=== PATIENT | female | born 1965 | race Caucasian/White ===

== ENCOUNTER → 2018-02-14 06:52 | Outpatient (CLI) | payer BC, SELFPAY ==
--- NOTE | 2018-02-14 07:02 | CT_ITS ---
HISTORY: Left nasal polyp. No nasal drainage and no previous sinus surgeries. Pt has dental caps in place. No hx cancer, diabetes, HTN. Not TECHNIQUE: Helically acquired images were obtained of the paranasal sinuses. A radiation dose optimization technique was used for this scan. IV Contrast dosage and agent: None. COMPARISON: None FINDINGS: The paranasal sinuses are normally developed. Extensive opacification of the ethmoid air cells bilaterally together with inflammatory occlusion of the ostium mall units bilaterally. Left maxillary sinus multifocal mucosal thickening. The frontal and sphenoid sinuses show no significant disease. The nasal septum shows no significant deformity. Asymmetrical soft tissue within the left nasal cavity compatible with polyposis. The posterior left nasal cavity shows 2 oval shaped polypoid lesions which measure approximately 2.4 cm and 2.5 cm in length, respectively. No associated bony erosion or bone destruction. The nasal septum remains intact. The mastoids and middle ear cavities appear clear. No orbital disease identified. CT/Sinus/Facial Bone IMPRESSION: 1. Benign-appearing polypoid lesions within the left nasal cavity compatible with allergic polyposis. 2. Extensive bilateral ethmoid sinusitis with occlusion of the ostiomeatal units bilaterally. 3. Left maxillary sinusitis. 4. No associated orbital disease identified. Individualized dose optimization techniques were used for this CT. at 0244 Reported and signed by: Naveed Shah MD Electronically Signed: Naveed Shah, at 2:42 EDT Tel , Service support ,
== END ==
PROVIDERS: Family Provider Internal Medicine; PCP Internal Medicine; Referring Provider Otolaryngology; Visit Provider Otolaryngology
DX: J33.9 Nasal polyp, unspecified (principal)
CPT/HCPCS: 70486

== ENCOUNTER → 2018-03-05 10:37 | Outpatient (CLI) | payer BC, SELFPAY ==
[2018-03-05 11:19] LABS: Hematocrit 38.9 % (37-47); Hemoglobin 12.5 g/dl (12.0-15.0); Mean Corp Hgb Conc 32.1 g/gl (32-36); Mean Corpuscular Hgb 28.9 pg (27.0-32.0); Mean Platelet Vol. 11.4 fl (6.2-12.0); Platelet Count 214 K/mm3 (150-450); RBC Distribution Width SD 42.2 fl (35.1-43.9); Red Blood Count 4.32 M/mm3 (4.2-5.4); White Blood Count 5.7 K/mm3 (4.4-11.0)
[2018-03-05 11:30] LABS: Scan Indicated on CBC? Y/N NO
[2018-03-05 11:43] LABS: Anion Gap 7 (5-15); BUN 11 mg/dL (7-18); BUN/Creat Ratio 12.9 RATIO (10-20); Calcium,Total 8.3 mg/dL (8.5-10.1); Chloride 106 mmol/L (98-107); Creatinine, Serum 0.85 mg/dL (0.55-1.02); EST Glomerular Filtration Rate 74 mL/min (>60); Est Glom Filt Rate - Afr Amer 90 mL/min (>60); Glucose 81 mg/dL (74-106); Potassium 4.3 mmol/L (3.5-5.1); Sodium Level 140 mmol/L (136-145)
== END ==
PROVIDERS: Family Provider Internal Medicine; PCP Internal Medicine; Referring Provider Otolaryngology; Visit Provider Otolaryngology
DX: Z01.812 Encounter for preprocedural laboratory examination (principal)
CPT/HCPCS: 36415; 80048; 85027

== ENCOUNTER → 2018-03-10 16:53 | Outpatient (CLI) | payer BC, SELFPAY ==
--- NOTE | 2018-03-10 10:00 | ETH_PTH ---
PATIENT: WHIT PETERSEN LOC: [facility] U#:[id number] AGE/SX: 60/F ROOM: RE03/10/[address]: Dr. Dyllan Petersen MD : 1965 BED: DIS: SPEC #: [id number] RECD: 03/10/18 16:10 STATUS: CHINMAY LUIS ANTONIO #: [id number] JOCE: 03/10/18 10:[address]: Dyllan Petersen DEPT: SURGICAL PATHOLOGY RECD BY: Thom Schwarz ENTERED: 03/11/18 10:07 SP TYPE: ETH TISS OTHR DR: Dr. Bibiana Mulligan DO Tissues: A - Ethmoid sinus, NOS B - Ethmoid sinus, NOS Procedures: Decalcification bone/plaque Surgery Specimen Level III HEADER OPERATION: Bilateral maxillary antrostomy and ethmoidectomy PRE-OP DIAGNOSIS: Polyp nasal cavity/chronic sinusitis TISSUE SUBMITTED: A. Left side sinus contents, B. Right side sinus contents MICROSCOPIC DIAGNOSIS A. Left sinus contents, excision: Consistent with chronic sinusitis. Fragments of bone with no significant pathologic change. B. Right sinus contents, excision: Consistent with chronic sinusitis. Fragments of bone with no significant pathologic change. AM:justyn 03/18/18 MICROSCOPIC DESCRIPTION Slides are reviewed. GROSS DESCRIPTION A - Received in fixative is one container labeled with the patient's name and designated left side sinus contents. The specimen consists of multiple irregular fragments of ferguson soft tissue mixed with fragments of bone that in aggregate measure 3 x 2.5 x 0.2 cm. The entire specimen is submitted in one cassette after decalcification. B - Received in fixative is one container labeled with the patient's name and designated right side sinus contents. The specimen consists of multiple irregular fragments of ferguson soft tissue mixed with fragments of bone that in aggregate measure 2.5 x 1 x 0.2 cm. The entire specimen is submitted in one cassette after decalcification. / SJ:justyn 03/11/18 TC:3 CPT: 69116 x2, 87977 x2
--- OUTSIDE RECORDS SUMMARY | 2018-04-22 16:13 | XMS RPT_ITS | Continuity of Care Document ---
:1965 Author Organization [facility] Address [address] [facility] [address] [place] [address] Phone Care Team Providers Name Role Phone Bibiana Mulligan DO Unavailable Abhilash Donovan Unavailable Eneida Guerrero Unavailable Dano Fonseca Unavailable RUKHSANA Hinton Unavailable Unavailable Thea Brody Unavailable Unavailable Unavailable Unavailable Problems Name Dates Details Allergic rhinitis (J30.9, 477.9) Comments: improving Status: Active Amenorrhea (N91.2, 626.0) Status: Active Anxiety (F41.9, 300.00) Comments: ok to take zanax with anxiety feeling Status: Active Anxiety and depression (F41.9, 300.00) Comments: stablemore anxiety with OCD per psychiatry. Status: Active BMI 39.0-39.9,adult (Z68.39, V85.39) Status: Active Body mass index 40.0-44.9, adult (Z68.41, V85.41) Status: Active Depression, acute (F32.9, 296.20) Status: Active Encounter for gynecological examination with abnormal finding (Z01.411, V72.31) Status: Active Encounter for screening for malignant neoplasm of colon (Renamed from Special screening for malignant neoplasms, colon) (Z12.11, V76.51) Comments: scope march 2015 Status: Active Encounter for screening mammogram for malignant neoplasm of breast (Z12.31, V76.12) Status: Active FAMILY HISTORY OF DIABETES MELLITUS (Z83.3, V18.0) Status: Active Folliculitis (L73.9, 704.8) Status: Active GERD (gastroesophageal reflux disease) (K21.9, 530.81) Status: Active Cinthya's thyroiditis (E06.3, 245.2) Status: Active Hot flashes (R23.2, 782.62) Comments: hormone labs normal Status: Active Influenza vaccination declined (Renamed from Refused influenza vaccine) (Z28.21, V64.06) Status: Active Lymphadenitis (I88.9, 289.3) Status: Active Mitral valve prolapse (I34.1, 424.0) Comments: clinically stable Status: Active Need for prophylactic vaccination and inoculation against influenza (Renamed from Need for immunization against influenza) (Z23, V04.81) Status: Active Nonsmoker (Z78.9, V49.89) Status: Active Nonsmoker (Z78.9, V49.89) Status: Active Other cardiac sounds (R01.2, 785.3) Status: Active Other premature beats (I49.49, 427.69) Status: Active Ptosis, bilateral (H02.403, 374.30) Status: Active Raynaud's syndrome (I73.00, 443.0) Status: Active Screening for HPV (human papillomavirus) (Renamed from Encounter for screening for human papillomavirus (HPV)) (Z11.51, V73.81) Status: Active Screening for hyperlipidemia (Z13.220, V77.91) Status: Active Stress reaction (F43.0, 308.9) Status: Active Medications Name Dates Details Fluticasone Propionate 50 MCG/ACT Nasal Suspension 2 (two) Suspension prn for 0 days Quantity: 1 {Bottle} Refills: 0 Ordered:10-Aug-2016 Marga Wade CNP Start : 10-Aug-2016 Active Lexapro 20 MG Oral Tablet 1 (one) Tablet qhs for 90 days Quantity: 90 {Tablet} Refills: 0 Ordered:17-Dec-2017 Joo Mulligan DO, DO, Kathleen Start : 17-Dec-2017 Active Lexapro 20 MG Oral Tablet 1 (one) Tablet qhs for 90 days Quantity: 90 {Tablet} Refills: 3 Ordered:17-Dec-2017 Ese ZAMBRANOJoo Bibiana Start : 17-Dec-2017 Active Synthroid 50 MCG Oral Tablet uad Tablet one every other day for 90 days Quantity: 45 {Tablet} Refills: 3 Ordered:07-Aug-2017 Marga Wade CNP Start : 07-Aug-2017 Active Dispense as Written Comments:takes 75mcg qod with 50mcgdaw Synthroid 75 MCG Oral Tablet 1 Tablet TAD for 90 days Quantity: 45 {Tablet} Refills: 3 Ordered:07-Aug-2017 Marga Wade CNP Start : 07-Aug-2017 Active Dispense as Written Comments:NO generic Dispense as written Wellbutrin XL 150 MG Oral Tablet Extended Release 24 Hour 1 (one) Tablet qd for 0 days Quantity: 90 {Tablet} Refills: 1 Ordered:21-Oct-2017 Ese ZAMBRANOJoo DO Bibiana Start : 21-Oct-2017 Active XANAX, 0.25MG (Oral Tablet) 1 (one) Tablet Daily prn for 0 days Quantity: 30 {Tablet} Refills: 0 Ordered:27-May-2013 Ese ZAMBRANOJoo Bibiana Start : 27-May-2013 Active Comments:thirty, ACYCLOVIR, 800MG (Oral Tablet) 1 Tablet 5 x daily for 7 days Quantity: 35 {Tablet} Refills: 0 Ordered:06-Nov-2010 Marga Wade CNP Start : 06-Nov-2010 End : 13-Nov-2010 Inactive Augmentin 875-125 MG Oral Tablet 1 (one) Tablet bid for 0 days Quantity: 14 {Tablet} Refills: 0 Ordered:29-Nov-2016 Laxmi Hinton LPN Start : 15-Aug-2016 End : 29-Nov-2016 Inactive BACTRIM DS, 800-160MG (Oral Tablet) 1 Tablet bid for 7 days Quantity: 14 {Tablet} Refills: 0 Ordered:26-Nov-2011 Marga Wade CNP Start : 26-Nov-2011 End : 03-Dec-2011 Inactive BRINTELLIX, 10MG (Oral Tablet) 1 (one) Tablet qd for 0 days Quantity: 30 {Tablet} Refills: 3 Ordered:18-Feb-2015 Patria Hernandez Start : 27-Aug-2014 End : 18-Feb-2015 Inactive BUSPIRONE HCL, 5MG (Oral Tablet) 1 (one) Tablet 1/2 at night for 4 days then 1/2 bid for 4 days then 1/2 in am and 1 pm for 4 days then bid for 30 days Refills: 2 Ordered:18-Feb-2015 Patria Hernandez Start : 31-Dec-2014 End : 18-Feb-2015 Inactive CIPRO, 500MG (Oral Tablet) 1 Tablet bid for 0 days Quantity: 20 {Tablet} Refills: 0 Ordered:17-Aug-2010 Laxmi Hinton LPN Start : 14-Jul-2010 End : 17-Aug-2010 Inactive ETODOLAC CR, 400MG (Oral Tablet Extended Release 24 Hour) 2 (two) Tablet ER 24HR qd for 0 days Quantity: 30 {Tablet_ER_24HR} Refills: 0 Ordered:23-Sep-2009 TAMRA Vazquez Start : 26-Aug-2009 Inactive FLEXERIL, 10MG (Oral Tablet) 1 (one) Tablet bid prn for 0 days Quantity: 30 {Tablet} Refills: 0 Ordered:23-Sep-2009 TAMRA Vazquez Start : 26-Aug-2009 Inactive GUAIATUSSIN AC, 100-10MG/5ML (Oral Syrup) 1 Syrup QHS / HS for 0 days Quantity: 6 {Ounce(s)} Refills: 0 Ordered:29-May-2007 Camelia Tyson MD Start : 29-May-2007 End : 04-Jun-2007 Inactive LEXAPRO, 20MG (Oral Tablet) 1 Tablet qd for 0 days Quantity: 30 {Tablet} Refills: 6 Ordered:07-Jun-2008 Laxmi Hinton LPN Start : 05-Nov-2007 End : 07-Jun-2008 Inactive LEXAPRO, 20MG (Oral Tablet) 1 Tablet daily for 0 days Quantity: 90 {Tablet} Refills: 3 Ordered:05-Nov-2007 Camelia Tyson MD Start : 05-Nov-2007 End : 28-May-2008 Inactive PENICILLIN V POTASSIUM, 250MG (Oral Tablet) 1 (one) Tablet tid for 10 days Quantity: 30 {Tablet} Refills: 0 Ordered:05-Nov-2007 Camelia Tyson MD Start : 05-Nov-2007 End : 13-May-2008 Inactive PHENERGAN, 25MG (Rectal Suppository) 1 (one) Suppository Q 8 hr prn for 0 days Quantity: 20 {Suppository} Refills: 0 Ordered:17-Jun-2008 Laxmi Hinton LPN Start : 17-Jun-2008 End : 09-Mar-2009 Inactive PROZAC, 20MG (Oral Capsule) 1 (one) Capsule qd for 0 days Quantity: 30 {Capsule} Refills: 3 Ordered:31-Dec-2014 TAMRA Vazquez Start : 31-Dec-2014 End : 31-Dec-2014 Inactive Comments:fidgeting, chest tightness, some increase in anxiety, chest tightness TESSALON, 200MG (Oral Capsule) 1 (one) Capsule TID for 0 days Quantity: 30 {Capsule} Refills: 0 Ordered:29-May-2007 Camelia Tyson MD Start : 29-May-2007 End : 04-Jun-2007 Inactive VENTOLIN HFA, 108 (90 Base)MCG/ACT (Inhalation Aerosol Solution) 2 (two) Aerosol Soln q 6 hr prn for 0 days Quantity: 1 {Box} Refills: 1 Ordered:31-Dec-2014 TAMRA Vazquez Start : 09-Mar-2014 End : 31-Dec-2014 Inactive ZOLOFT, 25MG (Oral Tablet) 1 (one) Tablet qd for 30 days Quantity: 30 {Tablet} Refills: 0 Ordered:01-Apr-2015 Camelia Tyson MD Start : 18-Feb-2015 End : 20-Mar-2015 Inactive Comments:titering RUPALI, 180MG (Oral Tablet) 1 Tablet qd prn for 0 days Quantity: 30 {Tablet} Refills: 2 Ordered:28-Aug-2010 Laxmi Hinton LPN Start : 28-Aug-2010 End : 04-Jun-2014 Discontinued Comments:This order discontinued per [facility]. BIAXIN XL, 500MG (Oral Tablet Extended Release 24 Hour) 1 bID for 0 days Refills: 0 Ordered:28-May-2008 Camelia Tyson MD End : 05-Nov-2007 Discontinued LEVAQUIN, 500MG (Oral Tablet) 1 Tablet Daily for 0 days Quantity: 10 {Tablet} Refills: 0 Ordered:04-Jun-2007 Camelia Tyson MD Start : 04-Jun-2007 End : 05-Nov-2007 Discontinued Allergies and Adverse Reactions Name Dates Details No Known Drug Allergies (Allergy) Status: Active Past Medical History Name Dates Details Abdominal pain, acute, right lower quadrant (R10.31, 789.03) Status: Resolved as of 26-Aug-2008 Abnormal TSH (R79.89, 790.6) Status: Resolved as of 31-Jan-2012 Breast cancer screening (Z12.39, V76.10) Status: Inactive as of 31-Dec-2014 Bronchitis (J40, 490) Comments: cONSIDER ALLERGY TESTING IF NOT BETTER Status: Resolved as of 26-Aug-2008 Chest pain (R07.9, 786.59) Status: Resolved as of 27-Jun-2009 Chest pressure (R07.89, 786.59) Status: Resolved as of 29-Jul-2017 Cough (R05, 786.2) Status: Resolved as of 26-Aug-2008 Cystitis, acute (N30.00, 595.0) 14-Jul-2010 Status: Inactive as of 09-Apr-2012 Dysuria (R30.0, 788.1) Status: Inactive as of 09-Apr-2012 Encounter for screening for human papillomavirus (hpv) (V73.81) Comments: dx code v73.81code by lab 85843 Status: Inactive as of 31-Dec-2014 Encounter for screening for respiratory tuberculosis (Z11.1, V74.1) Status: Inactive as of 09-Apr-2012 ETD (eustachian tube dysfunction) (H69.80, 381.81) Status: Inactive as of 31-Dec-2014 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 no mengingitis signs and symptoms. check labs iv fliuds. Status: Inactive as of 09-Apr-2012 Gastroenteritis (K52.9, 558.9) Status: Resolved as of 27-Jun-2009 Grieving (F43.21, 309.0) Status: Resolved as of 29-Jul-2017 Hematuria, unspecified (R31.9, 599.70) Status: Inactive as of 31-Dec-2014 Hemorrhoids (K64.9, 455.6) Comments: Internal Status: Inactive as of 27-Jun-2009 Hypothyroidism (E03.9, 244.9) Status: Inactive as of 05-Mar-2016 Nausea and vomiting (R11.2, 787.01) Status: Resolved as of 26-Aug-2008 Need for prophylactic vaccination and inoculation against influenza (Z23, V04.81) Status: Inactive as of 24-Mar-2013 Neoplasm of uncertain behavior of skin (D48.5, 238.2) Comments: treating as if shingles Status: Inactive as of 09-Apr-2012 Other general medical examination for administrative purposes (Z02.89, V70.3) Status: Inactive as of 09-Apr-2012 Palpitations (R00.2, 785.1) 18-Jan-2010 Comments: ? stress realted improved with xanax Status: Resolved as of 29-Jul-2017 Pharyngitis, acute (J02.9, 462) Status: Resolved as of 26-Aug-2008 Screening for hyperlipidemia (Z13.220, V77.91) Status: Inactive as of 31-Dec-2014 Skin tag (L91.8, 701.9) Comments: in groin snipped and removed-- cleansed with beta dine snipped and tolerated well sx/sx rev for infection and wound care and risk of recurrence-- pt signed consent Status: Resolved as of 26-Aug-2008 SOB (shortness of breath) on exertion (R06.02, 786.05) 17-Aug-2010 Comments: rev labs - tsh normal no anemia-- does have risk for clot but h/o more suspicios for anxiety Status: Inactive as of 31-Dec-2014 SYMPTOMS INVOLVING DIGESTIVE SYSTEM; DIARRHEA (787.91) Status: Resolved as of 26-Aug-2008 Thyromegaly (E04.9, 240.9) Status: Inactive as of 07-Dec-2011 Unspecified Diagnosis Status: Inactive as of 09-Apr-2012 Upper arm pain (M79.629, 729.5) 26-Aug-2009 Status: Inactive as of 09-Apr-2012 Urinary frequency (R35.0, 788.41) Status: Inactive as of 31-Dec-2014 VASOVAGAL SYNCOPE (780.2) Status: Inactive as of 30-Sep-2008 Well woman exam (Z01.419, V72.31) Status: Inactive as of 31-Dec-2014 Wheezing (R06.2, 786.07) Status: Resolved as of 26-Aug-2008 Procedures Date Value Details 14-Feb-2018 Sinus/Facial Bone Result: Comments: See Note; NOTES: [facility] Imaging Services [address] [place] [address] Sinus/Facial Bone MR#: [id number] Acct: [id number] Name: WHIT PETERSEN Rep #: [id number] : 1965 F 53 From: Naveed Shah MD PCP: Bibiana Mulligan DO Status: REG CLI Study: Sinus/Facial Bone Date of Exam: 02/14/18 Exam# [id number] Ordering Dr: Dyllan Petersen MD HISTORY: Left nasal p olyp. No nasal drainage and no previous sinus surgeries. Pt has dental caps in place. No hx cancer, diabetes, HTN. Not TECHNIQUE: Helically acquired images were obtained of the paranasal sinus es. A radiation dose optimization technique was used for this scan. IV Contrast dosage and agent: None. COMPARISON: None FINDINGS: The paranasal sinuses are normally developed. Extensive opacification of the ethmoid air cells bilaterally together with inflammatory occlusion of the ostium mall units bilaterally. Left maxillary sinus multifocal mucosal thickening. The frontal and sphenoid sinuses antonella w no significant disease. The nasal septum shows no significant deformity. Asymmetrical soft tissue within the left nasal cavity compatible with polyposis. The posterior left nasal cavity shows 2 oval shaped polypoid lesions which measure approximately 2.4 cm and 2.5 cm in length, respectively. No associated bony erosion or bone destruction. The nasal septum remains intact. The mastoids and middle ear cavities appear clear. No orbital disease identified. CT/Sinus/Facial Bone IMPRESSION: 1. Benign-appearing polypoid lesions within the left nasal cavity compatible with allergi c polyposis. 2. Extensive bilateral ethmoid sinusitis with occlusion of the ostiomeatal units bilaterally. 3. Left maxillary sinusitis. 4. No associated orbital disease identified. Individualized dose o ptimization techniques were used for this CT. at 0244 Reported and signed by: Naveed Shah MD Electronically Signed: Naveed Shah, at 2:42 EDT Tel , Service support , CC: Bibiana Mulligan DO; Dyllan Petersen MD Form Presser: Signed 03-Jun-2013 Chest PA and Lateral Result: Comments: See Note; NOTES: [facility] Imaging Services [address] [place] [address] Radiology Report MR#: [id number] Acct: [id number] Name: WHIT PETERSEN Rep #: [id number] : 1965 F 48 From: Eliezer Hung MD PCP: Bibiana Mulligan DO Status: REG CLI Study: Chest PA and Lateral Date of Exam: 06/03/13 Exam# [id number] Ordering Dr: Bibiana MulliganDY: X-RAY CHEST REASON FOR EXAM: Female, 48 years old. Shortness of breath TECHNIQUE: PA and lateral views of the chest. COMPARISON: March 06, 2011 FIND INGS: The lungs are clear and expanded. There is no demonstrated pleural abnormality. Normal size heart. Normal mediastinum and yamil. Normal visualized pulmonary arteries. Normal visualized aortic arch and descending thoracic aorta. Normal visualized thoracic spine. Normal visualized ribs, clavicles, and shoulders. There is no demonstrated abnormality of the visualized soft tissue structu res of the upper abdomen. IMPRESSION: Normal x-ray examination of the chest. Electronically Signed: Eliezer Hung M.D. at 9:12 EST Tel , Service support [phone], CC: Bibiana Mulligan DO Form Presser: Signed Immunization Name Dates Details Tdap (7 years and up) on: 06-Apr-2009 Comments: Lot #[id number]-left deltoidgiven by:[facility] Family History Unknown Family Member Name Dates Details Family Members In General Comments: Bowel Cancer, emotional problems, seizures, stroke Status: Active Social History Name Dates Details Alcohol Use Comments: Occasional alcohol use Status: Active Caffeine Use Comments: 1 coffee, 1 cola QD Status: Active No Drug Use Status: Active Non Smoker/No Tobacco Use Status: Active Tobacco use: Never smoker. Status: Active Smoking Status Name Dates Details Never smoker Vital Signs Date Test Result Details 30-Bps-195574:14 Pulse 80 /min Comments: Pattern: Regular Respiration Rate 20 /min Comments: Pattern: Unlabored O2 SAT 97 % Comments: Room air BP Systolic 124 mm[Hg] Comments: Patient Position: Sitting; Cuff Location: Left Arm; Cuff Size: Large BP Diastolic 78 mm[Hg] Comments: Patient Position: Sitting; Cuff Location: Left Arm; Cuff Size: Large Weight 235.25 lb Height 65 in Body Mass Index Calculated 39.15 kg/m2 Body Surface Area Calculated 2.12 m2 :54 Pulse 64 /min Comments: Pattern: Regular Respiration Rate 18 /min Comments: Pattern: Unlabored O2 SAT 98 % Comments: Room air BP Systolic 120 mm[Hg] Comments: Patient Position: Sitting; Cuff Location: Left Arm; Cuff Size: Large BP Diastolic 78 mm[Hg] Comments: Patient Position: Sitting; Cuff Location: Left Arm; Cuff Size: Large Weight 235.25 lb Height 65 in Body Mass Index Calculated 39.15 kg/m2 Body Surface Area Calculated 2.12 m2 :45 Temperature 97.1 f Comments: Method: Temporal Pulse 69 /min Comments: Pattern: Regular Respiration Rate 18 /min Comments: Pattern: Unlabored O2 SAT 99 % Comments: Room air BP Systolic 134 mm[Hg] Comments: Patient Position: Sitting; Cuff Location: Left Arm; Cuff Size: Large BP Diastolic 84 mm[Hg] Comments: Patient Position: Sitting; Cuff Location: Left Arm; Cuff Size: Large Weight 236.375 lb Height 65 in Body Mass Index Calculated 39.33 kg/m2 Body Surface Area Calculated 2.12 m2 :42 Pulse 62 /min Comments: Pattern: Regular Respiration Rate 18 /min Comments: Pattern: Unlabored O2 SAT 97 % Comments: Room air BP Systolic 122 mm[Hg] Comments: Patient Position: Sitting; Cuff Location: Left Arm; Cuff Size: Large BP Diastolic 76 mm[Hg] Comments: Patient Position: Sitting; Cuff Location: Left Arm; Cuff Size: Large Weight 243.125 lb Height 65 in Body Mass Index Calculated 40.46 kg/m2 Body Surface Area Calculated 2.15 m2 :41 Temperature 97.6 f Pulse 77 /min Comments: Pattern: Regular Respiration Rate 17 /min Comments: Pattern: Unlabored O2 SAT 98 % Comments: Room air BP Systolic 124 mm[Hg] Comments: Patient Position: Sitting; Cuff Location: Left Arm; Cuff Size: Standard BP Diastolic 82 mm[Hg] Comments: Patient Position: Sitting; Cuff Location: Left Arm; Cuff Size: Standard Weight 244 lb Height 65 in Body Mass Index Calculated 40.6 kg/m2 Body Surface Area Calculated 2.15 m2 :45 Temperature 98 f Pulse 77 /min Comments: Pattern: Regular Respiration Rate 17 /min Comments: Pattern: Unlabored O2 SAT 98 % Comments: Room air BP Systolic 132 mm[Hg] Comments: Patient Position: Sitting; Cuff Location: Left Arm; Cuff Size: Standard BP Diastolic 60 mm[Hg] Comments: Patient Position: Sitting; Cuff Location: Left Arm; Cuff Size: Standard Weight 243.5 lb Height 65 in Body Mass Index Calculated 40.52 kg/m2 Body Surface Area Calculated 2.15 m2 :16 Pulse 72 /min Comments: Pattern: Regular O2 SAT 98 % Comments: Room air BP Systolic 118 mm[Hg] Comments: Patient Position: Sitting; Cuff Location: Left Arm; Cuff Size: Large BP Diastolic 68 mm[Hg] Comments: Patient Position: Sitting; Cuff Location: Left Arm; Cuff Size: Large Weight 241.125 lb Height 65 in Body Mass Index Calculated 40.12 kg/m2 Body Surface Area Calculated 2.14 m2 :14 Pulse 75 /min Comments: Pattern: Regular O2 SAT 98 % Comments: Room air BP Systolic 122 mm[Hg] Comments: Patient Position: Sitting; Cuff Location: Left Arm; Cuff Size: Large BP Diastolic 78 mm[Hg] Comments: Patient Position: Sitting; Cuff Location: Left Arm; Cuff Size: Large Weight 235.125 lb Height 65 in Body Mass Index Calculated 39.13 kg/m2 Body Surface Area Calculated 2.12 m2 :15 Temperature 98.4 f Comments: Method: Oral Pulse 66 /min Comments: Pattern: Regular Respiration Rate 18 /min Comments: Pattern: Unlabored O2 SAT 98 % Comments: Room air BP Systolic 122 mm[Hg] Comments: Patient Position: Sitting; Cuff Location: Left Arm; Cuff Size: Standard BP Diastolic 74 mm[Hg] Comments: Patient Position: Sitting; Cuff Location: Left Arm; Cuff Size: Standard Weight 239 lb Height 65 in Body Mass Index Calculated 39.77 kg/m2 Body Surface Area Calculated 2.13 m2 :52 Temperature 97.6 f Comments: Method: Temporal Pulse 64 /min Comments: Pattern: Regular Respiration Rate 18 /min Comments: Pattern: Unlabored O2 SAT 98 % Comments: Room air BP Systolic 120 mm[Hg] Comments: Patient Position: Sitting; Cuff Location: Left Arm; Cuff Size: Large BP Diastolic 78 mm[Hg] Comments: Patient Position: Sitting; Cuff Location: Left Arm; Cuff Size: Large Weight 232 lb Height 65 in Body Mass Index Calculated 38.61 kg/m2 Body Surface Area Calculated 2.11 m2 :51 Pulse 68 /min Comments: Pattern: Regular Respiration Rate 18 /min Comments: Pattern: Unlabored O2 SAT 99 % Comments: Room air BP Systolic 118 mm[Hg] Comments: Patient Position: Sitting; Cuff Location: Left Arm; Cuff Size: Large BP Diastolic 68 mm[Hg] Comments: Patient Position: Sitting; Cuff Location: Left Arm; Cuff Size: Large Weight 238.125 lb Height 65 in Body Mass Index Calculated 39.63 kg/m2 Body Surface Area Calculated 2.13 m2 :26 Pulse 66 /min Comments: Pattern: Regular Respiration Rate 20 /min Comments: Pattern: Unlabored O2 SAT 98 % Comments: Room air BP Systolic 120 mm[Hg] Comments: Patient Position: Sitting; Cuff Location: Left Arm; Cuff Size: Large BP Diastolic 70 mm[Hg] Comments: Patient Position: Sitting; Cuff Location: Left Arm; Cuff Size: Large Weight 240.4375 lb Height 65 in Body Mass Index Calculated 40.01 kg/m2 Body Surface Area Calculated 2.14 m2 :16 Pulse 74 /min Comments: Pattern: Regular Respiration Rate 18 /min Comments: Pattern: Unlabored O2 SAT 99 % Comments: Room air BP Systolic 124 mm[Hg] Comments: Patient Position: Sitting; Cuff Location: Left Arm; Cuff Size: Large BP Diastolic 82 mm[Hg] Comments: Patient Position: Sitting; Cuff Location: Left Arm; Cuff Size: Large Weight 234.4375 lb Height 65 in Body Mass Index Calculated 39.01 kg/m2 Body Surface Area Calculated 2.12 m2 :52 Temperature 97.2 f Comments: Method: Temporal Pulse 73 /min Comments: Pattern: Regular Respiration Rate 16 /min Comments: Pattern: Unlabored O2 SAT 92 % Comments: Room air BP Systolic 124 mm[Hg] Comments: Patient Position: Sitting; Cuff Location: Left Arm; Cuff Size: Standard BP Diastolic 68 mm[Hg] Comments: Patient Position: Sitting; Cuff Location: Left Arm; Cuff Size: Standard Weight 247 lb Height 65 in Body Mass Index Calculated 41.1 kg/m2 Body Surface Area Calculated 2.16 m2 :04 Pulse 64 /min Comments: Pattern: Regular Respiration Rate 20 /min Comments: Pattern: Unlabored O2 SAT 98 % Comments: Room air BP Systolic 128 mm[Hg] Comments: Patient Position: Sitting; Cuff Location: Left Arm; Cuff Size: Large BP Diastolic 84 mm[Hg] Comments: Patient Position: Sitting; Cuff Location: Left Arm; Cuff Size: Large Weight 251 lb Height 65 in Body Mass Index Calculated 41.77 kg/m2 Body Surface Area Calculated 2.18 m2 :45 Comments: weight taken with shoes and coat Temperature 97.6 f Comments: Method: Temporal Pulse 101 /min Comments: Pattern: Regular Respiration Rate 16 /min Comments: Pattern: Unlabored O2 SAT 93 % Comments: Room air BP Systolic 128 mm[Hg] Comments: Patient Position: Sitting; Cuff Location: Left Arm; Cuff Size: Standard BP Diastolic 74 mm[Hg] Comments: Patient Position: Sitting; Cuff Location: Left Arm; Cuff Size: Standard Weight 251 lb Height 65 in Body Mass Index Calculated 41.77 kg/m2 Body Surface Area Calculated 2.18 m2 :05 Temperature 97.5 f Comments: Method: Oral Pulse 80 /min Comments: Pattern: Regular Respiration Rate 20 /min Comments: Pattern: Unlabored BP Systolic 128 mm[Hg] Comments: Patient Position: Sitting; Cuff Location: Left Arm; Cuff Size: Large BP Diastolic 70 mm[Hg] Comments: Patient Position: Sitting; Cuff Location: Left Arm; Cuff Size: Large Weight 243 lb Height 65 in Body Mass Index Calculated 40.44 kg/m2 Body Surface Area Calculated 2.15 m2 :16 Temperature 97.9 f Comments: Method: Oral Pulse 64 /min Comments: Pattern: Regular Respiration Rate 18 /min Comments: Pattern: Unlabored BP Systolic 124 mm[Hg] Comments: Patient Position: Sitting; Cuff Location: Left Arm; Cuff Size: Large BP Diastolic 82 mm[Hg] Comments: Patient Position: Sitting; Cuff Location: Left Arm; Cuff Size: Large Weight 240.4375 lb Height 65 in Body Mass Index Calculated 40.01 kg/m2 Body Surface Area Calculated 2.14 m2 :52 Temperature 98.4 f Comments: Method: Oral Pulse 78 /min Comments: Pattern: Regular Respiration Rate 18 /min Comments: Pattern: Unlabored BP Systolic 122 mm[Hg] Comments: Patient Position: Sitting; Cuff Location: Left Arm; Cuff Size: Standard BP Diastolic 78 mm[Hg] Comments: Patient Position: Sitting; Cuff Location: Left Arm; Cuff Size: Standard Weight 236.25 lb Height 65 in Body Mass Index Calculated 39.31 kg/m2 Body Surface Area Calculated 2.12 m2 :14 Temperature 98.6 f Comments: Method: Oral Pulse 86 /min Comments: Pattern: Regular Respiration Rate 18 /min Comments: Pattern: Unlabored BP Systolic 122 mm[Hg] Comments: Patient Position: Sitting; Cuff Location: Left Arm; Cuff Size: Standard BP Diastolic 78 mm[Hg] Comments: Patient Position: Sitting; Cuff Location: Left Arm; Cuff Size: Standard Weight 236.25 lb Height 65 in Body Mass Index Calculated 39.31 kg/m2 Body Surface Area Calculated 2.12 m2 :47 Temperature 98.8 f Comments: Method: Oral Pulse 94 /min Comments: Pattern: Regular Respiration Rate 18 /min Comments: Pattern: Unlabored BP Systolic 128 mm[Hg] Comments: Patient Position: Sitting; Cuff Location: Left Arm; Cuff Size: Standard BP Diastolic 80 mm[Hg] Comments: Patient Position: Sitting; Cuff Location: Left Arm; Cuff Size: Standard Weight 236.25 lb Height 65 in Body Mass Index Calculated 39.31 kg/m2 Body Surface Area Calculated 2.12 m2 :54 Temperature 102.2 f Comments: Method: Oral Pulse 110 /min Comments: Pattern: Regular Respiration Rate 18 /min Comments: Pattern: Unlabored O2 SAT 95 % Comments: Room air BP Systolic 132 mm[Hg] Comments: Patient Position: Sitting; Cuff Location: Left Arm; Cuff Size: Standard BP Diastolic 80 mm[Hg] Comments: Patient Position: Sitting; Cuff Location: Left Arm; Cuff Size: Standard Weight 237.375 lb Height 65.5 in Body Mass Index Calculated 38.9 kg/m2 Body Surface Area Calculated 2.14 m2 :50 Temperature 98.5 f Comments: Method: Oral Pulse 68 /min Comments: Pattern: Regular Respiration Rate 18 /min Comments: Pattern: Unlabored BP Systolic 128 mm[Hg] Comments: Patient Position: Sitting; Cuff Location: Left Arm; Cuff Size: Standard BP Diastolic 82 mm[Hg] Comments: Patient Position: Sitting; Cuff Location: Left Arm; Cuff Size: Standard Weight 237.375 lb Height 65.5 in Body Mass Index Calculated 38.9 kg/m2 Body Surface Area Calculated 2.14 m2 :59 Pulse 64 /min Comments: Pattern: Regular Respiration Rate 20 /min Comments: Pattern: Unlabored BP Systolic 124 mm[Hg] Comments: Patient Position: Sitting; Cuff Location: Left Arm; Cuff Size: Large BP Diastolic 82 mm[Hg] Comments: Patient Position: Sitting; Cuff Location: Left Arm; Cuff Size: Large Weight 237.375 lb Height 65.5 in Body Mass Index Calculated 38.9 kg/m2 Body Surface Area Calculated 2.14 m2 :00 Pulse 68 /min Comments: Pattern: Regular Respiration Rate 20 /min Comments: Pattern: Unlabored BP Systolic 124 mm[Hg] Comments: Patient Position: Sitting; Cuff Location: Left Arm; Cuff Size: Large BP Diastolic 82 mm[Hg] Comments: Patient Position: Sitting; Cuff Location: Left Arm; Cuff Size: Large Weight 233.375 lb Height 65.5 in Body Mass Index Calculated 38.24 kg/m2 Body Surface Area Calculated 2.12 m2 :03 Pulse 64 /min Comments: Pattern: Regular Respiration Rate 20 /min Comments: Pattern: Unlabored BP Systolic 132 mm[Hg] Comments: Patient Position: Sitting; Cuff Location: Left Arm; Cuff Size: Large BP Diastolic 84 mm[Hg] Comments: Patient Position: Sitting; Cuff Location: Left Arm; Cuff Size: Large Weight 238.375 lb Height 65.5 in Body Mass Index Calculated 39.06 kg/m2 Body Surface Area Calculated 2.14 m2 :50 Pulse 80 /min Comments: Pattern: Regular Respiration Rate 20 /min Comments: Pattern: Unlabored BP Systolic 122 mm[Hg] Comments: Patient Position: Sitting; Cuff Location: Left Arm; Cuff Size: Large BP Diastolic 62 mm[Hg] Comments: Patient Position: Sitting; Cuff Location: Left Arm; Cuff Size: Large Weight 238.375 lb Height 65.5 in Body Mass Index Calculated 39.06 kg/m2 Body Surface Area Calculated 2.14 m2 :02 Pulse 76 /min Comments: Pattern: Regular Respiration Rate 20 /min Comments: Pattern: Unlabored BP Systolic 122 mm[Hg] Comments: Patient Position: Sitting; Cuff Location: Left Arm; Cuff Size: Large BP Diastolic 76 mm[Hg] Comments: Patient Position: Sitting; Cuff Location: Left Arm; Cuff Size: Large Weight 233.5625 lb Height 65.5 in Body Mass Index Calculated 38.28 kg/m2 Body Surface Area Calculated 2.12 m2 :43 Pulse 74 /min Comments: Pattern: Regular Respiration Rate 18 /min Comments: Pattern: Unlabored BP Systolic 114 mm[Hg] Comments: Patient Position: Sitting; Cuff Location: Left Arm; Cuff Size: Large BP Diastolic 70 mm[Hg] Comments: Patient Position: Sitting; Cuff Location: Left Arm; Cuff Size: Large :05 Pulse 78 /min Comments: Pattern: Regular Respiration Rate 18 /min Comments: Pattern: Unlabored BP Systolic 100 mm[Hg] Comments: Patient Position: Sitting; Cuff Location: Left Arm; Cuff Size: Standard BP Diastolic 68 mm[Hg] Comments: Patient Position: Sitting; Cuff Location: Left Arm; Cuff Size: Standard Weight 243 lb :44 Pulse 68 /min Comments: Pattern: Regular Respiration Rate 20 /min Comments: Pattern: Unlabored BP Systolic 134 mm[Hg] Comments: Patient Position: Sitting; Cuff Location: Left Arm; Cuff Size: Large BP Diastolic 72 mm[Hg] Comments: Patient Position: Sitting; Cuff Location: Left Arm; Cuff Size: Large Weight 244.375 lb :51 Pulse 80 /min Comments: Pattern: Regular Respiration Rate 16 /min Comments: Pattern: Unlabored BP Systolic 128 mm[Hg] Comments: Patient Position: Sitting; Cuff Location: Left Arm; Cuff Size: Large BP Diastolic 80 mm[Hg] Comments: Patient Position: Sitting; Cuff Location: Left Arm; Cuff Size: Large Weight 250 lb Height 0 in Head Circumference 0.00 cm :18 Temperature 97.3 f Comments: Method: Oral Pulse 68 /min Comments: Pattern: Regular Respiration Rate 16 /min Comments: Pattern: Unlabored BP Systolic 116 mm[Hg] Comments: Patient Position: Sitting; Cuff Location: Left Arm; Cuff Size: Large BP Diastolic 68 mm[Hg] Comments: Patient Position: Sitting; Cuff Location: Left Arm; Cuff Size: Large Weight 0 lb Height 0 in Head Circumference 0.00 cm :29 Pulse 64 /min Comments: Pattern: Regular Respiration Rate 20 /min Comments: Pattern: Unlabored BP Systolic 132 mm[Hg] Comments: Patient Position: Sitting; Cuff Location: Left Arm; Cuff Size: Large BP Diastolic 78 mm[Hg] Comments: Patient Position: Sitting; Cuff Location: Left Arm; Cuff Size: Large Weight 237 lb Height 0 in Head Circumference 0.00 cm :52 Comments: reported Pulse 80 /min Comments: Pattern: Regular Respiration Rate 20 /min Comments: Pattern: Unlabored BP Systolic 118 mm[Hg] Comments: Patient Position: Sitting; Cuff Location: Left Arm; Cuff Size: Large BP Diastolic 72 mm[Hg] Comments: Patient Position: Sitting; Cuff Location: Left Arm; Cuff Size: Large Weight 237 lb Height 0 in Head Circumference 0.00 cm :55 Temperature 97.2 f Comments: Method: Oral Pulse 64 /min Comments: Pattern: Regular Respiration Rate 18 /min Comments: Pattern: Unlabored BP Systolic 110 mm[Hg] Comments: Patient Position: Sitting; Cuff Location: Left Arm; Cuff Size: Large BP Diastolic 66 mm[Hg] Comments: Patient Position: Sitting; Cuff Location: Left Arm; Cuff Size: Large Weight 237 lb Height 0 in Head Circumference 0.00 cm :13 Temperature 98.4 f Comments: Method: Oral Pulse 72 /min Comments: Pattern: Regular Respiration Rate 20 /min Comments: Pattern: Unlabored BP Systolic 124 mm[Hg] Comments: Patient Position: Sitting; Cuff Location: Left Arm; Cuff Size: Large BP Diastolic 78 mm[Hg] Comments: Patient Position: Sitting; Cuff Location: Left Arm; Cuff Size: Large Weight 237 lb Height 0 in Head Circumference 0.00 cm :17 Temperature 98.3 f Comments: Method: Oral Pulse 64 /min Comments: Pattern: Regular Respiration Rate 20 /min Comments: Pattern: Unlabored BP Systolic 128 mm[Hg] Comments: Patient Position: Sitting; Cuff Location: Left Arm; Cuff Size: Standard BP Diastolic 78 mm[Hg] Comments: Patient Position: Sitting; Cuff Location: Left Arm; Cuff Size: Standard Weight 237 lb Height 0 in Head Circumference 0.00 cm :08 Temperature 97.9 f Comments: Method: Oral Pulse 76 /min Comments: Pattern: Regular Respiration Rate 16 /min Comments: Pattern: Unlabored O2 SAT 98 % Comments: Room air BP Systolic 130 mm[Hg] Comments: Patient Position: Sitting; Cuff Location: Left Arm; Cuff Size: Standard BP Diastolic 72 mm[Hg] Comments: Patient Position: Sitting; Cuff Location: Left Arm; Cuff Size: Standard Weight 237 lb Height 0 in Head Circumference 0.00 cm :13 Temperature 98.5 f Comments: Method: Oral Pulse 74 /min Comments: Pattern: Regular Respiration Rate 17 /min Comments: Pattern: Unlabored BP Systolic 126 mm[Hg] Comments: Patient Position: Sitting; Cuff Location: Left Arm; Cuff Size: Standard BP Diastolic 68 mm[Hg] Comments: Patient Position: Sitting; Cuff Location: Left Arm; Cuff Size: Standard Weight 237 lb Height 0 in Head Circumference 0.00 cm :18 Temperature 97.9 f Comments: Method: Oral Pulse 68 /min Comments: Pattern: Regular Respiration Rate 18 /min Comments: Pattern: Unlabored BP Systolic 124 mm[Hg] Comments: Patient Position: Sitting; Cuff Location: Right Arm; Cuff Size: Large BP Diastolic 66 mm[Hg] Comments: Patient Position: Sitting; Cuff Location: Right Arm; Cuff Size: Large Weight 237 lb Height 0 in Head Circumference 0.00 cm :45 Temperature 98.2 f Comments: Method: Oral Pulse 72 /min Comments: Pattern: Regular Respiration Rate 16 /min Comments: Pattern: Unlabored BP Systolic 114 mm[Hg] Comments: Patient Position: Sitting; Cuff Location: Left Arm; Cuff Size: Standard BP Diastolic 78 mm[Hg] Comments: Patient Position: Sitting; Cuff Location: Left Arm; Cuff Size: Standard Weight 237 lb Height 0 in Head Circumference 0.00 cm :06 Pulse 68 /min Comments: Pattern: Regular Respiration Rate 17 /min Comments: Pattern: Unlabored BP Systolic 110 mm[Hg] Comments: Patient Position: Sitting; Cuff Location: Left Arm; Cuff Size: Standard BP Diastolic 78 mm[Hg] Comments: Patient Position: Sitting; Cuff Location: Left Arm; Cuff Size: Standard Weight 237 lb Height 0 in Head Circumference 0.00 cm :07 Temperature 98.5 f Comments: Method: Oral Pulse 76 /min Comments: Pattern: Regular Respiration Rate 17 /min Comments: Pattern: Unlabored BP Systolic 120 mm[Hg] Comments: Patient Position: Sitting; Cuff Location: Left Arm; Cuff Size: Standard BP Diastolic 74 mm[Hg] Comments: Patient Position: Sitting; Cuff Location: Left Arm; Cuff Size: Standard Weight 237 lb Height 0 in Head Circumference 0.00 cm :05 Temperature 98.4 f Comments: Method: Undefined Pulse 78 /min Comments: Pattern: Regular Respiration Rate 16 /min Comments: Pattern: Undefined BP Systolic 124 mm[Hg] Comments: Patient Position: Undefined; Cuff Location: Undefined; Cuff Size: Undefined BP Diastolic 72 mm[Hg] Comments: Patient Position: Undefined; Cuff Location: Undefined; Cuff Size: Undefined Weight 0 lb Height 0 in Head Circumference 0.00 cm :42 Temperature 102 f Comments: Method: Undefined Pulse 78 /min Comments: Pattern: Regular Respiration Rate 16 /min Comments: Pattern: Undefined BP Systolic 132 mm[Hg] Comments: Patient Position: Undefined; Cuff Location: Undefined; Cuff Size: Undefined BP Diastolic 60 mm[Hg] Comments: Patient Position: Undefined; Cuff Location: Undefined; Cuff Size: Undefined Weight 0 lb Height 0 in Head Circumference 0.00 cm :41 Temperature 97.3 f Comments: Method: Oral Pulse 64 /min Comments: Pattern: Regular Respiration Rate 16 /min Comments: Pattern: Undefined BP Systolic 106 mm[Hg] Comments: Patient Position: Sitting; Cuff Location: Undefined; Cuff Size: Undefined BP Diastolic 72 mm[Hg] Comments: Patient Position: Sitting; Cuff Location: Undefined; Cuff Size: Undefined Weight 237 lb Height 0 in Head Circumference 0.00 cm Results Date Description Value Details [id number]-[id number]:00 ETHMOID TISSUE See Note (Normal) Comments: [facility] [address] [place], [place], [address] Comments: Patient: WHIT PETERSEN : 1965 (53/F) Acct Num: [id number] Phys: Nicola KINGSTON,Dyllan Unit Num: [id number] Loc: LAB Specimen: [id number] Received: 03/10/18 - 1609 Spec Type: ET H TISS TISSUES 1 TISSUES: A. Ethmoid sinus, NOS - LEFT SIDE B. Ethmoid sinus, NOS - RIGHT SIDE GROSS DESCRIPTION A - Received in fixative is one container labeled with the patient's name and designated left side sinus contents. The specimen consists of multiple irregular fragments of ferguson soft tissue mixed with fragments of bone that in aggregate measure 3 x 2 .5 x 0.2 cm. The entire specimen is submitted in one cassette after decalcification. B - Received in fixative is one container labeled with the patient's name and designated right side sinus conten ts. The specimen consists of multiple irregular fragments of ferguson soft tissue mixed with fragments of bone that in aggregate measure 2.5 x 1 x 0.2 cm. The entire specimen is submitted in one cassette after decalcification. / ABBI:justyn 03/11/18 TC:3 CPT: 78653 x2, 63289 x2 HEADER OPERATION: Bilateral maxillary antrostomy and ethmoidectomy PRE-OP DIAGNOSIS: Polyp nasal cavity/chronic sinusitis TISSUE SUBMITTED: A. Left side sinus contents, B. Right side sinus contents MICROSCOPIC DESCRIPTION Slides are reviewed. MICROSCOPIC DIAGNOSIS A. Left sinus contents, excision: Consistent with chronic sinusitis. Fragments of bone with no significant pathologic change. B. Right sinus contents, excision: Consistent with chronic sinusitis. Fragments of bone with no sign ificant pathologic change. AM:justyn 03/18/18 Signed Christian Bender 03/18/18 <signature on file> [id number] Basic Metabolic Profile (BMP) Comments: [facility] [id number] [place], [place], [id number] GAP 7 (Normal) Range: 5-15 CO2 27.0 mmol/L (Normal) Range: 21.0-32.0 CL 106 mmol/L (Normal) Range: 98-107 K 4.3 mmol/L (Normal) Range: 3.5-5.1 NA 140 mmol/L (Normal) Range: 136-145 CA 8.3 mg/dL (Abnormal) Range: 8.5-10.1 BUN/CRE 12.9 {RATIO} (Normal) Range: 10-20 EST GFR - AA 90 mL/min (Normal) Comments: GFR Calc EST GFR 74 mL/min (Normal) Comments: Non- GFR Calc CREAT,SERUM 0.85 mg/dL (Normal) Range: 0.55-1.02 Comments: The validity of the calculated GFR AND GFRAA in patients over70 years has not been determined. Clinical correlation isessential. BUN 11 mg/dL (Normal) Range: 7-18 GLU 81 mg/dL (Normal) Range: 74-106 Comments: Please note revised GLUCOSE reference range qymguorwx35/02/2018. 89-Eer-[id number]:40 CBC-Complete Blood Cnt No Diff Comments: [facility] [address] [place], [place], [id number] MPV 11.4 fL (Normal) Range: 6.2-12.0 PLT 214 K/mm3 (Normal) Range: 150-450 RDW SD 42.2 fL (Normal) Range: 35.1-43.9 RDW CV 13.0 % (Normal) Range: 11.6-14.6 MCHC 32.1 {g/gl} (Normal) Range: 32-36 MCH 28.9 pg (Normal) Range: 27.0-32.0 MCV 90.0 fL (Normal) Range: 81-99 HCT 38.9 % (Normal) Range: 37-47 HGB 12.5 g/dL (Normal) Range: 12.0-15.0 RBC 4.32 {M/mm3} (Normal) Range: 4.2-5.4 WBC 5.7 K/mm3 (Normal) Range: 4.4-11.0 36-Fkj-659501:34 GONADOTROPIN-LH (00355) Comments: PATIENT NOT FASTINGPERFORMED BY: [facility] [facility] [id number] LH 4.1 m[iU]/mL (Normal) Comments: Adult Female: Follicular phase 2.4 - 12.6 Ovulation phase 14.0 - 95.6 Luteal phase 1.0 - 11.4 Postmenopausal 7.7 - 58.5 :34 GONADOTROPIN-FSH (64703) Comments: PATIENT NOT FASTINGPERFORMED BY: [facility] [facility] [id number] FSH 9.5 m[iU]/mL (Normal) Comments: Adult Female: Follicular phase 3.5 - 12.5 Ovulation phase 4.7 - 21.5 Luteal phase 1.7 - 7.7 Postmenopausal 25.8 - 134.8 :27 MYOGLOBIN (44727) Comments: PATIENT NOT FASTINGPERFORMED BY: [facility] [facility] [id number] Myoglobin, Serum 21 ng/mL (Abnormal) Range: 25-58 :27 CPK MB FRACTION (22909) Comments: PATIENT NOT FASTINGPERFORMED BY: [facility] [facility] [id number] Creatine Kinase (CK), MB 1.0 ng/mL (Normal) Range: 0.0-5.3 :27 ASSAY, TROPONIN, QUANTITATIVE Comments: PATIENT NOT FASTINGPERFORMED BY: [facility] [facility] [id number] (aka Troponin I) (76042) Troponin I <0.01 ng/mL (Normal) Range: 0.00-0.04 :27 T4, FREE (THYROXINE) (45678) Comments: PATIENT NOT FASTINGPERFORMED BY: [facility] [facility] [id number] T4,Free(Direct) 1.18 ng/dL (Normal) Range: 0.82-1.77 :27 T3, FREE (TRIDOTHYRONINE) (63947) Comments: PATIENT NOT FASTINGPERFORMED BY: CB [facility] Idtnsv[address]59 [facility] [id number] Triiodothyronine,Free,Serum 2.7 pg/mL (Normal) Range: 2.0-4.4 58-Wwm-310252:27 TSH (64554) Comments: PATIENT NOT FASTINGPERFORMED BY: [facility] [id number] [facility] [id number] TSH 2.980 {uIU/mL} (Normal) Range: 0.450-4.500 :03 HPV automatic Comments: Source.............Cervix;EndocervixNo. of containers..01 CYTYC Thin Prep VialPATIENT NOT FASTINGPERFORMED BY: WB [facility] [address] [id number] BY: =G [facility] ([address]) [address] [id number] Information: [id number] HPV, high-risk Negative Comments: This high-risk HPV test detects thirteen high- risk types(16/18/31/33/35/39/45/51/52/56/58/59/68) without differentiation. . (Normal) Note: PAPSMR (Normal) Comments: The Pap smear is a screening test designed to aid in the detection ofpremalignant and malignant conditions of the uterine cervix. It is not adiagnostic procedure and should not be used as the sole mean s of detectingcervical cancer. Both false-positive and false-negative reports do occur. .This liquid based ThinPrep(R) pap test w as screened with theuse of an image guided system. See Note . (Normal) DIAGNOSIS: SPRCS (Normal) Comments: NEGATIVE FOR INTRAEPITHELIAL LESION AND MALIGNANCY.Satisfactory for evaluation. Endocervical and/or squamous metaplasticcells (endocervical component) are present.Z11.51Zaki Ramsey totechnologist 04-Fej-244662:01 HPV automatic Comments: Source.............Cervical;EndocervicalNo. of containers..01 CYTYC Thin Prep VialPATIENT NOT FASTINGPERFORMED BY: [facility] Eccyyaucax480 [facility] [id number] BY: =G L (35491) Eusebio Mataton120 [facility]MemphisHetalWellSpan [facility] [id number] Information: [id number] HPV, high-risk Negative Comments: This high-risk HPV test detects thirteen high- risk types(16/18/31/33/35/39/45/51/52/56/58/59/68) without differentiation. . (Normal) Note: PAPSMR (Normal) Comments: The Pap smear is a screening test designed to aid in the detection ofpremalignant and malignant conditions of the uterine cervix. It is not adiagnostic procedure and should not be used as the sole mean s of detectingcervical cancer. Both false-positive and false-negative reports do occur. .This liquid based ThinPrep(R) pap test w as screened with theuse of an image guided system. See Note . (Normal) DIAGNOSIS: SPRCS (Normal) Comments: NEGATIVE FOR INTRAEPITHELIAL LESION AND MALIGNANCY.Satisfactory for evaluation. Endocervical and/or squamous metaplasticcells (endocervical component) are present.V72.31 ; Routine gynecolog ical examina Brittani Sharma Desk Editor (ASCP) 58-Pgw-344633:17 HgA1C , Office (94415) HgA1C , Office 5.4 % (Normal) Range: 4.6 - 7.1 86-Vfx-826049:04 HPV automatic Comments: Source.............Cervical;EndocervicalNo. of containers..01 CYTYC Thin Prep VialPATIENT NOT FASTINGPERFORMED BY: [facility] Zfoomoeeko403 [facility] W [id number] BY: =G L (01346) [facility] [address] [id number] Information: [id number] HPV, high-risk Negative Comments: This high-risk HPV test detects thirteen high- risk types(16/18/31/33/35/39/45/51/52/56/58/59/68) without differentiation. . (Normal) Note: PAPSMR (Normal) Comments: The Pap smear is a screening test designed to aid in the detection ofpremalignant and malignant conditions of the uterine cervix. It is not adiagnostic procedure and should not be used as the sole mean s of detectingcervical cancer. Both false-positive and false-negative reports do occur. .This liquid based ThinPrep(R) pap test w as screened with theuse of an image guided system. See Note . (Normal) DIAGNOSIS: SPRCS (Normal) Comments: NEGATIVE FOR INTRAEPITHELIAL LESION AND MALIGNANCY.THIS SPECIMEN WAS RESCREENED PART OF OUR STRIPPER [employer]OVEL OPERATOR PROGRAM.Satisfactory for evaluation. Endocervical and/or squamous metaplasticc ells (endoce rvical component) are present.V72.31 ; Routine gynecological examinationKaylen Gardner, Desk Editor (ASCP)Sammy Banda, Supervisory Desk Editor (ASCP) 95-Szh-43040:34 Urinalysis, Office (29487) UA - BILIRUBIN Negative (Normal) UA - BLOOD Hemolyzed Large (Normal) UA - GLUCOSE Negative (Normal) UA - KETONES Negative mg/dL (Normal) UA - LEUKOCYTE ESTERASE Negative (Normal) UA - NITRITE Positive (Normal) UA - PH 6.0 (Normal) UA - PROTEIN 300 mg/dL (Normal) UA - SPECIFIC GRAVITY 1.025 (Normal) URINE UROBILINGN SALOME TIMED Normal mg/dL (Normal) 37-Fwb-82445:59 URINE MCKENZIE CULTURE-SALOME COL Comments: PATIENT NOT FASTINGPERFORMED BY: [facility] [id number] [facility] [id number] Information: SRC: [id number] COUNT (56100) Antimicrobial MIHEAD (Normal) Comments: S = Susceptible; I = Intermediate; R = Resistant P = Positive; N = Negative MICS are expressed in micrograms per mL Antibiotic RSLT#1 RSLT#2 Susceptibility RSLT#3 RSLT#4Amoxicillin/Clavulanic Acid SAmpicillin SCefazolin SCefepime SCeftriaxone SCefuroxime SCephalothin SCiprofloxacin SESBL NErtapenem SGentamicin SImipenem S Levofloxacin SNitrofurantoin SPiperacillin STetracycline STobramycin STrimethoprim/Sulfa S Result 1 Escherichia coli Comments: Greater than 100,000 colony forming units per mL (Normal) Urine Final report Culture,Comprehensive (Normal) BC No growth in 5 08025:24 days. (Normal) 55-Byc-485481:24 CBCD RED CELL MORPH SeeNote {NORMAL} (Normal) Comments: Result: NORM C+C PLT MORPH LARGE (Normal) PLT EST SLT DEC (Normal) MONOCYTE 4 % (Normal) Range: 0-10 LYMPH 7 % (Abnormal) Range: 19-41 Comments: AMENDED REPORT 03/06/111841 LYMPH previously reported as: 31 % BAND 2 % (Normal) Range: 0-5 SEGS 87 % (Abnormal) Range: 47-70 Comments: AMENDED REPORT 03/06/111841 SEGS previously reported as: 63 % CELLS COUNTED 100 (Normal) ABSOLUTE NEUT 8.1 3/uL (Abnormal) Range: 2.0-7.7 Comments: AMENDED REPORT 03/06/111827 AMENDED REPORT 03/06/111843 AMENDED REPORT 03/06/111827 MPV 11.5 fL (Normal) Range: 6.5-12.0 PLT 122 K/mm3 (Abnormal) Range: 150-450 RDW 12.7 % (Normal) Range: 11.6-14.6 MCHC 34.3 g/dL (Normal) Range: 32-36 MCH 29.9 pg (Normal) Range: 27.0-32.0 MCV 87.2 fL (Normal) Range: 81-99 HCT 35.8 % (Abnormal) Range: 37-47 HGB 12.3 g/dL (Normal) Range: 12.0-16.0 RBC 4.11 {M/mm3} (Abnormal) Range: 4.2-5.4 WBC 9.1 K/mm3 (Normal) Range: 4.4-11.0 BASOPHIL 1 % (Normal) Range: 0-1 EOS 1 % (Normal) Range: 0-5 48-Lum-882605:24 COMP METABOLIC GAP 10 (Normal) Range: 5-15 CO2 24.0 mmol/L (Normal) Range: 21.0-32.0 CL 100 mmol/L (Normal) Range: 98-107 K 3.4 mmol/L (Abnormal) Range: 3.5-5.1 NA 134 mmol/L (Abnormal) Range: 136-145 T BILI 0.40 mg/dL (Normal) Range: 0.00-1.00 ALT 41 U/L (Normal) Range: 12-78 ALK P 71 U/L (Normal) Range: 50-136 AST 29 U/L (Normal) Range: 15-37 CA 7.8 mg/dL (Abnormal) Range: 8.5-10.1 A/G 0.8 {RATIO} (Abnormal) Range: 0.9-2.4 GLOB 4.2 g/dL (Normal) Range: 2.7-4.2 ALB 3.2 g/dL (Abnormal) Range: 3.4-5.0 T PROT 7.4 g/dL (Normal) Range: 6.4-8.2 BUN/CRE 10.0 {RATIO} (Normal) Range: 10-20 EST GFR - AA 78 mL/min (Normal) EST GFR 64 mL/min (Normal) CREAT,SERUM 1.0 mg/dL (Normal) Range: 0.6-1.0 BUN 10 mg/dL (Normal) Range: 7-18 GLU 115 mg/dL (Abnormal) Range: 70-110 Comments: Fasting Glucose result from 110 to <126 mg/dL suggests IMPAIRED HOMEOSTASIS per A.D.A. criteria. 10-Rho-000536:13 CHEST, PA AND LATERAL Radiology Report See Note (Normal) Comments: PROCEDURE: X-RAY CHEST REASON FOR EXAM: Female, 46 years old. The patient presents with coughand fever. TECHNIQUE: PA and lateral views of the chest. COMPARISON: None. FINDINGS: The lungs are e xpanded. There is evidence of a right upper lobepneumoniaas well as patchy infiltrate in the left upper lobe. There is nodemonstrated pleural abnormality. Normal heart and pericardium. Normal mediasti num and yamil. Normal visualized pulmonary arteries.Normalvisualized aortic arch and descending thoracic aorta. There are diffuse degenerative changes of the visualized thoracic spine.Normal visualized ribs, clavicles, and shoulders. There is no demonstrated abnormality of the visualized soft tissuestructures of the upper abdomen. IMPRESSION:Right upper lobe pneumonia and patchy infiltrate in the left upper lobe.Follow-up is suggested. Dictated on 03/06/11 1412 by Rachel Aguilera MDranscribed on 03/06/11 1440 by ITS IMPORTSign by Miguelito Aguilera MD on 03/06/11 1441 Sign by: Miguelito Aguilera MD 43-Uyd-354298:57 Rapid Flu (56982 x 2) Influenza A Ag negative (Normal) :55 THYROID Radiology Report See Note (Normal) Comments: THYROID ULTRASOUND CLINICAL:This is a 45-year-old female with thyromegaly. TECHNIQUE:Real time sonographic images were obtained. COMPARISON:None. FINDINGS:The right lobe measures 4.5 x 1.8 x 1.5cm. It is homogeneous with noevidence of a solid or cystic lesion. The isthmus measures 5mm. The left lobe measures 4.4 x 1.4 x 1.1cm. It is homogeneous with noevidence of a solid or cystic lesion. IMPRESSION :1. Homogeneous thyroid gland with no evidence of solid or cysticabnormalities. Dictated on 08/18/10 152 by Ana Cristina Bustillo MDscribed on 08/21/10713 by ITS IMPORTSign by Ana Cristina Bustillo MD on 08/21/10713 Sign by: Ana Cristina Bustillo MD :25 D-DIMER QUANT <200 ng/mL (Normal) Comments: NORMAL D-Dimer level indicates no DVT or PE. :27 T4, TOTAL ([id number]) Comments: PATIENT NOT FASTINGPERFORMED BY: ANASTASIYA Tecnoblumarcus KnappAnnplf7[address] [facility] [id number] Thyroxine (T4) 6.9 ug/dL (Normal) Range: 4.5-12.0 :27 TSH (THYROID STIMULATING Comments: PATIENT NOT FASTINGPERFORMED BY: ANASTASIYA [facility] [facility] [id number] HORMONE) ([id number]) TSH 3.820 {uIU/mL} (Normal) Range: 0.450-4.500 :27 T4, FREE ([id number]) Comments: PATIENT NOT FASTINGPERFORMED BY: [facility]6[address] [facility] [id number] Information: [id number] T4,Free(Direct) 1.15 ng/dL (Normal) Range: 0.82-1.77 :41 URINE MCKENZIE CULTURE (SALOME Comments: PATIENT NOT FASTINGPERFORMED BY: [facility]6[address] [facility] [id number] Information: SRC: [id number] COL COUNT) ([id number]) Result 3 MUG (Normal) Comments: Mixed urogenital flora10,000-25,000 colony forming units per mL S = Susceptible; I = Intermediate; R = Resistant P = Positive; N = Negative MICS are expressed in micrograms per mL Antibiotic RSLT#1 RSLT#2 RSLT#3 RSLT#4Amikacin SAmoxicillin/Clavulanic Acid SAmpicillin SCefazolin SCefepime SCefoxitin SCeftriaxone SCiprofloxacin S SESBL NErtapenem SGentamicin SImipenem SLevofloxacin S SNitrofurantoin S SPenicillin S Tobramycin STrimethoprim/Sulfa SVancomycin S Result 2 Enterococcus faecalis Comments: 2,000 Colonies/mLNote: this isolate is vancomycin-susceptible.This information is provided for epidemiologic purposesonly: vancomycin is not among the antibioticsrecommended for therapy of urinary tract (Normal) infectionscaused by Enterococcus.For Enterococcus species, cephalosporins, aminoglycosides (except forhigh-level resistance screening), clindamycin, and trimethoprim-sulfamethoxazole are not effective clinically. Fluoroquinolones areused primarily for treating urinary tract infections. (CLSI, N916-G83,2009) Result 1 ECV (Normal) Comments: Escherichia coli, identified by an automated biochemical system.25,000-50,000 colony forming units per mL Urine Final report (Normal) Culture,Comprehensiv e 45-Swj-250178:57 BILAT SCRN DIGITAL & CAD Radiology Report See Note (Normal) Comments: Exam Number: [id number] AMMOGRAPHY - BILATERAL SCREENING INDICATION:Routine annual screening examination. PERTINENT HISTORY:Non-contributory. TECHNIQUE:Digital examination. Mediolateral oblique (MLO) an d craniocaudad (CC) views of both breasts were obtained. CAD was performed on this study. COMPARISON:February 21, 2006 and June 07, 2008 FINDINGS:The breast composition is composed of scattered fibr oglandular densities. There are no masses or suspicious microcalcifications. No other significant abnormalities are identified. IMPRESSION:Normal bilateral screening mammogram. Yearly follow-up recomme nded. ASSESSMENT CATEGORY:Category 2: Benign finding(s) Approximately 10% of breast cancers are not detected by mammography. A normal mammogram should not delay biopsy of a clinically suspicious abnormality. Reported By: DESTINY CASTILLO 91-Esu-266955:12 Thin prep Pap Comments: Source.............Cervical;EndocervicalNo. of containers..01 CYTYC Thin Prep VialPATIENT NOT FASTINGPERFORMED BY: [facility] [address] [id number] Information: [id number] ([id number]) Note: PAPSMR (Normal) Comments: The Pap smear is a screening test designed to aid in the detection ofpremalignant and malignant conditions of the uterine cervix. It is not adiagnostic procedure and should not be used as the sole mean s of detectingcervical cancer. Both false-positive and false-negative reports do occur. .The HPV DNA reflex criteria were not met with this specimen resulttherefore, no HPV testing was performed. . See Note . (Normal) DIAGNOSIS: SPRCS (Normal) Comments: NEGATIVE FOR INTRAEPITHELIAL LESION AND MALIGNANCY.Satisfactory for evaluation. Endocervical and/or squamous metaplasticcells (endocervical component) are present.V72.31 ; Routine gynecolog ical examrayne Ramirez Desk Editor (ASCP) 18-Jan-20109:20 METABOLIC PANEL, COMPREHENSIVE Comments: PATIENT NOT FASTINGPERFORMED BY: [facility] Iemwsb3647 [facility] [id number] ([id number]) Alkaline Phosphatase, S 102 [iU]/L (Normal) Range: 25-150 ALT (SGPT) 13 [iU]/L (Normal) Range: 0-40 AST (SGOT) 15 [iU]/L (Normal) Range: 0-40 A/G Ratio 1.4 (Normal) Range: 1.1-2.5 Bilirubin, Total 0.6 mg/dL (Normal) Range: 0.0-1.2 Albumin, Serum 4.2 g/dL (Normal) Range: 3.5-5.5 Globulin, Total 3.0 g/dL (Normal) Range: 1.5-4.5 Protein, Total, Serum 7.2 g/dL (Normal) Range: 6.0-8.5 Calcium, Serum 9.3 mg/dL (Normal) Range: 8.7-10.2 Carbon Dioxide, Total 23 mmol/L (Normal) Range: 20-32 Chloride, Serum 101 mmol/L (Normal) Range: 97-108 Potassium, Serum 4.2 mmol/L (Normal) Range: 3.5-5.2 Sodium, Serum 137 mmol/L (Normal) Range: 135-145 BUN/Creatinine Ratio 12 (Normal) Range: 8-27 eGFR AfricanAmerican >59 mL/min/1.73 Comments: Note: Persistent reduction for 3 months or more in an eGFR<60 mL/min/1.73 m2 defines CKD. Patients with eGFR values>/=60 mL/min/1.73 m2 may also have CKD if evidence of persistentproteinuria is (Normal) present. Additional information may be found [email or web address]. eGFR >59 mL/min/1.73 (Normal) BUN 11 mg/dL (Normal) Range: 5-26 Creatinine, Serum 0.92 mg/dL (Normal) Range: 0.57-1.00 Glucose, Serum 82 mg/dL (Normal) Range: 65-99 18-Jan-20109:20 CBC WITH MANUAL DIFF Comments: PATIENT NOT FASTINGPERFORMED BY: ANASTASIYA [facility] Bnnkzb1826 [address] [facility] [id number] Information: [id number] ([id number]) Immature Grans (Abs) 0.0 {x10E3/uL} (Normal) Range: 0.0-0.1 Immature Granulocytes 0 % (Normal) Range: 0-1 Baso (Absolute) 0.1 {x10E3/uL} (Normal) Range: 0.0-0.2 Eos (Absolute) 0.5 {x10E3/uL} (Abnormal) Range: 0.0-0.4 Lymphs (Absolute) 1.8 {x10E3/uL} (Normal) Range: 0.7-4.5 Monocytes(Absolute) 0.5 {x10E3/uL} (Normal) Range: 0.1-1.0 Neutrophils (Absolute) 4.2 {x10E3/uL} (Normal) Range: 1.8-7.8 Basos 1 % (Normal) Range: 0-3 Eos 7 % (Normal) Range: 0-7 Monocytes 7 % (Normal) Range: 4-13 Lymphs 26 % (Normal) Range: 14-46 Neutrophils 59 % (Normal) Range: 40-74 Platelets 268 {x10E3/uL} (Normal) Range: 140-415 MCHC 32.7 g/dL (Normal) Range: 32.0-36.0 RDW 13.1 % (Normal) Range: 11.7-15.0 MCH 28.9 pg (Normal) Range: 27.0-34.0 Hematocrit 39.2 % (Normal) Range: 34.0-44.0 Hemoglobin 12.8 g/dL (Normal) Range: 11.5-15.0 MCV 89 fL (Normal) Range: 80-98 RBC 4.43 {x10E6/uL} (Normal) Range: 3.80-5.10 WBC 7.1 {x10E3/uL} (Normal) Range: 4.0-10.5 :20 TSH ([id number]) Comments: PATIENT NOT FASTINGPERFORMED BY: [facility] CenterLkqgax1952 [facility] [id number] TSH 4.020 {uIU/mL} (Normal) Range: 0.450-4.500 :49 SKIN TEST INTRADERMAL TB Comments: Lot #[id number]-r forearmgiven by:[facility] ([id number]) SKIN TEST INTRADERMAL TB negative (Normal) :52 LIPID PANEL (43347) Comments: PATIENT WAS FASTINGClinical Information: [id number] PERFORMED BY: CB [facility] Zpbrmr5429 Dar[address] [facility] [place] [id number] Cholesterol, Total 158 mg/dL (Normal) Range: 100-199 HDL Cholesterol 47 mg/dL (Normal) Comments: According to ATP-III Guidelines, HDL-C >59 mg/dL is considered anegative risk factor for CHD. LDL Cholesterol Calc 100 mg/dL (Abnormal) Range: 0-99 LDL/HDL Ratio 2.1 {ratio_units} (Normal) Range: 0.0-3.2 Triglycerides 54 mg/dL (Normal) Range: 0-149 VLDL Cholesterol Chalo 11 mg/dL (Normal) Range: 5-40 5-Ppp-507430:26 INFLUENZA IMMUNOASSY DIRECT OPTICAL OBSERV (89734) INFLUENZA IMMUNOASSY DIRECT OPTICAL OBSERV negative (Normal) 31-Gvd-452928:30 Thin prep Pap Comments: Source.............Cervical;EndocervicalLMP / Prev Treat...COA=[id number]. of containers..01 CYTYC Thin Prep VialPATIENT NOT FASTINGClinical Information: ADD [id number] ([id number]) PERFORMED BY: [facility] [address] [id number] . . (Normal) DIAGNOSIS: SPRCS (Normal) Comments: NEGATIVE FOR INTRAEPITHELIAL LESION AND MALIGNANCY.ENDOMETRIAL CELLS ARE PRESENT.Satisfactory for evaluation. Endocervical and/or squamous metaplasticcells (endocervical component) are pres ent.V72.31 ; Routine gynecological examinationJulie Kaleb Mckeon, Desk Editor (ASCP)Jodee Millan MD, Pathologist Note: PAPSMR (Normal) Comments: The Pap smear is a screening test designed to aid in the detection ofpremalignant and malignant conditions of the uterine cervix. It is not adiagnostic procedure and should not be used as the sole mean s of detectingcervical cancer. Both false-positive and false-negative reports do occur. .The HPV DNA reflex criteria were not met with this specimen resulttherefore, no HPV testing was performed. . :01 BILAT SCRN DIGITAL & CAD Radiology Report See Note (Normal) Comments: Exam Number: [id number] BILATERAL SCREENING MAMMOGRAPHY HISTORYRoutine screening. COMPARISONComparison is made to prior studies of February 21, 2006. TECHNIQUERoutine MLO and CC views were acq uired. FINDI NGSBreast parenchyma is heterogeneously dense. There are no suspiciousclusters of microcalcifications, area of architectural distortion, orthree-dimensional mass. There has been no significant interval change. IMPRESSION1. No mammographic evidence for malignancy.2. BIRADS code 1. Negative findings. Followup in l year. A letter regarding these results has been sent to the patient. This interpreta tion was rendered by a radiologist certified underthe Mammography Quality Standards Act of 1992 (MQSA). The mammogramswere also examined with computer- aided detection software(ImageWellpepper.). Reported By: DESTINY MOCTEZUMA M.D. 61-Rrl-701559:14 CBCD,SMEAR DIFF Comments: PLEASE RUN STAT*AUTOFAXED* CELLS COUNTED 100 (Normal) EOS 2 % (Normal) Range: 0-5 HCT 37.4 % (Normal) Range: 37-47 HGB 12.8 g/dL (Normal) Range: 12.0-16.0 LYMPH 29 % (Normal) Range: 19-41 MCH 29.9 pg (Normal) Range: 27.0-32.0 MCHC 34.3 g/dL (Normal) Range: 32-36 MCV 87.2 fL (Normal) Range: 81-99 MONOCYTE 1 % (Normal) Range: 0-10 PLT 248 K/mm3 (Normal) Range: 150-450 PLT EST SeeNote (Normal) Comments: Result: ADEQUATE RBC 4.28 {M/mm3} (Normal) Range: 4.2-5.4 RDW 13.5 % (Normal) Range: 11.6-14.6 RED CELL MORPH SeeNote {NORMAL} (Normal) Comments: Result: NORM C+C SEGS 68 % (Normal) Range: 47-70 WBC 8.6 K/mm3 (Normal) Range: 4.4-11.0 72-Okh-365826:14 COMP METABOLIC Comments: PLEASE RUN STAT*AUTOFAXED* A/G 1.1 {RATIO} (Normal) Range: 0.9-2.4 ALB 3.9 g/dL (Normal) Range: 3.4-5.0 ALK P 115 U/L (Normal) Range: 50-136 ALT 26 U/L (Abnormal) Range: 30-65 AST 9 U/L (Abnormal) Range: 15-37 BUN 10 mg/dL (Normal) Range: 7-18 BUN/CRE 12.5 {RATIO} (Normal) Range: 10-20 CA 8.6 mg/dL (Normal) Range: 8.5-10.1 CL 103 mmol/L (Normal) Range: 98-107 CO2 30.5 mmol/L (Normal) Range: 21.0-32.0 CREAT,SERUM 0.8 mg/dL (Normal) Range: 0.6-1.0 EST GFR 84 mL/min (Normal) EST GFR - AA 102 mL/min (Normal) Comments: ESTIMATED GLOMERULAR FILTRATION RATE The National Kidney Foundation (NKF) guidelines forChronic kidney disease (CKD) recommends all laboratoriesestimate the level of glomerular filtration ra te (GFR)in p atients from age 18 - 70 years of age.The eGFR for patient's is the eGFRmultiplied by 1.212. [facility] Laboratory uses the abbreviated Modification of Diet inRenal Disease (MDRD) study equati on to calculate the eGFR.The Estimated GFR equation is not applicable for patients<18 years of age or patients >70 years of age.The following conditions may alter the eGFR calculationresult: extre mes in body size, severe malnutrition orobesity, skeletal muscle disease, paraplegia, quadriplegia,vegetarian diet, , certain drug therapy and rapidlychanging kidney function. Association o f GFR and Staging of Kidney Disease*GFR (mL/min) With Kidney Disease W/O Kidney Disease>/= 90 Stage One Aklgpm11 - 89 Stage Two Suspect Decreased GFR30 - 59 Stage Three Stage Three15 - 29 Stage Four Stage Four< 15 or Dialysis Stage Five Stage Five *Each stage assumes the associ ated GFR level has been ineffect for at least three months.Additional studies & clinical assessments are indicated toconclude diagnosis of Chronic Kidney Disease (CKD). GAP 3 (Abnormal) Range: 5-15 GLOB 3.7 g/dL (Normal) Range: 2.7-4.2 GLU 85 mg/dL (Normal) Range: 70-110 K 4.3 mmol/L (Normal) Range: 3.5-5.1 NA 136 mmol/L (Normal) Range: 136-145 T BILI 0.21 mg/dL (Normal) Range: 0.00-1.00 T PROT 7.6 g/dL (Normal) Range: 6.4-8.2 96-Kuf-031005:1 D-DIMER QUANT <200 ng/mL (Normal) Comments: PLEASE RUN STAT*AUTOFAXED* 4 Comments: NORMAL D-Dimer level indicates no DVT or PE. :1 TSH 2.33 {uIU/mL} Comments: PLEASE RUN STAT*AUTOFAXED* 4 (Normal) Range: 0.34-4.82 42-Bhk-52477:14 Upper Respiratory Culture Comments: Clinical Information: SRC: PERFORMED BY: ANASTASIYA [facility] [facility] [id number] Result 1 RRF (Normal) Comments: Routine respiratory hawk Upper Respiratory Culture Final report (Normal) 30-Fob-590006:05 ABDOMEN WITHOUT CONTRAST Radiology Report See Note (Normal) Comments: Exam Number: [id number] CT SCAN OF ABDOMEN AND PELVIS HISTORYRight lower quadrant pain. Stone protocol. Scans were obtained at 3.75-mm intervals from the lung bases throughthe symphysis pubi s without or al or intravenous contrastadministration. The current study is compared to the examination ofFebruary 2007. The liver is homogeneous. There are no dilatedintrahepatic ducts identified within it. The gallbladder isunremarkable. The spleen is normal. No abnormality of pancreas oradrenals is identified. No renal mass or hydronephrosis isidentified. No renal or ureteral calculi are identified. There is noperiaortic adenopathy. The caliber of the abdominal aorta is withinnormal limits. Scans through the pelvis demonstrate no abnormality of the urinarybladder. The uterus and ovaries are not as well delineated as on theprevious examination due to technical differences between studies. However, there does not appear to be any real change in the appearanceof these structures since the previo us study of June 02, 2007.There are a small number of colonic diverticula containing contrast. The findings are compatible with minimal diverticulosis withoutevidence of diverticulitis. The contras t represents the residual ofthe CT performed June 02, 2007. The appendix is again identified.Without contrast, the appendix might not be confidently identified onthis noncontrast study. However, i t is clearly the same structurewhich was well seen on the previous examination and identified by thepresence of air and contrast within it. The appendix is againmeasured at a maximum of 8 mm in transve rse dimension which isunchanged from the previous study. There is no surroundingperiappendiceal edema identified. There is no free fluid seen withinthe pelvis. IMPRESSION1. There is minimal diverti culosis. 2. The appearance of the appendix is unchanged compared to the studyof June 02, 2007. The appendix measures 8 mm in size. However,since it is unchanged and there is no surrounding edema , theappearance is not compatible with appendicitis at this time. Reported By: TRACY BURRIS M.D. 81-Hqa-041615:05 PELVIS WITHOUT CONTRAST Radiology Report See Note (Normal) Comments: Exam Number: [id number] CT SCAN OF ABDOMEN AND PELVIS HISTORYRight lower quadrant pain. Stone protocol. Scans were obtained at 3.75-mm intervals from the lung bases throughthe symphysis pubi s without or al or intravenous contrastadministration. The current study is compared to the examination ofFebruary 2007. The liver is homogeneous. There are no dilatedintrahepatic ducts identified within it. The gallbladder isunremarkable. The spleen is normal. No abnormality of pancreas oradrenals is identified. No renal mass or hydronephrosis isidentified. No renal or ureteral calculi are identified. There is noperiaortic adenopathy. The caliber of the abdominal aorta is withinnormal limits. Scans through the pelvis demonstrate no abnormality of the urinarybladder. The uterus and ovaries are not as well delineated as on theprevious examination due to technical differences between studies. However, there does not appear to be any real change in the appearanceof these structures since the previo us study of June 02, 2007.There are a small number of colonic diverticula containing contrast. The findings are compatible with minimal diverticulosis withoutevidence of diverticulitis. The contras t represents the residual ofthe CT performed June 02, 2007. The appendix is again identified.Without contrast, the appendix might not be confidently identified onthis noncontrast study. However, i t is clearly the same structurewhich was well seen on the previous examination and identified by thepresence of air and contrast within it. The appendix is againmeasured at a maximum of 8 mm in transve rse dimension which isunchanged from the previous study. There is no surroundingperiappendiceal edema identified. There is no free fluid seen withinthe pelvis. IMPRESSION1. There is minimal diverti culosis. 2. The appearance of the appendix is unchanged compared to the studyof June 02, 2007. The appendix measures 8 mm in size. However,since it is unchanged and there is no surrounding edema , theappearance is not compatible with appendicitis at this time. Reported By: TRACY BURRIS M.D. C-REACTIVE PROT 14.88 mg/L Range: 0.0-6.0 0:09 (Abnormal) Comments: Test performed using the Dimension C-Reactive ProteinExtended Range assay method. This assay meets the AHA/CDC 2003 recommendations fordetermining patients at high risk for cardiovasculardisease. Reference: High risk CRP >3.0 mg/L RESULTS CALLED TO Matt ROBLERO 06/04/07 1131 LUCILA NUNO.REPORT READ BACK BY SAME . 01-Aag-056195:09 CBCD BASO% 0.4 % (Normal) Range: 0-1 EO% 1.4 % (Normal) Range: 0-5 HCT 36.4 % (Abnormal) Range: 37-47 HGB 12.6 g/dL (Normal) Range: 12.0-16.0 LY% 18.7 % (Abnormal) Range: 19-41 MCH 29.7 pg (Normal) Range: 27.0-32.0 MCHC 34.5 g/dL (Normal) Range: 32-36 MCV 86.1 fL (Normal) Range: 81-99 MONO% 5.7 % (Normal) Range: 0-10 MPV 9.5 fL (Normal) Range: 6.5-12.0 NEUT% 73.8 % (Abnormal) Range: 47-70 PLT 238 K/mm3 (Normal) Range: 150-450 RBC 4.23 {M/mm3} (Normal) Range: 4.2-5.4 RDW 13.3 % (Normal) Range: 11.6-14.6 WBC 7.8 K/mm3 (Normal) Range: 4.4-11.0 46-Upb-49584:41 Urinalysis, Office (03006) Comments: if urine no blood will wait for lab and talk to katarina and see if think need to repeat scan-- For now will change antibiotic and cover divertic as well as bladder uti and see if helps-if there is blood in urine do noncont ct sto UA - BILIRUBIN Negative (Normal) UA - BLOOD Non Hemolyzed Trace (Normal) UA - GLUCOSE Negative (Normal) UA - KETONES Negative mg/dL (Normal) UA - LEUKOCYTE ESTERASE Small (Normal) UA - NITRITE Positive (Normal) UA - PH 5.0 (Normal) UA - PROTEIN Trace mg/dL (Normal) UA - SPECIFIC GRAVITY 1.025 (Normal) URINE UROBILINGN SALOME TIMED Normal mg/dL (Normal) 41-Bpo-286284:30 ABDOMEN WITH CONTRAST Radiology Report See Note (Normal) Comments: Exam Number: [id number] COMPUTED TOMOGRAPHY OF THE ABDOMEN AND PELVIS. CLINICAL STATEMENTRight lower quadrant pain and diarrhea, evaluate for appendicitis. TECHNIQUE3.75-mm thick axial images of the abdo men and pelvis were obtainedfollowing the administration of oral contrast and 100 cc of [id number] intravenous contrast. COMPARISONThe study was compared to a prior examination dated April 17, 2004. FINDINGSImages through the lung bases are unremarkable. There is a smallhiatal hernia. The liver, spleen, and pancreas are within normallimits. No ductal dilatation is shown. The kidneys enhance n ormallywith no evidence of hydronephrosis. There are small scatteredmesenteric lymph nodes, felt to be reactive in nature. There is noevidence of bowel obstruction. The appendix is mildly dilated at 8 mm in diameter. The appendixappeared normal on the previous study. No significant right lowerquadrant inflammation or edema is shown. No free air is identified.No free fluid is shown. IMPRESSION The appendix is mildly dilated at 8 mm, which is a new finding sincethe previous study. In view of the patient's history, early acuteappendicitis should be considered. It is noted that there is nosign ificant adjacent inflammation or edema. Reported By: DOMINICK LOPEZ M.D. 31-Bvk-926154:30 PELVIS WITH CONTRAST Radiology Report See Note (Normal) Comments: Exam Number: [id number] COMPUTED TOMOGRAPHY OF THE ABDOMEN AND PELVIS. CLINICAL STATEMENTRight lower quadrant pain and diarrhea, evaluate for appendicitis. TECHNIQUE3.75-mm thick axial images of the abdo men and pelvis were obtainedfollowing the administration of oral contrast and 100 cc of [id number] intravenous contrast. COMPARISONThe study was compared to a prior examination dated April 17, 2004. FINDINGSImages through the lung bases are unremarkable. There is a smallhiatal hernia. The liver, spleen, and pancreas are within normallimits. No ductal dilatation is shown. The kidneys enhance n ormallywith no evidence of hydronephrosis. There are small scatteredmesenteric lymph nodes, felt to be reactive in nature. There is noevidence of bowel obstruction. The appendix is mildly dilated at 8 mm in diameter. The appendixappeared normal on the previous study. No significant right lowerquadrant inflammation or edema is shown. No free air is identified.No free fluid is shown. IMPRESSION The appendix is mildly dilated at 8 mm, which is a new finding sincethe previous study. In view of the patient's history, early acuteappendicitis should be considered. It is noted that there is nosign ificant adjacent inflammation or edema. Reported By: DOMINICK LOPEZ M.D. 46-Xnd-016392:05 CULTURE, URINE URINE CULTURE See Note {CFU/mL} Comments: COLONY COUNT 80,000- 100,000 ORGANISM 1: MIXED GRAM POSITIVE ORGANISMS (Normal) 23-Vgq-487798:00 C-REACTIVE PROT 7.53 mg/L (Abnormal) Range: 0.0-6.0 Comments: Test performed using the Dimension C-Reactive ProteinExtended Range assay method. This assay meets the AHA/CDC 2003 recommendations fordetermining patients at high risk for cardiovasculardisease. Reference: High risk CRP >3.0 mg/L 87-Mzz-989836:00 CBCD,SMEAR DIFF CELLS COUNTED 100 (Normal) EOS 3 % (Normal) Range: 0-5 HCT 35.9 % (Abnormal) Range: 37-47 HGB 12.4 g/dL (Normal) Range: 12.0-16.0 LYMPH 24 % (Normal) Range: 19-41 MCH 29.5 pg (Normal) Range: 27.0-32.0 MCHC 34.7 g/dL (Normal) Range: 32-36 MCV 85.2 fL (Normal) Range: 81-99 MONOCYTE 2 % (Normal) Range: 0-10 PLT 242 K/mm3 (Normal) Range: 150-450 PLT EST SeeNote (Normal) Comments: Result: ADEQUATE RBC 4.21 {M/mm3} (Normal) Range: 4.2-5.4 RDW 13.9 % (Normal) Range: 11.6-14.6 RED CELL MORPH SeeNote {NORMAL} (Normal) Comments: Result: NORM C+C SEGS 71 % (Abnormal) Range: 47-70 WBC 9.9 K/mm3 (Normal) Range: 4.4-11.0 86-Kyj-954866:00 ESR SED RATE 19 mm/h (Normal) Range: 0-20 89-Ufi-653533:51 Urinalysis, Office (53205) UA - BILIRUBIN Negative (Normal) UA - BLOOD Hemolyzed Trace (Normal) UA - GLUCOSE Negative (Normal) UA - KETONES Negative mg/dL (Normal) UA - LEUKOCYTE ESTERASE Small (Normal) UA - NITRITE Negative (Normal) UA - PH 6.0 (Normal) UA - PROTEIN Negative mg/dL (Normal) UA - SPECIFIC GRAVITY 1.025 (Normal) URINE UROBILINGN SALOME TIMED 2 mg/dL (Normal) 16-Apr-20078:50 Fecal Occult Blood , Office ([id number]) Fecal Occult Blood , Office Negative (Normal) 15-Gjn-89747:30 GALLBLADDER Radiology Report See Note (Normal) Comments: Exam Number: [id number] GALLBLADDER ULTRASOUND REASON FOR EXAMChest pain. Gallbladder ultrasound to assess for gallbladder etiologyfor chest pain. COMPARISON [facility] 2004. Liver is n ormal in siz e and echogenicity. Gallbladder visualized. There are no gallstones, wall thickening, intra or extrahepatic ductaldilatation. The common bile duct measures 6 mm. The pancreas is normal in size and e chogenicity. Survey of the rightkidney demonstrates no hydronephrosis. The right kidney measures 12cm longitudinally. There is no right upper quadrant ascites. Nosignificant interval change since [facility] 2004. IMPRESSIONNormal gallbladder ultrasound. Negative for gallstones or biliarydistention or right upper quadrant ascites. Reported By: AHSAN VILLARREAL M.D. 75-Zrl-178499:15 C-REACTIVE PROT 5.86 mg/L (Normal) Range: 0.0-6.0 Comments: Test performed using the Dimension C-Reactive ProteinExtended Range assay method. This assay meets the AHA/CDC 2003 recommendations fordetermining patients at high risk for cardiovasculardisease. Reference: High risk CRP >3.0 mg/L :15 CBCD,SMEAR DIFF CELLS COUNTED 100 (Normal) EOS 1 % (Normal) Range: 0-5 HCT 36.7 % (Abnormal) Range: 37-47 HGB 12.7 g/dL (Normal) Range: 12.0-16.0 LYMPH 30 % (Normal) Range: 19-41 MCH 30.2 pg (Normal) Range: 27.0-32.0 MCHC 34.6 g/dL (Normal) Range: 32-36 MCV 87.4 fL (Normal) Range: 81-99 MONOCYTE 2 % (Normal) Range: 0-10 PLT 247 K/mm3 (Normal) Range: 150-450 PLT EST SeeNote (Normal) Comments: Result: ADEQUATE RBC 4.20 {M/mm3} (Normal) Range: 4.2-5.4 RDW 12.6 % (Normal) Range: 11.6-14.6 RED CELL MORPH SeeNote {NORMAL} (Normal) Comments: Result: NORM C&C SEGS 67 % (Normal) Range: 47-70 WBC 7.5 K/mm3 (Normal) Range: 4.4-11.0 :15 COMP METABOLIC A/G 1.1 {RATIO} (Normal) Range: 0.9-2.4 ALB 3.7 g/dL (Normal) Range: 3.4-5.0 ALK P 98 U/L (Normal) Range: 50-136 ALT 32 [iU]/L (Normal) Range: 30-65 AST 16 U/L (Normal) Range: 15-37 BUN 13 mg/dL (Normal) Range: 7-18 BUN/CRE 14.4 {RATIO} (Normal) Range: 10-20 CA 8.7 mg/dL (Normal) Range: 8.5-10.1 CL 102 mmol/L (Normal) Range: 98-107 CO2 30.0 mmol/L (Normal) Range: 21.0-32.0 Comments: Please Note Reference Interval Change CREAT,SERUM 0.9 mg/dL (Normal) Range: 0.6-1.0 GAP 5 (Normal) Range: 5-15 GLOB 3.3 g/dL (Normal) Range: 2.7-4.2 Comments: Please Note Reference Interval Change GLU 83 mg/dL (Normal) Range: 70-110 K 4.4 mmol/L (Normal) Range: 3.5-5.1 NA 137 mmol/L (Normal) Range: 136-145 T BILI 0.19 mg/dL (Normal) Range: 0.00-1.00 T PROT 7.0 g/dL (Normal) Range: 6.4-8.2 :15 TROPONIN-I < 0.04 ng/mL (Normal) Comments: TROPONIN-I EXPECTED VALUES < 0.50 NEGATIVE 0.50 - 1.49 INDETERMINANT > OR = 1.50 SUGGEST PR :15 TSH 2.90 {uIU/mL} (Normal) Range: 0.34-4.82 :50 CULTURE, THROAT See Note (Normal) Comments: Normal throat hawk isolated. No beta-hemolyticstreptococcus isolated. Plan of Care Name Dates Details Instructions Screening for hyperlipidemia : Reviewed Lab Indication: Screening for hyperlipidemia GERD (gastroesophageal reflux disease) : GERD Education Indication: GERD (gastroesophageal reflux disease) Cinthya's thyroiditis : Continue Current Prescription(s) Indication: Cinthya's thyroiditis Cinthya's thyroiditis : Reviewed Lab Indication: Cinthya's thyroiditis Depression, acute : Continue Current Prescription(s) Indication: Depression, acute Depression, acute : Follow up in 1 month Indication: Depression, acute Other premature beats : Reviewed Diagnostic Tests Indication: Other premature beats Cinthya's thyroiditis : Reviewed Lab Indication: Cinthya's thyroiditis Hot flashes : Follow up if no improvement or if symptoms worsen Indication: Hot flashes Other premature beats : Eprescribed prescriptions (G8553) Indication: Other premature beats Anxiety : Follow up - Make appt after diagnostic tests Indication: Anxiety Chest pressure : Eprescribed prescriptions (G8553) Indication: Chest pressure Encounter for screening for malignant neoplasm of colon (Renamed from Special screening for malignant neoplasms, colon) : *Colon Cancer Screening Indication: Encounter for screening for malignant neoplasm of colon (Renamed from Special screening for malignant neoplasms, colon) Encounter for gynecological examination with abnormal finding : Safe sex Indication: Encounter for gynecological examination with abnormal finding Encounter for gynecological examination with abnormal finding : Self breast exam Indication: Encounter for gynecological examination with abnormal finding Encounter for gynecological examination with abnormal finding : *Well Female Maintenance (SMC) Indication: Encounter for gynecological examination with abnormal finding Encounter for gynecological examination with abnormal finding : Pap/Pelvic/Bimanual/Rectal/Breast Exam was done. Indication: Encounter for gynecological examination with abnormal finding Hypothyroidism : Reviewed Lab Indication: Hypothyroidism Hypothyroidism : Continue Current Prescription(s) Indication: Hypothyroidism Allergic rhinitis : Eprescribed prescriptions (G8553) Indication: Allergic rhinitis Anxiety and depression : Eprescribed prescriptions (G8553) Indication: Anxiety and depression Well woman exam : Follow up in 4 months- general medical visit Indication: Well woman exam Breast cancer screening : Self breast exam Indication: Breast cancer screening Breast cancer screening : *Colon Cancer Screening Indication: Breast cancer screening Breast cancer screening : Pap/Pelvic/Bimanual/Rectal/Breast Exam was done. Indication: Breast cancer screening Cinthya's thyroiditis : Follow up in 6 months Indication: Cinthya's thyroiditis GERD (gastroesophageal reflux disease) : GERD Education Indication: GERD (gastroesophageal reflux disease) Cinthya's thyroiditis : Continue Current Prescription(s) Indication: Cinthya's thyroiditis Cinthya's thyroiditis : Reviewed Lab Indication: Cinthya's thyroiditis Screening for hyperlipidemia : Reviewed Lab Indication: Screening for hyperlipidemia Cinthya's thyroiditis : Eprescribed prescriptions (G8553) Indication: Cinthya's thyroiditis SOB (shortness of breath) on exertion : Follow up in 1 week Indication: SOB (shortness of breath) on exertion SOB (shortness of breath) on exertion : Reviewed Lab Indication: SOB (shortness of breath) on exertion Hypothyroidism : Reviewed Lab Indication: Hypothyroidism Screening for hyperlipidemia : Reviewed Lab Indication: Screening for hyperlipidemia GERD (gastroesophageal reflux disease) : GERD Education Indication: GERD (gastroesophageal reflux disease) Well woman exam : Self breast exam Indication: Well woman exam Well woman exam : *Well Female Maintenance (KF) Indication: Well woman exam Well woman exam : Pap/Pelvic/Bimanual/Rectal/Breast Exam was done. Indication: Well woman exam Hypothyroidism : Reviewed Lab Indication: Hypothyroidism Cystitis, acute : Follow up in 2 months Indication: Cystitis, acute Abnormal TSH : Reviewed Lab Indication: Abnormal TSH Dysuria : Follow up in 2 weeks Indication: Dysuria Palpitations : Follow up - Make appt after diagnostic tests Indication: Palpitations Palpitations : Heart Palpitations *: palpitations Indication: Palpitations Neoplasm of uncertain behavior of skin : Follow up if no improvement or if symptoms worsen Indication: Neoplasm of uncertain behavior of skin Thyromegaly : Reviewed Lab Indication: Thyromegaly Thyromegaly : Reviewed Diagnostic Tests Indication: Thyromegaly Allergic rhinitis : FOLLOW UP IN 2 WEEK Indication: Allergic rhinitis Allergic rhinitis : MDI Education Indication: Allergic rhinitis Thyromegaly : *Thyroid Medication Education Indication: Thyromegaly Well woman exam : SELF BREAST EXAM Indication: Well woman exam Well woman exam : *Well Female Maintenance (KF) Indication: Well woman exam Well woman exam : Pap/Pelvic/Bimanual/Rectal/Breast Exam was done. Indication: Well woman exam Palpitations : *palpitation discusssion Indication: Palpitations Other premature beats : FOLLOW UP IN 8 MONTHS Indication: Other premature beats GERD (gastroesophageal reflux disease) : GERD Education Indication: GERD (gastroesophageal reflux disease) Palpitations : Reviewed Diagnostic Tests Indication: Palpitations Well woman exam : Self Breast Exam Education Indication: Well woman exam Well woman exam : Pap/Pelvic/Bimanual/Rectal/Breast Exam was done. Indication: Well woman exam Well woman exam : Well Female Maintenance (KF) Indication: Well woman exam Palpitations : *palpitation discusssion Indication: Palpitations Anxiety and depression : Antidepressant Usage Indication: Anxiety and depression Pharyngitis, acute : *URI Treatment Indication: Pharyngitis, acute Abdominal pain, acute, right lower quadrant : Reviewed Diagnostic Tests Indication: Abdominal pain, acute, right lower quadrant Bronchitis : FOLLOW UP NEEDED Indication: Bronchitis Bronchitis : *Antibiotic Usage Education - Female Indication: Bronchitis Bronchitis : *URI Symptoms Indication: Bronchitis Bronchitis : *URI Treatment Indication: Bronchitis Chest pain : Reviewed Diagnostic Tests Indication: Chest pain Bronchitis : Antibiotic Usage Education - Female Indication: Bronchitis Bronchitis : URI Symptoms Indication: Bronchitis Well woman exam : Pap/Pelvic/Bimanual/Rectal/Breast Exam was done. Indication: Well woman exam Well woman exam : Well Female Maintenance (KF) Indication: Well woman exam Planned Observations T3, FREE (TRIDOTHYRONINE) ([id number])Indication: Cinthya's thyroiditis On: 38-Lpm-098651:39 Request T4, FREE (THYROXINE) (45011)Indication: Cinthya's thyroiditis On: :39 Request HGB A1C (97501)Indication: FAMILY HISTORY OF DIABETES MELLITUS On: :39 Request CBC WITH MANUAL DIFF ([id number])Indication: FAMILY HISTORY OF DIABETES MELLITUS On: 81-Vsk-258318:39 Request Metabolic Panel, Comprehensive ([id number])Indication: FAMILY HISTORY OF DIABETES MELLITUS On: :39 Request LIPID PANEL ([id number])Indication: Screening for hyperlipidemia On: :05 Request TSH (THYROID STIMULATING HORMONE) ([id number])Indication: Cinthya's thyroiditis On: :04 Request TSH ([id number])Indication: Cinthya's thyroiditis On: 91-Ooh-028829:02 Request Comments: Jan 2017 TSH ([id number])Indication: Cinthya's thyroiditis On: 4-Mmr-854244:48 Request T4, FREE (THYROXINE) ([id number])Indication: Cinthya's thyroiditis On: 3-Spv-333119:48 Request T3, FREE (TRIDOTHYRONINE) ([id number])Indication: Cinthya's thyroiditis On: 8-Gmy-479348:48 Request TSH ([id number])Indication: Cinthya's thyroiditis On: 15-Nzn-339918:46 Request T4, FREE (THYROXINE) ([id number])Indication: Cinthya's thyroiditis On: 65-Rmv-576164:46 Request T3, FREE (TRIDOTHYRONINE) ([id number])Indication: Cinthya's thyroiditis On: 85-Lhx-679100:46 Request Anti-TPO Antibody (49066)Indication: Cinthya's thyroiditis On: 30-Unl-171887:30 Request TSH ([id number])Indication: Cinthya's thyroiditis On: 29-Frh-430113:30 Request T4, FREE (THYROXINE) ([id number])Indication: Cinthya's thyroiditis On: 12-Pzu-357079:30 Request T3, FREE (TRIDOTHYRONINE) (23060)Indication: Cinthya's thyroiditis On: 40-Lns-432095:30 Request FECAL OCCULT- Tubes sent home (37877)Indication: Encounter for screening for malignant neoplasm of colon (Renamed from Special screening for malignant neoplasms, colon) On: : Request Thin prep Pap (84170) (no STD testing)Indication: Encounter for gynecological examination with abnormal finding On: :26 Request Metabolic Panel, Comprehensive ([id number])Indication: Hypothyroidism On: : Request CBC WITH MANUAL DIFF (55084)Indication: Hypothyroidism On: : Request TSH (25690)Indication: Hypothyroidism On: : Request T4, FREE (THYROXINE) ([id number])Indication: Hypothyroidism On: : Request T3, FREE (TRIDOTHYRONINE) ([id number])Indication: Hypothyroidism On: : Request CALCIFEDIOL (25724)Indication: Hypothyroidism On: : Request LIPID PANEL (93147)Indication: Hypothyroidism On: : Request HGB A1C (76034)Indication: Hypothyroidism On: :06 Request Anti-Myeloperoxidase (MPO) Antibodies (39316)Indication: Hypothyroidism On: :05 Request T3, FREE (TRIDOTHYRONINE) ([id number])Indication: Hypothyroidism On: 57-Qzz-893022:03 Request T4, FREE (THYROXINE) (48646)Indication: Hypothyroidism On: 07-Txg-772316:03 Request TSH ([id number])Indication: Hypothyroidism On: 53-Lfp-559041:03 Request TSH (97444)Indication: Hypothyroidism On: :56 Request CBC WITH MANUAL DIFF (55212)Indication: Hypothyroidism On: 4-Swj-895143:00 Request Metabolic Panel, Comprehensive (20973)Indication: Hypothyroidism On: 2-Ujg-199256:00 Request Lipid Panel (20813)Indication: Screening for hyperlipidemia On: 8-Rfc-114417:00 Request TSH (39154)Indication: Hypothyroidism On: 0-Vuo-102941:00 Request T4, FREE (THYROXINE) ([id number])Indication: Hypothyroidism On: 7-Sqi-646939:00 Request T3, FREE (TRIDOTHYRONINE) ([id number])Indication: Hypothyroidism On: 8-Mop-320311:59 Request HEMOGLOBIN GLYCLATED (HGB A1C) ([id number])Indication: FAMILY HISTORY OF DIABETES MELLITUS On: 5-Szg-882762:59 Request TEST - SERUM QUANTITATIVE (HCG) ([id number])Indication: Amenorrhea On: 33-Gkb-647413:02 Request FSH AND LH ([id number])Indication: Amenorrhea On: 47-Ogd-602098:01 Request TSH (THYROID STIMULATING HORMONE) ([id number])Indication: Amenorrhea On: 71-Dqd-418288: Request Thin prep Pap (63674)Indication: Well woman exam On: 81-Hkb-56854:55 Request Lipid Panel (62435)Indication: Screening for hyperlipidemia On: :26 Request TSH (45798)Indication: Cinthya's thyroiditis On: : Request T4, FREE (THYROXINE) ([id number])Indication: Cinthya's thyroiditis On: :25 Request T3, FREE (TRIDOTHYRONINE) ([id number])Indication: Cinthya's thyroiditis On: 7-Fjj-486545:25 Request D-Dimer (06655)Indication: SOB (shortness of breath) on exertion On: 87-Wci-406298:32 Request Comments: send results to [phone] CBC with manual diff (05652)Indication: Hypothyroidism On: :44 Request Metabolic Panel, Comprehensive ([id number])Indication: Hypothyroidism On: 02-Qva-501150:44 Request TSH (23330)Indication: Hypothyroidism On: 65-Teq-890754:44 Request T4, FREE (THYROXINE) ([id number])Indication: Hypothyroidism On: :44 Request T3, FREE (TRIDOTHYRONINE) ([id number])Indication: Hypothyroidism On: :43 Request Lipid Panel ([id number])Indication: Screening for hyperlipidemia On: :43 Request Lipid Panel (24212)Indication: Screening for hyperlipidemia On: 80-Ftq-002251:57 Request Thin prep Pap (82220)Indication: Well woman exam On: 89-Zsz-750831:09 Request T4, FREE (THYROXINE) (49627)Indication: Hypothyroidism On: 17-Mar-20127:39 Request T3, FREE (TRIDOTHYRONINE) ([id number])Indication: Hypothyroidism On: :39 Request Anti-TPO Antibody (49982)Indication: Abnormal TSH On: :32 Request T3, FREE (TRIDOTHYRONINE) ([id number])Indication: Abnormal TSH On: 25-Jan-2012 Request T4, FREE (THYROXINE) ([id number])Indication: Abnormal TSH On: 25-Jan-2012 Request Anti-TPO Antibody ([id number])Indication: Unspecified Diagnosis On: :48 Request T3, FREE (TRIDOTHYRONINE) (47509)Indication: Unspecified Diagnosis On: :48 Request T4, FREE (THYROXINE) ([id number])Indication: Unspecified Diagnosis On: :48 Request TSH ([id number])Indication: Unspecified Diagnosis On: :48 Request TSH ([id number])Indication: Palpitations On: 97-Rgv-792315:25 Request CBC with manual diff ([id number])Indication: Palpitations On: 84-Qhe-678471:21 Request Metabolic Panel, Comprehensive ([id number])Indication: Palpitations On: 28-Owg-710499:21 Request Metabolic Panel, Comprehensive (88708)Indication: Fever presenting with conditions classified elsewhere On: 76-Zdn-639532:17 Request Comments: stat labs Influenza A+B Ag, EIA (37285)Indication: Fever presenting with conditions classified elsewhere On: 39-Anq-886276:16 Request MCKENZIE CULTURE-BLOOD (17135)Indication: Fever presenting with conditions classified elsewhere On: 82-Gaa-643564:15 Request CBC, Platelets & Auto Diff (69814)Indication: Fever presenting with conditions classified elsewhere On: 09-Eue-442900:15 Request D-Dimer (35993)Indication: SOB (shortness of breath) on exertion On: :56 Request Urinalysis, Office (41207)Indication: Hematuria, unspecified On: 1-Nmm-737678:03 Request LIPID PANEL (34876)Indication: Other premature beats On: 78-Xvd-59215:45 Request D-Dimer (21578)Indication: Chest pain On: 35-Rtz-793055:12 Request METABOLIC PANEL, COMPREHENSIVE (85910)Indication: Palpitations On: :11 Request CBC WITH MANUAL DIFF ([id number])Indication: Palpitations On: :11 Request TSH ([id number])Indication: Palpitations On: :11 Request MCKENZIE CULTURE-OTHER (78543)Indication: Pharyngitis, acute On: :06 Request Rapid Strep Test, Office (34747)Indication: Pharyngitis, acute On: :06 Request Comments: neg C-Reactive Protein ([id number])Indication: Abdominal pain, acute, right lower quadrant On: :52 Request CBC, Platelets & Auto Diff (64021)Indication: Abdominal pain, acute, right lower quadrant On: :51 Request URINE MCKENZIE CULTURE (SALOME COL COUNT) ([id number])Indication: Abdominal pain, acute, right lower quadrant On: :46 Request SED RATE ERYTHROCYTE (13363)Indication: Abdominal pain, acute, right lower quadrant On: 81-Scr-831437:51 Request C-REACTIVE PROTEIN (19809)Indication: Abdominal pain, acute, right lower quadrant On: 28-Ybs-446819:51 Request CBC WITH MANUAL DIFF ([id number])Indication: Abdominal pain, acute, right lower quadrant On: 84-Qiu-605370:51 Request ASSAY, TROPONIN, QUANTITATIVE (aka Troponin I) ([id number])Indication: Chest pain On: :55 Request CBC WITH MANUAL DIFF ([id number])Indication: Palpitations On: :54 Request METABOLIC PANEL, COMPREHENSIVE ([id number])Indication: Palpitations On: :54 Request TSH (THYROID STIMULATING HORMONE) ([id number])Indication: Palpitations On: :52 Request C-Reactive Protein ([id number])Indication: Chest pain On: :47 Request Thin prep Pap ([id number])Indication: Well woman exam On: 57-Dky-129953:48 Request Planned Procedures SCREENING DIGITAL TOMOSYNTHESIS OF On: 20-Mar-2018 Intent BREAST (16653)By: Bibiana Mulligan DO, DO, Kathleen ELECTROCARDIOGRAM, COMPLETE (ECG) On: 29-Jul-2017 Intent (33375)By: Bibiana Mulligan DO Comments: nsr no acute chg Bibiana Mulligan DO Holter Monitor 24 hrsBy: Sheri GEE, On: 01-Aug-2016 Intent Geovanna Spirometry (34059)By: Sheri GEE, On: 01-Aug-2016 Intent Geovanna ELECTROCARDIOGRAM, COMPLETE (ECG) On: 01-Aug-2016 Intent (01999)By: Margarita Lees LPN Comments: ekg sinus MAMMOGRAM, SCREENING, BOTH BREAST On: 05-Mar-2016 Intent (58894)By: Bibiana Mulligan DO, DO, Kathleen MAMMOGRAM, SCREENING, BOTH BREAST On: 09-Mar-2014 Intent (72588)By: Bibiana Mulligan DO, DO, Kathleen Radiology - Chest- PA and LatBy: On: 27-May-2013 Intent Bibiana Mulligan DO, DO, Kathleen Spirometry (14842)By: Ese ZAMBRANO, On: 27-May-2013 Intent Bibiana Gates DO Comments: [employer] -- good curve Pulse Oximetry (31471)By: Ese On: 27-May-2013 Intent Bibiana ZAMBRANO DO, Kathleen Comments: 98% room air IMMUNIZ ADMNIN, 1 VAC, SNGL/COMBO On: 09-Apr-2012 Intent (47039)By: Bibiana Mulligan DO, DO, Kathleen FLU VAC, SPLIT, >3 YEARS, INTRAMUSC On: 09-Apr-2012 Intent (41174)By: Bibiana Mulligan DO, DO, Kathleen Breast Screening - BilateralBy: On: 31-Mar-2012 Intent Bibiana Mulligan DO, DO, Kathleen SPECIMEN HANDLING/TRANSPORT On: 26-Nov-2011 Intent (83416)By: Jacki Delatorre LPN Holter Monitor 24 hrsBy: Sheri GEE, On: 02-Nov-2011 Intent Geovanna EKG (05757)By: Jacki Delatorre LPN On: 02-Nov-2011 Intent INFUSION, NORMAL SALINE SOLUTION , On: 06-Mar-2011 Intent 1000 CC (Special Coverage Comments: 22 G IV inserted in rt ac w/ no signs of redness or infilltration. Tolerated well.IV dicontinued. Catheter intact. Tolerated well./Vahid Riding [employer]RINKER Instructions Apply. See [facility]: 2048) ([id number])By: Camelia Tyson MD HYDRATION IV INFUSION, INIT On: 06-Mar-2011 Intent (25300)By: Camelia Tyson MD Radiology - ChestBy: Marbella KINGSTON, On: 06-Mar-2011 Intent Camelia Alfaro Comments: wet read Spirometry (87366)By: Ese ZAMBRANO, On: 17-Aug-2010 Intent BibianaBibiana No DO Comments: normal Bio Z (08807)By: Ese ZAMBRANO, On: 17-Aug-2010 Intent Bibiana Gates DO Comments: normal parameters - stable EKG (24032)By: Bibiana Mulligan DO On: 17-Aug-2010 Intent Bibiana Mulligan DO Comments: nsr no acute chg Eprescribed prescriptions On: 17-Aug-2010 Intent (G8553)By: Bibiana Mulligan DO, DO, Kathleen Inhaler Demo (23167)By: Ese ZAMBRANO, On: 17-Aug-2010 Intent Bibiana Gates DO Ultrasound - ThyroidBy: Ese ZAMBRANO, On: 17-Aug-2010 Intent Bibiana Gates DO Eprescribed prescriptions On: 14-Jul-2010 Intent (G8553)By: Bibiana Mulligan DO, DO, Kathleen Nuclear Stress Test/Stress On: 10-Feb-2010 Intent SPECT/TreadmillBy: Ese ZAMBRANO, Comments: with cardiolyte Bibiana Gates DO MAMMOGRAM, SCREENING, BOTH BREASTS On: 23-Jan-2010 Intent (17995)By: Laxmi Hinton LPN Breast Ultrasound - BilateralBy: On: 18-Jan-2010 Intent Bibiana Mulligan DO, DO, Kathleen Echo CompleteBy: Ese ZAMBRANO, On: 18-Jan-2010 Intent Bibiana Mulligan DO Bibiana Holter Moniter (49965)By: Ese On: 18-Jan-2010 Intent Bibiana ZAMBRANO DO, Kathleen EKG (15723)By: Bibiana Mulligan DO On: 18-Jan-2010 Intent Bibiana Mulligan DO Comments: nsr no acute changes TDAP VACCINE >7 IM ([id number])By: On: 06-Apr-2009 Intent Jaja Elliott LPN Comments: Lot #[id number]/16/11Site-left deltoidgiven by:[facility] EKG (10054)By: Camelia Tyson MD On: 28-May-2008 Intent SPECIMEN HNDLNG/TRNSPRT, OFFC > LAB On: 05-Nov-2007 Intent ([id number])By: Marga Wade CNP CT - Abdomen & Pelvis Stone On: 04-Jun-2007 Intent ProtocolBy: Bibiana Mulligan DO, DO, Kathleen CT - Abdomen & PelvisBy: Darrell ZAMBRANO, On: 02-Jun-2007 Intent Verito Singleton Comments: stat- call results Ultrasound - GallbladderBy: Sheri On: 24-Mar-2007 Intent Marga GEE EKG (46763)By: Marga Wade CNP On: 24-Mar-2007 Intent Holter Moniter (08504)By: Vinnie, On: 19-Mar-2007 Intent Radha Holter Moniter (15408)By: Juan Ramon On: 02-Sep-2006 Intent Jacki MILIAN Comments: ABn signed Spirometry (44861)By: Ese ZAMBRANO, On: 14-Jun-2006 Intent Bibiana Gates DO Pulse Oximetry (75443)By: Ese On: 14-Jun-2006 Bibiana Sands DO, DO, Kathleen Comments: 98%--RA Aerosol Treatment (61627)By: Ese On: 14-Jun-2006 Bibiana Sands DO, DO, Kathleen Comments: after aerosol much more air exchange-- less abn noise MAMMOGRAM, SCREENING, BOTH BREASTS On: 04-Mar-2006 Intent (87890)By: Bibiana Mulligan DO, DO, Kathleen Planned Medications INFUSION, NORMAL SALINE SOLUTION , 1000 CC Ordered: 06-Mar-2011 Pending Camelia Tyson MD Instructions Name Dates Details Nonsmoker : How to access health information online Indication: Nonsmoker Nonsmoker : How to access health information online - Detail Indication: Nonsmoker Nonsmoker : Patient Instructions Indication: Nonsmoker BMI 39.0-39.9,adult : How to access health information online Indication: BMI 39.0-39.9,adult BMI 39.0-39.9,adult : How to access health information online - Detail Indication: BMI 39.0-39.9,adult BMI 39.0-39.9,adult : Patient Instructions Indication: BMI 39.0-39.9,adult Body mass index 40.0-44.9, adult : How to access health information online Indication: Body mass index 40.0-44.9, adult Body mass index 40.0-44.9, adult : How to access health information online - Detail Indication: Body mass index 40.0-44.9, adult Body mass index 40.0-44.9, adult : Patient Instructions Indication: Body mass index 40.0-44.9, adult Other premature beats : How to access health information online Indication: Other premature beats Other premature beats : How to access health information online - Detail Indication: Other premature beats Other premature beats : Patient Instructions Indication: Other premature beats Chest pressure : How to access health information online Indication: Chest pressure Chest pressure : How to access health information online - Detail Indication: Chest pressure Chest pressure : Patient Instructions Indication: Chest pressure Nonsmoker : Patient Instructions Indication: Nonsmoker Hypothyroidism : Patient Instructions Indication: Hypothyroidism Anxiety : How to access health information online Indication: Anxiety Anxiety : How to access health information online - Detail Indication: Anxiety Anxiety : Patient Instructions Indication: Anxiety 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 : How to access health information online - Detail Indication: Facial paralysis Cinthya's thyroiditis : Patient Instructions Indication: Cinthya's thyroiditis SOB (shortness of breath) on exertion : Patient Instructions Indication: SOB (shortness of breath) on exertion Pharyngitis, acute : Sore throat: diagnosis and treatment Indication: Pharyngitis, acute Encounters Prescription Refill On: 20-Mar-2018 14:52 Encounter Diagnosis: Encounter for screening mammogram for malignant neoplasm of breast End: 20-Mar-2018 14:57 [facility] Office Visit On: 29-Jul-2017 15:06 Encounter Reason: Follow up tests - Date: (07/17/17 scanned in labs)., [ADDITIONAL REASON] Follow up for chronic medical issues - The patient feels well with minor complai End: 30-Jul-2017 10:35 nts, has good energy level and is sleeping poorly. Patient has been compliant with instructions. Current medication use: no side effects and compliant with dosing regimen. Patient sleeps 6 hours per nig ht. Nutrition: balanced diet and no supplemental vitamins & iron. The medical issues the patient is following up for include All identified problems below. weight :. Encounter Diagnosis: BMI 39.0-39.9,adult, Nonsmoker, Cinthya's thyroiditis, Screening for hyperlipidemia, GERD (gastroesophageal reflux disease), Anxiety and depression, Other premature beats (427.69) [facility] Phone Encounter On: 28-Jun-2017 14:34 Encounter Diagnosis: FAMILY HISTORY OF DIABETES MELLITUS (V18.0), Cinthya's thyroiditis End: 28-Jun-2017 14:40 [facility] Lab Order On: 24-Jun-2017 16:33 Encounter Diagnosis: Cinthya's thyroiditis, Screening for hyperlipidemia End: 24-Jun-2017 17:08 [facility] Phone Encounter On: 01-Mar-2017 15:47 Encounter Diagnosis: Depression, acute End: 01-Mar-2017 15:49 [facility] Office Visit On: 04-Jan-2017 9:53 Encounter Reason: Depression - No changes in management were made at the last visit. Symptoms include suicidal ideation, loss of interest, depressed mood and anxiety, while symptoms do not include suicide attempt, headac End: 04-Jan-2017 10:29 hes or irritability. Onset was sudden 2 week(s) ago. Onset followed stress. The symptoms occur constantly. The patient describes this as worsening. Associated symptoms include racing thoughts. Current t reatment includes none (has been on some in past and does not do well with them, Sh has on lexapro,paxil).Encounter Diagnosis: Depression, acute, BMI 39.0- 39.9,adult, Influenza vaccination declined (Renamed from Refused influenza vaccine), Nonsmoker [facility] Office Visit On: 29-Nov-2016 9:45 Encounter Reason: Depression - No changes in management were made at the last visit. Symptoms include suicidal ideation, loss of interest, depressed mood and anxiety, while symptoms do not include suicide attempt, headac End: 29-Nov-2016 10:11 hes or irritability. Onset was sudden 2 week(s) ago. Onset followed stress. The symptoms occur constantly. The patient describes this as worsening. Associated symptoms include racing thoughts. Current t reatment includes none (has been on some in past and does not do well with them, Sh has on lexapro,paxil).Encounter Diagnosis: Nonsmoker, BMI 39.0-39.9,adult, Depression, acute, Stress reaction [facility] Office Visit On: 15-Aug-2016 10:21 Encounter Diagnosis: Nonsmoker, Body mass index 40.0-44.9, adult, Folliculitis, Lymphadenitis End: 15-Aug-2016 11:45 [facility] Office Visit On: 10-Aug-2016 14:30 Encounter Reason: Follow up tests - Diagnostic tests include other (labs).Encounter Diagnosis: Body mass index 40.0-44.9, adult, Nonsmoker, Cinthya's thyroiditis, Other premature beats (427.69), Hot flashes, Ptosis, bilateral End: 10-Aug-2016 15:14 [facility] Office Visit On: 01-Aug-2016 14:39 Encounter Reason: Chest Pain - Symptoms include chest pain (pressure) and palpitations. The patient describes the pain as pressure-like. Onset was 1 day(s) ago. The symptoms occur intermittently. The patient describes th End: 01-Aug-2016 15:18 is as unchanged. Symptoms are not exacerbated by cold temperature, exercise/activity, lying down, movement, taking a deep breath, eating or spicy foods. Associated symptoms include anxiety and sweating., [ADDITIONAL REASON] Hot Flashes - Note for Hot flashes: hot flash and chills Encounter Diagnosis: Nonsmoker, Body mass index 40.0-44.9, adult, Chest pressure, Anxiety (300.00), Hot flashes [facility] Refill Request On: 14-Jun-2016 15:11 Encounter Diagnosis: Cinthya's thyroiditis End: 14-Jun-2016 15:13 [facility] Phone Encounter On: 19-Apr-2016 13:47 Encounter Diagnosis: Cinthya's thyroiditis End: 19-Apr-2016 13:49 [facility] Office Visit On: 18-Apr-2016 11:56 Encounter Diagnosis: Cinthya's thyroiditis End: 18-Apr-2016 12:04 [facility] Phone Encounter On: 04-Apr-2016 15:43 Encounter Diagnosis: Cinthya's thyroiditis End: 04-Apr-2016 15:47 [facility] Office Visit On: 05-Mar-2016 9:13 Encounter Reason: Well Women Exam - The patient feels well with minor complaints, has good energy level and is sleeping well. Pap smear: date of last pap: (03/09/14). Contraceptive history: The patient is not using any m End: 05-Mar-2016 10:32 ethod of contraception at this time. Patient does not exercise. The patient reports that she does not perform monthly breast self exam. Calcium intake includes 2 serving(s) milk daily. The patient denie s the use of oral contraceptives or hormone replacement therapy. Menstruation: Last menstrual period date: (02/14/16).Encounter Diagnosis: Encounter for gynecological examination with abnormal finding, Screening for HPV (human papillomavirus) (Renamed from Encounter for screening for human papillomavirus (HPV)), Body mass index 40.0-44.9, adult, Nonsmoker, Encounter for screening mammogram for malignant neoplasm of breast, Encounter for screening for malignant neoplasm of colon (Renamed from Special screening for malignant neoplasms, colon), Need for prophylactic vaccination and inoculation against influenza (Renamed from Need for immunization against influenza), Influenza vaccination declined (Renamed from Refused influenza vaccine), Cinthya's thyroiditis, Grieving [facility] Office Visit On: 02-Sep-2015 14:55 Encounter Reason: Follow up tests - Date: (scanned in 07/24 07/25 ??07/26 ??07/28 08/03).Encounter Diagnosis: Hypothyroidism, Cinthya's thyroiditis, GERD (gastroesophageal reflux disease), Mitral valve prolapse End: 02-Sep-2015 16:01 [facility] Phone Encounter On: 11-Jul-2015 14:05 Encounter Diagnosis: Hypothyroidism End: 11-Jul-2015 14:11 [facility] Phone Encounter On: 01-Apr-2015 16:01 Encounter Diagnosis: Hypothyroidism End: 01-Apr-2015 16:04 [facility] Office Visit On: 18-Feb-2015 14:02 Encounter Reason: Follow up acute care visit - The patient does not feel well. Patient has been compliant with instructions. Current medication use: no side effects and compliant with dosing regimen. Patient sleeps 6 gaston End: 18-Feb-2015 15:01 rs per night. Nutrition: balanced diet.Encounter Diagnosis: Anxiety and depression, HYPOTHYROIDISM NOS (244.9) [facility] Office Visit On: 31-Dec-2014 7:51 Encounter Reason: Follow up acute care visit - The patient feels the same. Patient has been compliant with instructions. Current medication use: experiencing side effects (prozac ). Patient sleeps 6 hours per night. Impa End: 31-Dec-2014 8:26 ct of disease: emotional impact-moderate. Nutrition: balanced diet and supplemental vitamins. The medical issues the patient is following up for include depression (anxiety ).Encounter Diagnosis: Anxiety (300.00), Allergic rhinitis (477.9), HYPOTHYROIDISM NOS (244.9) [facility] Phone Encounter On: 14-Oct-2014 13:57 Encounter Diagnosis: FAMILY HISTORY OF DIABETES MELLITUS (V18.0), HYPOTHYROIDISM NOS (244.9), Screening for hyperlipidemia (V77.91) End: 14-Oct-2014 14:02 [facility] Phone Encounter On: 30-Aug-2014 10:35 Encounter Diagnosis: Hematuria, unspecified (599.70) End: 30-Aug-2014 10:36 [facility] Office Visit On: 27-Aug-2014 14:48 Encounter Reason: Anxiety - The last clinic visit was month(s) ago. No changes in management were made at the last visit. Symptoms include anxiety. Onset was gradual. There is no known event that preceded symptom onset. End: 27-Aug-2014 15:23 The symptoms occur constantly. The patient describes this as moderate in severity. Note for Anxiety: things going on and will be going on so wants to be proactiveEncounter Diagnosis: Anxiety (300.00), DEPRESSIVE DISORDER (311.0) [facility] Office Visit On: 04-Jun-2014 7:21 Encounter Reason: Tingling - The onset of the tingling has been sudden. The tingling affects the face (lt side of face goes numb it is usually when the cart goes out and then when we decend it will come back. I have some anxious with it.). End: 04-Jun-2014 8:27 Encounter Diagnosis: ETD (eustachian tube dysfunction), Facial paralysis [facility] Office Visit On: 09-Mar-2014 8:54 Encounter Reason: Well Women Exam - The patient feels well with minor complaints, has good energy level and is sleeping well. Pap smear: date of last pap: (2011). Contraceptive history: The patient is not using any metho End: 09-Mar-2014 10:05 d of contraception at this time. Patient exercises a weekly. The patient reports that she does not perform monthly breast self exam. Calcium intake includes 1 serving milk daily. The patient denies the use of oral contraceptives or hormone replacement therapy. Menstruation: Last menstrual period date: (01/26).Encounter Diagnosis: Well Woman Exam (V72.31) (Pap,Mammo,Routine Female), Breast cancer screening (V76.10), Amenorrhea [facility] Office Visit On: 25-Sep-2013 13:50 Encounter Reason: Follow up for chronic medical issues - The patient feels well with minor complaints, has good energy level and is sleeping well. Patient has been compliant with instructions. Current medication use: no End: 25-Sep-2013 14:38 side effects. Patient sleeps 6 hours per night. Nutrition: balanced diet and no supplemental vitamins & iron. The medical issues the patient is following up for include All identified problems below and depression., [ADDITIONAL REASON] Follow up tests - Date: (labs 6.9.14). Encounter Diagnosis: Cinthya thyroiditis (245.2), Screening for hyperlipidemia (V77.91), DEPRESSIVE DISORDER (311.0), Mitral Valve Prolapse (746.9), GERD (530.81) [facility] Phone Encounter On: 14-Sep-2013 14:24 Encounter Diagnosis: Cinthya thyroiditis (245.2), Screening for hyperlipidemia (V77.91) End: 14-Sep-2013 14:26 [facility] Office Visit On: 27-May-2013 14:57 Encounter Reason: Difficulty breathing - The onset of the difficulty breathing has been gradual and has been occurring in an intermittent pattern for months. The course has been recurrent. The difficulty breathing is mil End: 27-May-2013 16:44 d to moderate. The difficulty breathing occurs with normal activities and occurs on exertion. There has been no associated coughing.Encounter Diagnosis: SOB (786.05), Anxiety (300.00) [facility] Office Visit On: 06-Apr-2013 11:42 Encounter Reason: Follow up for chronic medical issues - The patient feels well with minor complaints, has good energy level and is sleeping well. Patient has been compliant with instructions. Current medication use: no End: 06-Apr-2013 13:24 side effects. Patient sleeps 6 hours per night. Nutrition: balanced diet and no supplemental vitamins & iron. The medical issues the patient is following up for include All identified problems below and depression.Encounter Diagnosis: HYPOTHYROIDISM NOS (244.9), Screening for hyperlipidemia (V77.91), Mitral Valve Prolapse (746.9), GERD (530.81), Cinthya thyroiditis (245.2), Other premature beats (427.69), Urinary Frequency (788.41), FAMILY HISTORY OF DIABETES MELLITUS (V18.0) [facility] Lab Order On: 24-Mar-2013 15:40 Encounter Diagnosis: Screening for hyperlipidemia (V77.91), HYPOTHYROIDISM NOS (244.9) End: 24-Mar-2013 15:45 [facility] Phone Encounter On: 09-Apr-2012 10:56 Encounter Diagnosis: Screening for hyperlipidemia (V77.91) End: 09-Apr-2012 10:57 [facility] Office Visit On: 09-Apr-2012 10:05 Encounter Reason: Well Women Exam - The patient feels well with minor complaints, has good energy level and is sleeping well. Pap smear: date of last pap: (2 yrs). Contraceptive history: The patient is not using any meth End: 09-Apr-2012 10:49 od of contraception at this time. Patient does not exercise. The patient reports that she does not perform monthly breast self exam. Calcium intake includes 2 serving(s) milk daily. The patient denies t he use of oral contraceptives or hormone replacement therapy. Menstruation: Last menstrual period date: (last mon).Encounter Diagnosis: Encounter for screening for human papillomavirus (hpv) (V73.81), Well Woman Exam (V72.31) (Pap,Mammo,Routine Female), Anxiety (300.00), NEED FOR PROPHYLACTIC VACCINATION AND INOCULATION AGAINST INFLUENZA (V04.81) [facility] Annotation/Addendum On: 31-Mar-2012 10:31 Encounter Diagnosis: Breast cancer screening (V76.10) End: 31-Mar-2012 10:33 [facility] Office Visit On: 31-Jan-2012 7:14 Encounter Reason: Follow up tests - Date: (labs).Encounter Diagnosis: HYPOTHYROIDISM NOS (244.9), Abnormal TSH (794.5), Cinthya thyroiditis (245.2) End: 31-Jan-2012 7:45 [facility] Office Visit On: 07-Dec-2011 7:43 Encounter Reason: Follow up acute care visit - The patient feeling better since last seen and improving. Patient has been non-compliant with instructions. Current medication use: experiencing side effects (N/D), complian End: 07-Dec-2011 8:41 t with dosing regimen and considered effective by patient. Patient sleeps 8 hours per night. The medical issues the patient is following up for include All identified problems below and UTI., [ADDITIONAL REASON] Follow up tests - Diagnostic tests include other (labs, holter). Date: (11/28-11/30/11). Current symptoms include other (decreased energy). Encounter Diagnosis: Cystitis,Acute (595.0), Abnormal TSH (794.5), HYPOTHYROIDISM NOS (244.9) [facility] Annotation/Addendum On: 26-Nov-2011 9:46 Encounter Diagnosis: Unspecified Diagnosis End: 26-Nov-2011 9:49 [facility] Office Visit On: 26-Nov-2011 9:02 Encounter Reason: Urinary problems - The onset of the urinary problems has been sudden and they have been occurring in a persistent pattern for 3 days. The course has been increasing. The urinary problems are described a End: 26-Nov-2011 9:46 s moderate. The urinary problem is characterized as frequency, urgency and painful urination. There has been associated fever / chills, back pain, nausea and blood in urine.Encounter Diagnosis: Dysuria (788.1) [facility] Office Visit On: 02-Nov-2011 14:35 Encounter Reason: Palpitations - Presentation included a fluttering heartbeat. Symptoms include palpitations. Onset was gradual. The patient describes this as unchanged. Symptoms are exacerbated by emotional stress, anxi End: 02-Nov-2011 15:26 ety and caffeine. Associated symptoms do not include chest pain, diaphoresis, dizziness or nausea.Encounter Diagnosis: Palpitations (785.1) [facility] Office Visit On: 06-Mar-2011 11:49 Encounter Reason: Flu Like Symptoms - Symptoms include fever, chills, body aches, hoarseness, dry cough and headache. Onset was sudden 4 day(s) ago. There is no known event that preceded symptom onset. The patient descri End: 06-Mar-2011 16:23 bes this as moderate in severity.Encounter Diagnosis: Fever presenting with conditions classified elsewhere (780.61) [facility] Office Visit On: 06-Nov-2010 16:42 Encounter Reason: Skin Problems - The onset of the problems has been sudden and they have been occurring in a persistent pattern for 5 days. The course has been constant. The problem is characterized as a rash, itching a End: 06-Nov-2010 17:18 nd other (painful). Lesions are described as red and raised above the skin. The spots were first seen on the scalp. There has been no progression. There has been associated itching and pain.Encounter Diagnosis: Lesion-Unknown behavior (238.2) [facility] Office Visit On: 28-Aug-2010 7:57 Encounter Reason: Follow up, Laboratory Test Results - Date: (08/17/ and 08/18)., [ADDITIONAL REASON] Follow up Meds - The patient feels well with minor complaints. Patient has been End: 28-Aug-2010 8:21 non-compliant with instructions. Current medication use: no side effects. Patient sleeps 6 hours per night. Nutrition: balanced diet. Encounter Diagnosis: Allergic rhinitis (477.9), Thyromegaly (240.9), SOB (786.05) [facility] Office Visit On: 17-Aug-2010 8:00 Encounter Reason: Difficulty breathing - The onset of the difficulty breathing has been sudden and has been occurring in an intermittent pattern for weeks. The course has been recurrent. The difficulty breathing is moder End: 17-Aug-2010 9:47 ate. The difficulty breathing occurs with normal activities and occurs at rest. 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 The urine is described as bloody. There has been no associated perineal pain or abdominal pain. The patient denies the use of or End: 14-Jul-2010 15:17 al contraceptives, antibiotics, hormone replacement therapy or pyridium/uristat.Encounter Diagnosis: Hematuria, unspecified (599.70), Cystitis,Acute (595.0) [facility] Phone Encounter On: 10-Feb-2010 9:52 Encounter Diagnosis: Other premature beats (427.69) End: 10-Feb-2010 9:55 [facility] Office Visit On: 23-Jan-2010 9:31 Encounter Reason: Well Women Exam - The patient feels well with no complaints, has good energy level and is sleeping well. Pap smear: date of last pap: (05/24). Contraceptive history: The patient is not using any method o End: 23-Jan-2010 10:27 f contraception at this time. Patient does not exercise. The patient reports that she does not perform monthly breast self exam. The patient denies the use of oral contraceptives or hormone replacement therapy. Menstruation: Last menstrual period date: (01/13/10).Encounter Diagnosis: Well Woman Exam (V72.31) (Pap,Mammo,Routine Female) [facility] Phone Encounter On: 18-Jan-2010 11:05 Encounter Diagnosis: SCREENING MAMMOGRAM NEC (V76.12) End: 18-Jan-2010 11:06 [facility] Office Visit On: 18-Jan-2010 8:02 Encounter Reason: Palpitations - Initial presentation was 2 day(s) ago. Presentation included a rapid heartbeat. The last clinic visit was 1 day(s) ago. No changes in management were made at the last visit. Symptoms incl End: 18-Jan-2010 10:44 ude palpitations and skipped beats. Onset was sudden. Note for Palpitations: I had this on saturday and I went into our company nurse and I had been taking zinc for a cold. So she told me to take a 1/2 xanax and I did and came back and my pulse went to 72Encounter Diagnosis: Palpitations (785.1), SYMPTOMS INVOLVING CARDIOVASCULAR SYSTEM; OTHER ABNORMAL HEART SOUNDS (785.3) [facility] Office Visit On: 23-Sep-2009 7:42 Encounter Diagnosis: Upper Arm Pain (719.42) End: 23-Sep-2009 8:12 [facility] Office Visit On: 26-Aug-2009 11:55 Encounter Reason: Arm pain - The onset of the pain has been sudden and has been occurring in an intermittent pattern for 2 months. The course has been recurrent. The pain is described as moderate. The pain is described a End: 26-Aug-2009 12:45 s being located in the right shoulder ,right humerus ,right elbow and right wrist. The pain is relieved by nothing. Encounter Diagnosis: Upper Arm Pain (719.42) [facility] Office Visit On: 27-Jun-2009 8:39 Encounter Reason: Follow up for chronic medical issues - The patient feels well with minor complaints ,has good energy level and is sleeping well. Patient has been compliant with instructions. Current medication use: no End: 27-Jun-2009 9:49 side effects and compliant with dosing regimen. Patient sleeps 6 hours per night. Nutrition: balanced diet and no supplemental vitamins & iron. The medical issues the patient is following up for include All identified problems below and depression. , [ADDITIONAL REASON] Follow up, Laboratory Test Results - Date: (03/09/09). Encounter Diagnosis: Mitral Valve Prolapse (746.9), Other premature beats (427.69), Raynaud's syndrome (443.0), GERD (530.81), Gastroenteritis (558.9), Chest pain (786.59) [facility] Office Visit On: 06-Apr-2009 15:53 Encounter Diagnosis: Unspecified Diagnosis End: 06-Apr-2009 16:19 [facility] Office Visit On: 04-Apr-2009 14:17 Encounter Diagnosis: SCREENING FOR TB (V74.1) End: 04-Apr-2009 14:55 [facility] Office Visit On: 02-Mar-2009 17:24 Encounter Diagnosis: Other general medical examination for administrative purposes (V70.3) End: 09-Mar-2009 7:41 [facility] Office Visit On: 17-Jun-2008 11:18 Encounter Reason: Flu like symptoms - The onset of the flu like symptoms has been acute and they have been occurring in a persistent pattern for 3 days. The course has been constant. The flu like symptoms are described as moderate. End: 17-Jun-2008 12:25 Encounter Diagnosis: SYMPTOMS INVOLVING DIGESTIVE SYSTEM; DIARRHEA (787.91), FEVER (780.6), Gastroenteritis (558.9), Palpitations (785.1) [facility] Office Visit On: 07-Jun-2008 9:26 Encounter Reason: Well Women Exam - The patient feels well with minor complaints ,has good energy level and is sleeping well. Pap smear: date of last pap: (1.5 years). Contraceptive history: The patient is not using any End: 07-Jun-2008 10:04 method of contraception at this time. Patient does not exercise. The patient reports that she does not perform monthly breast self exam. Calcium intake includes 1 serving milk daily. The patient denies the use of oral contraceptives or hormone replacement therapy. Menstruation: Last menstrual period date: (05/24). Encounter Diagnosis: Well Woman Exam (V72.31) (Pap,Mammo,Routine Female) [facility] Office Visit On: 28-May-2008 11:50 Encounter Reason: Palpitations - The onset of the palpitations has been sudden and they have been occurring in an intermittent pattern for 3 weeks. The course has been recurrent. The palpitations are characterized as inc End: 28-May-2008 12:20 reased awareness of heart beats. There have been no precipitating factors. The symptoms have no relieving factors. Note for Palpitations: not get CP with it or sob or syncope or lightheaded. few weeks ago tight in sternum with movement and with deep breath 2 weeks ago. no sob. lasted 2 days. not constant. on and off. not related exertion. no cafiene, no diet or decongestant pills. some warm then oth er people. not deep flush. had stress and anxiety. crying alot last week. note when lay down. one night lay there heart palp bad also noted left arrm twinge but had with chronically and see massotherapy to work out. at times tingle in finger tips at times. history vasovagal syncope. palp are that notice heart more0--no skip or raceEncounter Diagnosis: Palpitations (785.1), Chest pain (786.59), Anxiety (300.00) [facility] Office Visit On: 05-Nov-2007 7:52 Encounter Reason: Sore throat - The onset of the sore throat has been acute and has been occurring in an intermittent pattern for weeks. The course has been worsening. The symptoms have been associated with difficulty in End: 05-Nov-2007 8:12 swallowing, while the symptoms have not been associated with foreign body sensation in throat ,change in voice ,chest pain ,chills ,cough ,difficulty in breathing ,ear pain ,fever ,non-purulent sputum ,post-nasal drip ,purulent sputum ,recent contact with a person with sore throat ,runny nose ,sensation of tightness in substernal area ,sinus pain or swelling of neck glands. Encounter Diagnosis: ACUTE PHARYNGITIS (462.), DEPRESSIVE DISORDER (311.0) [facility] Office Visit On: 04-Jun-2007 9:13 Encounter Reason: Abdominal pain - The onset of the pain has been sudden and has been occurring in an intermittent pattern for 5 days. The course has been recurrent. The pain is described as a moderate (last night very p End: 04-Jun-2007 10:53 ainful) dull ache. The pain is described as being located in the right lower quadrant. The pain does not radiate. The symptoms are aggravated by coughing and breathing. The symptoms have no relieving fa ctors. There has been no associated bloating ,constipation or diarrhea. Previous evaluations have included CT scan. Note for Abdominal pain: comes and goes-- but last couple hours more constant- no fe daniela-- or nausea or vomiting-- no diarrhea--- blood in stool lately when wipes-- not constipated-- periods regular-- feels like some vaginal irritation -- she was in last week for a cough-- has gotten betterEncounter Diagnosis: Abdominal Pain,RLQ (789.03), Cystitis,Acute (595.0) [facility] Office Visit On: 02-Jun-2007 16:59 Encounter Reason: Abdominal pain - The onset of the pain has been sudden and has been occurring in an intermittent pattern for 2 days. The course has been recurrent. The pain is described as a moderate dull ache. The nargis End: 02-Jun-2007 20:51 n is described as being located in the right lower quadrant. The pain does not radiate. The symptoms are aggravated by coughing ,breathing and standing. The symptoms have no relieving factors. There has been no associated bloating ,constipation or diarrhea. Note for Abdominal pain: comes and goes-- but last couple hours more constant- no fever-- or nausea or vomiting-- no diarrhea--- blood in stool lately when wipes-- not constipated-- periods regular-- feels like some vaginal irritation -- she was in last week for a cough-- has gotten betterEncounter Diagnosis: Abdominal Pain,RLQ (789.03) [facility] Office Visit On: 29-May-2007 7:59 Encounter Reason: Cough - The onset of the cough has been gradual (was tx a few weeks ago ) and 1 weeks (recurrent ). The cough is characterized as dry. The cough occurs all the time (worse in AM ). The symptoms are not End: 29-May-2007 9:13 aggravated by smoking ,supine posture ,meals ,particular position ,exposure to dust ,exercise ,exposure to pollens or exposure to fumes. The symptoms have been associated with sore throat, while the sym ptoms have not been associated with dysphagia ,dyspnea ,edema ,fever ,foreign body aspiration ,headache ,hemoptysis ,hoarseness ,long history of smoking ,night sweats ,runny nose ,weight loss ,wheezing or heartburn. Encounter Diagnosis: Cough (786.2) , BRONCHITIS, NOT SPECIFIED ACUTE OR CHRONIC (490.) [facility] Office Visit On: 16-Apr-2007 10:50 [facility] End: 16-Apr-2007 10:50 Office Visit On: 16-Apr-2007 8:48 Encounter Diagnosis: Unspecified Diagnosis End: 16-Apr-2007 10:50 [facility] Office Visit On: 24-Mar-2007 15:54 Encounter Reason: Arm pain - The onset of the pain has been sudden and has been occurring in an intermittent pattern for 1 days (just happened saturday 1X, just happend 1X today). The course has been recurrent. The pain End: 24-Mar-2007 17:16 is described as mild. The pain is described as being located in the right shoulder ,right humerus ,right elbow ,right forearm and right wrist (stops @ dorsal hand veins). The pain is aggravated by grasp ing (noticed while was holding husbands hand, ). The pain is relieved by nothing. Note for Arm pain: Pain is an ache that has occured x 2. Pain comes and goes. On scale 1-10 it is a 3. Nausea and vomi ting on Saturday after eating. Ate MSG at [employer]. Pt most worried of heart problem During episodes of pain , no SOB.Encounter Diagnosis: Chest pain (786.59), Upper Arm Pain (719.42), Anxiety (300.00), Nausea and vomiting (787.01), Palpitations (785.1) [facility] Nurse Visit On: 19-Mar-2007 13:00 Encounter Diagnosis: Other premature beats (427.69) End: 19-Mar-2007 13:30 [facility] Office Visit On: 27-Sep-2006 7:38 Encounter Reason: Follow up, Diagnostic Procedure Results - Diagnostic tests include other (holter moniter). Date: (09-02-06). Follow up visit with no current symptoms. There is no family history of breast cancer ,cardiov End: 27-Sep-2006 8:20 ascular disease ,cystic fibrosis ,Down's syndrome ,mental retardation or myocardial infarction before age 55. Past medical history includes emotional problems (anxiety) and other (MVP, GERD). Encounter Diagnosis: Other premature beats (427.69) [facility] Office Visit On: 02-Sep-2006 9:14 Encounter Diagnosis: Other premature beats (427.69) End: 02-Sep-2006 16:27 [facility] Office Visit On: 08-Aug-2006 15:55 Encounter Diagnosis: VASOVAGAL SYNCOPE (780.2), Anxiety (300.00) End: 08-Aug-2006 16:59 [facility] Office Visit On: 27-Jun-2006 8:05 Encounter Reason: Follow up acute care visit - The patient feeling better since last seen (still coughing but not as much as she was). Patient has been compliant with instructions. Current medication use: no side effects End: 27-Jun-2006 8:16 . Note for Follow up acute care visit: not able take levaquin so on augmentin better now, no more N/VEncounter Diagnosis: BRONCHITIS, NOT SPECIFIED ACUTE OR CHRONIC (490.) [facility] Office Visit On: 14-Jun-2006 8:41 Encounter Reason: Cough - The onset of the cough has been variable (has had a very deep cough for one month was seen for this and was given med which she did not tolerate very well sx got bettet but now alot worse). The End: 14-Jun-2006 13:31 cough is characterized as productive of frothy sputum. The amount of sputum produced is less than a half a cup per day. the color of the sputum is clear (did not finish rx?? does not remember what it wa s --- only took 2 days of it and was feeling better so stopped -- 3 weeks later got return of sx). Encounter Diagnosis: BRONCHITIS, NOT SPECIFIED ACUTE OR CHRONIC (490.), SOB (786.05), Wheezing (786.07) [facility] Office Visit On: 04-Mar-2006 16:34 Encounter Reason: Well Women Exam - The patient feels well with no complaints ,has good energy level (same) and is sleeping well. Pap smear: date of last pap: (03-18). Contraceptive history: The patient is not using any End: 04-Mar-2006 17:08 method of contraception at this time. Patient does not exercise. The patient's libido is decreased. The patient reports that she does not perform monthly breast self exam. Calcium intake includes 1 serv ing milk daily. Menstruation: Last menstrual period date: (02-22-2006). Encounter Diagnosis: Well Woman Exam (V72.31) (Pap,Mammo,Routine Female), Skin Tag, Irritated (701.9) [facility] Historical Summary On: 27-Feb-2006 7:03 [facility] End: 27-Feb-2006 7:09 Payers Yojana NEGRETE/King Petersen; a guarantor
--- OUTSIDE RECORDS SUMMARY | 2018-04-22 16:13 | XMS RPT_ITS ---
:1965 Author Organization [facility] Care Team Providers Name Role Phone Dyllan Petersen Attending Unavailable Dyllan Petersen Referring Unavailable Ese, Bibiana Primary Care Unavailable Dyllan Petersen Attending Unavailable NicolaDyllan wiggins Referring Unavailable Ese, Bibiana Primary Care Unavailable Dyllan Petersen Attending Unavailable NicolaDyllan wiggins Referring Unavailable Ese, Bibiana Primary Care Unavailable PROBLEMS PROBLEMS No Problem Records FoundPROCEDURES PROCEDURES No Procedure Records FoundRESULTS RESULTS ETHMOID TISSUE Observed: 03/10/2018 Status: F Source: [place] 10:00 AM [facility] REPOSITORY Patient: WHIT PETERSEN : 1965 (53/F) Acct Num: [id number] Phys: Nicola KINGSTON,Dyllan Unit Num: [id number] Loc: LAB Specimen: [id number] Received: 03/10/180 Spec Type: ETH TISS TISSUES 1 TISSUES: A. Ethmoid sinus, NOS - LEFT SIDE B. Ethmoid sinus, NOS - RIGHT SIDE GROSS DESCRIPTION A - Received in fixative is one container labeled with the patient's name and designated left side sinus contents. The specimen consists of multiple irregular fragments of ferguson soft tissue mixed with fragments of bone that in aggregate measure 3 x 2.5 x 0.2 cm. The entire specimen is submitted in one cassette after decalcification. B - Received in fixative is one container labeled with the patient's name and designated right side sinus contents. The specimen consists of multiple irregular fragments of ferguson soft tissue mixed with fragments of bone that in aggregate measure 2.5 x 1 x 0.2 cm. The entire specimen is submitted in one cassette after decalcification. / SJ:justyn 03/11/18 TC:3 CPT: 65060 x2, 07378 x2 HEADER OPERATION: Bilateral maxillary antrostomy and [...] of bone with no significant pathologic change. AM:justyn 03/18/18 Signed Christian Yulia 03/18/18 <signature on file> Performed By: #### PET #### [facility] [address] [place] [address]. [place], [place], [address] CBC-COMPLETE BLOOD CNT Collected: 03/05/2018 Status: F Source: [place] NO DIFF 10:40 AM [facility] REPOSITORY TYPE CODE TESTS RESULT OUT OF RANGE REFERENCE UNITS LAB L100.1000 4.4-11.0 K/mm3 Normal WBC 5.7 LAB L100.1200 4.2-5.4 M/mm3 Normal RBC 4.32 LAB L100.1300 12.0-15.0 g/dl Normal HGB 12.5 LAB L100.1400 37-47 % Normal HCT 38.9 LAB L100.1500 81-99 fL Normal MCV 90.0 LAB L100.1600 27.0-32.0 pg Normal MCH 28.9 LAB L100.1700 32-36 g/gl Normal MCHC 32.1 LAB L100.1810 11.6-14.6 % Normal RDW CV 13.0 LAB L100.1820 35.1-43.9 fl Normal RDW SD 42.2 LAB L100.1900 150-450 K/mm3 Normal PLT 214 LAB L100.2000 6.2-12.0 fl Normal MPV 11.4 Performed By: #### L100.0500 #### [facility] [address] [facility]. [place], [place], [address] BASIC METABOLIC Collected: 03/05/2018 Status: F Source: [place] PROFILE (BMP) 10:40 AM [facility] REPOSITORY TYPE CODE TESTS RESULT OUT OF RANGE REFERENCE UNITS LAB L501.0100 74-106 mg/dL Normal GLU 81 Result Comment: Please note revised GLUCOSE reference range effective 2017. LAB L501.1000 7-18 mg/dL Normal BUN 11 LAB L501.1100 0.55-1.02 mg/dL Normal CREAT,SERUM 0.85 Result Comment: The validity of the calculated GFR AND GFRAA in patients over 70 years has not been determined. Clinical correlation is essential. LAB L501.1110 >60 mL/min Normal EST GFR 74 Result Comment: Non- GFR Calc LAB L501.1115 >60 mL/min Normal EST GFR - AA 90 Result Comment: GFR Calc LAB L501.1300 10-20 RATIO Normal BUN/CRE 12.9 LAB L501.2200 8.5-10.1 mg/dL Low CA 8.3 LAB L501.5300 136-145 mmol/L NA Normal 140 LAB L501.5600 3.5-5.1 mmol/L K Normal 4.3 LAB L501.5900 98-107 mmol/L CL Normal 106 LAB L501.6100 21.0-32.0 mmol/L Normal CO2 27.0 LAB L501.6200 5-15 Normal GAP 7 Performed By: #### L500.2500 #### [facility] [address] [place], [address] SINUS/FACIAL BONE Observed: 02/14/2018 Status: F Source: [place] 7:02 AM [facility] REPOSITORY [facility] Imaging Services [address] [place] [address] Sinus/Facial Bone MR#: [id number] Acct: [id number] Name: WHIT PETERSEN Rep #: [id number] : 1965 F 53 From: Naveed Shah MD PCP: Bibiana Mulligan DO Status: REG CLI Study: Sinus/Facial Bone Date of Exam: 02/14/18 Exam# [id number] Ordering Dr: Dyllan Petersen MD HISTORY: Left nasal polyp. No nasal drainage and no previous sinus surgeries. Pt has dental caps in place. No hx cancer, diabetes, HTN. Not TECHNIQUE: Helically acquired images were obtained of the paranasal sinuses. A radiation dose optimization technique was used for this scan. IV Contrast dosage and agent: None. COMPARISON: None FINDINGS: The paranasal sinuses are normally developed. Extensive opacification of the ethmoid air cells bilaterally together with inflammatory occlusion of the ostium mall units bilaterally. Left maxillary sinus multifocal mucosal thickening. The frontal and sphenoid sinuses show no significant disease. The nasal septum shows [...] within the left nasal cavity compatible with allergic polyposis. 2. Extensive bilateral ethmoid sinusitis with occlusion of the ostiomeatal units bilaterally. 3. Left maxillary sinusitis. 4. No associated orbital disease identified. Individualized dose optimization techniques were used for this CT. at 0244 Reported and signed by: Naveed Shah MD Electronically Signed: Naveed Shah, at 2:42 EDT Tel , Service support , CC: Bibiana Mulligan DO; Dyllan Petersen MD Training Program Developer: Signed ALLERGIES ALLERGIES No Allergies Records FoundENCOUNTERS ENCOUNTERS ADMIT/DISCHARGE ACCOUNT ADMITTING ENCOUNTER LOCATION SOURCE NUMBER CLASS 03/10/2018 [id number] Amb[facility] [place] 0 [facility] ing:LAB Repository 03/05/2018 [id number] [facility] [place] 0 [facility] ing:LAB Repository 02/14/2018 [id number] [facility] [place] 2 [facility] ing:CT Repository PAYERS PAYERS ENCOUNTER GUARANTOR PAYER SUBSCRIBER SOURCE 03/10/2018 AMANDA N Primary WHIT Wu [id number] Insurance:ANTHEMPolic [place]: Community [place] Number: [id number] [id number] Repository [address]Ept: (330) Date:[id number] [phone] () [id number] [place] [address]RH: 03/10/2018 Secondary NOT GIVENUNK [place] Insurance:SELF PAY [facility] Number: Effective Repository Date:2018-03-10 03/05/2018 AMANDA N Primary WHIT Wu [id number] Insurance:ANTHEMPolic [place]: Community [place]RA y Number: [id number], [place] [id number] Repository [address]Xhy: (330) Date:[id number] [phone] () [id number], [place] [address]XH: 03/05/2018 Secondary NOT GIVENUNK [place] Insurance:SELF PAY [facility] Number: Effective Repository Date:2018-03-05 02/14/2018 AMANDA N Primary WHIT Wu [id number] Insurance:ANTHEMPolic [place]: Community [place]RA y Number: [id number], [place] [id number] Repository [address]Psy: (330) Date:[id number] [phone] () [id number] [address]FP: 02/14/2018 Secondary NOT GIVENUNK [place] Insurance:SELF PAY [facility] Number: Effective Repository Date:2018-02-07
== END ==
PROVIDERS: Family Provider Internal Medicine; PCP Internal Medicine; Referring Provider Otolaryngology; Visit Provider Otolaryngology
DX: J32.9 Chronic sinusitis, unspecified (principal); J33.0 Polyp of nasal cavity
CPT/HCPCS: 88304; 88305; 88311

== ENCOUNTER → 2018-09-22 15:21 | Outpatient (CLI) | payer BC, SELFPAY ==
--- NOTE | 2018-09-22 15:25 | RAD_ITS ---
STUDY: X-RAY CHEST REASON FOR EXAM: Female, 53 years old. One day history of cough. TECHNIQUE: PA and lateral views of the chest. COMPARISON: Comparison is made with prior study dated June 03, 2013. FINDINGS: The lungs are clear and expanded. There is no demonstrated pleural abnormality. Normal size heart. Normal mediastinum and yamil. Normal visualized pulmonary arteries. Normal visualized aortic arch and descending thoracic aorta. Normal visualized thoracic spine. Normal visualized ribs, clavicles, and shoulders. There is no demonstrated abnormality of the visualized soft tissue structures of the upper abdomen. RAD/Chest PA and Lateral IMPRESSION: Normal x-ray examination of the chest. Electronically Signed: Miguelito Aguilera, at 15:49 EDT , Service support ,
== END ==
PROVIDERS: Family Provider Internal Medicine; PCP Internal Medicine; Referring Provider Nurse Practitioner Gerontology; Visit Provider Nurse Practitioner Gerontology
DX: R05 Cough (principal)
CPT/HCPCS: 71046

== ENCOUNTER → 2020-09-20 10:12 | Outpatient (CLI) | payer BC, SELFPAY ==
[2020-09-20 09:38] VITALS: BMI 35.1
[2020-09-20 11:54] LABS: Absolute Lymphocyte Count 1.48 X10^3/uL (0.83-4.51); Absolute Neutrophil Count 3.2 X10^3/uL (2.0-7.7); Basophil# 0.04 X10^3/uL; Basophil% 0.8 % (0-1); Eosinophil# 0.16 X10^3/uL; Eosinophils% 3.1 % (0-5); Hematocrit 40.9 % (37-47); Hemoglobin 13.1 g/dL (12.0-15.0); Lymphocyte # 1.48 X10^3/ul (0.83-4.51); Lymphocyte % 28.3 % (19-41); Mean Corpuscular Hgb 29.3 pg (27.0-32.0); Mean Corpuscular Volume 91.5 fL (81-99); Mean Platelet Vol. 11.6 fl (6.2-12.0); Monocyte# 0.34 X10^3/uL; Monocyte% 6.5 % (0-10); NRBC Flagged by Analyzer 0 % (0-5); Neutrophil # 3.17 X10^3/uL (2.7-7.7); Neutrophil % 60.5 % (47-70); Platelet Count 204 K/mm3 (150-450); RBC Distribution Width CV 12.4 % (11.6-14.6); RBC Distribution Width SD 41.1 fl (35.1-43.9); Red Blood Count 4.47 M/mm3 (4.2-5.4); White Blood Count 5.2 K/mm3 (4.4-11.0)
[2020-09-20 12:21] LABS: AST(SGOT) 13 U/L (15-37); Alanine Aminotransfer ALT/SGPT 25 U/L (13-56); Albumin, Serum 3.7 g/dL (3.2-5.0); Alkaline Phosphatase 110 U/L (45-117); Anion Gap 2 (5-15); BUN 15 mg/dL (7-18); BUN/Creat Ratio 19.8 RATIO (10-20); Calcium,Total 8.9 mg/dL (8.5-10.1); Chloride 104 mmol/L (98-107); Cholesterol 165 mg/dL (200); Creatinine, Serum 0.76 mg/dL (0.55-1.02); EST Glomerular Filtration Rate 85 mL/min (>60); Est Glom Filt Rate - Afr Amer 102 mL/min (>60); Globulin 3.8 g/dL (2.2-4.2); Glucose 68 mg/dL (74-106); High Density Lipoprotein 65 mg/dL; Potassium 4.6 mmol/L (3.5-5.1); Protein, Total 7.5 g/dL (6.4-8.2); Sodium Level 139 mmol/L (136-145); Thyroid Stim Hormone (TSH) 1.95 uIU/mL (0.358-3.74); Triglycerides 54 mg/dL; Very Low Density Lipoprotein 11 mg/dL (5-40)
== END ==
PROVIDERS: PCP Internal Medicine; Referring Provider Internal Medicine; Visit Provider Internal Medicine
DX: E03.9 Hypothyroidism, unspecified (principal)
CPT/HCPCS: 36415; 80053; 80061; 84443; 85025

== ENCOUNTER 2021-03-05 19:58 | Emergency (ER) | payer BC, SELFPAY ==
[2021-03-05 19:58] VITALS: BP 113/61; PULSE 68; RESP 16; TEMP 36.4; O2SAT 97; BMI 36.6
--- NOTE | 2021-03-05 20:50 | RAD_ITS ---
STUDY: X-RAY - LEFT HAND, ATTENTION INDEX FINGER REASON FOR EXAM: Female, 56 years old. Pain after trauma TECHNIQUE: History view(s) of the finger were obtained. COMPARISON: None. FINDINGS: Normal metacarpal head. Normal metacarpophalangeal joint. Normal proximal phalanx. Normal middle phalanx. Normal distal phalanx. Normal proximal interphalangeal joint. Normal distal interphalangeal joint. Mild soft tissue swelling over the PIP joint RAD/Finger(s) Min 2 Views IMPRESSION: No demonstrated fracture or suspicious osseous lesion Soft tissue swelling over the PIP joint Electronically Signed: Juan Donahue MD at 21:25 EST , Service support ,
--- NOTE | 2021-03-05 21:47 | EDS_ITS ---
HPI History of Present Illness Chief Complaint: Upper Extremity Injury Narrative Narrative: Patient is presenting with left index finger contusion. She was helping move a television set and it fell on her finger. She has no other injuries. She did sustain some abrasions to the finger and she has swelling. [facility] Medical History (Updated 03/05/21 @ 21:[address] Xu De Leon MD) Anxiety and depression Asthma Cataracts, bilateral Contact dermatitis due to plant GERD (gastroesophageal reflux disease) H/O emotional problems History of pneumonia Hot flashes due to menopause Hypothyroidism Obesity Preventative health care Seasonal allergies Home Medications fluticasone propionate 50 mcg/actuation nasal spray,suspension 1 spray INTRANASAL DAILY 09/13/20 [History Last Taken Unknown] bupropion HCl 150 mg 24 hr tablet, extended release 150 mg PO QAM #90 tab 10/27/20 [Rx Last Taken Unknown] escitalopram oxalate 20 mg tablet 20 mg PO DAILY #90 tab 10/27/20 [Rx Last Taken Unknown] levothyroxine 50 mcg tablet 50 mcg PO .POD #45 tab 11/22/20 [Rx Last Taken Unknown] levothyroxine 75 mcg tablet 75 mcg PO .POD #45 tab 11/22/20 [Rx Last Taken Unknown] cephalexin 500 mg PO Q6 #40 cap 03/05/21 [Rx Last Taken Unknown] Allergy/AdvReac Type Severity Reaction Status Date / Time No Known Allergies Allergy Verified 03/05/21 20:00 Family History Aunt Colon cancer Parkinsons Mother Cancer Osteoporosis Seizures Brother Cancer Father Heart disease Uncle Heart disease Grandfather Diabetes Sister Thyroid disorder Seizures Other Anxiety Depression Surgical History History of nasal surgery History of tonsillectomy Social History (Updated 10/26/20 @ 17:09 by Flora Bonilla) Smoking Status: Never smoker alcohol intake: never substance use type: does not use caffeine: Yes what type of physical activity do you participate in: none seatbelt use: always do you feel safe at home: Yes ROS ROS ED ROS Narrative Past medical history: Reviewed Medications: Reviewed Social history: Noncontributory Review of systems: Musculoskeletal: Left index finger injury Skin: Abrasions as above Neurological: No weakness or paresthesias Hematologic: No easy bleeding or easy bruising EXAM Physical Exam Narrative Exam Narrative: Physical exam General: Patient does not appear in significant distress . Head: Normocephalic, Atraumatic Cardiovascular: Normal distal pulses Back: Nontender, Normal Inspection. Extremities: Left index finger shows significant swelling but she is able to move her fingers, she has a few abrasions. She has no tenderness over the flexor tendon. She has very slight dorsal erythema which could be early cellulitis or just inflammation. Skin: As above Neurological: Normal strength and sensation Const Vital Signs: 03/05/21 19:58 Temperature 97.5 F L Temperature Source Temporal Pulse Rate 68 Respiratory Rate 16 Blood Pressure 113/61 Blood Pressure Mean 78 Pulse Ox 97 Oxygen Delivery Method Room Air MDM MDM MDM Narrative Medical decision making narrative: Patient will be treated with antibiotics since there could be evidence of early infection. Otherwise she appears well and her x-ray is negative I will discharge in stable condition. Radiography Diagnostic Testing: Clinical Impression(s) from Imaging Studies Finger X-Ray 03/05/21 20:50 IMPRESSION: No demonstrated fracture or suspicious osseous lesion Soft tissue swelling over the PIP joint Electronically Signed: Juan Donahue MD at 21:25 EST , Service support , X-ray read by me and the radiologist does not show any fracture. There is soft tissue swelling. Discharge Plan Triage Chief Complaint: Upper Extremity Injury ED Provider: Xu De Leon Dx/Rx/DC Orders Clinical Impression: Contusion of finger, Abrasion of finger Instructions: ED Finger Contusion Prescriptions: New cephalexin 500 mg capsule 500 mg PO Q6 Qty: 40 RF: 0 No Action fluticasone propionate [Allergy Relief (fluticasone)] 50 mcg/actuation spray,suspension 1 spray intranasal DAILY RF: 0 escitalopram oxalate 20 mg tablet 20 mg PO DAILY Qty: 90 RF: 1 bupropion HCl 150 mg tablet extended release 24 hr 150 mg PO QAM Qty: 90 RF: 1 levothyroxine [Synthroid] 50 mcg tablet 50 mcg PO .POD Qty: 45 RF: 1 levothyroxine [Synthroid] 75 mcg tablet 75 mcg PO .POD Qty: 45 RF: 1 Primary Care Provider: Estrella Vinson Referrals: Estrella Vinson MD [Primary Care Provider] - 2 Days
[2021-03-05 22:11] VITALS: RESP 18
== END 2021-03-05 22:25 | disposition home or self-care (01) ==
LOC: ED 20:51
PROVIDERS: Emergency Provider Emergency Medicine; PCP Internal Medicine
DX: S60.022A Contusion of left index finger without damage to nail, initial encounter (principal); W20.8XXA Other cause of strike by thrown, projected or falling object, initial encounter; K21.9 Gastro-esophageal reflux disease without esophagitis; J45.909 Unspecified asthma, uncomplicated; F41.9 Anxiety disorder, unspecified; F32.A Depression, unspecified; E03.9 Hypothyroidism, unspecified; E66.9 Obesity, unspecified; Z79.899 Other long term (current) drug therapy
CPT/HCPCS: 73140; 99282

== ENCOUNTER → 2021-03-06 09:53 | Outpatient (CLI) | payer BC, SELFPAY ==
[2021-03-06 11:01] LABS: Follicle Stimulating Hormone 71.1 mIU/mL
[2021-03-13 14:16] LABS: HPV APTIMA, High Risk Negative (Negative)
== END ==
PROVIDERS: PCP Internal Medicine; Referring Provider Nurse Practitioner Women's Health; Visit Provider Nurse Practitioner Women's Health
DX: Z78.0 Asymptomatic menopausal state (principal); N93.9 Abnormal uterine and vaginal bleeding, unspecified
CPT/HCPCS: 36415; 83001; 87624; 88175; G0145

== ENCOUNTER → 2021-03-10 12:26 | Outpatient (CLI) | payer BC, SELFPAY ==
--- NOTE | 2021-03-10 12:28 | US_ITS ---
INDICATION: abnormal bleeding EXAMINATION: Ultrasound US Pelvis Non OB Complete With Transvaginal Imaging TECHNIQUE: Transabdominal and transvaginal pelvic ultrasound was performed. Grayscale, spectral waveform, and color flow Doppler evaluation of the adnexa. COMPARISON: None. FINDINGS: UTERUS: Anteverted. The uterus measures 7.8 x 3.1 x 3.4 cm. There is shadowing which may be secondary to poor ultrasound penetration which somewhat obscures assessment of the fundus. The endometrial stripe measures 3 mm in AP diameter which is within normal limits. There are a few nabothian cysts. There is a 2.1 x 2.1 x 2.1 cm round oval heterogeneous mixed attenuation area within the cervix demonstrating posterior acoustic enhancement. There is no internal vascularity on DOPPLER sequences. RIGHT OVARY: Not visualized. No right adnexal masses. LEFT OVARY: Difficult to visualize due to posterior position behind the uterus. 2.7 x 1.8 x 2.7 cm. Non-enlarged, normal echogenicity. There is normal arterial inflow and venous outflow present in the left ovary. No left adnexal mass. FREE FLUID: None. US/Pelvic (Non ) IMPRESSION: 1. Shadowing which may be secondary to poor ultrasound penetration somewhat obscures assessment of the uterine fundus giving a ''venetian blind appearance''. Findings can be seen with adenomyosis or uterine fibroids or may be secondary to artifact from overlying structures. 2. 2.1 cm round oval heterogeneous mixed attenuation area within the cervix. Given degree of posterior acoustic enhancement and lack of internal vascularity, this may relate to a complex possibly hemorrhagic nabothian cyst. Recommendation: Findings above can be further assessed with pelvic MRI with contrast. Short-term follow-up with ultrasound is also recommended. Electronically Signed: Celio Mederos MD at 15:44 EST Tel , Service support ,
--- NOTE | 2021-03-10 12:28 | US_ITS ---
INDICATION: abnormal bleeding EXAMINATION: Ultrasound US Pelvis Non OB Complete With Transvaginal Imaging TECHNIQUE: Transabdominal and transvaginal pelvic ultrasound was performed. Grayscale, spectral waveform, and color flow Doppler evaluation of the adnexa. COMPARISON: None. FINDINGS: UTERUS: Anteverted. The uterus measures 7.8 x 3.1 x 3.4 cm. There is shadowing which may be secondary to poor ultrasound penetration which somewhat obscures assessment of the fundus. The endometrial stripe measures 3 mm in AP diameter which is within normal limits. There are a few nabothian cysts. There is a 2.1 x 2.1 x 2.1 cm round oval heterogeneous mixed attenuation area within the cervix demonstrating posterior acoustic enhancement. There is no internal vascularity on DOPPLER sequences. RIGHT OVARY: Not visualized. No right adnexal masses. LEFT OVARY: Difficult to visualize due to posterior position behind the uterus. 2.7 x 1.8 x 2.7 cm. Non-enlarged, normal echogenicity. There is normal arterial inflow and venous outflow present in the left ovary. No left adnexal mass. FREE FLUID: None. US/Transvaginal Non- IMPRESSION: 1. Shadowing which may be secondary to poor ultrasound penetration somewhat obscures assessment of the uterine fundus giving a ''venetian blind appearance''. Findings can be seen with adenomyosis or uterine fibroids or may be secondary to artifact from overlying structures. 2. 2.1 cm round oval heterogeneous mixed attenuation area within the cervix. Given degree of posterior acoustic enhancement and lack of internal vascularity, this may relate to a complex possibly hemorrhagic nabothian cyst. Recommendation: Findings above can be further assessed with pelvic MRI with contrast. Short-term follow-up with ultrasound is also recommended. Electronically Signed: Celio Mederos MD at 15:44 EST Tel , Service support ,
== END ==
PROVIDERS: PCP Internal Medicine; Referring Provider Nurse Practitioner Women's Health; Visit Provider Nurse Practitioner Women's Health
DX: N93.9 Abnormal uterine and vaginal bleeding, unspecified (principal)
CPT/HCPCS: 76830; 76856

== ENCOUNTER → 2021-03-16 15:00 | Outpatient (CLI) | payer BC, SELFPAY ==
--- NOTE | 2021-03-16 15:00 | EMB_PTH ---
PATIENT: WHIT PETERSEN LOC: [facility] U#:[id number] AGE/SX: 60/F ROOM: RE03/16/[address]: DANUTA Gabriel : 1965 BED: DIS: SPEC #: [id number] RECD: 03/16/21 16:15 STATUS: CHINMAY LUIS ANTONIO #: [id number] JOCE: 03/16/21 15:[address]: Mel Argueta NP DEPT: SURGICAL PATHOLOGY RECD BY: Amelie eTresa ENTERED: 03/17/21 08:59 SP TYPE: ENDOM BX/C SUYAPA DR: Dr. Estrella Vinson MD Tissues: A - Endometrium, NOS B - Uterine cervix, NOS Procedures: Surgery Specimen Level IV HEADER OPERATION: Endometrial biopsy, polypectomy PRE-OP DIAGNOSIS: Abnormal uterine bleeding, cervical polyp TISSUE SUBMITTED: A - Endometrial biopsy, B ? Cervical polyp MICROSCOPIC DIAGNOSIS A. Endometrium, biopsy: Weakly proliferative and inactive endometrium with focal cystic change. Rare strips of benign superficial squamous mucosa. B. Cervical polyp, biopsy: Benign endocervical polyp, inflamed. AM:justyn 03/20/2021 COMMENT Case has been reviewed in consultation with Dr. Monsivais who concurs with the above diagnosis. IDC:ABBI MICROSCOPIC DESCRIPTION Slides are reviewed. GROSS DESCRIPTION A - Received in fixative is one container labeled with the patient's name and designated EMB. The specimen consists of multiple irregular fragments of ferguson-pink mucoid tissue that in aggregate measure 3 x 2.5 x 0.3 cm. The specimen is totally submitted in one cassette. B - Received in fixative is one container labeled with the patient's name and designated cervical polyp. The specimen consists of multiple irregular fragments of pink soft tissue that in aggregate measure 0.7 x 0.2 x 0.1 cm. The specimen is totally submitted in one cassette. / ABBI:justyn 03/17/21 TC:5 CPT: 91616 x2
== END ==
PROVIDERS: PCP Internal Medicine; Visit Provider Nurse Practitioner Women's Health
DX: N93.9 Abnormal uterine and vaginal bleeding, unspecified (principal)
CPT/HCPCS: 88305

== ENCOUNTER → 2021-03-24 13:41 | Outpatient (CLI) | payer BC, SELFPAY ==
--- NOTE | 2021-03-24 13:42 | BI_ITS ---
MAMMOGRAPHY - BILATERAL SCREENING REASON FOR EXAM: Female, 56 years old. Routine annual screening examination. PERTINENT HISTORY: Non-contributory. TECHNIQUE: Digital bilateral breast miko (3D mammographic acquisition) in the CC and MLO projections. 2-D mediolateral oblique (MLO) and craniocaudad (CC) views of both breasts were obtained. CAD: Full Field Digital Mammography with Computer Added Detection was performed. COMPARISON: Comparison is made with prior abdomen examination dated 03/24/2018. FINDINGS: Breast Composition: There are scattered areas of fibroglandular density. There are no dominant masses or suspicious calcifications. No other significant abnormalities are identified. There has been no significant change since the prior study. BI/SCRN MAMM (CAD)W/MIKO BILAT IMPRESSION: Stable bilateral screening mammogram. Yearly follow-up mammogram recommended. (A) ASSESSMENT CATEGORY: BIRADS Category 1: Negative. A letter regarding these results will be sent to the patient by the facility within 30 days. Approximately 10% of breast cancers are not detected by mammography. A normal mammogram should not delay biopsy of a clinically suspicious abnormality. [id number] Electronically Signed: Miguelito Aguilera MD at 15:01 EST , Service support ,
== END ==
PROVIDERS: PCP Internal Medicine; Referring Provider Nurse Practitioner Women's Health; Visit Provider Nurse Practitioner Women's Health
DX: Z12.31 Encounter for screening mammogram for malignant neoplasm of breast (principal)
CPT/HCPCS: 77063; 77067

== ENCOUNTER → 2021-04-11 09:27 | Outpatient (CLI) | payer BC, SELFPAY ==
--- NOTE | 2021-04-11 09:41 | US_ITS ---
INDICATION: recheck shadowing on previous US EXAMINATION: Ultrasound US Transvaginal Non-OB TECHNIQUE: Transvaginal (for optimal evaluation of the adnexa) pelvic ultrasound was performed. Grayscale, spectral waveform, and color flow Doppler evaluation of the adnexa. COMPARISON: 03/10/2021. FINDINGS: UTERUS: The uterus is retroverted in orientation and demonstrates multiple linear posterior acoustic shadowing visualized that demonstrate no significant change in comparison to the study. The uterus measures 7.3 x 3.6 x 2.7. There are no well-defined large uterine masses seen. The endometrial stripe is hyperechoic and measures 10mm in AP diameter which is within normal limits. A well-circumscribed 1.5 x 2.0 x 1.3 cm complex cystic lesion is visualized in the cervix that demonstrates internal echogenic foci but no evidence of posterior acoustic shadowing is visualized, findings suggestive of a complex cyst/hemorrhagic nabothian cyst and demonstrates no significant change in comparison to the prior study. RIGHT OVARY: Not visualized.. LEFT OVARY: Limited evaluation of the left ovary due to posterior position and posterior acoustic shadowing that partially obscures visualization the left ovary however there is a simple left ovarian cyst visualized measuring 1.7 x 1.2 x 1.8 cm. The left ovary measures 2.3 x 1.9 x 2.1 cm. FREE FLUID: None. The urinary bladder is compressed. US/Transvaginal Non- IMPRESSION: Heterogeneous echogenicity of the uterus with Linear areas of posterior acoustic shadowing demonstrate no significant change in comparison to the prior study. Electronically Signed: Josiah Peters MD at 15:33 EST Tel , Service support ,
== END ==
PROVIDERS: PCP Internal Medicine; Referring Provider Nurse Practitioner Women's Health; Visit Provider Nurse Practitioner Women's Health
DX: R93.89 Abnormal findings on diagnostic imaging of other specified body structures (principal)
CPT/HCPCS: 76830

== ENCOUNTER 2021-04-17 08:20 | Outpatient (CLI) | payer BC, SELFPAY | END 2021-04-17 23:59 | disposition home or self-care (01) | LOC: LABSPEC 08:20 | PROVIDERS: PCP Internal Medicine; Referring Provider Physician Assistant Surgical; Visit Provider Physician Assistant Surgical | DX: U07.1 COVID-19 (principal) | CPT/HCPCS: 87635; U0003; U0005 ==

== ENCOUNTER → 2021-12-22 | Outpatient (CLI) | payer BC, SELFPAY ==
[2021-12-22 16:41] LABS: Absolute Lymphocyte Count 1.81 X10^3/uL (0.83-4.51); Absolute Neutrophil Count 3.4 X10^3/uL (2.0-7.7); Basophil# 0.06 X10^3/uL; Eosinophil# 0.21 X10^3/uL; Eosinophils% 3.5 % (0-5); Hematocrit 38.1 % (37-47); Hemoglobin 12.8 g/dL (12.0-15.0); Lymphocyte # 1.81 X10^3/ul (0.83-4.51); Lymphocyte % 30.5 % (19-41); Mean Corp Hgb Conc 33.6 g/dL (32-36); Mean Corpuscular Hgb 30.1 pg (27.0-32.0); Mean Corpuscular Volume 89.6 fL (81-99); Mean Platelet Vol. 11.2 fl (6.2-12.0); Monocyte# 0.49 X10^3/uL; Monocyte% 8.2 % (0-10); NRBC Flagged by Analyzer 0 % (0-5); Neutrophil # 3.35 X10^3/uL (2.7-7.7); Neutrophil % 56.5 % (47-70); Platelet Count 243 K/mm3 (150-450); RBC Distribution Width CV 12.9 % (11.6-14.6); RBC Distribution Width SD 42.5 fl (35.1-43.9); Red Blood Count 4.25 M/mm3 (4.2-5.4); White Blood Count 5.9 K/mm3 (4.4-11.0)
[2021-12-22 18:07] LABS: ALB/GLOB Ratio 0.9 RATIO (0.9-2.4); AST(SGOT) 12 U/L (15-37); Alanine Aminotransfer ALT/SGPT 20 U/L (13-56); Albumin, Serum 3.4 g/dL (3.2-5.0); Alkaline Phosphatase 116 U/L (45-117); Anion Gap 7 (5-15); BUN 11 mg/dL (7-18); BUN/Creat Ratio 13.7 RATIO (10-20); Calcium,Total 8.5 mg/dL (8.5-10.1); Chloride 105 mmol/L (98-107); Cholesterol 177 mg/dL (200); EST Glomerular Filtration Rate 79 mL/min (>60); Est Glom Filt Rate - Afr Amer 95 mL/min (>60); Globulin 3.9 g/dL (2.2-4.2); Glucose 78 mg/dL (74-106); High Density Lipoprotein 50 mg/dL; Potassium 3.8 mmol/L (3.5-5.1); Protein, Total 7.3 g/dL (6.4-8.2); Sodium Level 141 mmol/L (136-145); Thyroid Stim Hormone (TSH) 2.68 uIU/mL (0.358-3.74); Triglycerides 168 mg/dL; Very Low Density Lipoprotein 34 mg/dL (5-40)
== END | disposition home or self-care (01) ==
LOC: BIMLAB 14:34
PROVIDERS: PCP Internal Medicine; Visit Provider Internal Medicine
DX: E03.9 Hypothyroidism, unspecified (principal)
CPT/HCPCS: 36415; 80053; 80061; 84443; 85025

== ENCOUNTER → 2022-04-06 | Outpatient (CLI) | payer BC, SELFPAY ==
--- NOTE | 2022-04-06 08:28 | BI_ITS ---
MAMMOGRAPHY - BILATERAL SCREENING REASON FOR EXAM: Female, 57 years old. Routine annual screening examination. PERTINENT HISTORY: Non-contributory. TECHNIQUE: Digital bilateral breast miko (3D mammographic acquisition) in the CC and MLO projections. 2-D mediolateral oblique (MLO) and craniocaudad (CC) views of both breasts were obtained. CAD: Full Field Digital Mammography with Computer Added Detection was performed. COMPARISON: Comparison is made with prior study dated 03/24/2021 and 01/23/2010. FINDINGS: Breast Composition: There are scattered areas of fibroglandular density. There are no dominant masses or suspicious calcifications. Stable small benign-appearing bilateral axillary lymph nodes. No other significant abnormalities are identified. There has been no significant change since the prior study. BI/SCRN MAMM (CAD)W/MIKO BILAT IMPRESSION: Stable bilateral screening mammogram. Yearly follow-up mammogram recommended. (A) ASSESSMENT CATEGORY: BIRADS Category 2: Benign. A letter regarding these results will be sent to the patient by the facility within 30 days. Approximately 10% of breast cancers are not detected by mammography. A normal mammogram should not delay biopsy of a clinically suspicious abnormality. [id number] Electronically Signed: Miguelito Aguilera MD at 9:16 EST ,
== END | disposition home or self-care (01) ==
LOC: OPBI 08:26
PROVIDERS: PCP Internal Medicine; Referring Provider Nurse Practitioner Women's Health; Visit Provider Nurse Practitioner Women's Health
DX: Z12.31 Encounter for screening mammogram for malignant neoplasm of breast (principal)
CPT/HCPCS: 77063; 77067

== ENCOUNTER → 2023-01-02 | Outpatient (CLI) | payer BC, SELFPAY ==
[2023-01-02 09:34] LABS: Absolute Lymphocyte Count 1.53 X10^3/uL (0.83-4.51); Absolute Neutrophil Count 3.7 X10^3/uL (2.0-7.7); Basophil# 0.06 X10^3/uL; Eosinophil# 0.26 X10^3/uL; Eosinophils% 4.4 % (0-5); Hematocrit 38.7 % (37-47); Hemoglobin 12.6 g/dL (12.0-15.0); Lymphocyte # 1.53 X10^3/ul (0.83-4.51); Lymphocyte % 25.6 % (19-41); Mean Corp Hgb Conc 32.6 g/dL (32-36); Mean Corpuscular Hgb 29.2 pg (27.0-32.0); Mean Corpuscular Volume 89.6 fL (81-99); Monocyte# 0.39 X10^3/uL; Monocyte% 6.5 % (0-10); NRBC Flagged by Analyzer 0 % (0-5); Platelet Count 243 K/mm3 (150-450); RBC Distribution Width CV 12.9 % (11.6-14.6); RBC Distribution Width SD 42.5 fl (35.1-43.9); Red Blood Count 4.32 M/mm3 (4.2-5.4)
[2023-01-02 10:14] LABS: ALB/GLOB Ratio 0.9 RATIO (0.9-2.4); AST(SGOT) 12 U/L (15-37); Alanine Aminotransfer ALT/SGPT 22 U/L (13-56); Albumin, Serum 3.3 g/dL (3.2-5.0); Alkaline Phosphatase 121 U/L (45-117); Anion Gap 3 (5-15); BUN 9 mg/dL (7-18); BUN/Creat Ratio 9.6 RATIO (10-20); Calcium,Total 8.4 mg/dL (8.5-10.1); Chloride 107 mmol/L (98-107); Cholesterol 170 mg/dL (200); Creatinine, Serum 0.94 mg/dL (0.55-1.02); EST Glomerular Filtration Rate 65 mL/min (>60); Est Glom Filt Rate - Afr Amer 79 mL/min (>60); Globulin 3.8 g/dL (2.2-4.2); Glucose 93 mg/dL (74-106); High Density Lipoprotein 48 mg/dL; Potassium 4.1 mmol/L (3.5-5.1); Protein, Total 7.1 g/dL (6.4-8.2); Sodium Level 138 mmol/L (136-145); Thyroid Stim Hormone (TSH) 3.64 uIU/mL (0.358-3.74); Triglycerides 105 mg/dL; Very Low Density Lipoprotein 21 mg/dL (5-40)
== END | disposition home or self-care (01) ==
LOC: LAB 08:50
PROVIDERS: PCP Internal Medicine; Visit Provider Internal Medicine
DX: E03.9 Hypothyroidism, unspecified (principal); F41.9 Anxiety disorder, unspecified; F32.9 Major depressive disorder, single episode, unspecified
CPT/HCPCS: 36415; 80053; 80061; 84443; 85025

== ENCOUNTER → 2023-04-10 | Outpatient (CLI) | payer BC, SELFPAY ==
--- NOTE | 2023-04-10 10:19 | BI_ITS ---
MAMMOGRAPHY - BILATERAL SCREENING 3-D TOMOSYNTHESIS REASON FOR EXAM: Female, 58 years old. Routine annual screening mammogram. PERTINENT HISTORY: No significant family history. TECHNIQUE: 2-D mammograms and 3-D Tomosynthesis of the breast (s) were performed. CAD was performed. COMPARISON: April 06, 2022, and March 24, 2021 FINDINGS: Stable predominantly fatty replaced breasts. Stable normal lymph nodes. No dominant masses, suspicious microcalcifications, asymmetries, skin thickening or nipple retraction. BI/SCRN MAMM (CAD)W/MIKO BILAT IMPRESSION: No interval change and no mammographic signs of malignancy. Routine yearly mammogram recommended. ASSESSMENT CATEGORY: BIRADS Category 2: Benign. A letter regarding these results will be sent to the patient by the facility within 30 days. FOLLOW UP RECOMMENDATION: Yearly follow up mammogram recommended. (A) Approximately 10% of breast cancers are not detected by mammography. A normal mammogram should not delay biopsy of a clinically suspicious abnormality. Electronically Signed: Bob Mccullough MD at 13:46 EST ,
== END | disposition home or self-care (01) ==
LOC: OPBI 10:18
PROVIDERS: PCP Internal Medicine; Referring Provider Internal Medicine; Visit Provider Internal Medicine
DX: Z12.31 Encounter for screening mammogram for malignant neoplasm of breast (principal)
CPT/HCPCS: 77063; 77067

== ENCOUNTER → 2023-07-26 | Outpatient (CLI) | payer BC, SELFPAY ==
[2023-07-26 12:23] LABS: Hematocrit 41.8 % (37-47); Hemoglobin 13.4 g/dL (12.0-15.0); Mean Corp Hgb Conc 32.1 g/dL (32-36); Mean Corpuscular Hgb 28.5 pg (27.0-32.0); Mean Corpuscular Volume 88.7 fL (81-99); Mean Platelet Vol. 11.1 fl (6.2-12.0); Platelet Count 245 K/mm3 (150-450); RBC Distribution Width CV 13.1 % (11.6-14.6); RBC Distribution Width SD 42.6 fl (35.1-43.9); Red Blood Count 4.71 M/mm3 (4.2-5.4)
[2023-07-26 12:57] LABS: ALB/GLOB Ratio 0.9 RATIO (0.9-2.4); AST(SGOT) 18 U/L (15-37); Alanine Aminotransfer ALT/SGPT 31 U/L (13-56); Albumin, Serum 3.5 g/dL (3.2-5.0); Alkaline Phosphatase 126 U/L (45-117); Anion Gap 2 (5-15); BUN 11 mg/dL (7-18); BUN/Creat Ratio 10.8 RATIO (10-20); Calcium,Total 8.9 mg/dL (8.5-10.1); Chloride 108 mmol/L (98-107); Creatinine, Serum 1.02 mg/dL (0.55-1.02); EST Glomerular Filtration Rate 59 mL/min (>60); Est Glom Filt Rate - Afr Amer 72 mL/min (>60); Glucose 91 mg/dL (74-106); Potassium 4.2 mmol/L (3.5-5.1); Protein, Total 7.5 g/dL (6.4-8.2); Sodium Level 139 mmol/L (136-145); Thyroid Stim Hormone (TSH) 2.66 uIU/mL (0.358-3.74)
== END | disposition home or self-care (01) ==
LOC: BIMLAB 08:28
PROVIDERS: PCP Internal Medicine; Referring Provider Physician Assistant; Visit Provider Physician Assistant
DX: Z00.00 Encounter for general adult medical examination without abnormal findings (principal); E03.9 Hypothyroidism, unspecified
CPT/HCPCS: 36415; 80053; 84443; 85027

== ENCOUNTER 2023-10-14 05:32 | Day surgery (SDC) | payer BC, SELFPAY ==
[2023-10-14] VITALS (9 sets, daily range): BP systolic 79–129; BP diastolic 54–70; PULSE 55–80; RESP 16; TEMP 36.4–36.8; O2SAT 93–98; BMI 42.4
[2023-10-14] MEDS: Lactated Ringers 1,000 ML 15 ML IV (06:03)
--- NOTE | 2023-10-14 06:30 | EGD_PTH ---
PATIENT: WHIT PETERSEN LOC: [facility] U#:[id number] AGE/SX: 58/F ROOM: RE10/14/[address]: Dr. Terry Johnson DO : 1965 BED: DIS: 10/14/2023 SPEC #: [id number] RECD: 10/14/23 10:07 STATUS: CHINMAY SALMON #: [id number] JOCE: 10/14/23 06:[address]: Terry Johnson DEPT: SURGICAL PATHOLOGY RECD BY: Amelie Teresa ENTERED: 10/14/23 11:22 SP TYPE: EGD BIOPSY SUYAPA DR: Dr. Estrella Vinson MD Tissues: Esophagus, NOS Procedures: Surgery Specimen Level IV HEADER OPERATION: Colonoscopy, EGD, biopsy PRE-OP DIAGNOSIS: GERD, screening for colon cancer TISSUE SUBMITTED: Distal esophagus biopsy MICROSCOPIC DIAGNOSIS Distal esophagus, biopsy: Fragments of gastroesophageal mucosa with moderate chronic inflammation and mild acute inflammation. Changes consistent with gastroesophageal reflux. Intestinal metaplasia (goblet cell metaplasia) not identified. See comment. / 10/15/2023 COMMENT Alcian blue/PAS stain with matched control is used in the evaluation of the specimen. Increased number of eosinophils (~10 to 15 per high power field) are noted, suspicious for eosinophilic esophagitis. Correlation with clinical, endoscopic findings and appropriate follow up are necessary. MICROSCOPIC DESCRIPTION Slides are reviewed. GROSS DESCRIPTION Received in fixative is one container labeled with the patient's name and designated Distal esophagus biopsy. The specimen consists of multiple irregular fragments of light ferguson soft tissue that in aggregate measure 0.8 x 0.5 x 0.1 cm. The specimen is totally submitted in one cassette. [facility] 10/14/2023 TC:3 CPT:13724,74117
--- NOTE | 2023-10-14 06:33 | PRE.ANES_ITS ---
ASA Classification* ASA Classification ASA Classification: 3 (BMI) Assessment & Plan Anesthesia* Anesthesia Assessment Anesthesia Assessment: Discussed sedation and/or anesthesia options, risks, benefits, and alternatives with patient/parents/legal guardian/POA. Questions invited. The patient/parents/legal guardian/POA seems to understand and agrees to proceed with anesthesia plan. Reviewed the physical assessment, medical history, allergy history and patient home medications list prior to surgery/procedure/anesthetic and documented any changes. Performed airway and anesthesia risk assessments. Anesthesia Type Anesthesia Type: MAC History Source History Obtained from:: Patient and Chart Anesthesia Focused Assessment* Temperature: 97.6 F Pulse Rate: 80 Blood Pressure: 129/61 Respiratory Rate: 16 Pulse Ox: 97 Airway Assessment Mouth opens: >3 cm Mallampati Score: II Teeth Condition: Intact Neck Range of motion (ROM): Full ROM Focused Labs Anesthesia Preop lab: CBC WBC 6.0 K/mm3 (4.4-11.0) 07/26/23 08:28 RBC 4.71 M/mm3 (4.2-5.4) 07/26/23 08:28 Hgb 13.4 g/dL (12.0-15.0) 07/26/23 08:28 Hct 41.8 % (37-47) 07/26/23 08:28 Plt Count 245 K/mm3 (150-450) 07/26/23 08:28 CHEMISTRY Potassium 4.2 mmol/L (3.5-5.1) 07/26/23 08:28 Sodium 139 mmol/L (136-145) 07/26/23 08:28 BUN 11 mg/dL (7-18) 07/26/23 08:28 Creatinine 1.02 mg/dL (0.55-1.02) 07/26/23 08:28 Glucose 91 mg/dL (74-106) 07/26/23 08:28 TSH 2.66 uIU/mL (0.358-3.74) 07/26/23 08:28 COAG Pre-Assessment Diagnosis/Proposed Procedure Planned Operative Procedure(s): EGD CSCOPE Anesthesia History 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 When Was Last Pacemaker Check QUESTION #4 FULL TEXT: You/Your Family Experience fever (hyperthermia) with Anesthesia Last Oral Intake Last Oral intake: Last Oral Intake NPO since 02:30 10/14/23 05:52 Meds taken in AM with sips of No 10/14/23 05:52 water? 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 Female Yes 10/09/23 09:44 HX of Motion Sickness Yes 10/09/23 09:44 HX of N/V After Surgery No 10/09/23 09:44 Non-Smoker Yes 10/09/23 09:44 Duration of Surgery greater No 10/09/23 09:44 than 60 minutes Number of Risk Factors 3 10/09/23 09:44 PONV Score Moderate Risk 10/09/23 09:44 Height & Weight Height & Weight: Anesthesia: Height & Weight Height 5 ft 6 in 10/14/23 05:52 Weight: 119.295 kg 10/14/23 05:52 Body Mass Index (BMI) 42.4 10/14/23 05:52 Respiratory Assessment Respiratory Assessment - injection moulding machine operator: Respiratory Tract Infection Hx - injection moulding machine operator Hx Respiratory Tract Infection No 10/09/23 09:44 STOP Sleep Apnea STOP Sleep Apnea - injection moulding 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 Has anyone observed you stop No 10/09/23 09:44 breathing during sleep? STOP Results Negative 10/09/23 09:44 QUESTION #5 FULL TEXT : Do you snore loudly (louder than talking or can be heard through closed doors)? 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 Specify any problems Hx of Preganancy in last 3 No 10/09/23 09:44 Months Nurse Filling Out Transfusion DSCHRIBER 10/09/23 09:44 & Questions: Date: 10/09/23 10/09/23 09:44 Time: 09:48 10/09/23 09:44 Patient unable to answer at this time (ie. 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: /Reproductive Hx- injection moulding machine operator Hx Now No 10/09/23 09:44 Gestational Age (in weeks): EDC: Hx Hx Para Hx Section SAB No 10/09/23 09:44 Active Medications Active Medications: Current Medications Generic Name Dose Route Start Last Admin Trade Name Freq PRN Reason Stop Dose Admin Lactated Ringer's 1,000 mls @ 15 mls/hr 10/14/23 05:45 10/14/23 06:03 IV 15 mls/hr .Q48H CHELSEY Administration PFSH Medical History (Updated 10/09/23 @ 09:55 by Suzi Redd) Post-menopausal Wears glasses Raynauds disease Thyroid disease Gastric reflux Heartburn Non-smoker Asthma Shortness of breath on exertion Cardiology follow-up encounter History of echocardiogram History of stress test History of irregular heartbeat Health care maintenance Dermatitis Hx of temporomandibular joint disorder Abnormal uterine bleeding (AUB) Obesity Hot flashes due to menopause Anxiety and depression Cataracts, bilateral GERD (gastroesophageal reflux disease) Seasonal allergies History of pneumonia Hypothyroidism Asthma Home Medications ?Medication ?Instructions ?Recorded ?Last Taken ?Type fluticasone propionate 50 1 spray intranasal QHS 09/13/20 10/11/23 History mcg/actuation nasal spray,suspension (Allergy Relief (fluticasone)) albuterol sulfate 90 mcg/actuation 2 puff inhalation Q6H PRN PRN for 06/25/23 Unknown Rx aerosol inhaler wheezing #6.7 ea bupropion HCl 150 mg 24 hr tablet, 150 mg PO QODAY 10/09/23 10/10/23 History extended release escitalopram oxalate 20 mg tablet 20 mg PO QHS 10/09/23 10/12/23 History levothyroxine 50 mcg tablet 50 mcg PO QODAY 10/09/23 10/13/23 History (Synthroid) levothyroxine 75 mcg tablet 75 mcg PO QODAY 10/09/23 10/12/23 History (Synthroid) Allergy/AdvReac Type Severity Reaction Status Date / Time No Known Allergies Allergy Verified 10/09/23 09:42 Family History Aunt Colon cancer Parkinsons Mother Cancer Osteoporosis Seizures Brother Cancer Father Heart disease Uncle Heart disease Grandfather Diabetes Sister Thyroid disorder Seizures Other Anxiety Depression Surgical History (Updated 10/09/23 @ 09:55 by Suzi Redd) Hx of esophagogastroduodenoscopy Hx of colonoscopy History of liposuction of abdomen History of nasal surgery History of tonsillectomy Social History household members: spouse and children current occupational status: employed current occupation: [employer] Smoking Status: Never smoker alcohol intake: never substance use type: does not use caffeine: Yes what type of physical activity do you participate in: none seatbelt use: always do you feel safe at home: Yes additional social history: - Archie Review of Systems (Anesthesia) ROS Narrative System reviewed and no additional complaints, except as documented.
--- NOTE | 2023-10-14 06:37 | PCM.HP.BLA ---
History and Physical Date of Admission: 10/14/23 58 F who presents to the office today for initial consult. *[facility]I established 6.17.24 pt denies GI symptoms of concern at this time. Pt is here for appt prior to screening EGD and Colonoscopy. Reports reports a hx of GERD, but states she does not take any medication; rarely has symptoms. ROS Const Constitutional: No fatigue, fever(s) or weight change ENT ENT: No difficulty swallowing Gastro GI: No abdominal pain, belching, bloating, change in bowel habits, change in stool character, coffee ground emesis, constipation, cramping, diarrhea, heartburn, difficulty swallowing, feeling full early, excessive flatus, incontinent of stools, Vomiting blood/hematemesis, Blood in stool, loose stools, Black,tarry stools, nausea/dyspepsia, pain with swallowing, vomiting or other Musc Musculoskeletal: No joint pain Skin Skin: No yellowing of the eye or itchy eyes Psych Psychiatric: No anxiety and No depression Endo Endocrine: No fatigue or weight change Aller/Imm Allergy/Immunologic: No itchy eyes Mitesh/Lymp Hematologic/Lymphatic: No easy bleeding or easy bruising Exam Const General: cooperative, healthy appearing, comfortable, no acute distress, well developed and well groomed Nutritional Appearance: overweight Orientation: alert and awake Neck Neck: full ROM and no lymphadenopathy Neck mass: No Thyroid: thyroid normal Resp Effort & Inspection: normal respiratory effort, able to speak in complete sentences, symmetric chest movement, normal respiratory pattern, no audible wheezes, no cough, respiratory effort not decreased and not tachypneic Auscultation: Bilateral: Clear to Auscultation Cardio Rate: regular rate Rhythm: regular rhythm Heart Sounds: S1 normal, S2 normal and no murmurs Bruits: no carotid bruits Extrem General: no pedal edema Psych Appearance: grossly normal Mental Status: mental status grossly normal Mood: congruent mood Assessment and Plan Assessment and Plan (1) GERD (gastroesophageal reflux disease): Status: Acute Plan: She has a strong family history of esophageal cancer in her brother and she has a history of gastroesophageal reflux disease so she should be screened for Brand's esophagus. (2) Screening for colon cancer: Status: Acute Plan: She will undergo screening colonoscopy. She was explained alternatives, risk, benefits including not withstanding bleeding, infection, sepsis, perforation, need for emergent urgent . She will have an ASA of 3. I have examined the patient and the H&P has been reviewed. There are no clinical changes since date of exam.
--- NOTE | 2023-10-14 07:07 | OP.EGD_ITS ---
Patient Name: Salena Elizondo Procedure Date: 10/14/2023 6:21 AM Date of : 1965 Age: 58 Procedure: Upper GI endoscopy Indications: Heartburn Providers: Terry Johnson DO Referring MD: Estrella Vinson MD Medicines: Monitored Anesthesia Care Patient Profile: This is a 58 year old female. Refer to note in patient chart for documentation of history and physical. Patient has symptoms of chronic heartburn. Complications: No immediate complications. Procedure: Pre-Anesthesia Assessment: - Prior to the procedure, a History and Physical was performed, and patient medications and allergies were reviewed. The patient is competent. The risks and benefits of the procedure and the sedation options and risks were discussed with the patient. All questions were answered and informed consent was obtained. Patient identification and proposed procedure were verified by the physician. Mental Status Examination: normal. Respiratory Examination: clear to auscultation. CV Examination: normal. Prophylactic Antibiotics: The patient does not require prophylactic antibiotics. Prior Anticoagulants: The patient has taken no anticoagulant or antiplatelet agents. ASA Grade Assessment: II - A patient with mild systemic disease. After reviewing the risks and benefits, the patient was deemed in satisfactory condition to undergo the procedure. The anesthesia plan was to use monitored anesthesia care (MAC). Immediately prior to administration of medications, the patient was re-assessed for adequacy to receive sedatives. The heart rate, respiratory rate, oxygen saturations, blood pressure, adequacy of pulmonary ventilation, and response to care were monitored throughout the procedure. The physical status of the patient was re-assessed after the procedure. After obtaining informed consent, the endoscope was passed under direct vision. Throughout the procedure, the patient's blood pressure, pulse, and oxygen saturations were monitored continuously. The Colonoscope was introduced through the mouth, and advanced to the second part of duodenum. The upper GI endoscopy was accomplished without difficulty. The patient tolerated the procedure well. Scope In: 6:45:22 AM Scope Out: 6:48:53 AM Total Procedure Duration Time 0 hours 3 minutes 31 seconds Findings: LA Grade A (one or more mucosal breaks less than 5 mm, not extending between tops of 2 mucosal folds) esophagitis with no bleeding was found 35 to 38 cm from the incisors. Biopsies were taken with a cold forceps for histology. Verification of patient identification for the specimen was done. Estimated blood loss was minimal. The entire examined stomach was normal. The second portion of the duodenum was normal. Impression: - LA Grade A reflux esophagitis with no bleeding. Biopsied. - Normal stomach. - Normal second portion of the duodenum. Recommendation: - Await pathology results. - Continue present medications. Procedure Code(s): --- Professional --- 67171, Esophagogastroduodenoscopy, flexible, transoral; with biopsy, single or multiple CPT copyright 2021 [employer]. All rights reserved. The codes documented in this report are preliminary and upon oil well service operator helper review may be revised to meet current compliance requirements. Terry Johnson DO 10/14/2023 7:06:41 AM This report has been signed electronically. Number of Addenda: 0 Note Initiated On: 10/14/2023 6:21 AM
--- NOTE | 2023-10-14 07:07 | OP.CCLET_ITS ---
10/14/2023 Estrella Vinson MD [address] [place] [address] [place] [address] Re : Upper GI endoscopy procedure for [facility] Dear Dr. Vinson This procedure was performed on Saturday, October 14, 2023. My impressions and recommendations are as follows: Impressions : - LA Grade A reflux esophagitis with no bleeding. Biopsied. - Normal stomach. - Normal second portion of the duodenum. Recommendations : - Await pathology results. - Continue present medications. My findings are described in the full procedure note, which is enclosed. If I can be of further assistance, please feel free to contact me at . Sincerely, Terry Johnson DO 10/14/2023 7:06:41 AM This report has been signed electronically.
--- NOTE | 2023-10-14 07:08 | OP.COLON_ITS ---
Patient Name: Salena Elizondo Procedure Date: 10/14/2023 6:49 AM Date of : 1965 Age: 58 Procedure: Colonoscopy Indications: Screening for colorectal malignant neoplasm Providers: Terry Johnson DO Referring MD: Estrella Vinson MD Medicines: Monitored Anesthesia Care Patient Profile: This is a 58 year old female. Refer to note in patient chart for documentation of history and physical. Patient has symptoms of chronic heartburn. Last Colonoscopy: more than 10 years ago. Complications: No immediate complications. Procedure: Pre-Anesthesia Assessment: - Prior to the procedure, a History and Physical was performed, and patient medications and allergies were reviewed. The patient is competent. The risks and benefits of the procedure and the sedation options and risks were discussed with the patient. All questions were answered and informed consent was obtained. Patient identification and proposed procedure were verified by the physician. Mental Status Examination: normal. Respiratory Examination: clear to auscultation. CV Examination: normal. Prophylactic Antibiotics: The patient does not require prophylactic antibiotics. Prior Anticoagulants: The patient has taken no anticoagulant or antiplatelet agents. ASA Grade Assessment: II - A patient with mild systemic disease. After reviewing the risks and benefits, the patient was deemed in satisfactory condition to undergo the procedure. The anesthesia plan was to use monitored anesthesia care (MAC). Immediately prior to administration of medications, the patient was re-assessed for adequacy to receive sedatives. The heart rate, respiratory rate, oxygen saturations, blood pressure, adequacy of pulmonary ventilation, and response to care were monitored throughout the procedure. The physical status of the patient was re-assessed after the procedure. After I obtained informed consent, the scope was passed under direct vision. Throughout the procedure, the patient's blood pressure, pulse, and oxygen saturations were monitored continuously. The Colonoscope was introduced through the anus and advanced to the cecum, identified by appendiceal orifice and ileocecal valve. The colonoscopy was performed without difficulty. The patient tolerated the procedure well. The quality of the bowel preparation was adequate. The ileocecal valve, appendiceal orifice, and rectum were photographed. Scope In: 6:51:08 AM Scope Withdrawal Time 0 hours 8 minutes 54 seconds Scope Out: 7:02:34 AM Total Procedure Duration Time 0 hours 11 minutes 26 seconds Findings: The perianal and digital rectal examinations were normal. Scattered small and large-mouthed diverticula were found in the recto-sigmoid colon and sigmoid colon. The exam was otherwise without abnormality on direct and retroflexion views. Impression: - Diverticulosis in the recto-sigmoid colon and in the sigmoid colon. - The examination was otherwise normal on direct and retroflexion views. - No specimens collected. Recommendation: - Discharge patient to home. - Resume previous diet. - Continue present medications. - Repeat colonoscopy in 10 years for screening purposes. Procedure Code(s): --- Professional --- G0121, Colorectal cancer screening; colonoscopy on individual not meeting criteria for high risk CPT copyright 2021 [employer]. All rights reserved. The codes documented in this report are preliminary and upon clinical coder review may be revised to meet current compliance requirements. Terry Johnson DO 10/14/2023 7:08:33 AM This report has been signed electronically. Number of Addenda: 0 Note Initiated On: 10/14/2023 6:49 AM
--- NOTE | 2023-10-14 07:09 | OP.CCLET_ITS ---
10/14/2023 Estrella Vinson MD [address] [place] [address] [place] [address] Re : Colonoscopy procedure for Salena Ewing Dear Dr. Vinson This procedure was performed on Saturday, October 14, 2023. My impressions and recommendations are as follows: Impressions : - Diverticulosis in the recto-sigmoid colon and in the sigmoid colon. - The examination was otherwise normal on direct and retroflexion views. - No specimens collected. Recommendations : - Discharge patient to home. - Resume previous diet. - Continue present medications. - Repeat colonoscopy in 10 years for screening purposes. My findings are described in the full procedure note, which is enclosed. If I can be of further assistance, please feel free to contact me at . Sincerely, Terry Johnson, 10/14/2023 7:08:33 AM This report has been signed electronically.
--- NOTE | 2023-10-14 07:09 | PCM.POST.ANE ---
Anesthesia: Postop Eval I Current Vital Signs Temperature: 98.2 F Pulse Rate: 60 Blood Pressure: 79/58 Respiratory Rate: 16 Pulse Ox: 96 Assessment Airway patent: Yes Spontaneous unlabored respirations: Yes nausea: No Vomiting: No Anesthesia Complication: No Fluid Hydration Crystalloid volume administer (ml): 600 Total IV fluid infused: 600 Progress Note Anesthesia document: Postop Eval 1 completed: Yes
--- NOTE | 2023-10-14 07:15 | PCM.POSTANE2 ---
Anesthesia Postop Eval I Sum Postop Eval Completion status Anesthesia document: Postop Eval 1 completed: Yes Anesthesia Postop Eval I Summary Anesthesia Postop Eval I Summary: Anesthesia Postop Eval I: Assessment Summary Airway patent Yes 10/14/23 07:09 Spontaneous unlabored Yes 10/14/23 07:09 respirations Mental status nausea No 10/14/23 07:09 Vomiting No 10/14/23 07:09 Anesthesia Postop Eval I: Fluid Summary Crystalloid volume administer 600 10/14/23 07:09 (ml) Colloids volume administered ( ml) Blood Product volume administered (ml) Total IV fluid infused 600 10/14/23 07:09 Anesthesia Postop Eval I: Summary Notes Anesthesia Complication No 10/14/23 07:09 Anesthesia Complication Comment: Post-operative progress note Anesthesia: Postop Eval II Evaluation Mental status: Awake Pain Level: 0 nausea: No Vomiting: No
== END 2023-10-14 07:54 | disposition home or self-care (01) ==
LOC: EN 05:33 → AC 05:34
PROVIDERS: PCP Internal Medicine; Referring Provider Internal Medicine; Visit Provider Internal Medicine Gastroenterology
PROC: 0DJD8ZZ Inspection of Lower Intestinal Tract, Via Natural or Artificial Opening Endoscopic (ICD-10-PCS; CPT 45378; principal; 2023-10-14 06:25)
DX: Z12.11 Encounter for screening for malignant neoplasm of colon (principal); K57.30 Diverticulosis of large intestine without perforation or abscess without bleeding; K21.00 Gastro-esophageal reflux disease with esophagitis, without bleeding
CPT/HCPCS: 43239; 45378; 88305; J7120; J2405

== ENCOUNTER → 2023-11-14 | Outpatient (CLI) | payer BC, SELFPAY ==
[2023-11-14 12:15] LABS: Absolute Lymphocyte Count 1.62 X10^3/uL (0.83-4.51); Absolute Neutrophil Count 3.5 X10^3/uL (2.0-7.7); Basophil# 0.05 X10^3/uL; Basophil% 0.9 % (0-1); Eosinophil# 0.25 X10^3/uL; Eosinophils% 4.3 % (0-5); Hematocrit 40.2 % (37-47); Hemoglobin 12.9 g/dL (12.0-15.0); Lymphocyte # 1.62 X10^3/ul (0.83-4.51); Lymphocyte % 28.2 % (19-41); Mean Corp Hgb Conc 32.1 g/dL (32-36); Mean Corpuscular Hgb 28.7 pg (27.0-32.0); Mean Corpuscular Volume 89.5 fL (81-99); Monocyte# 0.33 X10^3/uL; Monocyte% 5.7 % (0-10); NRBC Flagged by Analyzer 0 % (0-5); Neutrophil # 3.46 X10^3/uL (2.7-7.7); Neutrophil % 60.2 % (47-70); Platelet Count 237 K/mm3 (150-450); RBC Distribution Width CV 12.8 % (11.6-14.6); RBC Distribution Width SD 41.8 fl (35.1-43.9); Red Blood Count 4.49 M/mm3 (4.2-5.4); White Blood Count 5.8 K/mm3 (4.4-11.0)
[2023-11-14 13:01] LABS: ALB/GLOB Ratio 0.8 RATIO (0.9-2.4); AST(SGOT) 18 U/L (15-37); Alanine Aminotransfer ALT/SGPT 29 U/L (13-56); Albumin, Serum 3.3 g/dL (3.2-5.0); Alkaline Phosphatase 118 U/L (45-117); Anion Gap 4 (5-15); BUN 8 mg/dL (7-18); Calcium,Total 8.7 mg/dL (8.5-10.1); Chloride 109 mmol/L (98-107); Cholesterol 167 mg/dL (200); Creatinine, Serum 0.89 mg/dL (0.55-1.02); EST Glomerular Filtration Rate 69 mL/min (>60); Est Glom Filt Rate - Afr Amer 84 mL/min (>60); Globulin 3.9 g/dL (2.2-4.2); Glucose 99 mg/dL (74-106); High Density Lipoprotein 51 mg/dL; Potassium 4.1 mmol/L (3.5-5.1); Protein, Total 7.2 g/dL (6.4-8.2); Sodium Level 141 mmol/L (136-145); Thyroid Stim Hormone (TSH) 2.38 uIU/mL (0.358-3.74); Triglycerides 104 mg/dL; Very Low Density Lipoprotein 21 mg/dL (5-40)
== END | disposition home or self-care (01) ==
LOC: BIMLAB 09:59
PROVIDERS: PCP Internal Medicine; Referring Provider Internal Medicine; Visit Provider Internal Medicine
DX: Z00.00 Encounter for general adult medical examination without abnormal findings (principal); E03.9 Hypothyroidism, unspecified
CPT/HCPCS: 36415; 80053; 80061; 84443; 85025

== ENCOUNTER → 2024-08-31 | Outpatient (CLI) | payer SELFPAY | END | disposition home or self-care (01) | PROVIDERS: PCP Internal Medicine; Referring Provider Internal Medicine; Visit Provider Internal Medicine | DX: E03.9 Hypothyroidism, unspecified (principal) | CPT/HCPCS: 36415; 84443 ==

== ENCOUNTER → 2024-10-22 | Outpatient (CLI) | payer SELFPAY ==
[2024-10-22 12:06] LABS: Hematocrit 40.0 % (37-47); Hemoglobin 13.0 g/dL (12.0-15.0); Immature Granulocytes Count 0.030 X10^3/uL (0.0-0.0); Mean Corp Hgb Conc 32.5 g/dL (32-36); Mean Corpuscular Volume 88.5 fL (81-99); Mean Platelet Vol. 11.5 fl (6.2-12.0); NRBC Flagged by Analyzer 0 % (0-5); Platelet Count 227 K/mm3 (150-450); RBC Distribution Width CV 12.8 % (11.6-14.6); RBC Distribution Width SD 41.5 fl (35.1-43.9); Red Blood Count 4.52 M/mm3 (4.2-5.4); White Blood Count 5.4 K/mm3 (4.4-11.0)
[2024-10-22 12:51] LABS: AST(SGOT) 18 U/L (<=31); Alanine Aminotransfer ALT/SGPT 19 U/L (<=34); Albumin, Serum 4.0 g/dL (3.5-5.0); Alkaline Phosphatase 123 U/L (35-104); Anion Gap 10 (5-15); BUN 12 mg/dL (4-19); BUN/Creat Ratio 14.4 RATIO (10-20); Calcium,Total 9.0 mg/dL (7.6-11.0); Carbon Dioxide 25.3 mmol/L (21.0-32.0); Chloride 104 mmol/L (98-108); Cholesterol 172 mg/dL (<=200); Globulin 3.1 g/dL (2.2-4.2); Glucose 95 mg/dL (70-99); Low Density Lipoprotein Calc. 104 mg/dL; Potassium 4.5 mmol/L (3.3-5.1); Triglycerides 72 mg/dL; Very Low Density Lipoprotein 14 mg/dL (5-40); cholesterol:hdl ratio screen 3.23
== END | disposition home or self-care (01) ==
LOC: BIMLAB 09:41
PROVIDERS: PCP Internal Medicine; Visit Provider Internal Medicine
DX: Z00.00 Encounter for general adult medical examination without abnormal findings (principal); E03.9 Hypothyroidism, unspecified
CPT/HCPCS: 36415; 80053; 80061; 84443; 85025

== ENCOUNTER → 2025-02-22 | Outpatient (CLI) | payer SELFPAY ==
--- NOTE | 2025-02-22 12:00 | BI_ITS ---
EXAM: SCRN MAMM (CAD)W/MIKO BILAT DATE: 02/22/2025 CLINICAL HISTORY: F, Age 60 y/o , BREAST CANCER SCREENING TECHNIQUE: Procedure Code: [id number] Modality: MG Procedure: SCRN MAMM (CAD)W/MIKO BILAT COMPARISON: Prior exam(s) were compared FINDINGS: TISSUE DENSITY: The breasts are heterogeneously dense, which may obscure small masses. Bilateral Breast Mammographic Findings: No significant masses, calcifications or other abnormalities are identified. BI/SCRN MAMM (CAD)W/MIKO BILAT IMPRESSION: No mammographic evidence of malignancy. OVERALL FINAL ASSESSMENT BI-RADS 1: NEGATIVE.. RECOMMENDATION: Routine annual follow-up in 1 Year Additional Recommendation none A letter with findings and recommendations will be mailed to the patient. Reading Location: [id number]
== END | disposition home or self-care (01) ==
LOC: OPBI 11:55
PROVIDERS: PCP Internal Medicine; Referring Provider Internal Medicine; Visit Provider Internal Medicine
DX: Z12.31 Encounter for screening mammogram for malignant neoplasm of breast (principal)
CPT/HCPCS: 77063; 77067

== ENCOUNTER → 2025-04-09 | Outpatient (CLI) | payer SELFPAY ==
--- OUTSIDE RECORDS SUMMARY | 2025-04-09 09:30 | XMS RPT_ITS | CCD ---
Author Organization [facility] Care Team Providers Care Deicer Kit Assembler Name Role Phone Bibiana Mulligan Unavailable Esha Donovans H Unavailable Eneida Guerrero Unavailable Dano Fonseca Unavailable Vladimir Smith Unavailable Unavailable Messenger, Laxmi Unavailable Unavailable Gravius, Thea Unavailable Unavailable Unavailable Unavailable aLxmi Castrejon Unavailable Unavailable Slarb, Margarita Unavailable Unavailable Messenger, Laxmi Unavailable Unavailable Unavailable Unavailable Vladimir Severino Unavailable Unavailable Miriam French Unavailable Unavailable Ese Bibiana Unavailable Zion, Abhilash H Unavailable Eneida Guerrero Unavailable Dano Fonseca Unavailable Miriam French LPN Unavailable Unavailable Messenger Laxmi MEDEIROS Unavailable Unavailable Unavailable Unavailable Dr. Estrella Vinson Primary Care Provider 1([phone] 0) Dr. Estrella Vinson Attending Provider [phone])2 Dr. Estrella Vinson Referring Provider [phone])2 Dr. Estrella Vinson Primary Care Provider 1(33 0) Dr. Estrella Vinson Attending Provider 1(330)2 Dr. Estrella Vinson Referring Provider 1(330)2 Herbert PADRON, DANUTA Matson Attending Provider 1(330) Dr. Estrella Vinson Primary Care Provider 1(33 0) Alisson, Dr. De La Rosa Attending Provider 1(330)2 Alisson, Dr. De La Rosa Referring Provider 1(330)2 Alisson, Dr. De La Rosa Primary Care Provider 1(33 0) Alisson, Dr. De La Rosa Referring Provider 1(330)2 JANET Shi Attending Provider 1(330) Alisson KINGSTON, Dr. De La Rosa Primary Care Provider Alisson KINGSTON, Dr. De La Rosa Attending Provider 1(33 0) Alisson KINGSTON, Dr. De La Rosa Referring Provider 1(33 0) Leon PADRON-Brandee Dudley Attending Provider [phone])20 [place] KINGSTON, Dr. Figueroa Attending Provider 1(330) Dr. Alan Soliz DO Attending Provider Oleghe, Efewongbe Attending Unavailable Oleghe, Efewongbe Referring Unavailable Oleghe, Efewongbe Primary Care Unavailable Oleghe, Efewongbe Attending Unavailable Oleghe, Efewongbe Primary Care Unavailable Oleghe, Efewongbe Referring Unavailable Oleghe, Efewongbe Attending Unavailable Oleghe, Efewongbe Primary Care Unavailable Oleghe, Efewongbe Referring Unavailable Oleghe, Efewongbe Primary Care Unavailable Brandee Quintero Attending Unavailable Alan Soliz Attending Unavailable Oleghe, Efewongbe Referring Unavailable Oleghe, Efewongbe Primary Care Unavailable Oleghe, Efewongbe Attending Unavailable Oleghe, Efewongbe Referring Unavailable Oleghe, Efewongbe Primary Care Unavailable Brandee Quintreo Attending Unavailable Oleghe, Efewongbe Referring Unavailable Oleghe, Efewongbe Primary Care Unavailable eHnry Berumen Attending Unavailable Oleghe, Efewongbe Primary Care Unavailable Medications Current Medications Medication Drug Class(es) Dates Sig (Normalized) Sig (Original) [id number] 200 actuat albuterol 0.09 mg/actuat metered dose inhaler (20 sources) beta2-Adrenergic Agonist Start: 03-04-2023 End: 06-25-2023 Albuterol Sulfate 90 mcg/actuation HFA aerosol inhaler Active 2 NMA INHALATION EVERY 6 HOURS NEEDED as needed for for wheezing 6.7 3 June 25, 2023 11:29am Start: 03-04-2023 End: 06-25-2023 take 1 puff(s) by inhalation every six hours as needed Albuterol Sulfate Active 2 PUFF INHALATION EVERY 6 HOURS NEEDED 6.7 June 25, 2023 11:29am Start: 03-17-2020 End: 03-17-2020 take 1-2 puff(s) by inhalation every four to six hours as needed Albuterol Sulfate (2.5 MG/3ML) 0.083% Inhalation Nebulization Solution 1 (one) Milliliter inhale 1 to 2 puffs into the lungs every 4 to 6 hours as needed for 0 days Quantity: 1 {Inhaler} Refills: 0 Ordered: 17-Mar-2020 Miriam French LPN Start : 17-Mar-2020 End : 17-Mar-2020 Inactive Comments: Medication taken as needed. Start: 03-17-2020 take 1-2 puff(s) by inhalation every four to six hours as needed ProAir HFA 108 (90 Base) MCG/ACT Inhalation Aerosol Solution 1-2 Puff Q 4-6 hours PRN for 0 days Quantity: 1 {Inhaler} Refills: 0 Ordered: 17-Mar-2020 Bibiana Mulligan DO, DO, Kathleen Start : 17-Mar-2020 Active Start: 03-17-2020 take 1-2 puff(s) by inhalation every four to six hours as needed ProAir HFA 108 (90 Base) MCG/ACT Inhalation Aerosol Solution 1-2 Puff Q 4-6 hours PRN for 0 days Quantity: 1 {Inhaler} Refills: 0 Ordered: 17-Mar-2020 Bibiana Mulligan DO, DO, Kathleen Start : 17-Mar-2020 Active Start: 09-22-2018 End: 08-27-2019 take 1-2 puff(s) by inhalation every four to six hours as needed ProAir HFA 108 (90 Base) MCG/ACT Inhalation Aerosol Solution 1-2 Puff Q 4-6 hours PRN for 0 days Quantity: 1 {Inhaler} Refills: 0 Ordered: 27-Aug-2019 Laxmi Hinton RN Start : 22-Sep-2018 End : 27-Aug-2019 Inactive Start: 03-09-2014 End: 12-31-2014 VENTOLIN HFA, 108 (90 Base)M CG/ACT (Inhalation Aerosol Solution) 2 (two) Aerosol Soln q 6 hr prn for 0 days Quantity: 1 {Box} Refills: 1 Ordered: 31-Dec-2014 TAMRA Vazquez LPN Start : 09-Mar-2014 End : 31-Dec-2014 Inactive Start: 03-09-2014 End: 12-31-2014 VENTOLIN HFA, 108 (90 Base)M CG/ACT (Inhalation Aerosol Solution) 2 (two) Aerosol Soln q 6 hr prn for 0 days Quantity: 1 {Box} Refills: 1 Ordered: 31-Dec-2014 TAMRA Vazquez LPN Start : 09-Mar-2014 End : 31-Dec-2014 Inactive Comment on above: Medication taken as needed. fluticasone propionate 0.05 mg/actuat metered dose nasal spray (20 sources) Corticosteroid Start: 09-14-19 21 take 50 ug nasal route at bedtime Fluticasone Propionate (Allergy Relief (Fluticasone)) 50 mcg/actuation spray,suspension Active 1 NMA INTRANASAL AT BEDTIME September 13, 2020 12:00am administer into each nostril Start: 09-13-2020 take 1 spray(s) nasa l route once daily Fluticasone Propionate (Allergy Relief (Fluticasone)) 50 mcg/actuation spray,suspension Active 1 SPRAY INTRANASAL DAILY September 13, 2020 12:00am administer into each nostril Start: 05-19-2018 Fluticasone Pr opionate 50 MCG/ACT Nasal Suspension 2 (two) Suspension prn for 90 days Quantity: 3 {Bottle} Refills: 3 Ordered: 19-May-2018 Bibiana Mulligan DO, DO, Kathleen Start : 19-May-2018 Active Start: 05-14-2018 Fluticasone Pr opionate 50 MCG/ACT Nasal Suspension 2 (two) Suspension prn for 0 days Quantity: 1 {Bottle} Refills: 0 Ordered: 14-May-2018 Vladimir Smith Start : 14-May-2018 Active levothyroxine sodium 0.075 mg oral tablet (20 sources) l-Thyroxine Start: 09-25-2024 take 1 tablet by mouth every other day Levothyroxine (Synthroid) 50 mcg tablet Active 50 ug PO EVERY OTHER DAY 90 September 25, 2024 4:22pm TAKE 1 TABLET BY MOUTH EVERY OTHER DAY Start: 09-25-2024 End: 10-13-2024 Levothyroxine (Synthroid) 50 mcg tablet Discontinued 50 ug PO daily 90 September 25, 2024 12:00am October 13, 2024 8:59am Patient to take every other day alternating with 75 mcg Start: 12-26-2022 End: 10-13-2024 take 1 tablet by mouth every other day Levothyroxine (Synthroid) 75 mcg tablet Discontinued 75 ug PO EVERY OTHER DAY 90 September 25, 2024 4:21pm October 13, 2024 8:59am TAKE 1 TAB BY MOUTH EVERY OTHER DAY Start: 11-22-2020 Synthroid 50 M CG Oral Tablet uad Tablet one every other day for 90 days Quantity: 45 {Tablet} Refills: 3 Ordered: 22-Nov-2020 Bibiana Mulligan DO, DO, Kathleen Start : 22-Nov-2020 Active Dispense as Written Comments: takes 75mcg qod with 50mcgDAW Start: 09-13-2020 End: 06-29-2024 take 1 tablet by mouth every other day Levothyroxine (Synthroid) 50 mcg tablet Discontinued 50 ug PO EVERY OTHER DAY 90 April 06, 2024 5:07pm June 29, 2024 10:21am TAKE 1 TABLET BY MOUTH EVERY OTHER DAY Start: 07-22-2020 End: 09-27-2021 take 1 tablet by mouth once daily Levothyroxine (Synthroid) 50 mcg tablet Discontinued 50 ug PO DAILY July 22, 2020 12:00am September 13, 2020 11:51am Start: 07-22-2020 End: 12-26-2022 take 1 tablet by mouth once daily Levothyroxine (Synthroid) 75 mcg tablet Discontinued 0 .ROUTE .COMPLEX 30 0 December 19, 2022 12:59pm December 26, 2022 7:50am TAKE 1 TABLET BY MOUTH DAILY Start: 06-29-2020 Synthroid 50 M CG Oral Tablet uad Tablet one every other day for 90 days Quantity: 45 {Tablet} Refills: 3 Ordered: 29-Jun-2020 Bibiana Mulligan DO, DO, Kathleen Start : 29-Jun-2020 Active Dispense as Written Comments: takes 75mcg qod with 50mcgDAW Start: 10-22-2019 End: 12-25-2021 Levothyroxine (Synthroid) 75 mcg tablet Discontinued 75 ug PO .POD 45 1 September 27, 2021 10:04am December 25, 2021 8:16am Start: 10-22-2019 take 1 tablet by luisa th once daily Synthroid 75 MCG Oral Tablet 1 Tablet qd for 90 days Quantity: 90 {Tablet} Refills: 3 Ordered: 22-Oct-2019 Bibiana Mulligan DO, DO, Kathleen Start : 22-Oct-2019 Active Dispense as Written Comments: NO generic Dispense as written Start: 10-18-2019 Synthroid 75 M CG Oral Tablet 1 Tablet TAD for 90 days Quantity: 45 {Tablet} Refills: 3 Ordered: 18-Oct-2019 Marga Wade CNP Start : 18-Oct-2019 Active Dispense as Written Comments: NO generic Dispense as written Start: 10-17-2019 Synthroid 50 M CG Oral Tablet uad Tablet one every other day for 90 days Quantity: 45 {Tablet} Refills: 3 Ordered: 17-Oct-2019 Marga Wade CNP Start : 17-Oct-2019 Active Dispense as Written Comments: takes 75mcg qod with 50mcgdaw Start: 10-22-2018 Synthroid 75 M CG Oral Tablet 1 Tablet TAD for 90 days Quantity: 45 {Tablet} Refills: 3 Ordered: 22-Oct-2018 Marga Wade CNP Start : 22-Oct-2018 Active Dispense as Written Comments: NO generic Dispense as written Start: 07-25-2018 Synthroid 50 M CG Oral Tablet uad Tablet one every other day for 90 days Quantity: 45 {Tablet} Refills: 3 Ordered: 25-Jul-2018 Marga Wade CNP Start : 25-Jul-2018 Active Dispense as Written Comments: takes 75mcg qod with 50mcgdaw Start: 08-07-2017 Synthroid 75 M CG Oral Tablet 1 Tablet TAD for 90 days Quantity: 45 {Tablet} Refills: 3 Ordered: 07-Aug-2017 Marga Wade CNP Start : 07-Aug-2017 Active Dispense as Written Comments: NO generic Dispense as written Start: 08-07-2017 Synthroid 50 M CG Oral Tablet uad Tablet one every other day for 90 days Quantity: 45 {Tablet} Refills: 3 Ordered: 07-Aug-2017 Marga Wade CNP Start : 07-Aug-2017 Active Dispense as Written Comments: takes 75mcg qod with 50mcgdaw Comment on above: NO generic Dispense as written takes 75mcg qod with 50mcgdaw Completed/Discontinued Medications Medication Drug Class(es) Dates Sig (Normalized) Sig (Original) acyclovir 800 mg oral tablet (20 sources) Herpesvirus Nucleoside Analog DNA Polymerase Inhibitor, Herpes Simplex Virus Nucleoside Analog DNA Polymerase Inhibitor, Herpes Zoster Virus Nucleoside Analog DNA Polymerase Inhibitor Start: 11-06-2010 End: 11-13-2010 ACYCLOVIR, 800MG (Oral Tablet) 1 Tablet 5 x daily for 7 days Quantity: 35 {Tablet} Refills: 0 Ordered: 06-Nov-2010 Marga Wade CNP Start : 06-Nov-2010 End : 13-Nov-2010 Inactive ALPRAZolam 0.25 mg oral tablet (20 sources) Benzodiazepine Start: 07-02-2019 take 1 tablet by mouth once daily as needed Xanax 0.25 MG Oral Tablet 1 (one) Tablet Daily prn for 0 days Quantity: 30 {Tablet} Refills: 0 Ordered: 02-Jul-2019 Bibiana Mulligan DO, DO, Kathleen Start : 02-Jul-2019 Active Comments: yolette, Start: 05-27-2013 take 1 tablet by [facility] once daily as needed XANAX, 0.25MG (Oral Tablet) 1 (one) Tablet Daily prn for 0 days Quantity: 30 {Tablet} Refills: 0 Ordered: 27-May-2013 Bibiana Mulligan DO, DO, Kathleen Start : 27-May-2013 Active Comments: yolette, Comment on above: thirty, amoxicillin 875 mg / clavulanate 125 mg oral tablet (20 sources) Penicillin-class Antibacterial Start: 08-16-19 End: 11-30-19 17 take 1 tablet by mouth twice daily Augmentin 875-125 MG Oral Tablet 1 (one) Tablet bid for 0 days Quantity: 14 {Tablet} Refills: 0 Ordered: 29-Nov-2016 Laxmi Hinton RN Start : 15-Aug-2016 End : 29-Nov-2016 Inactive benzonatate 200 mg oral capsule (20 sources) Non-narcotic Antitussive Start: 05-29-19 End: 06-04-19 take 1 capsule by mouth three times daily TESSALON, 200MG (Oral Capsule) 1 (one) Capsule TID for 0 days Quantity: 30 {Capsule} Refills: 0 Ordered: 29-May-2007 Camelia Tyson MD Start : 29-May-2007 End : 04-Jun-2007 Inactive 24 hr buPROPion hydrochloride 150 mg extended release oral tablet (20 sources) Aminoketone Start: 10-09-19 End: 09-11-19 take 1 tablet by mouth every other day Bupropion Hcl 150 mg tablet extended release 24 hr Discontinued 150 mg PO EVERY OTHER DAY 90 December 05, 2023 9:31am September 10, 2024 2:27pm Start: 03-16-2021 End: 10-09-2023 take 1 tablet by mouth every twenty-four hours Bupropion Hcl 150 mg tablet extended release 24 hr Discontinued 150 mg PO .Q48 90 December 02, 2022 6:58pm October 09, 2023 9:44am Start: 03-16-2021 End: 12-02-2022 Bupropion Hcl Discontinued 1 50 MG PO .Q48 90 November 30, 2021 12:05pm December 02, 2022 6:58pm Start: 04-11-2020 End: 03-16-2021 take 1 tablet by mouth once daily in the morning Bupropion Hcl 150 mg tablet extended release 24 hr Discontinued 150 mg PO EVERY MORNING 90 October 27, 2020 10:07am March 16, 2021 3:36pm Start: 01-11-2020 take 1 tablet by mouth once da kailash Wellbutrin XL 150 MG Oral Tablet Extended Release 24 Hour 1 (one) Tablet qd for 0 days Quantity: 90 {Tablet} Refills: 1 Ordered: 11-Jan-2020 Miriam French LPN Start : 11-Jan-2020 Active Start: 07-17-2019 take 1 tablet by mouth once da kailash Wellbutrin XL 150 MG Oral Tablet Extended Release 24 Hour 1 (one) Tablet qd for 0 days Quantity: 90 {Tablet} Refills: 1 Ordered: 17-Jul-2019 Bibiana Mulligan DO, DO Bibiana Start : 17-Jul-2019 Active Start: 01-13-2019 take 1 tablet by mouth once da kailash Wellbutrin XL 150 MG Oral Tablet Extended Release 24 Hour 1 (one) Tablet qd for 0 days Quantity: 90 {Tablet} Refills: 1 Ordered: 13-Jan-2019 Ese ZAMBRANO Bibianachevy Mulligan DO Bibiana Start : 13-Jan-2019 Active Start: 07-25-2018 take 1 tablet by mouth once da kailash Wellbutrin XL 150 MG Oral Tablet Extended Release 24 Hour 1 (one) Tablet qd for 0 days Quantity: 90 {Tablet} Refills: 1 Ordered: 25-Jul-2018 Ese ZAMBRANO Bibiana Mulligan DO Bibiana Start : 25-Jul-2018 Active Start: 10-21-2017 take 1 tablet by mouth once da kailash Wellbutrin XL 150 MG Oral Tablet Extended Release 24 Hour 1 (one) Tablet qd for 0 days Quantity: 90 {Tablet} Refills: 1 Ordered: 21-Oct-2017 Ese ZAMBRANO Bibiana Mulligan DO Bibiana Start : 21-Oct-2017 Active busPIRone hydrochloride 5 mg oral tablet (20 sources) Start: 12-31-2014 End: 02-18-2015 BUSPIRONE HCL, 5MG (Oral Tablet) 1 (one) Tablet 1/2 at night for 4 days then 1/2 bid for 4 days then 1/2 in am and 1 pm for 4 days then bid for 30 days Refills: 2 Ordered: 18-Feb-2015 Patria Hernandez Start : 31-Dec-2014 End : 18-Feb-2015 Inactive cephalexin 500 mg oral capsule (11 sources) Cephalosporin Antibacterial Start: 03-05-2021 End: 06-15-2021 take 1 capsule by mouth every six hours Cephalexin 500 mg capsule Discontinued 500 mg PO EVERY 6 HOURS 40 0 March 05, 2021 1:00am June 15, 2021 5:35pm ciprofloxacin 500 mg oral tablet (20 sources) Quinolone Antimicrobial Start: 07-14-2010 End: 08-17-2010 take 1 tablet by mouth twice daily CIPRO, 500MG (Oral Tablet) 1 Tablet bid for 0 days Quantity: 20 {Tablet} Refills: 0 Ordered: 17-Aug-2010 Laxmi Hinton RN Start : 14-Jul-2010 End : 17-Aug-2010 Inactive 24 hr clarithromycin 500 mg extended release oral tablet (20 sources) Macrolide Antimicrobial End: 11-05-2007 take 1 tablet by mouth twice daily BIAXIN XL, 500MG (Oral Tablet Extended Release 24 Hour) 1 bID for 0 days Refills: 0 Ordered: 28-May-2008 Camelia Tyson MD End : 05-Nov-2007 Discontinued End: 11-05-2007 take 1 tablet by mouth twice daily BIAXIN XL, 500MG (Oral Tablet Extended Release 24 Hour) 1 bID for 0 days Refills: 0 Ordered: 28-May-2008 Camelia Tyson MD End : 05-Nov-2007 Discontinued codeine phosphate 2 mg/ml / guaiFENesin 20 mg/ml oral solution (20 sources) Opioid Agonist Start: 05-29-2007 End: 06-04-2007 GUAIATUSSIN AC, 100-10MG/5ML (Oral Syrup) 1 Syrup QHS / HS for 0 days Quantity: 6 {Ounce(s)} Refills: 0 Ordered: 29-May-2007 Camelia Tyson MD Start : 29-May-2007 End : 04-Jun-2007 Inactive cyclobenzaprine hydrochloride 10 mg oral tablet (20 sources) Muscle Relaxant Start: 08-26-2009 take 1 tablet by mouth twice daily as needed FLEXERIL, 10MG (Oral Tablet) 1 (one) Tablet bid prn for 0 days Quantity: 30 {Tablet} Refills: 0 Ordered: 23-Sep-2009 TAMRA Vazquez LPN Start : 26-Aug-2009 Inactive doxycycline hyclate 100 mg oral capsule (20 sources) Tetracycline-cl ass Drug Start: 09-22-2018 End: 10-02-2018 take 1 capsule by mouth twice daily at mealtime Doxycycline Hyclate 100 MG Oral Capsule 1 (one) Capsule PO BID for 10 days Quantity: 20 {Capsule} Refills: 0 Ordered: 22-Sep-2018 Laxmi Castrejon Start : 22-Sep-2018 End : 02-Oct-2018 Inactive Comments: Take with food Comment on above: Take with food escitalopram 20 mg oral tablet (20 sources) Serotonin Reuptake Inhibitor Start: 01-11-2020 End: 09-10-2024 take 1 tablet by mouth once daily at bedtime Escitalopram Oxalate 20 mg tablet Discontinued 20 mg PO AT BEDTIME 90 0 June 30, 2024 12:06pm September 10, 2024 4:24pm TAKE 1 TABLET BY MOUTH EVERY DAY Start: 12-25-2018 take 1 tablet by luisa th once daily at bedtime Lexapro 20 MG Oral Tablet 1 (one) Tablet qhs for 90 days Quantity: 90 {Tablet} Refills: 3 Ordered: 25-Dec-2018 Bibiana Mulligan DO, DO, Kathleen Start : 25-Dec-2018 Active Start: 12-17-2017 take 1 tablet by luisa th once daily at bedtime Lexapro 20 MG Oral Tablet 1 (one) Tablet qhs for 90 days Quantity: 90 {Tablet} Refills: 0 Ordered: 17-Dec-2017 Bibiana Mulligan DO, DO, Kathleen Start : 17-Dec-2017 Active Comments: Mail order. Start: 11-05-2007 End: 06-07-2008 take 1 tablet by mouth once daily LEXAPRO, 20MG (Oral Tablet) 1 Tablet daily for 0 days Quantity: 90 {Tablet} Refills: 3 Ordered: 05-Nov-2007 Camelia Tyson MD Start : 05-Nov-2007 End : 28-May-2008 Inactive Comment on above: Mail order. 24 hr etodolac 400 mg extended release oral tablet (20 sources) Nonsteroidal Anti-inflammatory Drug Start: 010 take 2 tablets by mouth once daily ETODOLAC CR, 400MG (Oral Tablet Extended Release 24 Hour) 2 (two) Tablet ER 24HR qd for 0 days Quantity: 30 {Tablet_ER_24HR} Refills: 0 Ordered: 23-Sep-2009 TAMRA Vazquez LPN Start : 26-Aug-2009 Inactive fexofenadine hydrochloride 180 mg oral tablet (20 sources) Histamine-1 Receptor Antagonist Start: 011 End: 015 take 1 tablet by mouth once daily as needed RUPALI, 180MG (Oral Tablet) 1 Tablet qd prn for 0 days Quantity: 30 {Tablet} Refills: 2 Ordered: 28-Aug-2010 Laxmi Hinton RN Start : 28-Aug-2010 End : 04-Jun-2014 Discontinued Comments: This order discontinued per [facility]. Comment on above: This order discontin ued per [facility]. FLUoxetine 20 mg oral capsule (20 sources) Serotonin Reuptake Inhibitor Start: 015 End: take 1 capsule by mouth once daily PROZAC, 20MG (Oral Capsule) 1 (one) Capsule qd for 0 days Quantity: 30 {Capsule} Refills: 3 Ordered: 31-Dec-2014 George MILIANMARIAMATAMRA Start : 31-Dec-2014 End : 31-Dec-2014 Inactive Comments: fidgeting, chest tightness, some increase in anxiety, chest tightness Comment on above: fidgeting, chest tig htness, some increase in anxiety, chest tightness hydrocortisone 25 mg/ml topical cream (11 sources) Corticosteroid Start: 022 End: Hydrocortisone 2.5 % cream Discontinued 1 NMA TOPICAL TWICE A DAY as needed for rash 30 December 27, 2021 12:00am May 22, 2022 3:47pm levoFLOXacin 500 mg oral tablet (20 sources) Quinolone Antimicrobial Start: 008 End: take 1 tablet by mouth once daily LEVAQUIN, 500MG (Oral Tablet) 1 Tablet Daily for 0 days Quantity: 10 {Tablet} Refills: 0 Ordered: 04-Jun-2007 Camelia Tyson MD Start : 04-Jun-2007 End : 05-Nov-2007 Discontinued omeprazole 40 mg delayed release oral capsule (6 sources) Proton Pump Inhibitor Start: 024 End: 025 take 1 capsule by mouth twice daily Omeprazole 40 mg capsule,delayed release(DR/EC) Discontinued 40 mg PO TWICE A DAY 60 October 21, 2023 12:00am September 10, 2024 2:27pm penicillin v potassium 250 mg oral tablet (20 sources) Start: 008 End: 009 take 1 tablet by mouth three times daily PENICILLIN V POTASSIUM, 250MG (Oral Tablet) 1 (one) Tablet tid for 10 days Quantity: 30 {Tablet} Refills: 0 Ordered: 05-Nov-2007 Camelia Tyson MD Start : 05-Nov-2007 End : 13-May-2008 Inactive predniSONE 10 mg oral tablet (20 sources) Start: 019 End: take 3 tablets by mouth once daily, then take 2 tablets by mouth once daily, then take 1 tablet by mouth once daily at mealtime predniSONE 10 MG Oral Tablet 1 (one) Tablet TAD for 0 days Quantity: 18 {Tablet} Refills: 0 Ordered: 29-Jan-2019 Laxmi Hinton RN Start : 22-Sep-2018 End : 29-Jan-2019 Inactive Comments: 3 Tablets daily x 3 days, 2 Tablets daily x 3 days,1 Tablet daily x 3 days.Take with food Comment on above: 3 Tablets daily x 3 days, 2 Tablets daily x 3 days,1 Tablet daily x 3 days.Take with food promethazine hydrochloride 25 mg rectal suppository (20 sources) Phenothiazine Start: End: PHENERGAN, 25MG (Rectal Suppository) 1 (one) Suppository Q 8 hr prn for 0 days Quantity: 20 {Suppository} Refills: 0 Ordered: 17-Jun-2008 Laxmi Hinton RN Start : 17-Jun-2008 End : 09-Mar-2009 Inactive sertraline 25 mg oral tablet (20 sources) Serotonin Reuptake Inhibitor Start: End: take 1 tablet by mouth once daily ZOLOFT, 25MG (Oral Tablet) 1 (one) Tablet qd for 30 days Quantity: 30 {Tablet} Refills: 0 Ordered: 01-Apr-2015 Camelia Tyson MD Start : 18-Feb-2015 End : 20-Mar-2015 Inactive Comments: titering Comment on above: titering sulfamethoxazole 800 mg / trimethoprim 160 mg oral tablet (20 sources) Dihydrofolate Reductase Inhibitor Antibacterial, Sulfonamide Antimicrobial Start: 012 End: take 1 tablet by mouth twice daily BACTRIM DS, 800-160MG (Oral Tablet) 1 Tablet bid for 7 days Quantity: 14 {Tablet} Refills: 0 Ordered: 26-Nov-2011 Marga Wade CNP Start : 26-Nov-2011 End : 03-Dec-2011 Inactive vortioxetine 10 mg oral tablet (20 sources) Start: End: take 1 tablet by mouth once daily BRINTELLIX, 10MG (Oral Tablet) 1 (one) Tablet qd for 0 days Quantity: 30 {Tablet} Refills: 3 Ordered: 18-Feb-2015 Patria Hernandez Start : 27-Aug-2014 End : 18-Feb-2015 Inactive Problems Active Problems Problem Classification Problem Date Documented Date Episodic/Chronic Administrative/social admission (20 sources) Medical examinations/reports status; Translations: [Administrative reason for encounter] Resolved: 5 03-04-2015 Episodic Allergic reactions (20 sources) Diarrhea; Translations: [SYMPTOMS INVOLVING DIGESTIVE SYSTEM; DIARRHEA] Resolved: 9 04-09-2012 Episodic Anxiety disorders (20 sources) Anxiety; Translations: [Acute stress disorder] 07-29-2017 Chronic Comment on above: stablemore anxiety w ith OCD per psychiatry. ok to take zanax wit h anxiety feeling more anxiety with OC D per psychiatry. ON MEDS Asthma (12 sources) Asthma; Translations: [Unspecified asthma, uncomplicated] 09-13-2020 Chronic Cardiac dysrhythmias (20 sources) Other premature beats; Translations: [Premature beats] 07-29-2017 Chronic Cardiac dysrhythmias (20 sources) Palpitations; Translations: [Palpitations] Onset: 0 Resolved: 8 05-14-2018 Episodic Comment on above: ? stress realted imp roved with xanax Cataract (11 sources) Bilateral cataracts; Translations: [Unspecified cataract] 09-13-2020 Chronic Chronic obstructive pulmonary disease and bronchiectasis (20 sources) Chronic obstructive pulmonary disease and bronchiectasis Coronary atherosclerosis and other heart disease (20 sources) Coronary atherosclerosis and other heart disease Disorders of teeth and jaw (9 sources) Temporomandibular joint disorder; Translations: [Unspecified temporomandibular joint disorder, unspecified side] 05-22-2022 Episodic Esophageal disorders (20 sources) Gastroesophageal reflux disease; Translations: [GERD (gastroesophageal reflux disease)] 07-29-2017 Chronic Comment on above: stalbe Essential hypertension (9 sources) Elevated blood pressure; Translations: [Essential (primary) hypertension] 05-30-2023 Chronic Fever of unknown origin (20 sources) Fever; Translations: [Fever presenting with conditions classified elsewhere] Resolved: 2 04-09-2012 Episodic Comment on above: no signs of pneumoni a. no mengingitis signs and symptoms. check labs iv fliuds. Genitourinary symptoms and ill-defined conditions (20 sources) Increased frequency of urination; Translations: [Dysuria] Resolved: 5 01-18-2015 Episodic Heart valve disorders (20 sources) Mitral valve prolapse; Translations: [Mitral valve prolapse] 07-29-2017 Chronic Comment on above: clinically stable Heart valve disorders (20 sources) Heart sounds abnormal; Translations: [Other cardiac sounds] 07-29-2017 Episodic Immunizations and screening for infectious disease (20 sources) Need for prophylactic vaccination and inoculation against influenza; Translations: [Encounter for screening for respiratory tuberculosis] Resolved: 5 03-04-2015 Episodic Comment on above: dx code v73.81code b y lab 44538 Joint disorders and dislocations; trauma-related (12 sources) Derangement of knee; Translations: [Unspecified internal derangement of unspecified knee] Onset: 5 10-13-2024 Chronic Joint disorders and dislocations; trauma-related (9 sources) Acute meniscal tear, medial; Translations: [Other tear of medial meniscus, current injury, unspecified knee, initial encounter] Onset: 5 10-22-2024 Episodic Lymphadenitis (20 sources) Lymphadenitis; Translations: [Lymphadenitis] 07-29-2017 Episodic Menopausal disorders (11 sources) Menopausal flushing; Translations: [Menopausal and female climacteric states] 09-20-2020 Chronic Menstrual disorders (20 sources) Amenorrhea; Translations: [Amenorrhea] 07-29-2017 Chronic Mood disorders (20 sources) Depressive disorder; Translations: [Acute depression] 09-22-2018 Chronic Mood disorders (20 sources) Mood disorders; Translations: [Major depressive disorder, single episode, unspecified] 07-29-2017 Nausea and vomiting (20 sources) Nausea and vomiting; Translations: [Nausea and vomiting] Resolved: 9 04-09-2012 Episodic Noninfectious gastroenteritis (20 sources) Gastroenteritis; Translations: [Gastroenteritis] Resolved: 0 06-27-2009 Episodic Nonspecific chest pain (20 sources) Chest pain; Translations: [Chest discomfort] Resolved: 8 04-09-2012 Episodic Other bone disease and musculoskeletal deformities (2 sources) Chondromalacia; Translations: [Chondromalacia, left knee] 10-28-2024 Episodic Other bone disease and musculoskeletal deformities (1 source) Chondromalacia, left knee; Translations: [Chondromalacia, left knee] Onset: 5 Episodic Other circulatory disease (20 sources) Raynaud's syndrome Chronic Other circulatory disease (20 sources) Raynaud's phenomenon ; Translations: [Raynaud's syndrome] 07-29-2017 Chronic Other circulatory disease (7 sources) Elevated blood pressure; Translations: [Elevated blood pressure reading] 02-19-2020 Episodic Other connective tissue disease (2 sources) Pain in finger; Translations: [Pain in left finger(s)] Episodic Other connective tissue disease (11 sources) H/O: musculoskeletal disease; Translations: [Personal history of other diseases of the musculoskeletal system and connective tissue] 12-27-2021 Episodic Other connective tissue disease (1 source) Other muscle spasm; Translations: [Spasm of muscle] Episodic Other female genital disorders (11 sources) Abnormal uterine bleeding; Translations: [Abnormal uterine and vaginal bleeding, unspecified] 05-22-2022 Chronic Comment on above: fsh; neg EMB Other lower respiratory disease (20 sources) Wheezing; Translations: [Wheezing] Resolved: 9 04-09-2012 Episodic Other lower respiratory disease (20 sources) Dyspnea; Translations: [SOB (shortness of breath)] Resolved: 9 09-22-2018 Episodic Other lower respiratory disease (20 sources) Cough; Translations: [Cough] Resolved: 9 04-09-2012 Episodic Other lower respiratory disease (11 sources) H/O: pneumonia; Translations: [Personal history of pneumonia (recurrent)] 09-13-2020 Episodic Other nervous system disorders (11 sources) Difficulty walking; Translations: [Difficulty in walking, not elsewhere classified] 10-13-2024 Chronic Other nervous system disorders (1 source) Difficulty in walking, not elsewhere classified; Translations: [Difficulty in walking, not elsewhere classified] Onset: 5 Chronic Other non-traumatic joint disorders (6 sources) Pain in left knee; Translations: [Left knee pain] Onset: 5 10-12-2024 Episodic Other nutritional; endocrine; and metabolic disorders (20 sources) Body mass index 30+ - obesity; Translations: [BMI 34.0-34.9,adult] 07-29-2017 Chronic Other nutritional; endocrine; and metabolic disorders (20 sources) Body mass index 40+ - severely obese; Translations: [Body mass index 40.0-44.9, adult] 07-29-2017 Chronic Other nutritional; endocrine; and metabolic disorders (11 sources) Obesity; Translations: [Obesity, unspecified] 06-15-2021 Chronic Other screening for suspected conditions (not mental disorders or infectious disease) (20 sources) Breast neoplasm screening status; Translations: [Other specified abnormal findings of blood chemistry] Onset: 5 Resolved: 5 12-31-2014 Episodic Comment on above: scope march 2015 Other skin disorders (20 sources) Folliculitis; Translations: [Folliculitis] 07-29-2017 Episodic Other skin disorders (6 sources) Dry skin dermatitis; Translations: [Xerosis cutis] 12-14-2023 Episodic Other upper respiratory disease (20 sources) Allergic rhinitis; Translations: [Allergic rhinitis] Resolved: 9 05-14-2018 Chronic Comment on above: improving Other upper respiratory disease (11 sources) Seasonal allergy; Translations: [Other seasonal allergic rhinitis] 09-13-2020 Chronic Other upper respiratory infections (20 sources) Acute pharyngitis; Translations: [Acute upper respiratory infection] Resolved: 9 01-18-2015 Episodic Residual codes; unclassified (20 sources) Needs influenza immunization; Translations: [Need for prophylactic vaccination and inoculation against influenza (Renamed from Need for immunization against influenza)] Resolved: 3 07-29-2017 Episodic Residual codes; unclassified (20 sources) Family history of diabetes mellitus Episodic Residual codes; unclassified (20 sources) FH: Diabetes mellitus; Translations: [FAMILY HISTORY OF DIABETES MELLITUS] 07-29-2017 Episodic Residual codes; unclassified (20 sources) Flushing; Translations: [Hot flashes] 07-29-2017 Episodic Comment on above: hormone labs normal Residual codes; unclassified (4 sources) Influenza vaccination declined; Translations: [Influenza vaccination declined (Renamed from Refused influenza vaccine)] 01-29-2019 Episodic Residual codes; unclassified (4 sources) Non-smoker; Translations: [Nonsmoker] 02-19-2020 Episodic Spondylosis; intervertebral disc disorders; other back problems (1 source) Low back pain; Translations: [Chronic lumbosacral pain] Episodic Superficial injury; contusion (20 sources) Contusion of finger; Translations: [Contusion of unspecified finger without damage to nail, initial encounter] 03-13-2021 Episodic Syncope (20 sources) Syncope and collapse; Translations: [Vasovagal syncope] Resolved: 9 04-09-2012 Episodic Thyroid disorders (20 sources) Cinthya thyroiditis; Translations: [Hypothyroidism] Onset: 5 Resolved: 6 03-04-2015 Chronic Unclassified (20 sources) Unclassified (20 sources) Influenza vaccination declined; Translations: [Influenza vaccination declined (Renamed from Refused influenza vaccine)] 07-29-2017 Unclassified (20 sources) Non-smoker; Translations: [Nonsmoker] 01-04-2017 Unclassified (20 sources) HYPOTHYROIDISM NOS (244.9) Unclassified (20 sources) BMI 39.0-39.9,adult Unclassified (20 sources) Cinthya's thyroiditis Unclassified (20 sources) Body mass index 40.0-44.9, adult Unclassified (6 sources) BRONCHITIS, NOT SPECIFIED ACUTE OR CHRONIC (490.) Past or Other Problems Problem Classification Problem Date Documented Date Episodic/Chronic Abdominal pain (20 sources) Right lower quadrant pain; Translations: [Abdominal pain, acute, right lower quadrant] Resolved: 08-26-2008 02-28-2015 Episodic Adjustment disorders (20 sources) Adjustment disorder with depressed mood; Translations: [Grief finding] Resolved: 07-29-2017 05-14-2018 Chronic Chronic obstructive pulmonary disease and bronchiectasis (20 sources) Bronchitis; Translations: [Bronchitis] Resolved: 08-26-2008 01-18-2015 Episodic Comment on above: cONSIDER ALLERGY ALICIA TING IF NOT BETTER Diabetes mellitus without complication (20 sources) Diabetes mellitus without complication Esophageal disorders (20 sources) Esophageal disorders Headache; including migraine (20 sources) Headache; including migraine Hemorrhoids (20 sources) Hemorrhoids; Translations: [Hemorrhoids] Resolved: 06-27-2009 01-25-2015 Episodic Comment on above: Internal Neoplasms of unspecified nature or uncertain behavior (20 sources) Neoplasm of uncertain behavior of skin; Translations: [Neoplasm of uncertain behavior of skin] Resolved: 04-09-2012 02-28-2015 Episodic Comment on above: treating as if shing les Other circulatory disease (20 sources) Other specified symptoms and signs involving the circulatory and respiratory systems; Translations: [Abnormal chest sounds] Resolved: 01-29-2019 09-22-2018 Episodic Other connective tissue disease (20 sources) Pain in upper limb; Translations: [Upper arm pain] Onset: 08-26-2009 Resolved: 04-09-2012 03-25-2015 Episodic Other eye disorders (20 sources) Ptosis of eyelid; Translations: [Ptosis, bilateral] Resolved: 08-27-2019 07-29-2017 Episodic Other lower respiratory disease (20 sources) Dyspnea on exertion; Translations: [SOB (shortness of breath) on exertion] Onset: 08-17-2010 Resolved: 12-31-2014 02-25-2015 Episodic Comment on above: rev labs - tsh vira l no anemia-- does have risk for clot but h/o more suspicios for anxiety Other nervous system disorders (20 sources) Facial palsy; Translations: [Facial paralysis] Resolved: 07-29-2017 05-14-2018 Episodic Other skin disorders (20 sources) Skin tag; Translations: [Skin tag] Resolved: 08-26-2008 03-02-2015 Episodic Comment on above: in groin snipped and removed-- cleansed with beta dine snipped and tolerated well sx/sx rev for infection and wound care and risk of recurrence-- pt signed consent Otitis media and related conditions (20 sources) Dysfunction of eustachian tube; Translations: [ETD (eustachian tube dysfunction)] Resolved: 12-31-2014 12-31-2014 Episodic Unclassified (20 sources) Cystitis,Acute (595.0) Unclassified (20 sources) Skin Tag, Irritated (701.9) Unclassified (20 sources) Patient encounter status; Translations: [Encounter for gynecological examination with abnormal finding] Resolved: 12-31-2014 07-29-2017 Unclassified (20 sources) Screening status; Translations: [Encounter for screening for malignant neoplasm of colon (Renamed from Special screening for malignant neoplasms, colon)] Resolved: 12-31-2014 07-29-2017 Comment on above: scope march 2015 Unclassified (20 sources) Upper Arm Pain (719.42) Unclassified (20 sources) Unspecified Diagnosis Resolved: 04-09-2012 04-09-2012 Unclassified (20 sources) Abdominal Pain,RLQ (789.03) Unclassified (20 sources) Well Woman Exam (V72.31) (Pap,Mammo,Routine Female) Unclassified (20 sources) SYMPTOMS INVOLVING DIGESTIVE SYSTEM; DIARRHEA (787.91) Unclassified (20 sources) Other general medical examination for administrative purposes (V70.3) Unclassified (20 sources) SCREENING FOR TB (V74.1) Unclassified (20 sources) ETD (eustachian tube dysfunction) Unclassified (20 sources) Facial paralysis Unclassified (20 sources) SYMPTOMS INVOLVING CARDIOVASCULAR SYSTEM; OTHER ABNORMAL HEART SOUNDS (785.3) Unclassified (20 sources) SCREENING MAMMOGRAM NEC (V76.12) Unclassified (20 sources) DISORDERS, ORGANIC SLEEP APNEA NEC (327.29) Unclassified (20 sources) Thyromegaly (240.9) Unclassified (20 sources) Lesion-Unknown behavior (238.2) Unclassified (20 sources) Abnormal TSH (794.5) Unclassified (20 sources) Encounter for screening mammogram for malignant neoplasm of breast Unclassified (20 sources) Breast cancer screening (V76.10) Unclassified (20 sources) Stress reaction Unclassified (20 sources) Encounter for screening for human papillomavirus (hpv) (V73.81) Unclassified (20 sources) Hot flashes Unclassified (20 sources) Ptosis, bilateral Unclassified (20 sources) Chest pressure Unclassified (20 sources) Screening for HPV (human papillomavirus) (Renamed from Encounter for screening for human papillomavirus (HPV)) Unclassified (20 sources) Grieving Unclassified (20 sources) Abnormal lung sounds Unclassified (20 sources) Upper respiratory infection, acute Unclassified (14 sources) Tuberculosis screening status; Translations: [Encounter for screening for respiratory tuberculosis] Resolved: 04-09-2012 03-04-2015 Unclassified (13 sources) BMI 34.0-34.9,adult Unclassified (7 sources) Elevated blood pressure reading Urinary tract infections (20 sources) Acute cystitis; Translations: [Cystitis, acute] Onset: 07-14-2010 Resolved: 04-09-2012 02-08-2015 Episodic Results Test Name Value Interpretation Reference Range Facility SCRN MAMM (CAD)W/MIKO BILATo n 02-22-2025 SCRN MAMM (CAD)W/MIKO BILAT [facility] Imaging Services [address] [place] [address] SCRN MAMM (CAD)W/MIKO BILAT MR#: [id number] Acct: [id number] Name: WHIT PETERSEN Rep #: [id number] : 1965 F 60 From: Janet Corral i, MD PCP: Dr. Estrella Vinson MD Status: REG CLI Study: SCRN MAMM (CAD)W/MIKO BILAT Date of Exam: 02/13 Exam# [id number] Ordering Dr: Estrella Vinson MD EXAM: SCRN MAMM (CAD)W/MIKO BILAT DATE: 02/22/2025 CLINICAL HISTORY: F, Age 60 y/o , BREAST CANCER SCREENING TECHNIQUE: Procedure Code: [id number] Modality: MG Procedure: SCRN MAMM (CAD)W/MIKO BILAT COMPARISON: Prior exam(s) were compared FINDINGS: TISSUE DENSITY: The breasts are heterogeneously dense, which may obscure small masses. Bilateral Breast Mammographic Findings: No significant masses, calcifications or other abnormalities are identified. BI/SCRN MAMM (CAD)W/MIKO BILAT IMPRESSION: No mammographic evidence of malignancy. OVERALL FINAL ASSESSMENT BI-RADS 1: NEGATIVE.. RECOMMENDATION: Routine annual follow-up in 1 Year Additional Recommendation none A letter with findings and recommendations will be mailed to the patient. Reading Location: [id number] CC: Dr. Estrella Vinson MD Production Director: Signed Normal [facility] Orthopedic Visit Reporton Orthopedic Visit Report [facility] [address] [place] [address] [address] [place], [place] [address] OFFICE VISIT Date of Service: 10/28/24 MR#: [id number] Acct: [id number] Name: WHIT PETERSEN Rep #: [id number] : 1965 Provider: Dr. Alan Borru so, DO Age/Sex: 59/F Location: [facility] [place] Status: Signed Intake Vital Signs 10/13/24 08:55 10/28/24 14:28 Height 5 ft 6 in 5 ft 6 in Weight: 270 lb 2 oz BMI 43.6 Intake Visit Reasons: LEFT KNEE Chief Complaint: Left knee follow-up Accompanied by: Is patient in pain?: Yes Pain scale (1-10): 1 Allergies No Known Allergies Allergy (Verified 10/28/24 14:29) Medications ???Medication ???Instructions ???Recorded ???Confirmed ???Type fluticasone propionate 50 1 spray intranasal QHS 09/13/20 History mcg/actuation nasal spray,suspension (Allergy Relief (fluticasone)) albuterol sulfate 90 mcg/actuation 2 puff inhalation Q6H PRN PRN fo r 06/25/23 10/28/24 Rx aerosol inhaler wheezing #6.7 ea escitalopram oxalate 20 mg tablet 20 mg PO QHS #90 tabs 09/10/24 Rx Synthroid 50 mcg tablet 50 mcg PO QODAY #90 tabs 09/25/24 10/28/24 Rx (levothyroxine) Synthroid 75 mcg tablet 75 mcg PO QODAY #90 tabs 09/25/24 10/28/24 Rx (levothyroxine) PFSH Medical History Sleep concern Preventative health care Post-menopausal Wears glasses Raynauds disease Thyroid disease Gastric reflux Heartburn Non-smoker Asthma Shortness of breath on exertion Cardiology follow-up encounter History of echocardiogram History of stress test History of irregular heartbeat Dermatitis Hx of temporomandibular joint disorder Abnormal uterine bleeding (AUB) Obesity Hot flashes due to menopause Anxiety and depression Cataracts, bilateral GERD (gastroesophageal reflux disease) Seasonal allergies History of pneumonia Hypothyroidism Asthma Surgical History Hx of esophagogastroduodenoscop y Hx of colonoscopy History of liposuction of abdomen History of nasal surgery History of tonsillectomy Family History Aunt Colon cancer Parkinsons Mother Cancer Osteoporosis Seizures Alzheimer dementia Brother Cancer Father Heart disease Uncle Heart disease Grandfather Diabetes Sister Thyroid disorder Seizures Other Anxiety Depression Social History household members: spouse current occupational status: employed current occupation: [employer] pets and animals: No sexually active: No Smoking Status: Never smoker alcohol intake: never substance use type: does not use caffeine: Yes (2) Type: coffee what type of physical activity do you participate in: none seatbelt use: always do you feel safe at home: Yes additional social history: - Archie lucio. HPI LEFT KNEE Details: This documentation accurately reflects the service provided and the decisions made by me, Dr. Alan Soliz, DO 10/28/24 0844. Part of today???s visit was documented by Meredith Bearden ATC, acting as scribe. WHIT PETERSEN is a 59 year old F here today for left knee pain. Patient rates her pain a 1/10 today. Patient has discontinue the crutch and she states the knee feels good. She states yesterday she did sone work outside and did not wear the brace and she had mild pain but today she feels good. She states if she knows if she is going to be walking a lot she will wear the brace. She has been taking 600mg Advil once a day. When she gets the pain it is over the medial aspect. She denies any painful popping, clicking or giving out on the knee. She denies any prior surgery or injury to the left knee. She did break the lower leg about 40 years ago but did not have surgery. She was just in a long leg cast. 10/22/2024 visit with Brandee Quintero:here today for MRI review of the left knee. patient presents ambulating with one crutch today. She states that the knee has gotten better since she was here and is connor to put more weight on the knee. She is taking Advil for her pain. Patient states she believes swelling is improving, knee joint feels tight. Denies any episodes of locking or catching, no give way. Patient has been using a wheelchair until yesterday for mobility. She began walking with single crutch with partial weightbearing and is tolerating well. She has obtained a hinged knee brace which she wears with some support. As needed ibuprofen seems to help. She is noticing tightness on the outer part of her. Plan:Carlos wrap or hinged knee for light compression and support, may remove with rest and sleep Continue ibuprofen OTC as needed basis for swelling, stiffness and pain, ice (more content not included)... Normal [facility] Absolute lymphocyte countOrd ered By: Estrella Vinson on 10-22-2024 Lymphocytes Auto (Unsp spec) [#/Vol] 1.43 10*3/uL 0.83-4.51 [facility] Absolute neutrophil countOrd ered By: [email or web address] Vinson on 10-22-2024 Neutrophils (Bld) [#/Vol] 3.3 10*3/uL 2.0-7.7 [facility] Anion gap in Serum or Plasma Ordered By: Estrella Vinson on 10-22-2024 Anion gap [Moles/Vol] 10 mmol/L 5-15 [facility] Automated lymphocyte count a s percentage of total leukocytesOrdered By: Estrella Vinson on 10-22-2024 Lymphocytes/100 WBC Auto (Unsp spec) 26.5 % - [facility] BUN/creatinine ratioOrdered By: Estrella Vinson on 10-22-2024 Urea nitrogen/Creatinine [Mass ratio] 14.4 mg/mg 10-20 [facility] Basophil percentageOrdered B y: Estrella Vinson on 10-22-2024 Basophils/100 WBC (Bld) 1.1 % High 0- [facility] Bilirubin, totalOrdered By: Estrella Vinson on 10-22-2024 Bilirubin [Mass/Vol] 0.35 mg/dL 0.00-1.30 [facility] CBC W/Diff, Automatedon 10-13 Absolute Lymph 1.43 X10 3/uL Normal 0.83-4.51 [facility] Comment on above: Performed By: #### L 500.4050, L501.9520, L500.4100, L100.0100 #### [facility] [address] [place], [address] Absolute Neut 3.3 X10 3/uL Normal 2.0-7.7 [facility] Comment on above: Performed By: #### L 500.4050, L501.9520, L500.4100, L100.0100 #### [facility] [address] [place], [address] Basophils/100 WBC (Bld) 1.1 % High 0-1 [facility] Comment on above: Performed By: #### L 500.4050, L501.9520, L500.4100, L100.0100 #### [facility] [address] [place], [address] Eosinophils/100 WBC (Bld) 4.8 % Normal 0-5 [facility] Comment on above: Performed By: #### L 500.4050, L501.9520, L500.4100, L100.0100 #### [facility] [address] [place], [address] Erythrocyte distribution width (RBC) [Ratio] 12.8 % Normal 11.6-14.6 [facility] Comment on above: Performed By: #### L 500.4050, L501.9520, L500.4100, L100.0100 #### [facility] [address] [place], [address] Hematocrit (Bld) [Volume fraction] 40.0 % Normal 37-47 [facility] Comment on above: Performed By: #### L 500.4050, L501.9520, L500.4100, L100.0100 #### [facility] [address] [place], [address] Hemoglobin (Bld) [Mass/Vol] 13.0 g/dL Normal 12.0-15.0 [facility] Comment on above: Performed By: #### L 500.4050, L501.9520, L500.4100, L100.0100 #### [facility] [address] [place], [address] IG% 0.600 Normal 0.0-0.9 [facility] Comment on above: Result Comment: IG% - Immature Granulocytes (promyelocytes, myelocytes and metamyelocytes) > 1% indicates that a LEFT SHIFT is Present. Performed By: #### L 500.4050, L501.9520, L500.4100, L100.0100 #### [facility] [address] [place], [address] Lymphocytes/100 WBC (Bld) 26.5 % Normal 19-41 [facility] Comment on above: Performed By: #### L 500.4050, L501.9520, L500.4100, L100.0100 #### [facility] [address] [place], [address] MCH (RBC) [Entitic mass] 28.8 pg Normal 27.0-32.0 [facility] Comment on above: Performed By: #### L 500.4050, L501.9520, L500.4100, L100.0100 #### [facility] [address] [place], [address] MCHC (RBC) [Mass/Vol] 32.5 g/dL Normal 32-36 [facility] Comment on above: Performed By: #### L 500.4050, L501.9520, L500.4100, L100.0100 #### [facility] [address] [place], [address] MCV (RBC) [Entitic vol] 88.5 fL Normal 81-99 [facility] Comment on above: Performed By: #### L 500.4050, L501.9520, L500.4100, L100.0100 #### [facility] [address] [place], [address] Monocytes/100 WBC (Bld) 5.6 % Normal 0-10 [facility] Comment on above: Performed By: #### L 500.4050, L501.9520, L500.4100, L100.0100 #### [facility] [address] [place], [address] Neutrophils/100 WBC (Bld) 61.4 % Normal 47-70 [facility] Comment on above: Performed By: #### L 500.4050, L501.9520, L500.4100, L100.0100 #### [facility] [address] [place], [address] Nucleated RBC (Bld) [#/Vol] 0 10*3/uL Normal 0-5 [facility] Comment on above: Performed By: #### L 500.4050, L501.9520, L500.4100, L100.0100 #### [facility] [address] [place], [address] Platelet mean volume (Bld) [Entitic vol] 11.5 fL Normal 6.2-12.0 [facility] Comment on above: Performed By: #### L 500.4050, L501.9520, L500.4100, L100.0100 #### [facility] [address] [place], [address] Platelets (Bld) [#/Vol] 227 10*3/uL Normal 150-450 [facility] Comment on above: Performed By: #### L 500.4050, L501.9520, L500.4100, L100.0100 #### [facility] [address] [place], [address] RBC (Bld) [#/Vol] 4.52 10*6/uL Normal 4.2-5.4 [facility] Comment on above: Performed By: #### L 500.4050, L501.9520, L500.4100, L100.0100 #### [facility] [address] [place], [address] RDW SD 41.5 fl Normal 35.1-43.9 [facility] Comment on above: Performed By: #### L 500.4050, L501.9520, L500.4100, L100.0100 #### [facility] [address] [place], [address] WBC (Bld) [#/Vol] 5.4 10*3/uL Normal 4.4-11.0 [facility] Comment on above: Performed By: #### L 500.4050, L501.9520, L500.4100, L100.0100 #### [facility] [address] [place], [address] Calculated very low density lipoprotein (VLDL) cholesterol measurementOrdered By: Estrella Vinson on 10-22-2024 Calculated very low density lipoprotein (VLDL) cholesterol measurement 14 mg/dL 5-40 [facility] Carbon dioxide, total [Moles /volume] in Central venous bloodOrdered By: Estrella Vinson on 10-22-2024 CO2 [Moles/Vol] 25.3 mmol/L 21.0-32.0 [facility] Chloride assayOrdered By: Krystle Vinson on 10-22-2024 Chloride [Moles/Vol] 104 mmol/L 98-108 [facility] Comprehensive Metabolic Prof ilon 10-22-2024 Albumin [Mass/Vol] 4.0 g/dL Normal 3.5-5.0 [facility] Comment on above: Performed By: #### L 500.4050, L501.9520, L500.4100, L100.0100 #### [facility] [address] [place], [address] Albumin/Globulin [Mass ratio] 1.3 {ratio} Normal 0.9-2.4 [facility] Comment on above: Performed By: #### L 500.4050, L501.9520, L500.4100, L100.0100 #### [facility] [address] [place], [address] ALK PHOS 123 U/L High 35-104 [facility] Comment on above: Performed By: #### L 500.4050, L501.9520, L500.4100, L100.0100 #### [facility] [address] [place], [address] ALT [Catalytic activity/Vol] 19 U/L Normal <=34 [facility] Comment on above: Performed By: #### L 500.4050, L501.9520, L500.4100, L100.0100 #### [facility] [address] [place], [address] AST [Catalytic activity/Vol] 18 U/L Normal <=31 [facility] Comment on above: Performed By: #### L 500.4050, L501.9520, L500.4100, L100.0100 #### [facility] [address] [place], [address] Bilirubin [Mass/Vol] 0.35 mg/dL Normal 0.00-1.30 [facility] Comment on above: Performed By: #### L 500.4050, L501.9520, L500.4100, L100.0100 #### [facility] [address] [place], [address] BUN/CRE 14.4 RATIO Normal 10-20 [facility] Comment on above: Performed By: #### L 500.4050, L501.9520, L500.4100, L100.0100 #### [facility] [address] [place], [address] Calcium [Mass/Vol] 9.0 mg/dL Normal 7.6-11.0 [facility] Comment on above: Performed By: #### L 500.4050, L501.9520, L500.4100, L100.0100 #### [facility] [address] [place], [address] Chloride [Moles/Vol] 104 mmol/L Normal 98-108 [facility] Comment on above: Performed By: #### L 500.4050, L501.9520, L500.4100, L100.0100 #### [facility] [address] [place], [address] CO2 [Moles/Vol] 25.3 mmol/L Normal 21.0-32.0 [facility] Comment on above: Performed By: #### L 500.4050, L501.9520, L500.4100, L100.0100 #### [facility] [address] [place], [address] Creatinine [Mass/Vol] 0.82 mg/dL Normal 0.70-1.20 [facility] Comment on above: Performed By: #### L 500.4050, L501.9520, L500.4100, L100.0100 #### [facility] [address] [place], [address] GAP 10 Normal 5-15 [facility] Comment on above: Performed By: #### L 500.4050, L501.9520, L500.4100, L100.0100 #### [facility] [address] [place], [address] GFR/1.73 sq M.predicted among non-blacks MDRD (S/P/Bld) [Vol rate/Area] 83 mL/min/{1.73_m2} Normal >60 [facility] Comment on above: Result Comment: mL/m in/1.73m2 CKD-EPI Creatinine Equation (2020) Performed By: #### L 500.4050, L501.9520, L500.4100, L100.0100 #### [facility] [address] [place], [address] Globulin (S) [Mass/Vol] 3.1 g/dL Normal 2.2-4.2 [facility] Comment on above: Performed By: #### L 500.4050, L501.9520, L500.4100, L100.0100 #### [facility] [address] [place], [address] Glucose [Mass/Vol] 95 mg/dL Normal 70-99 [facility] Comment on above: Performed By: #### L 500.4050, L501.9520, L500.4100, L100.0100 #### [facility] [address] [place], [address] Potassium [Moles/Vol] 4.5 mmol/L Normal 3.3-5.1 [facility] Comment on above: Performed By: #### L 500.4050, L501.9520, L500.4100, L100.0100 #### [facility] [address] [place], [address] Sodium [Moles/Vol] 140 mmol/L Normal 133-145 [facility] Comment on above: Performed By: #### L 500.4050, L501.9520, L500.4100, L100.0100 #### [facility] [address] [place], [address] T PROT 7.1 g/dL Normal 5.9-8.4 [facility] Comment on above: Performed By: #### L 500.4050, L501.9520, L500.4100, L100.0100 #### [facility] [address] [place], [address] Urea nitrogen [Mass/Vol] 12 mg/dL Normal 4-19 [facility] Comment on above: Performed By: #### L 500.4050, L501.9520, L500.4100, L100.0100 #### [facility] [place], [address] Eosinophil percentageOrdered By: Estrella Vinson on 10-22-2024 Eosinophils/100 WBC (Bld) 4.8 % 0-5 [facility] Erythrocyte distribution wid th ratioOrdered By: brit Vinson on 10-22-2024 Erythrocyte distribution width (RBC) [Ratio] 12.8 % 11.6-14.6 [facility] Erythrocyte distribution wid th standard deviationOrdered By: erynbuckhorngabriel Vinson on 10-22-2024 Erythrocyte distribution width (RBC) [Ratio] 41.5 fl 35.1-43.9 [facility] Glomerular filtration rate ( GFR) estimation/1.73 sq m using serum, plasma, or whole bOrdered By: erynbuckhorngabriel Vinson on 10-22-2024 GFR/1.73 sq M.predicted among non-blacks MDRD (S/P/Bld) [Vol rate/Area] 83 mL/min/{1.73_m2} >60 [facility] Comment on above: mL/min/1.73m2 CKD-EP I Creatinine Equation (2020) Hematocrit Auto (Bld) [Volum e fraction]Ordered By: Estrella Vinson on 10-22-2024 Hematocrit (Bld) [Volume fraction] 40.0 % 37-47 [facility] Hemoglobin measurementOrdere d By: Estrella Vinson on 10-22-2024 Hemoglobin (Bld) [Mass/Vol] 13.0 g/dL 12.0-15.0 [facility] Immature granulocytes/100 WB C Auto (Bld)Ordered By: Estrella Vinson 10-22-2024 Immature granulocytes/100 WBC (Bld) 0.600 % 0.0-0.9 [facility] Comment on above: IG% - Immature Granu locytes (promyelocytes, myelocytes and metamyelocytes) > 1% indicates that a LEFT SHIFT is Present. LDL calc ser/plasOrdered By: Estrella Vinson on 07-10-2025 Cholesterol in LDL [Mass/Vol] 104 mg/dL [facility] Comment on above: Hxdbbjimiz=797-852 m g/dL & Higher Tslw=260 mg/dL or greater Laboratory - Chemistry and C hemistry - challengeOrdered By: Estrella Vinson on 10-22-2024 AST [Catalytic activity/Vol] 18 U/L <32 [facility] Lipid Profileon 10-22-2024 CHOL:HDL 3.23 Normal [facility] Comment on above: Performed By: #### L 500.4050, L501.9520, L500.4100, L100.0100 #### [facility] [address] [place], [address] Cholesterol [Mass/Vol] 172 mg/dL Normal <=200 [facility] Comment on above: Result Comment: Chol esterol level, Desirable <200 mg/dL Borderline high cholesterol 200-239 mg/dL High cholesterol >=240 mg/dL Recommendations of the NCEP Adult Treatment Panel for the following risk-cutoff thresholds for the [place] population. Performed By: #### L 500.4050, L501.9520, L500.4100, L100.0100 #### [facility] [address] [place], [address] Cholesterol in HDL [Mass/Vol] 53 mg/dL Normal [facility] Comment on above: Result Comment: Tiffany onal Cholesterol Education Program (NCEP) guidelines: <40 mg/dL: Low HDL-cholesterol (major risk factor for CHD) >= 60 mg/dL: High HDL-cholesterol (negative risk factor for CHD) HDL-cholesterol is affected by a number of factors, e.g. smoking, exercise, hormones, sex and age. Performed By: #### L 500.4050, L501.9520, L500.4100, L100.0100 #### [facility] [address] [place], [address] Cholesterol in LDL [Mass/Vol] 104 mg/dL Normal [facility] Comment on above: Result Comment: Bord strxzu=438-304 mg/dL Higher Krto=913 mg/dL or greater Performed By: #### L 500.4050, L501.9520, L500.4100, L100.0100 #### [facility] [address] [place], [address] Cholesterol in VLDL [Mass/Vol] 14 mg/dL Normal 5-40 [facility] Comment on above: Performed By: #### L 500.4050, L501.9520, L500.4100, L100.0100 #### [facility] [address] [place], [address] Triglyceride [Mass/Vol] 72 mg/dL Normal [facility] Comment on above: Result Comment: The drugs N-Acetylcysteine and Metamizole may falsely depress this assay. Normal range: <150 mg/dL Borderline High: 150-199 mg/dL High: 200-499 mg/dL Very High: >500 mg/dL Performed By: #### L 500.4050, L501.9520, L500.4100, L100.0100 #### [facility] [address] [place], [address] MCV (mean corpuscular volume ) determinationOrdered By: Estrella Vinson on 10-22-2024 MCV (RBC) [Entitic vol] 88.5 fL 81-99 [facility] Mean corpuscular hemoglobin (MCH) determinationOrdered By: Estrella Vinson on 10-22-2024 MCH (RBC) [Entitic mass] 28.8 pg 27.0-32.0 [facility] Mean corpuscular hemoglobin concentration (MCHC) determinationOrdered By: Estrella Vinson on 10-22-2024 MCHC (RBC) [Mass/Vol] 32.5 g/dL 32-36 [facility] Mean platelet volume determi nationOrdered By: Estrella Vinson on 10-22-2024 Platelet mean volume (Bld) [Entitic vol] 11.5 fL 6.2-12.0 [facility] Monocyte percentageOrdered B y: Efbrit Vinson on 10-22-2024 Monocytes/100 WBC (Bld) 5.6 % 0-10 [facility] Neutrophil percentageOrdered By: Estrella Vinson on 10-22-2024 Neutrophils/100 WBC (Bld) 61.4 % 47-70 [facility] Nucleated red blood cell per centageOrdered By: Estrella Vinson on 10-22-2024 Nucleated RBC/100 WBC (Bld) [Ratio] 0 % 0-5 [facility] Orthopedic Visit Reporton Orthopedic Visit Report [facility] [address] [place] [address] OFFICE VISIT Date of Service: 10/22/24 MR#: [id number] Acct: [id number] Name: WHIT PETERSEN Rep #: [id number] : 1965 Provider: DANUTA stockton Age/Sex: 59/F Location: [facility] [place] Status: Signed Intake Vital Signs 10/13/24 08:55 Height 5 ft 6 in Weight: 260 lb BMI 41.9 Intake Visit Reasons: LEFT KNEE Chief Complaint: Left knee pain Accompanied by: Is patient in pain?: Yes (when ambulating) Allergies No Known Allergies Allergy (Verified 10/22/24 08:34) Medications ???Medication ???Instructions ???Recorded ???Confirmed ???Type fluticasone propionate 50 1 spray intranasal QHS 09/13/20 History mcg/actuation nasal spray,suspension (Allergy Relief (fluticasone)) albuterol sulfate 90 mcg/actuation 2 puff inhalation Q6H PRN PRN fo r 06/25/23 10/22/24 Rx aerosol inhaler wheezing #6.7 ea escitalopram oxalate 20 mg tablet 20 mg PO QHS #90 tabs 09/10/24 Rx Synthroid 50 mcg tablet 50 mcg PO QODAY #90 tabs 09/25/24 10/22/24 Rx (levothyroxine) Synthroid 75 mcg tablet 75 mcg PO QODAY #90 tabs 09/25/24 10/22/24 Rx (levothyroxine) PFSH Medical History Sleep concern Preventative health care Post-menopausal Wears glasses Raynauds disease Thyroid disease Gastric reflux Heartburn Non-smoker Asthma Shortness of breath on exertion Cardiology follow-up encounter History of echocardiogram History of stress test History of irregular heartbeat Dermatitis Hx of temporomandibular joint disorder Abnormal uterine bleeding (AUB) Obesity Hot flashes due to menopause Anxiety and depression Cataracts, bilateral GERD (gastroesophageal reflux disease) Seasonal allergies History of pneumonia Hypothyroidism Asthma Surgical History Hx of esophagogastroduodenoscop y Hx of colonoscopy History of liposuction of abdomen History of nasal surgery History of tonsillectomy Family History Aunt Colon cancer Parkinsons Mother Cancer Osteoporosis Seizures Alzheimer dementia Brother Cancer Father Heart disease Uncle Heart disease Grandfather Diabetes Sister Thyroid disorder Seizures Other Anxiety Depression Social History household members: spouse current occupational status: employed current occupation: [employer] pets and animals: No sexually active: No Smoking Status: Never smoker alcohol intake: never substance use type: does not use caffeine: Yes (2) Type: coffee what type of physical activity do you participate in: none seatbelt use: always do you feel safe at home: Yes additional social history: - Archie lucio. HPI LEFT KNEE Details: This documentation accurately reflects the service provided and the decisions made by me, DANUTA Doyle 10/22/24 2151. Part of today???s visit was documented by Marguerite GUTIERREZ, acting as scribe. WHIT PETERSEN is a 59 year old F here today for MRI review of the left knee. patient presents ambulating with one crutch today. She states that the knee has gotten better since she was here and is connor to put more weight on the knee. She is taking Advil for her pain. Agree with above. Patient states she believes swelling is improving, knee joint feels tight. Denies any episodes of locking or catching, no give way. Patient has been using a wheelchair until yesterday for mobility. She began walking with single crutch with partial weightbearing and is tolerating well. She has obtained a hinged knee brace which she wears with some support. As needed ibuprofen seems to help. She is noticing tightness on the outer part of her ROS Const All systems reviewed are unremarkable except as noted in H and other (A O x 3, no apparent distress. No recent illness.) ENT Denies dizziness Card Denies chest pain, Denies dyspnea, Denies edema and Reports other (No palpitations) Resp Denies cough, Denies dyspnea and Reports other (No recent URI) GI Reports system reviewed and no additional complaints, except as documented, Denies nausea and Denies vomiting Musc Reports as per HPI, Reports abnormal gait, Reports arthralgias and Reports joint swelling Neuro Yes abnormal gait and No dizziness Psych Reports system reviewed and no additional complaints, except as documented Mitesh/Lymph Denies easy bleeding and Denies easy bruising Ortho Exam Left Knee Date of injury: 10/11/24 Contralateral Normal: Yes Homans Sign: No KNEE: Skin is pink, warm, dry and intact. There is visible swelling remaining to (more content not included)... Normal [facility] Platelet countOrdered By: Krystle Vinson on 10-22-2024 Platelets (Bld) [#/Vol] 227 10*3/uL 150-450 [facility] Potassium measurement (mass/ volume)Ordered By: Estrella Vinson on 10-22-2024 Potassium (Unsp spec) [Mass/Vol] 4.5 mmol/L 3.3-5.1 [facility] RBC Auto (Bld) [#/Vol]Ordere d By: Estrella Vinson on 10-22-2024 RBC (Bld) [#/Vol] 4.52 10*6/uL 4.2-5.4 [facility] Screening total cholesterol/ high density lipoprotein (HDL) cholesterol ratioOrdered By: Estrella Vinson on 10-22-2024 Cholesterol.total/Cho lesterol in HDL [Mass ratio] 3.23 {ratio} [facility] Serum creatinine measurement (mass/volume)Ordered By: Estrella Vinson on 10-22-2024 Creatinine [Mass/Vol] 0.82 mg/dL 0.70-1.20 [facility] Serum globulin measurementOr dered By: Estrella Vinson on 10-22-2024 Globulin (S) [Mass/Vol] 3.1 g/dL 2.2-4.2 [facility] Serum glucose measurement (m ass/volume)Ordered By: Estrella Vinson on 10-22-2024 Glucose [Mass/Vol] 95 mg/dL 70-99 [facility] Serum or plasma alanine herron otransferase (ALT) measurementOrdered By: Estrella Vinson on 10-22-2024 ALT [Catalytic activity/Vol] 19 U/L <35 [facility] Serum or plasma albumin yany urement (mass/volume)Ordered By: Estrella Vinson on 10-22-2024 Albumin [Mass/Vol] 4.0 g/dL 3.5-5.0 [facility] Serum or plasma albumin/glob ulin mass ratioOrdered By: Estrella Vinson on 10-22-2024 Albumin/Globulin [Mass ratio] 1.3 {ratio} 0.9-2.4 [facility] Serum or plasma alkaline ronny sphatase measurementOrdered By: Estrella Vinson on 10-22-2024 ALP [Catalytic activity/Vol] 123 U/L High 35-104 [facility] Serum or plasma calcium yany urement (mass/volume)Ordered By: Estrella Vinson on 10-22-2024 Calcium [Mass/Vol] 9.0 mg/dL 7.6-11.0 [facility] Serum or plasma cholesterol in HDL measurement (mass/volume)Ordered By: Estrella Vinson on 10-22-2024 Cholesterol in HDL [Mass/Vol] 53 mg/dL >40 [facility] Comment on above: National Cholesterol Education Program (NCEP) guidelines:<40 mg/dL: Low HDL-cholesterol (major risk factor for CHD)>= 60 mg/dL: High HDL-cholesterol (negative risk factor for CHD)HDL-cholesterol is affected by a number of factors, e.g. smoking, exercise, hormones, sex and age. Serum or plasma cholesterol measurement (mass/volume)Ordered By: Estrella Vinson on 10-22-2024 Cholesterol [Mass/Vol] 172 mg/dL <201 [facility] Comment on above: Cholesterol level, D esirable <200 mg/dLBorderline high cholesterol 200-239 mg/dLHigh cholesterol >=240 mg/dLRecommendations of the NCEP Adult Treatment Panel for the following risk-cutoff thresholds for the [place] population. Serum or plasma urea nitroge n measurement (mass/volume)Ordered By: Estrella Vinson on 10-22-2024 Urea nitrogen [Mass/Vol] 12 mg/dL 4-19 [facility] Sodium levelOrdered By: Anita riccikyle Alisson on 10-22-2024 Sodium [Moles/Vol] 140 mmol/L 133-145 [facility] TSH DL <= 0.005 mIU/L QnOrde red By: Estrella Vinson on 10-22-2024 TSH Qn 3.590 uIU/mL 0.300-4.20 0 [facility] Thyroid Stim Hormone (TSH)on 10-22-2024 TSH 3.590 uIU/mL Normal 0.300-4.20 0 [facility] Comment on above: Performed By: #### L 500.4050, L501.9520, L500.4100, L100.0100 #### [facility] [address] [place], [place], [id number] Total proteinOrdered By: Yash leandergabriel Vinson on 10-22-2024 Protein [Mass/Vol] 7.1 g/dL 5.9-8.4 [facility] Triglycerides measurementOrd ered By: Estrella Vinson on 10-22-2024 Triglyceride [Mass/Vol] 72 mg/dL <199 [facility] Comment on above: The drugs N-Acetylcy steine and Metamizole may falsely depress this assay. Normal range: <150 mg/dLBorderline High: 150-199 mg/dLHigh: 200-499 mg/dLVery High: >500 mg/dL White blood cell (WBC) count Ordered By: Estrella Vinson on 10-22-2024 WBC (Bld) [#/Vol] 5.4 10*3/uL 4.4-11.0 [facility] Knee 4 or More Viewson 10-13 Knee 4 or More Views [facility] Services [address] [place], [place] [id number] Knee 4 or More Views MR#: [id number] Acct: [id number] Name: WHIT PETERSEN Rep #: [id number] : 1965 F 59 From: Juan Donahue MD PCP: Dr. Estrella Vinson MD Status: DEP AMB Study: Knee 4 or More Views Date of Exam: 10/13/24 Exam# [id number] Ordering Dr: Brandee Quintero PLASTIC JOINT MAKERChanel PROCEDURE: KNEE 4 OR MORE VIEWS 10/13/2024 REASON FOR EXAM: KNEE PAIN, DIFFICULTY WT BEARING TECHNIQUE: KNEE 4 OR MORE VIEWS COMPARISON: None FINDINGS: Bones: No fracture. No suspicious bone lesion. Joints: Normal alignment, joint spaces well-preserved Effusion: No effusion. Soft tissues: Soft tissues are unremarkable. Other: RAD/Knee 4 or More Views IMPRESSION: Normal left knee Reading Location: [id number] CC: DANUTA Quintero; Dr. Estrella Vinson MD Production Director: Signed Normal [facility] Orthopedic Visit Reporton Orthopedic Visit Report [facility] [address] [place] [address] OFFICE VISIT Date of Service: 10/13/24 MR#: [id number] Acct: [id number] Name: WHIT PETERSEN Rep #: [id number] : 1965 Provider: DANUTA stockton Age/Sex: 59/F Location: [facility] [place] Status: Signed Intake Vital Signs 09/10/24 14:23 10/13/24 08:55 Height 5 ft 6 in 5 ft 6 in Weight: 260 lb BMI 41.9 Intake Visit Reasons: LEFT KNEE Chief Complaint: Left knee pain Accompanied by: Is patient in pain?: Yes Pain scale (1-10): 1 Allergies No Known Allergies Allergy (Verified 10/13/24 08:58) Medications ???Medication ???Instructions ???Recorded ???Confirmed ???Type fluticasone propionate 50 1 spray intranasal QHS 09/13/20 History mcg/actuation nasal spray,suspension (Allergy Relief (fluticasone)) albuterol sulfate 90 mcg/actuation 2 puff inhalation Q6H PRN PRN fo r 06/25/23 10/13/24 Rx aerosol inhaler wheezing #6.7 ea escitalopram oxalate 20 mg tablet 20 mg PO QHS #90 tabs 09/10/24 Rx Synthroid 50 mcg tablet 50 mcg PO QODAY #90 tabs 09/25/24 10/13/24 Rx (levothyroxine) Synthroid 75 mcg tablet 75 mcg PO QODAY #90 tabs 09/25/24 10/13/24 Rx (levothyroxine) Have you fallen in the past year?: No PFSH Medical History Sleep concern Preventative health care Post-menopausal Wears glasses Raynauds disease Thyroid disease Gastric reflux Heartburn Non-smoker Asthma Shortness of breath on exertion Cardiology follow-up encounter History of echocardiogram History of stress test History of irregular heartbeat Dermatitis Hx of temporomandibular joint disorder Abnormal uterine bleeding (AUB) Obesity Hot flashes due to menopause Anxiety and depression Cataracts, bilateral GERD (gastroesophageal reflux disease) Seasonal allergies History of pneumonia Hypothyroidism Asthma Surgical History Hx of esophagogastroduodenoscop y Hx of colonoscopy History of liposuction of abdomen History of nasal surgery History of tonsillectomy Family History Aunt Colon cancer Parkinsons Mother Cancer Osteoporosis Seizures Alzheimer dementia Brother Cancer Father Heart disease Uncle Heart disease Grandfather Diabetes Sister Thyroid disorder Seizures Other Anxiety Depression Social History household members: spouse current occupational status: employed current occupation: [employer] pets and animals: No sexually active: No Smoking Status: Never smoker alcohol intake: never substance use type: does not use caffeine: Yes (2) Type: coffee what type of physical activity do you participate in: none seatbelt use: always do you feel safe at home: Yes additional social history: - Archie lucio. HPI LEFT KNEE Details: This documentation accurately reflects the service provided and the decisions made by me, DANUTA Doyle 10/13/24 0855. Part of today???s visit was documented by Bethany Cooper MA, acting as scribe. WHIT PETERSEN is a 59 year old F here today for left knee. Patient is having pain in her left knee. The pain is mainly in the left knee cap. Patient states that she doesn't really have pain, it's mainly and achy feeling. She does have muscle weakness when lifting her leg. When she puts her leg up it feels like there is something trying to pull it down. This has been going on for about a month ago. Patient states the only thing she can think of what caused this is getting on and off a mower. The only thing she could come up with. She states that her knee didn't hurt right away, but the next day she had a really hard time walking. Patient hasn't had any surgeries in the left knee. Walking, bending, and twisting makes the pain worse. Patient hasn't had any injections in her left knee. She states she hasn't done physical therapy for her knee. Patient has been putting ice on her left knee. Patient denies any diabetes, or blood thinners. Patient denies any smoking, or drug use. Patient is currently in a wheel chair. She is unable to walk or put pressure on her left knee. Agree with above with further clarification : onset of symptoms 1 month ago after rotational activities on and off riding mower, significant aggravation as of 2 days ago after walking on uneven ground at a picnic. Sudden onset of severe pain and swelling with no identified injury. Patient with difficulty weightbearing since. Attempted Advil 2 days ago with some improvement of pain and swelling. Has been icing with some improve (more content not included)... Normal [facility] Internal Medicine Office Vis nirali 09-10-2024 Internal Medicine Office Visit [facility] [address] [place] [address] [place] [address] OFFICE VISIT Date of Service: 09/10/24 MR#: [id number] Acct: [id number] Name: WHIT PETERSEN Rep #: [id number] : 1965 Provider: Dr. Estrella neely MD Age/Sex: 59/F Location: [facility] [place].[facility] Status: Signed Intake Vital Signs 12/14/23 13:43 09/10/24 14:23 Height 5 ft 6 in 5 ft 6 in Weight: 267 lb BMI 43.0 BP 118/66 Blood Pressure Location Lt brachial Position Sitting Respiration 18 Pulse 86 Pulse Source Monitor Temp 97.8 F Temp Source Temporal Pulse Oximetry (%) 95 Oxygen Delivery Method room air Intake Visit Reasons: MEDICATION FOLLOW UP Chief Complaint: Yearly visit Is patient in pain?: No Allergies No Known Allergies Allergy (Verified 09/10/24 14:23) Medications ???Medication ???Instructions ???Recorded ???Confirmed ???Type fluticasone propionate 50 1 spray intranasal QHS 09/13/20 History mcg/actuation nasal spray,suspension (Allergy Relief (fluticasone)) albuterol sulfate 90 mcg/actuation 2 puff inhalation Q6H PRN PRN fo r 06/25/23 09/10/24 Rx aerosol inhaler wheezing #6.7 ea Synthroid 75 mcg tablet 75 mcg PO QODAY #90 tabs 06/29/24 09/10/24 Rx (levothyroxine) escitalopram oxalate 20 mg tablet 20 mg PO QHS #90 tabs 09/10/24 Rx Have you fallen in the past year?: No PFSH Medical History (Updated 09/10/24 @ 16:[address] Estrella Vinson MD) Sleep concern Preventative health care Post-menopausal Wears glasses Raynauds disease Thyroid disease Gastric reflux Heartburn Non-smoker Asthma Shortness of breath on exertion Cardiology follow-up encounter History of echocardiogram History of stress test History of irregular heartbeat Dermatitis Hx of temporomandibular joint disorder Abnormal uterine bleeding (AUB) Obesity Hot flashes due to menopause Anxiety and depression Cataracts, bilateral GERD (gastroesophageal reflux disease) Seasonal allergies History of pneumonia Hypothyroidism Asthma Surgical History Hx of esophagogastroduodenoscop y Hx of colonoscopy History of liposuction of abdomen History of nasal surgery History of tonsillectomy Family History Aunt Colon cancer Parkinsons Mother Cancer Osteoporosis Seizures Brother Cancer Father Heart disease Uncle Heart disease Grandfather Diabetes Sister Thyroid disorder Seizures Other Anxiety Depression Social History household members: spouse current occupational status: employed current occupation: [employer] pets and animals: No sexually active: No Smoking Status: Never smoker alcohol intake: never substance use type: does not use caffeine: Yes (2) Type: coffee what type of physical activity do you participate in: none seatbelt use: always do you feel safe at home: Yes additional social history: - Archie lucio. HPI HPI Chief Complaint: Yearly visit Details: WHTI PETERSEN, is a 59 F who presents to the office today for yearly visit. History of hypothyroidism, recently had labs done and her TSH was high. She reports fatigue. Recently started taking a natural thyroid supplement. Was taking it at the same time she took her levothyroxine. She has since stopped taking this supplement and she states that the next day, she felt less tired. Since retiring, has had poor sleep hygiene. When she does fall asleep, able to sleep for at least 8 hours. No significant concerns for sleep apnea, was screened for this years ago and this came back negative. Last colonoscopy was in 2023 and a 10-year follow-up was recommended. Mammogram is due. Pap smear due next year. Follows up with dermatology. No tobacco or alcohol abuse. Other chronic medical conditions are stable. ROS Const Constitutional: No body ache, chills, excessive sweating, fatigue, fever(s), frequent falls, headache(s), snoring, weight change, sleep problems, abnormal sleep pattern or change in appetite Eyes Eyes: No blurry vision, change in vision, floaters, visual disturbances, eye pain or Light sensitivity ENT ENT: No abnormal hearing, ear or mastoid pain, tinnitus, balance problems, nosebleed/epistaxis, nasal congestion, headache(s), neck pain or sore throat Resp Respiratory: No cough, excessive phlegm production, pain on inspiration, shortness of breath, snoring or wheezing Cardio Cardiology: No chest pain at rest, chest pain with exertion, excessive sweating, shortness of breath, dyspnea on exertion, lightheadedness, orthopnea or palpitations Gastro GI: No abdominal pain, change in bowel habits, constipation, cramping, diarrhea, nausea/ (more content not included)... Normal [facility] TSH DL <= 0.005 mIU/L QnOrde red By: Estrella Vinson on 08-31-2024 TSH Qn 4.290 uIU/mL High 0.300-4.20 0 [facility] Thyroid Stim Hormone (TSH)on 08-31-2024 TSH 4.290 uIU/mL High 0.300-4.20 0 [facility] Comment on above: Performed By: #### L [id number] #### [facility] [address] [place], [address] Basophil percentageOrdered B y: Naveed Li on 07-26-2023 Bilirubin [Mass/Vol] 0.50 mg/dL 0.20-1.00 [facility] Comment on above: For patients on eltr ombopag therapy, use of Dimension [place] TBIL is not recommended. Chloride [Moles/Vol] 108 mmol/L 98-107 [facility] Glucose [Mass/Vol] 91 mg/dL 74-106 [facility] Hemoglobin (Bld) [Mass/Vol] 13.4 g/dL 12.0-15.0 [facility] Potassium [Moles/Vol] 4.2 mmol/L 3.5-5.1 [facility] Protein [Mass/Vol] 7.5 g/dL 6.4-8.2 [facility] Sodium [Moles/Vol] 139 mmol/L 136-145 [facility] WBC (Bld) [#/Vol] 6.0 10*3/uL 4.4-11.0 [facility] Determination of erythrocyte mean corpuscular volume (MCV)Ordered By: Naveed Li on 07-26-2023 MCV (RBC) [Entitic vol] 88.7 fL 81-99 [facility] Erythrocyte distribution wid th ratioOrdered By: Naveed Li on 07-26-2023 Erythrocyte distribution width (RBC) [Ratio] 13.1 % 11.6-14.6 [facility] Erythrocyte distribution wid th standard deviationOrdered By: Naveed Li on 07-26-2023 Erythrocyte distribution width (RBC) [Entitic vol] 42.6 fL 35.1-43.9 [facility] Hematocrit Auto (Bld) [Volum e fraction]Ordered By: Naveed Li on 07-26-2023 Hematocrit (Bld) [Volume fraction] 41.8 % 37-47 [facility] - Chemistry and C hemistry - challengeOrdered By: Naveed Li on 07-26-2023 Albumin/Globulin [Mass ratio] 0.9 {ratio} 0.9-2.4 [facility] ALP [Catalytic activity/Vol] 126 U/L 45-117 [facility] ALT [Catalytic activity/Vol] 31 U/L 13-56 [facility] CO2 [Moles/Vol] 29.0 mmol/L 21.0-32.0 [facility] Globulin (S) [Mass/Vol] 4.0 g/dL 2.2-4.2 [facility] Urea nitrogen/Creatinine [Mass ratio] 10.8 mg/mg 10-20 [facility] - Hematology and Cell countsOrdered By: Naveed Li on 07-26-2023 MCH (RBC) [Entitic mass] 28.5 pg 27.0-32.0 [facility] MCHC (RBC) [Mass/Vol] 32.1 g/dL 32-36 [facility] Platelet mean volume (Bld) [Entitic vol] 11.1 fL 6.2-12.0 [facility] Platelets (Bld) [#/Vol] 245 10*3/uL 150-450 [facility] No Panel InformationOrdered By: Naveed Li on 07-26-2023 Estimated GFR (MDRD) Amer 72 mL/min >60 [facility] Comment on above: GFR Calc Estimated GFR (MDRD) Non-Af Amer 59 mL/min >60 [facility] Comment on above: Non- GFR Calc RBC Auto (Bld) [#/Vol]Ordere d By: Naveed Li on 07-26-2023 RBC (Bld) [#/Vol] 4.71 10*6/uL 4.2-5.4 [facility] Serum or plasma calcium yany urement (mass/volume)Ordered By: Naveed Li on 07-26-2023 Calcium [Mass/Vol] 8.9 mg/dL 8.5-10.1 [facility] Serum or plasma creatinine m easurement (mass/volume)Ordered By: Naveed Li on 07-26-2023 Creatinine [Mass/Vol] 1.02 mg/dL 0.55-1.02 [facility] Comment on above: The validity of the calculated GFR & GFRAA in patients over 70 years has not been determined. Clinical correlation is essential. Serum or plasma thyroid stim ulating hormone (TSH) measurement (units/volume)Ordered By: Naveed Li on 07-26-2023 TSH Qn 2.66 uIU/mL 0.358-3.74 [facility] Serum or plasma urea nitroge n measurement (mass/volume)Ordered By: Naveed Li on 07-26-2023 Urea nitrogen [Mass/Vol] 11 mg/dL 7-18 [facility] Thin prep Papanicolaou smear with manual screeningOrdered By: Naveed Li on 07-26-2023 Thin prep Papanicolaou smear with manual screening 3.5 g/dL 3.2-5.0 [facility] Thin prep Papanicolaou smear with manual screening 18 U/L 15-37 [facility] Thin prep Papanicolaou smear with manual screening 2 5-15 [facility] Absolute lymphocyte countOrd ered By: Estrella Vinson on 01-02-2023 Lymphocytes Auto (Unsp spec) [#/Vol] 1.53 10*3/uL 0.83-4.51 [facility] Basophil percentageOrdered B y: Estrella Vinson on 01-02-2023 Basophils/100 WBC (Bld) 1.0 % 0-1 [facility] Bilirubin [Mass/Vol] 0.40 mg/dL 0.20-1.00 [facility] Comment on above: For patients on eltr ombopag therapy, use of Dimension [place] TBIL is not recommended. Chloride [Moles/Vol] 107 mmol/L 98-107 [facility] Cholesterol [Mass/Vol] 170 mg/dL <200 [facility] Comment on above: <200 mg/dL Desirable 200-240 mg/dL Borderline >240 mg/dL High Risk Eosinophils/100 WBC (Bld) 4.4 % 0-5 [facility] Glucose [Mass/Vol] 93 mg/dL 74-106 [facility] Neutrophils (Bld) [#/Vol] 3.7 10*3/uL 2.0-7.7 [facility] Neutrophils/100 WBC (Bld) 62.0 % 47-70 [facility] Potassium [Moles/Vol] 4.1 mmol/L 3.5-5.1 [facility] Protein [Mass/Vol] 7.1 g/dL 6.4-8.2 [facility] Sodium [Moles/Vol] 138 mmol/L 136-145 [facility] Triglyceride [Mass/Vol] 105 mg/dL <199 [facility] Comment on above: The drugs N-Acetylcy steine and Metamizole may falsely depress this assay.Serum Triglycerides Reference Interval Normal <150 mg/dL Borderline high 150 - 199 mg/dL High 200 - 499 mg/dL Very High > or = 500 mg/dL WBC (Bld) [#/Vol] 6.0 10*3/uL 4.4-11.0 [facility] Blood erythrocytes count (nu mber/volume)Ordered By: Estrella Vinson on 01-02-2023 RBC (Bld) [#/Vol] 4.32 10*6/uL 4.2-5.4 [facility] Blood hemoglobin measurement (mass/volume)Ordered By: Estrella Vinson on 01-02-2023 Hemoglobin (Bld) [Mass/Vol] 12.6 g/dL 12.0-15.0 [facility] Blood lymphocytes/100 leukoc ytesOrdered By: Estrella Vinson on 01-02-2023 Lymphocytes/100 WBC (Bld) 25.6 % 19-41 [facility] Blood monocytes/100 leukocyt esOrdered By: Estrella Vinson on 01-02-2023 Monocytes/100 WBC (Bld) 6.5 % 0-10 [facility] Blood platelet mean volumeOr dered By: Estrella Vinson on 01-02-2023 Platelet mean volume (Bld) [Entitic vol] 11.0 fL 6.2-12.0 [facility] Determination of erythrocyte mean corpuscular volume (MCV)Ordered By: Estrella Vinson on 01-02-2023 MCV (RBC) [Entitic vol] 89.6 fL 81-99 [facility] Hematocrit Auto (Bld) [Volum e fraction]Ordered By: [facility] on 01-02-2023 Hematocrit (Bld) [Volume fraction] 38.7 % 37-47 [facility] - Chemistry and C hemistry - challengeOrdered By: Estrella Vinson on 01-02-2023 ALP [Catalytic activity/Vol] 121 U/L 45-117 [facility] ALT [Catalytic activity/Vol] 22 U/L 13-56 [facility] CO2 [Moles/Vol] 28.0 mmol/L 21.0-32.0 [facility] Globulin (S) [Mass/Vol] 3.8 g/dL 2.2-4.2 [facility] Urea nitrogen/Creatinine [Mass ratio] 9.6 mg/mg 10-20 [facility] - Hematology and Cell countsOrdered By: Anitabuckhorngabriel Vinson on 01-02-2023 Erythrocyte distribution width (RBC) [Entitic vol] 42.5 fL 35.1-43.9 [facility] Erythrocyte distribution width (RBC) [Ratio] 12.9 % 11.6-14.6 [facility] Immature granulocytes/100 WBC (Bld) 0.500 % 0.0-0.9 [facility] Comment on above: IG% - Immature Granu locytes (promyelocytes, myelocytes and metamyelocytes) > 1% indicates that a LEFT SHIFT is Present. MCH (RBC) [Entitic mass] 29.2 pg 27.0-32.0 [facility] Nucleated RBC/100 WBC (Bld) [Ratio] 0 % 0-5 [facility] MCHC Auto (RBC) [Mass/Vol]Or dered By: Estrella Vinson on 01-02-2023 MCHC (RBC) [Mass/Vol] 32.6 g/dL 32-36 [facility] No Panel InformationOrdered By: Estrella Vinson on 01-02-2023 Estimated GFR (MDRD) Amer 79 mL/min >60 [facility] Comment on above: GFR Calc Estimated GFR (MDRD) Non-Af Amer 65 mL/min >60 [facility] Comment on above: Non- GFR Calc Thyroid Stimulating Hormone (TSH) 3.64 uIU/mL 0.358-3.74 [facility] Platelets bldOrdered By: Yash Vinson on 01-02-2023 Platelets (Bld) [#/Vol] 243 10*3/uL 150-450 [facility] Serum or plasma albumin yany urement (mass/volume)Ordered By: Estrella Vinson on 01-02-2023 Albumin [Mass/Vol] 3.3 g/dL 3.2-5.0 [facility] Serum or plasma albumin/glob ulin mass ratioOrdered By: Estrella Vinson on 01-02-2023 Albumin/Globulin [Mass ratio] 0.9 {ratio} 0.9-2.4 [facility] Serum or plasma calcium yany urement (mass/volume)Ordered By: Estrella Vinson on 01-02-2023 Calcium [Mass/Vol] 8.4 mg/dL 8.5-10.1 [facility] Serum or plasma cholesterol in HDL measurement (mass/volume)Ordered By: Estrella Vinson on 01-02-2023 Cholesterol in HDL [Mass/Vol] 48 mg/dL >40 [facility] Comment on above: The drugs N-Acetylcy steine and Metamizole may falsely depress this assay. Reference Range HDL <40 mg/dL Low HDL Cholesterol HDL >or= 60 mg/dL High HDL Cholesterol Serum or plasma cholesterol in VLDL measurement (mass/volume)Ordered By: Estrella Vinson on 01-02-2023 Cholesterol in VLDL [Mass/Vol] 21 mg/dL 5-40 [facility] Serum or plasma creatinine m easurement (mass/volume)Ordered By: Estrella Vinson on 01-02-2023 Creatinine [Mass/Vol] 0.94 mg/dL 0.55-1.02 [facility] Comment on above: The validity of the calculated GFR & GFRAA in patients over 70 years has not been determined. Clinical correlation is essential. Serum or plasma low density lipoprotein (LDL) cholesterol measurement (mass/volume)Ordered By: [facility] on 01-02-2023 Cholesterol in LDL [Mass/Vol] 101 mg/dL 0-130 [facility] Serum or plasma urea nitroge n measurement (mass/volume)Ordered By: [facility] on 01-02-2023 Urea nitrogen [Mass/Vol] 9 mg/dL 7-18 [facility] Thin prep Papanicolaou smear with manual screeningOrdered By: [facility] Walterashkan on 01-02-2023 Thin prep Papanicolaou smear with manual screening 12 U/L 15-37 [facility] Thin prep Papanicolaou smear with manual screening 3 5-15 [facility] Absolute lymphocyte counton 12-22-2021 Lymphocytes Auto (Unsp spec) [#/Vol] 1.81 10*3/uL 0.83-4.51 [facility] Work Phone: Basophil percentageon 2021 Basophils/100 WBC (Bld) 1.0 % 0-1 [facility] Work Phone: Bilirubin [Mass/Vol] 0.30 mg/dL 0.20-1.00 [facility] Work Phone: Comment on above: For patients on eltr ombopag therapy, use of Dimension [place] TBIL is not recommended. Chloride [Moles/Vol] 105 mmol/L 98-107 [facility] Work Phone: Cholesterol [Mass/Vol] 177 mg/dL <200 [facility] Work Phone: Comment on above: <200 mg/dL Desirable 200-240 mg/dL Borderline >240 mg/dL High Risk Eosinophils/100 WBC (Bld) 3.5 % 0-5 [facility] Work Phone: Glucose [Mass/Vol] 78 mg/dL 74-106 [facility] Work Phone: Neutrophils (Bld) [#/Vol] 3.4 10*3/uL 2.0-7.7 [facility] Work Phone: Neutrophils/100 WBC (Bld) 56.5 % 47-70 [facility] Work Phone: Potassium [Moles/Vol] 3.8 mmol/L 3.5-5.1 [facility] Work Phone: Protein [Mass/Vol] 7.3 g/dL 6.4-8.2 [facility] Work Phone: Sodium [Moles/Vol] 141 mmol/L 136-145 [facility] Work Phone: Triglyceride [Mass/Vol] 168 mg/dL <199 [facility] Work Phone: Comment on above: The drugs N-Acetylcy steine and Metamizole may falsely depress this assay.Serum Triglycerides Reference Interval Normal <150 mg/dL Borderline high 150 - 199 mg/dL High 200 - 499 mg/dL Very High > or = 500 mg/dL WBC (Bld) [#/Vol] 5.9 10*3/uL 4.4-11.0 [facility] Work Phone: Blood erythrocytes count (nu mber/volume)on 12-22-2021 RBC (Bld) [#/Vol] 4.25 10*6/uL 4.2-5.4 [facility] Work Phone: Blood hemoglobin measurement (mass/volume)on 12-22-2021 Hemoglobin (Bld) [Mass/Vol] 12.8 g/dL 12.0-15.0 [facility] Work Phone: Blood lymphocytes/100 leukoc yteson 12-22-2021 Lymphocytes/100 WBC (Bld) 30.5 % 19-41 [facility] Work Phone: Blood monocytes/100 leukocyt eson 12-22-2021 Monocytes/100 WBC (Bld) 8.2 % 0-10 [facility] Work Phone: Blood platelet mean volumeon 12-22-2021 Platelet mean volume (Bld) [Entitic vol] 11.2 fL 6.2-12.0 [facility] Work Phone: Determination of erythrocyte mean corpuscular volume (MCV)on 12-22-2021 MCV (RBC) [Entitic vol] 89.6 fL 81-99 [facility] Work Phone: Hematocrit Auto (Bld) [Volum e fraction]on 12-22-2021 Hematocrit (Bld) [Volume fraction] 38.1 % 37-47 [facility] Work Phone: Laboratory - Chemistry and C hemistry - challengeon 12-22-2021 ALP [Catalytic activity/Vol] 116 U/L 45-117 [facility] Work Phone: ALT [Catalytic activity/Vol] 20 U/L 13-56 [facility] Work Phone: CO2 [Moles/Vol] 29.0 mmol/L 21.0-32.0 [facility] Work Phone: Globulin (S) [Mass/Vol] 3.9 g/dL 2.2-4.2 [facility] Work Phone: Urea nitrogen/Creatinine [Mass ratio] 13.7 mg/mg 10-20 [facility] Work Phone: Laboratory - Hematology and Cell countson 12-22-2021 Erythrocyte distribution width (RBC) [Entitic vol] 42.5 fL 35.1-43.9 [facility] Work Phone: Erythrocyte distribution width (RBC) [Ratio] 12.9 % 11.6-14.6 [facility] Work Phone: Immature granulocytes/100 WBC (Bld) 0.300 % 0.0-0.9 [facility] Work Phone: Comment on above: IG% - Immature Granu locytes (promyelocytes, myelocytes and metamyelocytes) > 1% indicates that a LEFT SHIFT is Present. MCH (RBC) [Entitic mass] 30.1 pg 27.0-32.0 [facility] Work Phone: Nucleated RBC/100 WBC (Bld) [Ratio] 0 % 0-5 [facility] Work Phone: MCHC Auto (RBC) [Mass/Vol]on 12-22-2021 MCHC (RBC) [Mass/Vol] 33.6 g/dL 32-36 [facility] Work Phone: No Panel Informationon 12-22 Estimated GFR (MDRD) Amer 95 mL/min >60 [facility] Work Phone: Comment on above: GFR Calc Estimated GFR (MDRD) Non-Af Amer 79 mL/min >60 [facility] Work Phone: Comment on above: Non- GFR Calc Thyroid Stimulating Hormone (TSH) 2.68 uIU/mL 0.358-3.74 [facility] Work Phone: Platelets bldon 12-22-2021 Platelets (Bld) [#/Vol] 243 10*3/uL 150-450 [facility] Work Phone: Serum or plasma albumin yany urement (mass/volume)on 12-22-2021 Albumin [Mass/Vol] 3.4 g/dL 3.2-5.0 [facility] Work Phone: Serum or plasma albumin/glob ulin mass ratioon 12-22-2021 Albumin/Globulin [Mass ratio] 0.9 {ratio} 0.9-2.4 [facility] Work Phone: Serum or plasma calcium yany urement (mass/volume)on 12-22-2021 Calcium [Mass/Vol] 8.5 mg/dL 8.5-10.1 [facility] Work Phone: Serum or plasma cholesterol in HDL measurement (mass/volume)on 12-22-2021 Cholesterol in HDL [Mass/Vol] 50 mg/dL >40 [facility] Work Phone: Comment on above: The drugs N-Acetylcy steine and Metamizole may falsely depress this assay. Reference Range HDL <40 mg/dL Low HDL Cholesterol HDL >or= 60 mg/dL High HDL Cholesterol Serum or plasma cholesterol in VLDL measurement (mass/volume)on 12-22-2021 Cholesterol in VLDL [Mass/Vol] 34 mg/dL 5-40 [facility] Work Phone: Serum or plasma creatinine m easurement (mass/volume)on 12-22-2021 Creatinine [Mass/Vol] 0.80 mg/dL 0.55-1.02 [facility] Work Phone: Comment on above: The validity of the calculated GFR & GFRAA in patients over 70 years has not been determined. Clinical correlation is essential. Serum or plasma low density lipoprotein (LDL) cholesterol measurement (mass/volume)on 12-22-2021 Cholesterol in LDL [Mass/Vol] 93 mg/dL 0-130 [facility] Work Phone: Serum or plasma urea nitroge n measurement (mass/volume)on 12-22-2021 Urea nitrogen [Mass/Vol] 11 mg/dL 7-18 [facility] Work Phone: Thin prep Papanicolaou smear with manual screeningon 12-22-2021 Thin prep Papanicolaou smear with manual screening 12 U/L 15-37 [facility] Work Phone: Thin prep Papanicolaou smear with manual screening 7 5-15 [facility] Work Phone: HPV Auto Reflex PAP ([id number])O rdered By: Aircraft Detail Draftsperson on 02-19-2020 Microscopic observation Other stain Nom (Unsp spec) . Normal [facility] Work Phone: Comment on above: Source.............C ervix;EndocervixNo. of containers..01 ThinPrep VialPATIENT NOT FASTINGPERFORMED BY: [facility] [address] [place] [id number] Information: [id number] Pathology report final diagnosis Narrative [facility] Normal [facility] Work Phone: Comment on above: NEGATIVE FOR INTRAEP ITHELIAL LESION OR MALIGNANCY.Satisfactory for evaluation. Endocervical and/or squamous metaplasticcells (endocervical component) are present.Z01.411Maxwell Silva Film Historian (ASCP) Source.............C ervix;EndocervixNo. of containers..01 ThinPrep VialPATIENT NOT FASTINGPERFORMED BY: [address] [id number] Information: [id number] HPV Auto Reflex PAP ([id number]) PAPSMR Normal [facility] Work Phone: Comment on above: The Pap smear is a s creening test designed to aid in the detection ofpremalignant and malignant conditions of the uterine cervix. It is not adiagnostic procedure and should not be used as the sole means of detectingcervical cancer. Both false-positive and false-negative reports do occur. .This liquid based ThinPrep(R) pap test was screened with theuse of an image guided system.The HPV DNA reflex criteria were not met with this specimen resulttherefore, no HPV testing was performed. . Source.............C ervix;EndocervixNo. of containers..01 ThinPrep VialPATIENT NOT FASTINGPERFORMED BY: [address] [id number] Information: [id number] LIPID PANEL ([id number])Ordered B y: Aircraft Detail Draftsperson on 02-19-2020 Cholesterol [Mass/Vol] 129 mg/dL Normal 100-199 [facility] Work Phone: Comment on above: PATIENT WAS FASTINGP ERFORMED BY: [employer] [id number] CoachBaseFormerly [facility] [id number] Cholesterol in HDL [Mass/Vol] 53 mg/dL Normal [facility] Work Phone: Comment on above: PATIENT WAS FASTINGP ERFORMED BY: [id number] [employer]Former[employer] [facility] [id number] Cholesterol in LDL/Cholesterol in HDL [Mass ratio] 1.2 {ratio} Normal 0.0-3.2 [facility] Work Phone: Comment on above: LDL/HDL Ratio Men Wo men 1/2 Avg.Risk 1.0 1.5 Avg.Risk 3.6 3.2 2X Avg.Risk 6.2 5.0 3X Avg.Risk 8.0 6.1 PATIENT WAS FASTINGP ERFORMED BY: ANASTASIYA LabSaskia [id number] Morejon SpartzFormerly [facility] [id number] Triglyceride [Mass/Vol] 38 mg/dL Normal 0-149 [facility] Work Phone: Comment on above: PATIENT WAS FASTINGP ERFORMED BY: ANASTASIYA LabSaskia [id number] Morejon ValetAnywhereFormerly [facility] [id number] LIPID PANEL ([id number]) 66 mg/dL Normal 0-99 [facility] Work Phone: Comment on above: PATIENT WAS FASTINGP ERFORMED BY: ANASTASIYA [id number] [place] SpartzFormerly [facility] [id number] LIPID PANEL (36299) 10 mg/dL Normal 5-40 [facility] Internal Medicine Work Phone: Comment on above: PATIENT WAS FASTINGP ERFORMED BY: ANASTASIYA Hallpass MediaSaskia BonillaXrtkwc7615 [place] ValetAnywhereFormerly [facility] [id number] LIPID PANEL (75592) 1.2 {ratio} Normal 0.0-3.2 [facility]; [facility] Work Phone: Comment on above: LDL/HDL Ratio Men Wo men 1/2 Avg.Risk 1.0 1.5 Avg.Risk 3.6 3.2 2X Avg.Risk 6.2 5.0 3X Avg.Risk 8.0 6.1 PATIENT WAS FASTINGP ERFORMED BY: ANASTASIYA LabSimpleTherapymarcus BonillaTkvjxq1627 [facility] [id number] T3, FREE (TRIDOTHYRONINE) (9 4049)Ordered By: Aircraft Detail Draftsperson on 02-19-2020 Free T3 [Mass/Vol] 2.4 pg/mL Normal 2.0-4.4 [facility] Internal Medicine Work Phone: Comment on above: PATIENT WAS FASTINGP ERFORMED BY: LabCo Broely8949 [facility] [facility] [place] [id number] T4, FREE (THYROXINE) (77287) Ordered By: Aircraft Detail Draftsperson on 02-19-2020 Free T4 [Mass/Vol] 1.30 ng/dL Normal 0.82-1.77 [facility] Internal Medicine Work Phone: Comment on above: PATIENT WAS FASTINGP ERFORMED BY: LabCo Apmwrv1252 [address] [facility] [id number] TSH (64259)Ordered By: OvaSciencee m Junior Buyer on 02-19-2020 TSH Qn 2.370 {uIU/mL} Normal 0.450-4.50 0 [facility] Work Phone: Comment on above: PATIENT WAS FASTINGP ERFORMED BY: LabCo Whaosu0200 [facility] [place] [id number] CBC WITH MANUAL DIFF (86709) Ordered By: Aircraft Detail Draftsperson on 08-25-2019 Basophils (Bld) [#/Vol] 0.0 {x10E3/uL} Normal 0.0-0.2 [facility] Work Phone: Comment on above: PATIENT WAS FASTINGP ERFORMED BY: LabCo Gejhnj0792 [place] [facility] [place] [id number] Basophils (Bld) [#/Vol] 0.0 10*3/uL Normal 0.0-0.2 [facility]; [facility] Work Phone: Comment on above: PATIENT WAS FASTINGP ERFORMED BY: LabCo Rgjimd6505 [address] [facility]in [place] [id number] Basophils/100 WBC (Bld) 1 % Normal [facility] Work Phone: Comment on above: PATIENT WAS FASTINGP ERFORMED BY: LabCo Tbrile2138 [place] [facility]in [place] [id number] Eosinophils (Bld) [#/Vol] 0.2 {x10E3/uL} Normal 0.0-0.4 [facility] Work Phone: Comment on above: PATIENT WAS FASTINGP ERFORMED BY: LabCo Iskegz4607 [facility] [facility] [id number] Eosinophils (Bld) [#/Vol] 0.2 10*3/uL Normal 0.0-0.4 [facility]; [facility] Work Phone: Comment on above: PATIENT WAS FASTINGP ERFORMED BY: [facility] Wxsjsr2760 [facility] [facility] [id number] Eosinophils/100 WBC (Bld) 3 % Normal [facility] Work Phone: Comment on above: PATIENT WAS FASTINGP ERFORMED BY: Lab[facility] Hospital6370 [address] [facility] [id number] Erythrocyte distribution width (RBC) [Ratio] 13.7 % Normal 11.7-15.4 [facility] Work Phone: Comment on above: PATIENT WAS FASTINGP ERFORMED BY: LabHar[facility]aks Hospital6370 [address] [facility] [id number] Hematocrit (Bld) [Volume fraction] 40.9 % Normal 34.0-46.6 [facility] Work Phone: Comment on above: PATIENT WAS FASTINGP ERFORMED BY: LabHar[facility] Hospital6370 [address] [facility] [id number] Hemoglobin (Bld) [Mass/Vol] 13.4 g/dL Normal 11.1-15.9 [facility] Work Phone: Comment on above: PATIENT WAS FASTINGP ERFORMED BY: LabCo Fqbpyd2832 [facility] [facility] [id number] Immature granulocytes (Bld) [#/Vol] 0.0 {x10E3/uL} Normal 0.0-0.1 [facility] Work Phone: Comment on above: PATIENT WAS FASTINGP ERFORMED BY: [facility]6370 [address] [facility] [id number] Immature granulocytes (Bld) [#/Vol] 0.0 10*3/uL Normal 0.0-0.1 [facility]; [facility] Work Phone: Comment on above: PATIENT WAS FASTINGP ERFORMED BY: [facility]6370 [address] [facility]in [place] [id number] Immature granulocytes/100 WBC (Bld) 1 % Normal [facility] Work Phone: Comment on above: PATIENT WAS FASTINGP ERFORMED BY: [facility]6370 [facility]in [place] [id number] Lymphocytes (Bld) [#/Vol] 1.3 {x10E3/uL} Normal 0.7-3.1 [facility] Work Phone: Comment on above: PATIENT WAS FASTINGP ERFORMED BY: LabAmy [place] 6075870 [facility] [id number] Lymphocytes (Bld) [#/Vol] 1.3 10*3/uL Normal 0.7-3.1 [facility] Internal Medicine; [facility] Work Phone: Comment on above: PATIENT WAS FASTINGP ERFORMED BY: [facility]6370 [facility] [id number] Lymphocytes/100 WBC (Bld) 21 % Normal [facility] Work Phone: Comment on above: PATIENT WAS FASTINGP ERFORMED BY: [facility]6370 [facility] [id number] MCH (RBC) [Entitic mass] 29.1 pg Normal 26.6-33.0 [facility] Internal Medicine Work Phone: Comment on above: PATIENT WAS FASTINGP ERFORMED BY: [facility]6370 [facility] [id number] MCHC (RBC) [Mass/Vol] 32.8 g/dL Normal 31.5-35.7 [facility] Internal Medicine Work Phone: Comment on above: PATIENT WAS FASTINGP ERFORMED BY: [facility]6370 [facility] [id number] MCV (RBC) [Entitic vol] 89 fL Normal 79-97 [facility] Work Phone: Comment on above: PATIENT WAS FASTINGP ERFORMED BY: LabCo Cdfzgv8312 [address] RoadDublin [place] [id number] Monocytes (Bld) [#/Vol] 0.3 {x10E3/uL} Normal 0.1-0.9 [facility] Work Phone: Comment on above: PATIENT WAS FASTINGP ERFORMED BY: LabCo Mntecf9309 [address] RoadDublin [place] [id number] Monocytes (Bld) [#/Vol] 0.3 10*3/uL Normal 0.1-0.9 [facility]; [facility] Work Phone: Comment on above: PATIENT WAS FASTINGP ERFORMED BY: [facility] Dxnsov0929 [address] RoadDublin [place] [id number] Monocytes/100 WBC (Bld) 5 % Normal [facility] Work Phone: Comment on above: PATIENT WAS FASTINGP ERFORMED BY: [facility] Bakmlu2244 [address] RoadDublin [place] [id number] Neutrophils (Bld) [#/Vol] 4.2 {x10E3/uL} Normal 1.4-7.0 [facility] Work Phone: Comment on above: PATIENT WAS FASTINGP ERFORMED BY: LabTrace Dbwioj4641 [address] RoadDublin [place] [id number] Neutrophils (Bld) [#/Vol] 4.2 10*3/uL Normal 1.4-7.0 [facility]; [facility] Work Phone: Comment on above: PATIENT WAS FASTINGP ERFORMED BY: LabCo Hjsiqg5020 [address] RoadDublin [place] [id number] Neutrophils/100 WBC (Bld) 69 % Normal [facility] Work Phone: Comment on above: PATIENT WAS FASTINGP ERFORMED BY: [facility] Sqbwyv9598 [address] RoadDublin [place] [id number] Platelets (Bld) [#/Vol] 217 {x10E3/uL} Normal 150-450 [facility] Work Phone: Comment on above: PATIENT WAS FASTINGP ERFORMED BY: CB [facility] Sxrpnn3278 [address] RoadDublin [place] [id number] Platelets (Bld) [#/Vol] 217 10*3/uL Normal 150-450 [facility]; [facility] Work Phone: Comment on above: PATIENT WAS FASTINGP ERFORMED BY: CB [facility] Cmwnta3378 [address] RoadDublin [place] [id number] RBC (Bld) [#/Vol] 4.61 {x10E6/uL} Normal 3.77-5.28 [facility] Work Phone: Comment on above: PATIENT WAS FASTINGP ERFORMED BY: CB [facility] Rzoqtt4545 [address] RoadDublin [place] [id number] RBC (Bld) [#/Vol] 4.61 10*6/uL Normal 3.77-5.28 [facility] Internal Medicine; [facility] Work Phone: Comment on above: PATIENT WAS FASTINGP ERFORMED BY: CB [facility] Yfgpqv8778 [address] RoadDublin [place] [id number] WBC (Bld) [#/Vol] 6.1 {x10E3/uL} Normal 3.4-10.8 [facility] Internal Medicine Work Phone: Comment on above: PATIENT WAS FASTINGP ERFORMED BY: CB [facility] Lojmst9412 [address] RoadDublin [place] [id number] WBC (Bld) [#/Vol] 6.1 10*3/uL Normal 3.4-10.8 [facility] Internal Medicine; [facility] Work Phone: Comment on above: PATIENT WAS FASTINGP ERFORMED BY: CB [facility] Rsninm9269 [address] RoadDublin [place] [id number] Lipid Panel ([id number])Ordered B y: Aircraft Detail Draftsperson on 08-25-2019 Cholesterol [Mass/Vol] 128 mg/dL Normal 100-199 [facility] Work Phone: Comment on above: PATIENT WAS FASTINGP ERFORMED BY: CB [facility] Znzkgf5786 [address] RoadDublin [place] [id number] Cholesterol in HDL [Mass/Vol] 41 mg/dL Normal [facility] Work Phone: Comment on above: PATIENT WAS FASTINGP ERFORMED BY: ANASTASIYA Renaldo Bonillalin6370 [facility] [id number] Cholesterol in LDL [Mass/Vol] 74 mg/dL Normal 0-99 [facility] Work Phone: Comment on above: PATIENT WAS FASTINGP ERFORMED BY: ANASTASIYA RafaelThe [facility] Eioflb2583 [facility] [id number] Cholesterol in LDL/Cholesterol in HDL [Mass ratio] 1.8 {ratio} Normal 0.0-3.2 [facility] Work Phone: Comment on above: LDL/HDL Ratio Men Wo men 1/2 Avg.Risk 1.0 1.5 Avg.Risk 3.6 3.2 2X Avg.Risk 6.2 5.0 3X Avg.Risk 8.0 6.1 PATIENT WAS FASTINGP ERFORMED BY: ANASTASIYA [facility]6370 [facility] [id number] Cholesterol in VLDL [Mass/Vol] 13 mg/dL Normal 5-40 [facility] Work Phone: Comment on above: PATIENT WAS FASTINGP ERFORMED BY: ANASTASIYA Kasandra Tqpzer2854 [facility] [id number] Triglyceride [Mass/Vol] 63 mg/dL Normal 0-149 [facility] Work Phone: Comment on above: PATIENT WAS FASTINGP ERFORMED BY: [facility]6370 [facility] [id number] Metabolic Panel, Comprehensi ve (29031)Ordered By: Aircraft Detail Draftsperson on 08-25-2019 Albumin [Mass/Vol] 4.3 g/dL Normal 3.8-4.9 [facility] Internal Medicine Work Phone: Comment on above: PATIENT WAS FASTINGP ERFORMED BY: [facility]6370 [facility] [id number] Albumin/Globulin [Mass ratio] 1.6 {ratio} Normal 1.2-2.2 [facility] Work Phone: Comment on above: PATIENT WAS FASTINGP ERFORMED BY: ANASTASIYA Knapp6370 [address] RoadDublin [place] [id number] ALP [Catalytic activity/Vol] 120 [iU]/L Abnormal 39-117 [facility] Work Phone: Comment on above: PATIENT WAS FASTINGP ERFORMED BY: ANASTASIYA Bonillalin6370 [address] RoadDublin [place] [id number] ALP [Catalytic activity/Vol] 120 U/L Abnormal 39-117 [facility]; [facility] Work Phone: Comment on above: PATIENT WAS FASTINGP ERFORMED BY: ANASTASIYA Knapp6370 [address] RoadDublin [place] [id number] ALT [Catalytic activity/Vol] 13 [iU]/L Normal 0-32 [facility] Work Phone: Comment on above: PATIENT WAS FASTINGP ERFORMED BY: Kasandra Ttbkxj6900 [address] RoadDublin [place] [id number] ALT [Catalytic activity/Vol] 13 U/L Normal 0-32 [facility]; [facility] Work Phone: Comment on above: PATIENT WAS FASTINGP ERFORMED BY: ANASTASIYA Bonillalin6370 [address] RoadDublin [place] [id number] AST [Catalytic activity/Vol] 13 [iU]/L Normal 0-40 [facility] Work Phone: Comment on above: PATIENT WAS FASTINGP ERFORMED BY: Kasandra Wxhpff1358 [address] RoadDublin [place] [id number] AST [Catalytic activity/Vol] 13 U/L Normal 0-40 [facility]; [facility] Work Phone: Comment on above: PATIENT WAS FASTINGP ERFORMED BY: ANASTASIYA Bonillalin6370 [address] RoadDublin [place] [id number] Bilirubin [Mass/Vol] 0.4 mg/dL Normal 0.0-1.2 [facility]ensive Internal [facility] Work Phone: Comment on above: PATIENT WAS FASTINGP ERFORMED BY: CB [facility] Qebxtf0525 [address] RoadDublin [place] [id number] Calcium [Mass/Vol] 9.2 mg/dL Normal 8.7-10.2 [facility] Internal Medicine Work Phone: Comment on above: PATIENT WAS FASTINGP ERFORMED BY: CB [facility] Xxofvr0511 [address] RoadDublin [place] [id number] Chloride [Moles/Vol] 101 mmol/L Normal 96-106 [facility] Work Phone: Comment on above: PATIENT WAS FASTINGP ERFORMED BY: CB [facility] Bekert9826 [address] RoadDublin [place] [id number] CO2 [Moles/Vol] 27 mmol/L Normal 20-29 [facility] Internal Medicine Work Phone: Comment on above: PATIENT WAS FASTINGP ERFORMED BY: [facility] Wukzyn3637 [address] RoadDublin [place] [id number] Creatinine [Mass/Vol] 0.89 mg/dL Normal 0.57-1.00 [facility] Internal Medicine Work Phone: Comment on above: PATIENT WAS FASTINGP ERFORMED BY: [facility] Ikhhjt8905 [address] RoadDublin [place] [id number] GFR/1.73 sq M predicted among blacks CKD-EPI (S/P/Bld) [Vol rate/Area] 86 mL/min/1.73 Normal [facility] Work Phone: Comment on above: PATIENT WAS FASTINGP ERFORMED BY: [facility] Nvvnwx3056 [address] RoadDublin [place] [id number] GFR/1.73 sq M predicted among non-blacks CKD-EPI (S/P/Bld) [Vol rate/Area] 74 mL/min/1.73 Normal [facility] Work Phone: Comment on above: PATIENT WAS FASTINGP ERFORMED BY: CB [facility] Qeyrcg6834 [address] RoadDublin [place] [id number] Globulin (S) [Mass/Vol] 2.7 g/dL Normal 1.5-4.5 [facility] Work Phone: Comment on above: PATIENT WAS FASTINGP ERFORMED BY: ANASTASIYA LabCo Nhdkem5886 [address] [facility]in [place] [id number] Glucose [Mass/Vol] 82 mg/dL Normal 65-99 [facility] Internal Medicine Work Phone: Comment on above: PATIENT WAS FASTINGP ERFORMED BY: Lab[facility] Brkgho1337 [address] [facility] [id number] Potassium [Moles/Vol] 4.5 mmol/L Normal 3.5-5.2 [facility] Internal Medicine Work Phone: Comment on above: PATIENT WAS FASTINGP ERFORMED BY: ANASTASIYA [facility] Hhnqet0422 [facility] [id number] Protein [Mass/Vol] 7.0 g/dL Normal 6.0-8.5 [facility] Internal Medicine Work Phone: Comment on above: PATIENT WAS FASTINGP ERFORMED BY: ANASTASIYA [facility] Meqjxn4330 [facility] [id number] Sodium [Moles/Vol] 142 mmol/L Normal 134-144 [facility] Internal Medicine Work Phone: Comment on above: PATIENT WAS FASTINGP ERFORMED BY: ANASTASIYA LabThe [facility] Mnpapg0239 [facility] [id number] Urea nitrogen [Mass/Vol] 17 mg/dL Normal 6-24 [facility] Internal Medicine Work Phone: Comment on above: PATIENT WAS FASTINGP ERFORMED BY: [facility] Qmwrgd7564 [facility] [id number] Urea nitrogen/Creatinine [Mass ratio] 19 mg/mg Normal 9-23 [facility] Internal Medicine Work Phone: Comment on above: PATIENT WAS FASTINGP ERFORMED BY: ANASTASIYA Lab[facility] Azaarp3863 [address] [facility] [id number] T3, FREE (TRIDOTHYRONINE) (7 8425)Ordered By: Aircraft Detail Draftsperson on 08-25-2019 Free T3 [Mass/Vol] 2.3 pg/mL Normal 2.0-4.4 [facility] Internal Medicine Work Phone: Comment on above: PATIENT WAS FASTINGP ERFORMED BY: ANASTASIYA [facility] Dafvjl6154 [address] RoadDublin [place] [id number]; ov 08/26 T4, FREE (THYROXINE) ([id number]) Ordered By: Aircraft Detail Draftsperson on 08-25-2019 Free T4 [Mass/Vol] 1.38 ng/dL Normal 0.82-1.77 [facility] Internal Medicine Work Phone: Comment on above: PATIENT WAS FASTINGP ERFORMED BY: ANASTASIYA [facility] Vvkurz4999 [address] RoadDublin [place] [id number] TSH ([id number])Ordered By: OvaScienceashkan m Junior Buyer on 08-25-2019 TSH Qn 2.840 {uIU/mL} Normal 0.450-4.50 0 [facility] Work Phone: Comment on above: PATIENT WAS FASTINGP ERFORMED BY: ANASTASIYA [facility] Slcpne0226 [address] Roadblin [place] [id number] CBC W/AUTO DIFF WBC ([id number])O rdered By: Aircraft Detail Draftsperson on 01-29-2019 Basophils (Bld) [#/Vol] 0.0 {x10E3/uL} Normal 0.0-0.2 [facility] Work Phone: Comment on above: PATIENT WAS FASTINGP ERFORMED BY: ANASTASIYA [facility] Skhehk2599 [address] RoadFormerly [facility]in [place] [id number] Basophils (Bld) [#/Vol] 0.0 10*3/uL Normal 0.0-0.2 [facility]; [facility] Work Phone: Comment on above: PATIENT WAS FASTINGP ERFORMED BY: CB [facility] Rirorv0751 [address] RoadDublin [place] [id number] Basophils/100 WBC (Bld) 1 % Normal [facility] Work Phone: Comment on above: PATIENT WAS FASTINGP ERFORMED BY: [facility] Xqndrr7651 [address] RoadDublin [place] [id number] Eosinophils (Bld) [#/Vol] 0.3 {x10E3/uL} Normal 0.0-0.4 [facility] Work Phone: Comment on above: PATIENT WAS FASTINGP ERFORMED BY: LabCo Lzttzw1298 [address] Roadblin [place] [id number] Eosinophils (Bld) [#/Vol] 0.3 10*3/uL Normal 0.0-0.4 [facility]; [facility] Work Phone: Comment on above: PATIENT WAS FASTINGP ERFORMED BY: Lab[facility] Zjhbzl4104 [address] Roadblin [place] [id number] Eosinophils/100 WBC (Bld) 6 % Normal [facility] Work Phone: Comment on above: PATIENT WAS FASTINGP ERFORMED BY: Lab[facility]6370 [address] [facility]in [place] [id number] Erythrocyte distribution width (RBC) [Ratio] 13.8 % Normal 12.3-15.4 [facility] Work Phone: Comment on above: PATIENT WAS FASTINGP ERFORMED BY: LabNorthwest Medical CenterGeajur7696 [address] RoadFormerly [facility]in [place] [id number] Hematocrit (Bld) [Volume fraction] 38.6 % Normal 34.0-46.6 [facility] Work Phone: Comment on above: PATIENT WAS FASTINGP ERFORMED BY: [facility] Ykxhlj5150 [address] [facility]in [place] [id number] Hemoglobin (Bld) [Mass/Vol] 12.8 g/dL Normal 11.1-15.9 [facility] Work Phone: Comment on above: PATIENT WAS FASTINGP ERFORMED BY: LabCo Edtkwf7259 [address] RoadDublin [place] [id number] Immature granulocytes (Bld) [#/Vol] 0.0 {x10E3/uL} Normal 0.0-0.1 [facility] Work Phone: Comment on above: PATIENT WAS FASTINGP ERFORMED BY: [facility] Oqsbip3732 [address] RoadDublin [place] [id number] Immature granulocytes (Bld) [#/Vol] 0.0 10*3/uL Normal 0.0-0.1 [facility]; [facility] Work Phone: Comment on above: PATIENT WAS FASTINGP ERFORMED BY: [facility] Pdhjqe5904 [address] [facility] [id number] Immature granulocytes/100 WBC (Bld) 0 % Normal [facility] Work Phone: Comment on above: PATIENT WAS FASTINGP ERFORMED BY: Lab[facility]6370 [address] [facility] [id number] Lymphocytes (Bld) [#/Vol] 1.5 {x10E3/uL} Normal 0.7-3.1 [facility] Internal Medicine Work Phone: Comment on above: PATIENT WAS FASTINGP ERFORMED BY: [facility]6370 [facility] [id number] Lymphocytes (Bld) [#/Vol] 1.5 10*3/uL Normal 0.7-3.1 [facility] Internal Medicine; [facility] Work Phone: Comment on above: PATIENT WAS FASTINGP ERFORMED BY: [facility]6370 [facility] [id number] Lymphocytes/100 WBC (Bld) 29 % Normal [facility] Internal Medicine Work Phone: Comment on above: PATIENT WAS FASTINGP ERFORMED BY: [facility]6370 [facility] [id number] MCH (RBC) [Entitic mass] 28.8 pg Normal 26.6-33.0 [facility] Internal Medicine Work Phone: Comment on above: PATIENT WAS FASTINGP ERFORMED BY: [facility]6370 [facility] [id number] MCHC (RBC) [Mass/Vol] 33.2 g/dL Normal 31.5-35.7 [facility] Internal Medicine Work Phone: Comment on above: PATIENT WAS FASTINGP ERFORMED BY: Lab[facility]6370 [address] [facility] [id number] MCV (RBC) [Entitic vol] 87 fL Normal 79-97 [facility] Work Phone: Comment on above: PATIENT WAS FASTINGP ERFORMED BY: CB [facility] Uxpbcz9923 [address] RoadDublin [place] [id number] Monocytes (Bld) [#/Vol] 0.4 {x10E3/uL} Normal 0.1-0.9 [facility] Work Phone: Comment on above: PATIENT WAS FASTINGP ERFORMED BY: CB [facility] Nctono6239 [address] RoadDublin [place] [id number] Monocytes (Bld) [#/Vol] 0.4 10*3/uL Normal 0.1-0.9 [facility]; [facility] Work Phone: Comment on above: PATIENT WAS FASTINGP ERFORMED BY: ANASTASIYA [facility] Yxactm5697 [address] RoadDublin [place] [id number] Monocytes/100 WBC (Bld) 8 % Normal [facility] Work Phone: Comment on above: PATIENT WAS FASTINGP ERFORMED BY: ANASTASIYA [facility] Dexlrm1581 [address] RoadDublin [place] [id number] Neutrophils (Bld) [#/Vol] 3.0 {x10E3/uL} Normal 1.4-7.0 [facility] Work Phone: Comment on above: PATIENT WAS FASTINGP ERFORMED BY: CB [facility] Vghiba0738 [address] RoadDublin [place] [id number] Neutrophils (Bld) [#/Vol] 3.0 10*3/uL Normal 1.4-7.0 [facility]; [facility] Work Phone: Comment on above: PATIENT WAS FASTINGP ERFORMED BY: CB [facility] Cfmfjj5721 [address] RoadDublin [place] [id number] Neutrophils/100 WBC (Bld) 56 % Normal [facility] Work Phone: Comment on above: PATIENT WAS FASTINGP ERFORMED BY: CB [facility] Mitosj7416 [address] RoadDublin [place] [id number] Platelets (Bld) [#/Vol] 238 {x10E3/uL} Normal 150-450 [facility] Work Phone: Comment on above: PATIENT WAS FASTINGP ERFORMED BY: ANASTASIYA Knapp6370 [address] Emilyblin [place] [id number] Platelets (Bld) [#/Vol] 238 10*3/uL Normal 150-450 [facility]; [facility] Work Phone: Comment on above: PATIENT WAS FASTINGP ERFORMED BY: ANASTASIYA Renaldo Knapp6370 [address]bl[address] [place] [id number] RBC (Bld) [#/Vol] 4.45 {x10E6/uL} Normal 3.77-5.28 [facility] Internal [facility] Work Phone: Comment on above: PATIENT WAS FASTINGP ERFORMED BY: ANASTASIYA LabSaskia Knapp6370 [address] RoadDublin [place] [id number] RBC (Bld) [#/Vol] 4.45 10*6/uL Normal 3.77-5.28 [facility] Internal Medicine; [facility] Work Phone: Comment on above: PATIENT WAS FASTINGP ERFORMED BY: ANASTASIYA [facility] Soyyav8144 [address] [facility] [place] [id number] WBC (Bld) [#/Vol] 5.2 {x10E3/uL} Normal 3.4-10.8 [facility] Internal Medicine Work Phone: Comment on above: PATIENT WAS FASTINGP ERFORMED BY: ANASTASIYA [facility] Zqlihi2780 [address] [facility] Hospitalbl[facility] [place] [id number] WBC (Bld) [#/Vol] 5.2 10*3/uL Normal 3.4-10.8 [facility] Internal Medicine; [facility] Work Phone: Comment on above: PATIENT WAS FASTINGP ERFORMED BY: ANASTASIYA LabComarcus BonillaSpmpij[address] [facility] HealthDublin [place] [id number] LIPID PANEL ([id number])Ordered B y: Aircraft Detail Draftsperson on 01-29-2019 Cholesterol [Mass/Vol] 175 mg/dL Normal 100-199 [facility] Work Phone: Comment on above: PATIENT WAS FASTINGP ERFORMED BY: ANASTASIYA [facility] Nwzwcn5506 [address] RoadDublin [place] [id number] Cholesterol in HDL [Mass/Vol] 54 mg/dL Normal [facility] Work Phone: Comment on above: PATIENT WAS FASTINGP ERFORMED BY: ANASTASIYA [facility] Evfsbm3140 [address] RoadDublin [place] [id number] Cholesterol in LDL [Mass/Vol] 109 mg/dL Abnormal 0-99 [facility] Work Phone: Comment on above: PATIENT WAS FASTINGP ERFORMED BY: ANASTASIYA [facility] Eolwci1690 [address] RoadDublin [place] [id number] Cholesterol in LDL/Cholesterol in HDL [Mass ratio] 2.0 {ratio} Normal 0.0-3.2 [facility] Work Phone: Comment on above: LDL/HDL Ratio Men Wo men 1/2 Avg.Risk 1.0 1.5 Avg.Risk 3.6 3.2 2X Avg.Risk 6.2 5.0 3X Avg.Risk 8.0 6.1 PATIENT WAS FASTINGP ERFORMED BY: ANASTASIYA [facility] Yrcffl1227 [address] RoadDublin [place] [id number] Cholesterol in VLDL [Mass/Vol] 12 mg/dL Normal 5-40 [facility] Work Phone: Comment on above: PATIENT WAS FASTINGP ERFORMED BY: ANASTASIYA [facility] Qyowkp4011 [address] RoadDublin [place] [id number] Triglyceride [Mass/Vol] 60 mg/dL Normal 0-149 [facility] Work Phone: Comment on above: PATIENT WAS FASTINGP ERFORMED BY: ANASTASIYA [facility] Sxnjkp8594 [address] RoadDublin [place] [id number] METABOLIC PANEL, COMPREHENSI VE ([id number])Ordered By: Aircraft Detail Draftsperson on 01-29-2019 Albumin [Mass/Vol] 4.2 g/dL Normal 3.5-5.5 [facility] Internal Medicine Work Phone: Comment on above: PATIENT WAS FASTINGP ERFORMED BY: ANASTASIYA [facility] Koabux5975 [address] RoadDublin [place] [id number] Albumin/Globulin [Mass ratio] 1.6 {ratio} Normal 1.2-2.2 [facility] Work Phone: Comment on above: PATIENT WAS FASTINGP ERFORMED BY: [facility] Qluvfq2727 [address] RoadDublin [place] [id number] ALP [Catalytic activity/Vol] 111 [iU]/L Normal 39-117 [facility] Work Phone: Comment on above: PATIENT WAS FASTINGP ERFORMED BY: [facility] Cjfuez1105 [address] RoadDublin [place] [id number] ALP [Catalytic activity/Vol] 111 U/L Normal 39-117 [facility]; [facility] Work Phone: Comment on above: PATIENT WAS FASTINGP ERFORMED BY: [facility] Wqpxay2054 [address] RoadDublin [place] [id number] ALT [Catalytic activity/Vol] 19 [iU]/L Normal 0-32 [facility] Work Phone: Comment on above: PATIENT WAS FASTINGP ERFORMED BY: [facility]The [facility] Dewndp7976 [address] RoadDublin [place] [id number] ALT [Catalytic activity/Vol] 19 U/L Normal 0-32 [facility]; [facility] Work Phone: Comment on above: PATIENT WAS FASTINGP ERFORMED BY: [facility] Cgcduo6721 [address] RoadDublin [place] [id number] AST [Catalytic activity/Vol] 18 [iU]/L Normal 0-40 [facility] Work Phone: Comment on above: PATIENT WAS FASTINGP ERFORMED BY: [facility] Zwpqfe0307 [address] RoadDublin [place] [id number] AST [Catalytic activity/Vol] 18 U/L Normal 0-40 [facility]; [facility] Work Phone: Comment on above: PATIENT WAS FASTINGP ERFORMED BY: LabMerp Tdwqdn4327 [address] RoadDublin [place] [id number] Bilirubin [Mass/Vol] 0.4 mg/dL Normal 0.0-1.2 Comp rehensive Internal Medicine Work Phone: Comment on above: PATIENT WAS FASTINGP ERFORMED BY: CB [facility] Qhzech2796 [address] RoadDublin [place] [id number] Calcium [Mass/Vol] 8.7 mg/dL Normal 8.7-10.2 [facility] Internal Medicine Work Phone: Comment on above: PATIENT WAS FASTINGP ERFORMED BY: CB [facility] Ykfido5339 [address] RoadDublin [place] [id number] Chloride [Moles/Vol] 103 mmol/L Normal 96-106 [facility] Work Phone: Comment on above: PATIENT WAS FASTINGP ERFORMED BY: CB [facility] Fqakdd6987 [address] RoadDublin [place] [id number] CO2 [Moles/Vol] 25 mmol/L Normal 20-29 [facility] Internal Medicine Work Phone: Comment on above: PATIENT WAS FASTINGP ERFORMED BY: CB [facility] Ohqkti0963 [address] RoadDublin [place] [id number] Creatinine [Mass/Vol] 0.83 mg/dL Normal 0.57-1.00 [facility] Internal Medicine Work Phone: Comment on above: PATIENT WAS FASTINGP ERFORMED BY: CB [facility] Hjmtgs1941 [address] RoadDublin [place] [id number] GFR/1.73 sq M predicted among blacks CKD-EPI (S/P/Bld) [Vol rate/Area] 93 mL/min/1.73 Normal [facility] Work Phone: Comment on above: PATIENT WAS FASTINGP ERFORMED BY: CB [facility] Lrtvrv1856 [address] RoadDublin [place] [id number] GFR/1.73 sq M predicted among non-blacks CKD-EPI (S/P/Bld) [Vol rate/Area] 81 mL/min/1.73 Normal [facility] Work Phone: Comment on above: PATIENT WAS FASTINGP ERFORMED BY: CB [facility] Riurca6327 [address] RoadDublin [place] [id number] Globulin (S) [Mass/Vol] 2.6 g/dL Normal 1.5-4.5 [facility] Internal Medicine Work Phone: Comment on above: PATIENT WAS FASTINGP ERFORMED BY: ANASTASIYA [facility] Bcmcju8565 [address] RoadDublin [place] [id number] Glucose [Mass/Vol] 92 mg/dL Normal 65-99 [facility] Internal Medicine Work Phone: Comment on above: PATIENT WAS FASTINGP ERFORMED BY: [facility] Nfqwes9317 [address] RoadDublin [place] [id number] Potassium [Moles/Vol] 4.5 mmol/L Normal 3.5-5.2 [facility] Internal Medicine Work Phone: Comment on above: PATIENT WAS FASTINGP ERFORMED BY: ANASTASIYA [facility] Yutkty6897 [address] RoadDublin [place] [id number] Protein [Mass/Vol] 6.8 g/dL Normal 6.0-8.5 [facility] Internal Medicine Work Phone: Comment on above: PATIENT WAS FASTINGP ERFORMED BY: ANASTASIYA [facility] Vmjbzd4031 [address] RoadDublin [place] [id number] Sodium [Moles/Vol] 142 mmol/L Normal 134-144 [facility] Internal Medicine Work Phone: Comment on above: PATIENT WAS FASTINGP ERFORMED BY: ANASTASIYA [facility] Xznetm1272 [address] RoadDuin [place] [id number] Urea nitrogen [Mass/Vol] 11 mg/dL Normal 6-24 [facility] Internal Medicine Work Phone: Comment on above: PATIENT WAS FASTINGP ERFORMED BY: [facility] Mgtpex4018 [address] RoadDublin [place] [id number] Urea nitrogen/Creatinine [Mass ratio] 13 mg/mg Normal 9-23 [facility] Internal Medicine Work Phone: Comment on above: PATIENT WAS FASTINGP ERFORMED BY: ANASTASIYA [facility] Wfneqe2616 [address] RoadDublin [place] [id number] T3, FREE (TRIDOTHYRONINE) (3 1690)Ordered By: Aircraft Detail Draftsperson on 01-29-2019 Free T3 [Mass/Vol] 3.2 pg/mL Normal 2.0-4.4 [facility] Internal Medicine Work Phone: Comment on above: PATIENT WAS FASTINGP ERFORMED BY: [facility] Xsslft8061 [address] [facility]blin [place] [id number] T4, FREE (THYROXINE) (43455) Ordered By: Aircraft Detail Draftsperson on 01-29-2019 Free T4 [Mass/Vol] 1.21 ng/dL Normal 0.82-1.77 [facility] Internal Medicine Work Phone: Comment on above: PATIENT WAS FASTINGP ERFORMED BY: CB [facility] Rqzhqa2712 [address] RoadDublin [place] [id number] TSH ([id number])Ordered By: Syste m Junior Buyer on 01-29-2019 TSH Qn 3.050 {uIU/mL} Normal 0.450-4.50 0 [facility] Work Phone: Comment on above: PATIENT WAS FASTINGP ERFORMED BY: [facility] Unqppp7386 [facility] Hospitalin [place] [id number] ETHMOID TISSUEOrdered By: emaze stem Junior Buyer on 03-10-2018 ETHMOID TISSUE See Note Normal Comprehens adamaris Internal Medicine Work Phone: Comment on above: Patient: WHIT PETERSEN : 1965 (53/F) Acct Num: [id number] Phys: Dyllan Petersen MD Unit Num: [id number] Loc: LAB Specimen: [id number] Received: 03/10/181609 Spec Type: ETH TISS TISSUES 1 TISSUES: [...] after decalcification. / SJ:justyn 03/11/18 TC:3 CPT: 18263 x2, 96307 x2 HEADER OPERATION: Bilateral maxillary antrostomy and [...] change. AM:justyn 03/18/18 Signed Christian Yulia 03/18/18 [facility] [address] [place], [place], [phone] Basic Metabolic Profile (BMP )Ordered By: Aircraft Detail Draftsperson on 03-05-2018 Basic metabolic 2000 panel 8.3 mg/dL Abnormal 8.5-10.1 [facility] Work Phone: Comment on above: [facility] [address] [place], [place], [phone] Basic metabolic 2000 panel 7 1 Normal 5-15 [facility] Work Phone: Comment on above: [facility] [address] [place], [place], [address] Basic metabolic 2000 panel 11 mg/dL Normal 7-18 [facility] Work Phone: Comment on above: [facility] Q[address] [place], [place], [phone] Basic metabolic 2000 panel 27.0 mmol/L Normal 21.0-32.0 [facility] Work Phone: Comment on above: [facility] [address] [place], [address] Basic metabolic 2000 panel 81 mg/dL Normal 74-106 [facility] Work Phone: Comment on above: Please note revised GLUCOSE reference range pfwensyzv84/02/2018. [facility] [address] [place], [place], [phone] Basic metabolic 2000 panel 4.3 mmol/L Normal 3.5-5.1 [facility] Work Phone: Comment on above: [facility] [address] [place], [address] Basic metabolic 2000 panel 12.9 {RATIO} Normal 10-20 [facility] Work Phone: Comment on above: [facility] [address] [place], [place], [phone] Basic metabolic 2000 panel 0.85 mg/dL Normal 0.55-1.02 [facility] Work Phone: Comment on above: The validity of the calculated GFR AND GFRAA in patients over70 years has not been determined. Clinical correlation isessential. [facility] [address] [place], [address] Basic metabolic 2000 panel 140 mmol/L Normal 136-145 [facility] Work Phone: Comment on above: [facility] [address] [place], [address] Basic metabolic 2000 panel 74 mL/min Normal [facility] Work Phone: Comment on above: Non- GFR Calc [facility] [address] [place], [place], [phone] Basic metabolic 2000 panel 90 mL/min Normal [facility] Work Phone: Comment on above: GFR Calc [facility] [address] [place], [place], [phone] Basic metabolic 2000 panel 106 mmol/L Normal 98-107 [facility] Work Phone: Comment on above: [facility] [address] [place], [place], [address] CBC-Complete Blood Cnt No Di ffOrdered By: Aircraft Detail Draftsperson on 03-05-2018 Erythrocyte distribution width Ratio (RBC) 13.0 % Normal 11.6-14.6 [facility] Work Phone: Comment on above: [facility] [address] [place], [place], [phone] Hematocrit Volume Fraction (Bld) 38.9 % Normal 37-47 [facility] Work Phone: Comment on above: [facility] [address] [place], [address] Hemoglobin mass conc (Bld) 12.5 g/dL Normal 12.0-15.0 [facility] Work Phone: Comment on above: [facility] [address] [place], [place], [address] MCH Entitic mass (RBC) 28.9 pg Normal 27.0-32.0 [facility] Work Phone: Comment on above: [facility] [address] [place], [address] MCHC mass conc (RBC) 32.1 {g/gl} Normal 32-36 [facility] prehensive Internal Medicine Work Phone: Comment on above: [facility] [address] [place], [place], [phone] MCV Entitic volume (RBC) 90.0 fL Normal 81-99 [facility] Work Phone: Comment on above: [facility] [address] [place], [address] Platelet mean volume Entitic volume (Bld) 11.4 fL Normal 6.2-12.0 Comprehensi Internal Medicine Work Phone: Comment on above: [facility] [address] [place], [address] Platelets #/vol (Bld) 214 10*3/uL Normal 150-450 [facility] hospitalehensive Internal Medicine Work Phone: Comment on above: [facility] [address] [place], [address] RBC #/vol (Bld) 4.32 {M/mm3} Normal 4.2-5.4 Compreh ensive Internal Medicine Work Phone: Comment on above: [facility] [address]mwdb[address] [place], [address] WBC #/vol (Bld) 5.7 10*3/uL Normal 4.4-11.0 Comprehe nsive Internal Medicine Work Phone: Comment on above: [facility] [address] [place], [address] CBC-Complete Blood Cnt No Diff 42.2 fL Normal 35.1-43.9 [facility] Work Phone: Comment on above: [facility] [address] [place], [address] ASSAY, TROPONIN, QUANTITATIV E (aka Troponin I) ([id number])Ordered By: Aircraft Detail Draftsperson on 08-01-2016 Troponin I.cardiac [Mass/Vol] ng/mL Normal 0.00-0.04 [facility]; [facility] Work Phone: Comment on above: PATIENT NOT FASTINGP ERFORMED BY: [facility] Ufozrz5193 [facility] [id number] Troponin I.cardiac mass conc ng/mL Normal 0.00-0.04 [facility] Work Phone: Comment on above: PATIENT NOT FASTINGP ERFORMED BY: Youth Noise [facility] Hgydml1422 [facility] [id number] CPK MB FRACTION ([id number])Order ed By: Aircraft Detail Draftsperson on 08-01-2016 CK.MB mass conc 1.0 ng/mL Normal 0.0-5.3 Comprehen sive Internal Medicine Work Phone: Comment on above: PATIENT NOT FASTINGP ERFORMED BY: ANASTASIYA LabComarcus BonillaIymjgt0147 [address] RoadDublin [place] [id number] GONADOTROPIN-FSH ([id number])Orde red By: Aircraft Detail Draftsperson on 08-01-2016 Follitropin Qn 9.5 m[IU]/mL Normal Comprehe nsive Internal Medicine Work Phone: Comment on above: Adult Female: Follic ular phase 3.5 - 12.5 Ovulation phase 4.7 - 21.5 Luteal phase 1.7 - 7.7 Postmenopausal 25.8 - 134.8 PATIENT NOT FASTINGP ERFORMED BY: ANASTASIYA LabSaskia BonillaIberle[address] [facility]blin [place] [id number] GONADOTROPIN-LH ([id number])Order ed By: Aircraft Detail Draftsperson on 08-01-2016 Lutropin Qn 4.1 m[IU]/mL Normal Comprehensi ve Internal Medicine Work Phone: Comment on above: Adult Female: Follic ular phase 2.4 - 12.6 Ovulation phase 14.0 - 95.6 Luteal phase 1.0 - 11.4 Postmenopausal 7.7 - 58.5 PATIENT NOT FASTINGP ERFORMED BY: ANASTASIYA Bonillalin6370 [facility]in [place] [id number] MYOGLOBIN (65215)Ordered By: Aircraft Detail Draftsperson on 08-01-2016 Myoglobin mass conc 21 ng/mL Abnormal 25-58 Compr ehensive Internal Medicine Work Phone: Comment on above: PATIENT NOT FASTINGP ERFORMED BY: ANASTASIYA [facility] Pjbvps[address] [facility]blin [place] [id number] T3, FREE (TRIDOTHYRONINE) (0 5667)Ordered By: Aircraft Detail Draftsperson on 08-01-2016 T3 free mass conc 2.7 pg/mL Normal 2.0-4.4 Compreh ensive Internal Medicine Work Phone: Comment on above: PATIENT NOT FASTINGP ERFORMED BY: ANASTASIYA [facility] Zdhikd7102 [address] Roadblin [place] [id number] T4, FREE (THYROXINE) ([id number]) Ordered By: Aircraft Detail Draftsperson on 08-01-2016 T4 free mass conc 1.18 ng/dL Normal 0.82-1.77 Compreh ensive Internal Medicine Work Phone: Comment on above: PATIENT NOT FASTINGP ERFORMED BY: [facility] Jvsboo2396 [facility] [id number] TSH ([id number])Ordered By: Syste m Junior Buyer on 08-01-2016 Thyrotropin Qn 2.980 {uIU/mL} Normal 0.450-4.50 0 [facility] Work Phone: Comment on above: PATIENT NOT FASTINGP ERFORMED BY: [facility] Mkwgln1844 [facility] [id number] HPV automatic (85444)Ordered By: Aircraft Detail Draftsperson on 03-06-2016 HPV 16+18+31+33+35+39+45+ 51+52+56+58+59+68 DNA Probe+sig amp Ql (Cvx) Negative Normal [facility] Work Phone: Comment on above: This high-risk HPV t est detects thirteen high-risk types(16/18/31/33/35/39/45/51/52/56/58/59/68) without differentiation. . Source.............C ervix;EndocervixNo. of containers..01 CYTYC Thin Prep VialPATIENT NOT FASTINGPERFORMED BY: WB [employer] [address] [id number] BY: =G [employer] Deugnczsay[address] [id number] Information: [id number] HPV 16+18+31+33+35+39+45+ 51+52+56+58+59+68 DNA Probe+sig amp Ql (Cvx) Negative Normal [facility]; [facility] Work Phone: Comment on above: This high-risk HPV t est detects thirteen high-risk types(16/18/31/33/35/39/45/51/52/56/58/59/68) without differentiation. . Source.............C ervix;EndocervixNo. of containers..01 CYTYC Thin Prep VialPATIENT NOT FASTINGPERFORMED BY: [facility] Dzjbzkxeup[address] [place] [id number] BY: =G [facility] Lcvjgerrva8[address] [place] [id number] Information: [id number] Microscopic observation Other stain Nom (Unsp spec) . Normal Comprehens [facility]aris Internal Medicine Work Phone: Comment on above: Source.............C ervix;EndocervixNo. of containers..01 CYTYC Thin Prep VialPATIENT NOT FASTINGPERFORMED BY: Hallpass MediaThe [facility] St[facility] Yqldzmxilb453 [address] W [id number] BY: =G LabThe [facility] Zuoitxvxtz458 [address] W [id number] Information: [id number] Pathology report final diagnosis Narrative SPRCS Normal [facility] Work Phone: Comment on above: NEGATIVE FOR INTRAEP ITHELIAL LESION AND MALIGNANCY.Satisfactory for evaluation. Endocervical and/or squamous metaplasticcells (endocervical component) are present.Z11.51Ivett Smith Film Historian Source.............C ervix;EndocervixNo. of containers..01 CYTYC Thin Prep VialPATIENT NOT FASTINGPERFORMED BY: LabThe [facility] Ppzoxwphwk376 [address] Alidasaint clare's hospital [facility] W [id number] BY: =G [facility] Qwhxhudcan780 [address] Elisarmercedessaint clare's hospital at [place] [id number] Information: [id number] HPV automatic (08695) PAPSMR Normal [facility] prehensive Internal Medicine Work Phone: Comment on above: The Pap smear is a s creening test designed to aid in the detection ofpremalignant and malignant conditions of the uterine cervix. It is not adiagnostic procedure and should not be used as the sole means of detectingcervical cancer. Both false-positive and false-negative reports do occur. .This liquid based ThinPrep(R) pap test was screened with theuse of an image guided system. Source.............C ervix;EndocervixNo. of containers..01 CYTYC Thin Prep VialPATIENT NOT FASTINGPERFORMED BY: [facility] Fey[address]yg[address] [id number] BY: =G [address] [id number] Information: [id number] HPV automatic (07600)Ordered By: Aircraft Detail Draftsperson on 03-09-2014 HPV 16+18+31+33+35+39+45+ 51+52+56+58+59+68 DNA Probe+sig amp Ql (Cvx) Negative Normal [facility] Work Phone: Comment on above: This high-risk HPV t est detects thirteen high-risk types(16/18/31/33/35/39/45/51/52/56/58/59/68) without differentiation. . Source.............C ervical;EndocervicalNo. of containers..01 CYTYC Thin Prep VialPATIENT NOT FASTINGPERFORMED BY: [facility] [address] [id number] BY: =G [facility] Ttbdhxiyrl[address] [id number] Information: [id number] HPV 16+18+31+33+35+39+45+ 51+52+56+58+59+68 DNA Probe+sig amp Ql (Cvx) Negative Normal [facility]; [facility] Work Phone: Comment on above: This high-risk HPV t est detects thirteen high-risk types(16/18/31/33/35/39/45/51/52/56/58/59/68) without differentiation. . Source.............C ervical;EndocervicalNo. of containers..01 CYTYC Thin Prep VialPATIENT NOT FASTINGPERFORMED BY: [facility] Zgmqhdposg742 [address] Alidasaint clare[facility] hospital [facility] W [id number] BY: =G [facility] Wfxufcwtrb496 [address] Alidasaint clare's hospital [facility] W [id number] Information: [id number] Microscopic observation Other stain Nom (Unsp spec) . Normal Comprehens [facility] Internal Medicine Work Phone: Comment on above: Source.............C ervical;EndocervicalNo. of containers..01 CYTYC Thin Prep VialPATIENT NOT FASTINGPERFORMED BY: LabThe [facility] Ndpncstsnl225 [address] Alidasaint cl[facility] W [id number] BY: =G Lab[facility] Phrgxydoke762 [facility] CenterCourtneyendless mountains health systems W [id number] Information: [id number] Pathology report final diagnosis Narrative SPRCS Normal [facility] Work Phone: Comment on above: NEGATIVE FOR INTRAEP ITHELIAL LESION AND MALIGNANCY.Satisfactory for evaluation. Endocervical and/or squamous metaplasticcells (endocervical component) are present.V72.31 ; Routine gynecological examinationMatthew A Edith, Film Historian (ASCP) Source.............C ervical;EndocervicalNo. of containers..01 CYTYC Thin Prep VialPATIENT NOT FASTINGPERFORMED BY: [facility] Fmmmhemory271 [facility] CenterGiovanilogan regional medical center W [id number] BY: =G [facility] Olojyqjazp232 [facility] CenterkeyNorfolk State Hospitalrendless mountains health systems W [id number] Information: [id number] HPV automatic (73600) PAPSMR Normal Com prehensive Internal Medicine Work Phone: Comment on above: The Pap smear is a s creening test designed to aid in the detection ofpremalignant and malignant conditions of the uterine cervix. It is not adiagnostic procedure and should not be used as the sole means of detectingcervical cancer. Both false-positive and false-negative reports do occur. .This liquid based ThinPrep(R) pap test was screened with theuse of an image guided system. Source.............C ervical;EndocervicalNo. of containers..01 CYTYC Thin Prep VialPATIENT NOT FASTINGPERFORMED BY: WB [facility] Igcqmlnqql670 [facility] MeharryVator.TVrendless mountains health systems W [id number] BY: =G LabCoCarenaDiirivwawc814 [facility] Hospitalrlessaint clare's [facility] [place] [id number] Information: [id number] HgA1C , Office (77223)Ordere d By: Jordyn Nick on 04-06-2013 Hemoglobin A1c/Hemoglobin.total mass fraction (Bld) 5.4 % Normal 4.6 - 7.1 Comprehensiv e Internal Medicine Work Phone: HPV automatic (62544)Ordered By: Aircraft Detail Draftsperson on 04-09-2012 HPV 16+18+31+33+35+39+45+ 51+52+56+58+59+68 DNA Probe+sig amp Ql (Cvx) Negative Normal [facility] Work Phone: Comment on above: This high-risk HPV t est detects thirteen high-risk types(16/18/31/33/35/39/45/51/52/56/58/59/68) without differentiation. . Source.............C ervical;EndocervicalNo. of containers..01 CYTYC Thin Prep VialPATIENT NOT FASTINGPERFORMED BY: WB LabUroSens120 [address] CasaHoprGeeklistsaint clare's hospital at sussex W [id number] BY: =G [facility] Ivuylnhxne568 [address] KontagentzaVator.TVrlessaint clare's hospital at [facility] W [id number] Information: [id number] HPV 16+18+31+33+35+39+45+ 51+52+56+58+59+68 DNA Probe+sig amp Ql (Cvx) Negative Normal [facility]; [facility] Work Phone: Comment on above: This high-risk HPV t est detects thirteen high-risk types(16/18/31/33/35/39/45/51/52/56/58/59/68) without differentiation. . Source.............C ervical;EndocervicalNo. of containers..01 CYTYC Thin Prep VialPATIENT NOT FASTINGPERFORMED BY: ZOCKO Modale Cutting Edge InformationAshley Regional Medical Center [id number] BY: =G [employer] [place], [place] [address]Vator.TVrEdgewood Surgical Hospital [id number] Information: [id number] Microscopic observation Other stain Nom (Unsp spec) . Normal Comprehens adamaris Internal Medicine Work Phone: Comment on above: Source.............C ervical;EndocervicalNo. of containers..01 CYTYC Thin Prep VialPATIENT NOT FASTINGPERFORMED BY: ZOCKO Modale CasaHopGeeklistAshley Regional Medical Center [id number] BY: =G Slots.com48 Beard StreetVator.TVSpecial Care Hospital [id number] Information: [id number] Pathology report final diagnosis Narrative SPRCS Normal [facility] Work Phone: Comment on above: NEGATIVE FOR INTRAEP ITHELIAL LESION AND MALIGNANCY.THIS SPECIMEN WAS RESCREENED PART OF OUR CLEAN RICE BROKER PROGRAM.Satisfactory for evaluation. Endocervical and/or squamous metaplasticcells (endocervical component) are present.V72.31 ; Routine gynecological examinationKaylen Gardner, Film Historian (ASCP)Sammy Banda, Supervisory Film Historian (ASCP) Source.............C ervical;EndocervicalNo. of containers..01 CYTYC Thin Prep VialPATIENT NOT FASTINGPERFORMED BY: [facility] Kzotlmqk[address] [id number] BY: =G [facility] Kelqnvelyd30695 Davidson StreetCourtneyEdgewood Surgical Hospital [id number] Information: [id number] HPV automatic (18708) PAPSMR Normal Lionical prehensive Internal Medicine Work Phone: Comment on above: The Pap smear is a s creening test designed to aid in the detection ofpremalignant and malignant conditions of the uterine cervix. It is not adiagnostic procedure and should not be used as the sole means of detectingcervical cancer. Both false-positive and false-negative reports do occur. .This liquid based ThinPrep(R) pap test was screened with theuse of an image guided system. Source.............C ervical;EndocervicalNo. of containers..01 CYTYC Thin Prep VialPATIENT NOT FASTINGPERFORMED BY: WB LabCo Izoxwwimgp[address] [id number] BY: =G LabThe [facility] Drnjogckir20495 Davidson StreetkeyNorfolk State HospitalyeseniaEdgewood Surgical Hospital [id number] Information: [id number] URINE MCKENZIE CULTURE-SALOME COL C OUNT (72038)Ordered By: Aircraft Detail Draftsperson on 11-26-2011 Bacteria identified Cx Nom (U) Escherichia coli Normal [facility] Work Phone: Comment on above: Greater than 100,000 colony forming units per mL PATIENT NOT FASTINGP ERFORMED BY: ANASTASIYA [facility] Xeteut4340 [facility] [id number] Information: SRC:UR P69800 Bacteria identified Cx Nom (U) Final report Normal [facility] Work Phone: Comment on above: PATIENT NOT FASTINGP ERFORMED BY: ANASTASIYA [facility] Hdxnkh5821 [facility] [id number] Information: SRC:UR N02388 Other Antibiotic [facility] Cuffed and Wanted prehensive Internal Medicine Work Phone: Comment on above: S = Susceptibl e; I = Intermediate; R = Resistant P = Positive; N = Negative MICS are expressed in micrograms per mL Antibiotic RSLT#1 RSLT#2 RSLT#3 RSLT#4Amoxicillin/Clavulanic Acid SAmpicillin SCefazolin SCefepime SCeftriaxone SCefuroxime SCephalothin SCiprofloxacin SESBL NErtapenem SGentamicin SImipenem SLevofloxacin SNitrofurantoin SPiperacillin STetracycline STobramycin STrimethoprim/Sulfa S PATIENT NOT FASTINGP ERFORMED BY: ANASTASIYA [facility] Efbmrs6914 Morejon RoadDublin [place] [id number] Information: SRC:UR U17441 Urinalysis, Office (25811)Or dered By: Marcela Briseno on 11-26-2011 Bilirubin Ql (U) Negative Normal Comprehe nsive Internal Medicine Work Phone: Bilirubin Ql (U) Negative Normal Comprehe nsive Internal Medicine; [facility] Work Phone: Glucose Test strip (U) [Mass/Vol] Negative Normal [facility]; [facility] Work Phone: Glucose Test strip mass conc (U) Negative Normal [facility] Work Phone: Hemoglobin Ql (U) Hemolyzed Large Normal Co mprehensive [facility] Work Phone: Ketones Ql (U) Negative Normal Comprehens [facility] Work Phone: Ketones Ql (U) Negative Normal Comprehens [facility]; [facility] Work Phone: Leukocyte esterase Test strip Ql (U) Negative Normal [facility] Work Phone: Leukocyte esterase Test strip Ql (U) Negative Normal [facility]; [facility] Work Phone: Nitrite Ql (U) Positive Normal Comprehens [facility] Work Phone: Nitrite Ql (U) Positive Normal Comprehens [facility]; [facility] Work Phone: pH (U) 6.0 [pH] Normal [facility] Work Phone: Protein Ql (U) 300 mg/dL Normal Comprehens adamaris [facility] Work Phone: Specific gravity Relative Density (U) 1.025 1 Normal Comprehensi ve Internal Medicine Work Phone: Urobilinogen mass/time (24H U) Normal Normal [facility] Work Phone: BCOrdered By: Aircraft Detail Draftsperson on 03-06-2011 BC No growth in 5 days. Normal Comp rehensive Internal Medicine Work Phone: CBCDOrdered By: System Manag er on 03-06-2011 Band form neutrophils/100 WBC (Bld) 2 % Normal 0-5 [facility] Work Phone: Basophils/100 WBC (Bld) 1 % Normal 0-1 [facility] Work Phone: Eosinophils/100 WBC (Bld) 1 % Normal 0-5 [facility] Work Phone: Erythrocyte distribution width Ratio (RBC) 12.7 % Normal 11.6-14.6 [facility] Work Phone: Hematocrit Volume Fraction (Bld) 35.8 % Abnormal 37-47 [facility] Work Phone: Hemoglobin mass conc (Bld) 12.3 g/dL Normal 12.0-16.0 [facility] Work Phone: Lymphocytes/100 WBC (Bld) 7 % Abnormal 19-41 [facility] Work Phone: Comment on above: AMENDED REPORT 05/06/10 1842 LYMPH previously reported as: 31 % MCH Entitic mass (RBC) 29.9 pg Normal 27.0-32.0 [facility] Work Phone: MCHC mass conc (RBC) 34.3 g/dL Normal 32-36 Comp rehensive Internal Medicine Work Phone: MCV Entitic volume (RBC) 87.2 fL Normal 81-99 [facility] Work Phone: Monocytes/100 WBC (Bld) 4 % Normal 0-10 [facility] Work Phone: Neutrophils #/vol (Bld) 8.1 3/uL Abnormal 2.0-7.7 [facility] Work Phone: Comment on above: AMENDED REPORT 1 05/06/101827 AMENDED REPORT 03/06/111843 AMENDED REPORT 03/06/111827 Platelet mean volume Entitic volume (Bld) 11.5 fL Normal 6.5-12.0 Comprehensi ve Internal Medicine Work Phone: Platelets #/vol (Bld) SLT DEC Normal Com prehensive Internal Medicine Work Phone: Platelets #/vol (Bld) 122 10*3/uL Abnormal 150-450 Co mprehensive Internal Medicine Work Phone: RBC #/vol (Bld) 4.11 {M/mm3} Abnormal 4.2-5.4 Compreh ensive Internal Medicine Work Phone: WBC #/vol (Bld) 9.1 10*3/uL Normal 4.4-11.0 Comprehe nsive Internal Medicine Work Phone: CBCD 100 1 Normal [facility] Work Phone: CBCD 87 % Abnormal 47-70 [facility] Work Phone: Comment on above: AMENDED REPORT 1 05/06/101841 SEGS previously reported as: 63 % CBCD LARGE Normal [facility] Work Phone: CBCD 2 % Normal 0-5 [facility] Work Phone: CHEST, PA AND LATERALOrdered By: Aircraft Detail Draftsperson on 03-06-2011 CHEST, PA AND LATERAL See Note Normal Com prehensive Internal Medicine Work Phone: Comment on above: PROCEDURE: X-RAY JACQUIE REASON FOR EXAM: Female, 46 years old. The patient presents with coughand fever. TECHNIQUE: PA and lateral views of the chest. COMPARISON: None. FINDINGS: The lungs are expanded. There is evidence of a right upper lobepneumoniaas well as patchy infiltrate in the left upper lobe. There is nodemonstrated pleural abnormality. Normal heart and pericardium. Normal mediastinum and yamil. Normal visualized pulmonary arteries.Normalvisualized aortic arch and descending thoracic aorta. There are diffuse degenerative changes of the visualized thoracic spine.Normal visualized ribs, clavicles, and shoulders. There is no demonstrated abnormality of the visualized soft tissuestructures of the upper abdomen. IMPRESSION:Right upper lobe pneumonia and patchy infiltrate in the left upper lobe.Follow-up is suggested. Dictated on 03/06/11 1412 by Sarabjit Aguilera MDrieleTranscribed on 03/06/11 1440 by ITS IMPORTSign by Miguelito Aguilera MD on 03/06/11 1441 Sign by: Miguelito Aguilera MD Result: NORM C+C COMP METABOLICOrdered By: Sy stem Junior Buyer on 03-06-2011 Albumin mass conc 3.2 g/dL Abnormal 3.4-5.0 Compreh [facility] Internal Medicine Work Phone: Albumin/Globulin mass ratio 0.8 {RATIO} Abnormal 0.9-2.4 [facility] Internal Medicine Work Phone: ALP enzyme act/vol 71 U/L Normal 50-136 [facility] Internal Medicine Work Phone: ALT enzyme act/vol 41 U/L Normal 12-78 [facility] Internal Medicine Work Phone: Anion gap molar conc 10 mmol/L Normal 5-15 Comp [facility] Internal Medicine Work Phone: AST enzyme act/vol 29 U/L Normal 15-37 [facility] Internal Medicine Work Phone: Bilirubin mass conc 0.40 mg/dL Normal 0.00-1.00 Compr [facility] Internal Medicine Work Phone: Calcium mass conc 7.8 mg/dL Abnormal 8.5-10.1 Compreh [facility] Internal Medicine Work Phone: Chloride molar conc 100 mmol/L Normal 98-107 [facility] Internal Medicine Work Phone: CO2 molar conc 24.0 mmol/L Normal 21.0-32.0 Comprehen sive Internal Medicine Work Phone: Creatinine mass conc 1.0 mg/dL Normal 0.6-1.0 Comp rehensive Internal Medicine Work Phone: GFR/1.73 sq M predicted among blacks MDRD vol rate/area (S/P/Bld) 78 mL/min/{1.73_m2} Normal Comprehe nsive Internal Medicine Work Phone: GFR/1.73 sq M.predicted MDRD (S/P/Bld) [Vol rate/Area] 64 mL/min/{1.73_m2} Normal Comprehensiv e Internal Medicine Work Phone: GFR/1.73 sq M.predicted MDRD vol rate/area 64 mL/min/{1.73_m2} Normal Comprehensiv e Internal Medicine Work Phone: Globulin mass conc (S) 4.2 g/dL Normal 2.7-4.2 [facility] Work Phone: Glucose mass conc 115 mg/dL Abnormal 70-110 Compreh ensive Internal Medicine Work Phone: Comment on above: Fasting Glucose resu lt from 110 to <126 mg/dL suggests IMPAIRED HOMEOSTASIS per A.D.A. criteria. Potassium molar conc 3.4 mmol/L Abnormal 3.5-5.1 Comp rehensive Internal Medicine Work Phone: Protein mass conc 7.4 g/dL Normal 6.4-8.2 Compreh ensive Internal Medicine Work Phone: Sodium molar conc 134 mmol/L Abnormal 136-145 Compreh ensive Internal Medicine Work Phone: Urea nitrogen mass conc 10 mg/dL Normal 7-18 [facility] Work Phone: Urea nitrogen/Creatinine mass ratio 10.0 {RATIO} Normal 10-20 [facility] Work Phone: Rapid Flu (36506 x 2)Ordered By: Vahid Riding on 03-06-2011 FLUAV Ag IA Ql (Throat) Negative Normal [facility] Work Phone: Rapid Flu (53613 x 2)on 02-14 FLUAV Ag IA Ql (Throat) Negative Normal [facility]; [facility] Work Phone: THYROIDOrdered By: System Ursula andrea on 08-18-2010 THYROID See Note Normal [facility] Work Phone: Comment on above: THYROID ULTRASOUND C LINICAL:This is a 45-year-old female with thyromegaly. TECHNIQUE:Real time sonographic images were obtained. COMPARISON:None. FINDINGS:The right lobe measures 4.5 x 1.8 x 1.5cm. It is homogeneous with noevidence of a solid or cystic lesion. The isthmus measures 5mm. The left lobe measures 4.4 x 1.4 x 1.1cm. It is homogeneous with noevidence of a solid or cystic lesion. IMPRESSION:1. Homogeneous thyroid gland with no evidence of solid or cysticabnormalities. Dictated on 08/18/10 1529 by Keny KINGSTON,Ana Cristina Landaverdescribed on 08/21/10713 by ITS IMPORTSign by Keny KINGSTON,Ana Cristina Marcial on 08/21/10713 Sign by: Ana Cristina Bustillo MD D-DIMER QUANTOrdered By: Kyaw tem Junior Buyer on 08-17-2010 D-DIMER QUANT <200 Normal Comprehensi ve Internal Medicine Work Phone: Comment on above: NORMAL D-Dimer level indicates no DVT or PE. T4, FREE (45509)Ordered By: Aircraft Detail Draftsperson on 08-17-2010 T4 free mass conc 1.15 ng/dL Normal 0.82-1.77 Compreh ensive Internal Medicine Work Phone: Comment on above: PATIENT NOT FASTINGP ERFORMED BY: ANASTASIYA eBureaumarcus Anjado8367 [facility] [id number] Information: [id number] T4, TOTAL (01135)Ordered By: Aircraft Detail Draftsperson on 08-17-2010 T4 mass conc 6.9 ug/dL Normal 4.5-12.0 Comprehensiv e Internal Medicine Work Phone: Comment on above: PATIENT NOT FASTINGP ERFORMED BY: ANASTASIYA Insane LogicDublin [place] [id number] TSH (THYROID STIMULATING HOR ANGELITO) (84683)Ordered By: Aircraft Detail Draftsperson on 08-17-2010 Thyrotropin Qn 3.820 {uIU/mL} Normal 0.450-4.50 0 [facility] Work Phone: Comment on above: PATIENT NOT FASTINGP ERFORMED BY: ANASTASIYA [facility] Aliifr2556 [facility] [id number] URINE MCKENZIE CULTURE (SALOME COL COUNT) ([id number])Ordered By: Aircraft Detail Draftsperson on 07-17-2010 Bacteria identified Cx Nom (U) Enterococcus faecalis Normal Comprehens adamaris [facility] Work Phone: Comment on above: 2,000 Colonies/mLNot e: this isolate is vancomycin-susceptible.This information is provided for epidemiologic purposesonly: vancomycin is not among the antibioticsrecommended for therapy of urinary tract infectionscaused by Enterococcus.For Enterococcus species, cephalosporins, aminoglycosides (except forhigh-level resistance screening), clindamycin, and trimethoprim-sulfamethoxazole are not effective clinically. Fluoroquinolones areused primarily for treating urinary tract infections. (CLSI, Z466-Z77,2009) PATIENT NOT FASTINGP ERFORMED BY: ANASTASIYA Hallpass MediaThe Rehabilitation Institute Of St. Louis Qnkhdd8049 [facility] [id number] Information: SRC:UR M11283 Bacteria identified Cx Nom (U) MUG Normal [facility] Work Phone: Comment on above: Mixed urogenital swapna ra10,000-25,000 colony forming units per mL S = Susceptible; I = Intermediate; R = Resistant P = Positive; N = Negative MICS are expressed in micrograms per mL Antibiotic RSLT#1 RSLT#2 RSLT#3 RSLT#4Amikacin SAmoxicillin/Clavulanic Acid SAmpicillin SCefazolin SCefepime SCefoxitin SCeftriaxone SCiprofloxacin S SESBL NErtapenem SGentamicin SImipenem SLevofloxacin S SNitrofurantoin S SPenicillin STobramycin STrimethoprim/Sulfa SVancomycin S PATIENT NOT FASTINGP ERFORMED BY: Hallpass MediaHarbor Oaks Hospital6370 [facility] [id number] Information: SRC:UR T72511 Bacteria identified Cx Nom (U) Final report Normal [facility] Work Phone: Comment on above: PATIENT NOT FASTINGP ERFORMED BY: [facility]6370 [facility] [id number] Information: SRC:UR M72114 Bacteria identified Cx Nom (U) ECV Normal [facility] Work Phone: Comment on above: Escherichia coli, id entified by an automated biochemical system.25,000-50,000 colony forming units per mL PATIENT NOT FASTINGP ERFORMED BY: ANASTASIYA [facility]6370 [facility] [id number] Information: SRC:UR N38679 BILAT SCRN DIGITAL & CADOrde red By: Aircraft Detail Draftsperson on 01-23-2010 BILAT SCRN DIGITAL & CAD See Note Normal [facility] Work Phone: Comment on above: Exam Number: [id number] AMMOGRAPHY - BILATERAL SCREENING INDICATION:Routine annual screening examination. PERTINENT HISTORY:Non-contributory. TECHNIQUE:Digital examination. Mediolateral oblique (MLO) and craniocaudad (CC) views of both breasts were obtained. CAD was performed on this study. COMPARISON:February 21, 2006 and June 07, 2008 FINDINGS:The breast composition is composed of scattered fibroglandular densities. There are no masses or suspicious microcalcifications. No other significant abnormalities are identified. IMPRESSION:Normal bilateral screening mammogram. Yearly follow-up recommended. ASSESSMENT CATEGORY:Category 2: Benign finding(s) Approximately 10% of breast cancers are not detected by mammography. A normal mammogram should not delay biopsy of a clinically suspicious abnormality. Reported By: DESTINY CASTILLO Thin prep Pap ([id number])Ordered By: Aircraft Detail Draftsperson on 01-23-2010 Microscopic observation Other stain Nom (Unsp spec) . Normal Comprehens adamaris Internal Medicine Work Phone: Comment on above: Source.............C ervical;EndocervicalNo. of containers..01 CYTYC Thin Prep VialPATIENT NOT FASTINGPERFORMED BY: [facility] [address] [id number] Information: [id number] Pathology report final diagnosis Narrative SPRCS Normal [facility] Work Phone: Comment on above: NEGATIVE FOR INTRAEP ITHELIAL LESION AND MALIGNANCY.Satisfactory for evaluation. Endocervical and/or squamous metaplasticcells (endocervical component) are present.V72.31 ; Routine gynecological examinationSam Ashley Film Historian (ASCP) Source.............C ervical;EndocervicalNo. of containers..01 CYTYC Thin Prep VialPATIENT NOT FASTINGPERFORMED BY: [employer] [address] [id number] Information: [id number] Thin prep Pap (92987) PAPSMR Normal [facility] Internal Medicine Work Phone: Comment on above: The Pap smear is a s creening test designed to aid in the detection ofpremalignant and malignant conditions of the uterine cervix. It is not adiagnostic procedure and should not be used as the sole means of detectingcervical cancer. Both false-positive and false-negative reports do occur. .The HPV DNA reflex criteria were not met with this specimen resulttherefore, no HPV testing was performed. . Source.............C ervical;EndocervicalNo. of containers..01 CYTYC Thin Prep VialPATIENT NOT FASTINGPERFORMED BY: Slots.com[address] [id number] Information: [id number] CBC WITH MANUAL DIFF (59591) Ordered By: Aircraft Detail Draftsperson on 01-18-2010 Basophils #/vol (Bld) 0.1 {x10E3/uL} Normal 0.0-0.2 [facility] Work Phone: Comment on above: PATIENT NOT FASTINGP ERFORMED BY: LabThe [facility] St[facility] Mpuhrz7290 MorejonBarnes-[facility] [id number] Information: [id number] Basophils (Bld) [#/Vol] 0.1 10*3/uL Normal 0.0-0.2 [facility]; [facility] Work Phone: Comment on above: PATIENT NOT FASTINGP ERFORMED BY: LabCoRaritan Bay Medical CenterFdbxqx2164 [address] [facility] [id number] Information: [id number] Basophils/100 WBC (Bld) 1 % Normal 0-3 [facility] Work Phone: Comment on above: PATIENT NOT FASTINGP ERFORMED BY: LabCoRaritan Bay Medical CenterIxtiiy1045 [facility] [id number] Information: 888643,[id number] Eosinophils #/vol (Bld) 0.5 {x10E3/uL} Abnormal 0.0-0.4 [facility] Work Phone: Comment on above: PATIENT NOT FASTINGP ERFORMED BY: LabCoHolly Ville 2597370 [facility] [id number] Information: [id number] Eosinophils (Bld) [#/Vol] 0.5 10*3/uL Abnormal 0.0-0.4 [facility]; [facility] Work Phone: Comment on above: PATIENT NOT FASTINGP ERFORMED BY: LabCoRaritan Bay Medical CenterYlrlzi7170 [facility] [id number] Information: [id number] Eosinophils/100 WBC (Bld) 7 % Normal 0-7 [facility] Work Phone: Comment on above: PATIENT NOT FASTINGP ERFORMED BY: [facility] Wcoaih8167 [facility] [id number] Information: [id number] Erythrocyte distribution width Ratio (RBC) 13.1 % Normal 11.7-15.0 [facility] Work Phone: Comment on above: PATIENT NOT FASTINGP ERFORMED BY: [facility] Qlliez8658 [facility] [id number] Information: [id number] Hematocrit Volume Fraction (Bld) 39.2 % Normal 34.0-44.0 [facility] Work Phone: Comment on above: PATIENT NOT FASTINGP ERFORMED BY: ANASTASIYA [employer]app6370 [facility] [id number] Information: [id number] Hemoglobin mass conc (Bld) 12.8 g/dL Normal 11.5-15.0 [facility] Work Phone: Comment on above: PATIENT NOT FASTINGP ERFORMED BY: LabCo[address] [id number] Information: [id number] Immature granulocytes #/vol (Bld) 0.0 {x10E3/uL} Normal 0.0-0.1 [facility] Work Phone: Comment on above: PATIENT NOT FASTINGP ERFORMED BY: Rafael[address] [id number] Information: [id number] Immature granulocytes (Bld) [#/Vol] 0.0 10*3/uL Normal 0.0-0.1 [facility]; [facility] Work Phone: Comment on above: PATIENT NOT FASTINGP ERFORMED BY: ANASTASIYA HallHarbor Oaks Hospital6370 [facility] [id number] Information: [id number] Immature granulocytes/100 WBC (Bld) 0 % Normal 0-1 [facility] Work Phone: Comment on above: PATIENT NOT FASTINGP ERFORMED BY: LabHarbor Oaks Hospital6370 [facility] [id number] Information: [id number] Lymphocytes #/vol (Bld) 1.8 {x10E3/uL} Normal 0.7-4.5 [facility] Work Phone: Comment on above: PATIENT NOT FASTINGP ERFORMED BY: LabCoHolly Ville 2597370 [facility] [id number] Information: [id number] Lymphocytes (Bld) [#/Vol] 1.8 10*3/uL Normal 0.7-4.5 [facility]; [facility] Work Phone: Comment on above: PATIENT NOT FASTINGP ERFORMED BY: [facility] Cdzoqx2927 [place] [facility] [id number] Information: [id number] Lymphocytes/100 WBC (Bld) 26 % Normal 14-46 [facility] Work Phone: Comment on above: PATIENT NOT FASTINGP ERFORMED BY: [facility] Uautth2858 [place] [facility] [id number] Information: [id number] MCH Entitic mass (RBC) 28.9 pg Normal 27.0-34.0 [facility] Work Phone: Comment on above: PATIENT NOT FASTINGP ERFORMED BY: [facility] Yjmbqo6619 [facility] [id number] Information: [id number] MCHC mass conc (RBC) 32.7 g/dL Normal 32.0-36.0 [facility] Internal Medicine Work Phone: Comment on above: PATIENT NOT FASTINGP ERFORMED BY: [facility] Csknof7005 [facility] [id number] Information: [id number] MCV Entitic volume (RBC) 89 fL Normal 80-98 [facility] Work Phone: Comment on above: PATIENT NOT FASTINGP ERFORMED BY: CB LabCo Opfluz3171 [facility] [id number] Information: [id number] Monocytes #/vol (Bld) 0.5 {x10E3/uL} Normal 0.1-1.0 [facility] Work Phone: Comment on above: PATIENT NOT FASTINGP ERFORMED BY: [facility] Pifjql5026 [facility] [id number] Information: [id number] Monocytes (Bld) [#/Vol] 0.5 10*3/uL Normal 0.1-1.0 [facility]; [facility] Work Phone: Comment on above: PATIENT NOT FASTINGP ERFORMED BY: ANASTASIYA [facility] Nzrmip2754 [address]jon RoadDublin [place] [id number] Information: [id number] Monocytes/100 WBC (Bld) 7 % Normal 4-13 [facility] Work Phone: Comment on above: PATIENT NOT FASTINGP ERFORMED BY: CB [facility] Owwcou1807 [address] RoadFormerly [facility]in [place] [id number] Information: [id number] Neutrophils #/vol (Bld) 4.2 {x10E3/uL} Normal 1.8-7.8 [facility] Work Phone: Comment on above: PATIENT NOT FASTINGP ERFORMED BY: CB [facility] Oddrvl2489 [facility] [id number] Information: [id number] Neutrophils (Bld) [#/Vol] 4.2 10*3/uL Normal 1.8-7.8 [facility]; [facility] Work Phone: Comment on above: PATIENT NOT FASTINGP ERFORMED BY: ANASTASIYA [facility] Dbxvjf7969 [facility] [id number] Information: [id number] Neutrophils/100 WBC (Bld) 59 % Normal 40-74 [facility] Work Phone: Comment on above: PATIENT NOT FASTINGP ERFORMED BY: CB [facility] Kvnalo4732 [address]Formerly [facility]in [place] [id number] Information: [id number] Platelets #/vol (Bld) 268 {x10E3/uL} Normal 140-415 [facility] Work Phone: Comment on above: PATIENT NOT FASTINGP ERFORMED BY: CB [facility] Cwgqhv2262 [address] RoadDuin [place] [id number] Information: [id number] Platelets (Bld) [#/Vol] 268 10*3/uL Normal 140-415 [facility]; [facility] Work Phone: Comment on above: PATIENT NOT FASTINGP ERFORMED BY: ANASTASIYA Knapp6370 [facility] [id number] Information: [id number] RBC #/vol (Bld) 4.43 {x10E6/uL} Normal 3.80-5.10 Comp [facility] Internal Medicine Work Phone: Comment on above: PATIENT NOT FASTINGP ERFORMED BY: ANASTASIYA [facility] Britdc6613 [facility] [id number] Information: [id number] RBC (Bld) [#/Vol] 4.43 10*6/uL Normal 3.80-5.10 Compr [facility] Internal Medicine; [facility] Work Phone: Comment on above: PATIENT NOT FASTINGP ERFORMED BY: ANASTASIYA Bonillalin6370 [facility] [id number] Information: [id number] WBC #/vol (Bld) 7.1 {x10E3/uL} Normal 4.0-10.5 [facility] Internal Medicine Work Phone: Comment on above: PATIENT NOT FASTINGP ERFORMED BY: ANASTASIYA Slaughter Ncouao6762 [facility] [id number] Information: [id number] WBC (Bld) [#/Vol] 7.1 10*3/uL Normal 4.0-10.5 Compre [facility] Internal Medicine; [facility] Work Phone: Comment on above: PATIENT NOT FASTINGP ERFORMED BY: ANASTASIYA Lab[facility] Nyqtko3445 [facility] [id number] Information: [id number] METABOLIC PANEL, COMPREHENSI VE ([id number])Ordered By: Aircraft Detail Draftsperson on 01-18-2010 Albumin mass conc 4.2 g/dL Normal 3.5-5.5 Compreh [facility] Internal Medicine Work Phone: Comment on above: PATIENT NOT FASTINGP ERFORMED BY: ANASTASIYA [facility] Yylmtx3084 [address] RoadDublin [place] [id number] Albumin/Globulin mass ratio 1.4 {ratio} Normal 1.1-2.5 [facility] Work Phone: Comment on above: PATIENT NOT FASTINGP ERFORMED BY: CB [facility] Hmgkdd7656 [address] RoadDublin [place] [id number] ALP [Catalytic activity/Vol] 102 U/L Normal 25-150 [facility]; [facility] Internal Medicine Work Phone: Comment on above: PATIENT NOT FASTINGP ERFORMED BY: CB [facility] Doojgg6842 [address] RoadDublin [place] [id number] ALP enzyme act/vol 102 [iU]/L Normal 25-150 [facility] Internal Medicine Work Phone: Comment on above: PATIENT NOT FASTINGP ERFORMED BY: CB [facility] Jwimvn0735 [address] RoadDuin [place] [id number] ALT [Catalytic activity/Vol] 13 U/L Normal 0-40 [facility] Internal Medicine; [facility] Internal Medicine Work Phone: Comment on above: PATIENT NOT FASTINGP ERFORMED BY: ANASTASIYA [facility] Sdnsjp1665 [address] RoadDublin [place] [id number] ALT enzyme act/vol 13 [iU]/L Normal 0-40 [facility] Internal Medicine Work Phone: Comment on above: PATIENT NOT FASTINGP ERFORMED BY: CB [facility] Hyuymn3232 [address] RoadDublin [place] [id number] AST [Catalytic activity/Vol] 15 U/L Normal 0-40 [facility] Internal Medicine; [facility] Internal Medicine Work Phone: Comment on above: PATIENT NOT FASTINGP ERFORMED BY: CB [facility] Lhjvcc2369 [address] RoadDublin [place] [id number] AST enzyme act/vol 15 [iU]/L Normal 0-40 [facility] Internal Medicine Work Phone: Comment on above: PATIENT NOT FASTINGP ERFORMED BY: CB [facility] Ljvwes0427 [address] RoadDublin [place] [id number] Bilirubin mass conc 0.6 mg/dL Normal 0.0-1.2 Compr ehensive Internal Medicine Work Phone: Comment on above: PATIENT NOT FASTINGP ERFORMED BY: ANASTASIYA [facility] Feusem7875 [address] RoadDublin [place] [id number] Calcium mass conc 9.3 mg/dL Normal 8.7-10.2 Compreh ensive Internal Medicine Work Phone: Comment on above: PATIENT NOT FASTINGP ERFORMED BY: CB [facility] Xqwtws4757 [address] Roadblin [place] [id number] Chloride molar conc 101 mmol/L Normal 97-108 Compr ehensive Internal Medicine Work Phone: Comment on above: PATIENT NOT FASTINGP ERFORMED BY: ANASTASIYA [facility] Hdsnoq4000 [address] RoadDublin [place] [id number] CO2 molar conc 23 mmol/L Normal 20-32 Comprehens [facility] Internal Medicine Work Phone: Comment on above: PATIENT NOT FASTINGP ERFORMED BY: ANASTASIYA [facility] Ovatqo6928 [address] RoadDublin [place] [id number] Creatinine mass conc 0.92 mg/dL Normal 0.57-1.00 Comp rehensive Internal Medicine Work Phone: Comment on above: PATIENT NOT FASTINGP ERFORMED BY: CB [facility] Jwqblw9224 [address] RoadFormerly [facility]in [place] [id number] GFR/1.73 sq M predicted among blacks MDRD vol rate/area (S/P/Bld) mL/min/{1.73_m2} Normal Comprehensi ve Internal Medicine Work Phone: Comment on above: Note: Persistent red uction for 3 months or more in an eGFR<60 mL/min/1.73 m2 defines CKD. Patients with eGFR values>/=60 mL/min/1.73 m2 may also have CKD if evidence of persistentproteinuria is present. Additional information may be found [email or web address]. PATIENT NOT FASTINGP ERFORMED BY: CB [facility] Amfzve5890 [address] RoadDublin [place] [id number] GFR/1.73 sq M.predicted MDRD (S/P/Bld) [Vol rate/Area] mL/min/{1.73_m2} Normal [facility] Work Phone: Comment on above: PATIENT NOT FASTINGP ERFORMED BY: ANASTASIYA Kasandramarcus BonillaYkralz4901 [facility] [id number] GFR/1.73 sq M.predicted MDRD vol rate/area mL/min/{1.73_m2} Normal [facility] Work Phone: Comment on above: PATIENT NOT FASTINGP ERFORMED BY: ANASTASIYA Kasandra Twbvjr1433 [facility] [id number] Globulin mass conc (S) 3.0 g/dL Normal 1.5-4.5 [facility] Work Phone: Comment on above: PATIENT NOT FASTINGP ERFORMED BY: ANASTASIYA Bonillalin6370 [facility] [id number] Glucose mass conc 82 mg/dL Normal 65-99 Compreh ensive Internal Medicine Work Phone: Comment on above: PATIENT NOT FASTINGP ERFORMED BY: ANASTASIYA LabSaskia BonillaQcimdd2380 [facility] [id number] Potassium molar conc 4.2 mmol/L Normal 3.5-5.2 Comp rehensive Internal Medicine Work Phone: Comment on above: PATIENT NOT FASTINGP ERFORMED BY: ANASTASIYA LabTracemarcus BonillaIbsiql1187 [facility] [id number] Protein mass conc 7.2 g/dL Normal 6.0-8.5 Compreh ensive Internal Medicine Work Phone: Comment on above: PATIENT NOT FASTINGP ERFORMED BY: ANASTASIYA LabComarcus BonillaTyiure4601 [facility] [id number] Sodium molar conc 137 mmol/L Normal 135-145 Compreh ensive Internal Medicine Work Phone: Comment on above: PATIENT NOT FASTINGP ERFORMED BY: ANASTASIYA LabComarcus BonillaRxhnbe4218 [facility] [id number] Urea nitrogen mass conc 11 mg/dL Normal 5-26 [facility] Work Phone: Comment on above: PATIENT NOT FASTINGP ERFORMED BY: ANASTASIYA [facility] Tomfkd5178 [address] SpartzFormerly [facility] [id number] Urea nitrogen/Creatinine mass ratio 12 mg/mg Normal 8-27 [facility] Work Phone: Comment on above: PATIENT NOT FASTINGP ERFORMED BY: ANASTASIYA [facility] Gsefqg4941 [facility] [id number] TSH ([id number])Ordered By: Aby Hanna on 01-18-2010 Thyrotropin Qn 4.020 {uIU/mL} Normal 0.450-4.50 0 [facility] Work Phone: Comment on above: PATIENT NOT FASTINGP ERFORMED BY: ANASTASIYA [facility] Vyqxph8795 [facility] [id number] SKIN TEST INTRADERMAL TB (86 580)Ordered By: Jaja Elliott on 04-04-2009 SKIN TEST INTRADERMAL TB (98313) Negative Normal [facility] Work Phone: Comment on above: Lot #[id number] te-r forearmgiven by:[facility] SKIN TEST INTRADERMAL TB (97468) Negative Normal [facility]; [facility] Work Phone: Comment on above: Lot #[id number] te-r forearmgiven by:[facility] LIPID PANEL (83917)Ordered B y: Bibiana Mulligan on 03-09-2009 Cholesterol in HDL mass conc 47 mg/dL Normal [facility] Work Phone: Comment on above: According to ATP-III Guidelines, HDL-C >59 mg/dL is considered anegative risk factor for CHD. PATIENT WAS FASTINGC linical Information: [id number] PERFORMED BY: ANASTASIYA [facility] Kignni1453 [facility] [id number] Cholesterol in LDL mass conc 100 mg/dL Abnormal 0-99 [facility] Work Phone: Comment on above: PATIENT WAS FASTINGC linical Information: [id number] PERFORMED BY: [facility] Xievoi4207 [facility] [id number] Cholesterol in LDL/Cholesterol in HDL mass ratio 2.1 {ratio_units} Normal 0.0-3.2 [facility] Work Phone: Comment on above: PATIENT WAS FASTINGC linical Information: [id number] PERFORMED BY: [facility] Etxmsz6110 [facility] [id number] Cholesterol in VLDL mass conc 11 mg/dL Normal 5-40 [facility] Work Phone: Comment on above: PATIENT WAS FASTINGC linical Information: [id number] PERFORMED BY: [facility] Orguho3921 [facility] [id number] Cholesterol mass conc 158 mg/dL Normal 100-199 Com prehensive Internal Medicine Work Phone: Comment on above: PATIENT WAS FASTINGC linical Information: [id number] PERFORMED BY: [facility] Siddyg2892 [facility] [id number] Triglyceride mass conc 54 mg/dL Normal 0-149 [facility] Work Phone: Comment on above: PATIENT WAS FASTINGC linical Information: [id number] PERFORMED BY: [facility] Wkgtaa1118 [facility] [id number] INFLUENZA IMMUNOASSY DIRECT OPTICAL OBSERV ([id number])Ordered By: Radha Birmingham on 06-17-2008 FLUAV Ag IA Ql (Throat) Negative Normal [facility] Work Phone: FLUAV Ag IA Ql (Throat) Negative Normal [facility]; [facility] Work Phone: BILAT SCRN DIGITAL & CADOrde red By: Aircraft Detail Draftsperson on 06-07-2008 BILAT SCRN DIGITAL & CAD See Note Normal [facility] Work Phone: Comment on above: Exam Number: [id number] BILATERAL SCREENING MAMMOGRAPHY HISTORYRoutine screening. COMPARISONComparison is made to prior studies of February 21, 2006. TECHNIQUERoutine MLO and CC views were acquired. FINDINGSBreast parenchyma is heterogeneously dense. There are no suspiciousclusters of microcalcifications, area of architectural distortion, orthree-dimensional mass. There has been no significant intervalchange. IMPRESSION1. No mammographic evidence for malignancy.2. BIRADS code 1. Negative findings. Followup in l year. A letter regarding these results has been sent to the patient. This interpretation was rendered by a radiologist certified underthe Mammography Quality Standards Act of 1992 (MQSA). The mammogramswere also examined with computer-aided detection software(Kairos AR.). Reported By: DESTINY MOCTEZUMA M.D. Thin prep Pap ([id number])Ordered By: Bibiana Mulligan on 06-07-2008 Microscopic observation Other stain Nom (Unsp spec) . Normal Comprehens [facility] Internal Medicine Work Phone: Comment on above: Source.............C ervical;EndocervicalLMP / Prev Treat...XCN=[id number]. of containers..01 CYTYC Thin Prep VialPATIENT NOT FASTINGClinical Information: ADD [id number] PERFORMED BY: [employer] [address] [id number] Pathology report final diagnosis Narrative SPRCS Normal [facility] Work Phone: Comment on above: NEGATIVE FOR INTRAEP ITHELIAL LESION AND MALIGNANCY.ENDOMETRIAL CELLS ARE PRESENT.Satisfactory for evaluation. Endocervical and/or squamous metaplasticcells (endocervical component) are present.V72.31 ; Routine gynecological examinationJulie Kaleb Mckeon, Film Historian (ASCP)Jodee Millan MD, Pathologist Source.............C ervical;EndocervicalLMP / Prev Treat...SOZ=[id number]. of containers..01 CYTYC Thin Prep VialPATIENT NOT FASTINGClinical Information: ADD [id number] PERFORMED BY: [employer] [address] [id number] Thin prep Pap ([id number]) PAPSMR Normal Com prehensive Internal Medicine Work Phone: Comment on above: The Pap smear is a s creening test designed to aid in the detection ofpremalignant and malignant conditions of the uterine cervix. It is not adiagnostic procedure and should not be used as the sole means of detectingcervical cancer. Both false-positive and false-negative reports do occur. .The HPV DNA reflex criteria were not met with this specimen resulttherefore, no HPV testing was performed. . Source.............C ervical;EndocervicalLMP / Prev Treat...EQH=[id number]. of containers..01 CYTYC Thin Prep VialPATIENT NOT FASTINGClinical Information: ADD [id number] PERFORMED BY: [facility] [id number] CBCD,SMEAR DIFFOrdered By: Antwan ystem Junior Buyer on 05-28-2008 Eosinophils/100 WBC (Bld) 2 % Normal 0-5 [facility] Internal Medicine Work Phone: Comment on above: PLEASE RUN STAT*AUTO FAXED* Erythrocyte distribution width Ratio (RBC) 13.5 % Normal 11.6-14.6 [facility] Internal Medicine Work Phone: Comment on above: PLEASE RUN STAT*AUTO FAXED* Hematocrit Volume Fraction (Bld) 37.4 % Normal 37-47 [facility] Internal Medicine Work Phone: Comment on above: PLEASE RUN STAT*AUTO FAXED* Hemoglobin mass conc (Bld) 12.8 g/dL Normal 12.0-16.0 [facility] Internal Medicine Work Phone: Comment on above: PLEASE RUN STAT*AUTO FAXED* Lymphocytes/100 WBC (Bld) 29 % Normal 19-41 [facility] Internal Medicine Work Phone: Comment on above: PLEASE RUN STAT*AUTO FAXED* MCH Entitic mass (RBC) 29.9 pg Normal 27.0-32.0 [facility] Internal Medicine Work Phone: Comment on above: PLEASE RUN STAT*AUTO FAXED* MCHC mass conc (RBC) 34.3 g/dL Normal 32-36 [facility] Internal Medicine Work Phone: Comment on above: PLEASE RUN STAT*AUTO FAXED* MCV Entitic volume (RBC) 87.2 fL Normal 81-99 [facility] Work Phone: Comment on above: PLEASE RUN STAT*AUTO FAXED* Monocytes/100 WBC (Bld) 1 % Normal 0-10 [facility] Work Phone: Comment on above: PLEASE RUN STAT*AUTO FAXED* Platelets #/vol (Bld) 248 10*3/uL Normal 150-450 Co mprehensive Internal Medicine Work Phone: Comment on above: PLEASE RUN STAT*AUTO FAXED* Platelets #/vol (Bld) SeeNote Normal Com prehensive Internal Medicine Work Phone: Comment on above: Result: ADEQUATE PLEASE RUN STAT*AUTO FAXED* RBC #/vol (Bld) 4.28 {M/mm3} Normal 4.2-5.4 Compreh [facility] Internal Medicine Work Phone: Comment on above: PLEASE RUN STAT*AUTO FAXED* WBC #/vol (Bld) 8.6 10*3/uL Normal 4.4-11.0 Comprehe [facility] Internal Medicine Work Phone: Comment on above: PLEASE RUN STAT*AUTO FAXED* CBCD,SMEAR DIFF 100 1 Normal [facility] Internal Medicine Work Phone: Comment on above: PLEASE RUN STAT*AUTO FAXED* CBCD,SMEAR DIFF 68 % Normal 47-70 [facility] Internal Medicine Work Phone: Comment on above: PLEASE RUN STAT*AUTO FAXED* CBCD,SMEAR DIFF SeeNote Normal [facility] Internal Medicine Work Phone: Comment on above: Result: NORM C+C PLEASE RUN STAT*AUTO FAXED* COMP METABOLICOrdered By: Sy stem Junior Buyer on 05-28-2008 Albumin mass conc 3.9 g/dL Normal 3.4-5.0 Compreh ensive Internal Medicine Work Phone: Comment on above: PLEASE RUN STAT*AUTO FAXED* Albumin/Globulin mass ratio 1.1 {RATIO} Normal 0.9-2.4 [facility] Internal Medicine Work Phone: Comment on above: PLEASE RUN STAT*AUTO FAXED* ALP enzyme act/vol 115 U/L Normal 50-136 [facility] Medicine Work Phone: Comment on above: PLEASE RUN STAT*AUTO FAXED* ALT enzyme act/vol 26 U/L Abnormal 30-65 [facility] Internal Medicine Work Phone: Comment on above: PLEASE RUN STAT*AUTO FAXED* Anion gap molar conc 3 mmol/L Abnormal 5-15 [facility] Internal Medicine Work Phone: Comment on above: PLEASE RUN STAT*AUTO FAXED* AST enzyme act/vol 9 U/L Abnormal 15-37 [facility] Medicine Work Phone: Comment on above: PLEASE RUN STAT*AUTO FAXED* Bilirubin mass conc 0.21 mg/dL Normal 0.00-1.00 [facility] Internal Medicine Work Phone: Comment on above: PLEASE RUN STAT*AUTO FAXED* Calcium mass conc 8.6 mg/dL Normal 8.5-10.1 [facility] Internal Medicine Work Phone: Comment on above: PLEASE RUN STAT*AUTO FAXED* Chloride molar conc 103 mmol/L Normal 98-107 [facility] Internal Medicine Work Phone: Comment on above: PLEASE RUN STAT*AUTO FAXED* CO2 molar conc 30.5 mmol/L Normal 21.0-32.0 [facility] Internal Medicine Work Phone: Comment on above: PLEASE RUN STAT*AUTO FAXED* Creatinine mass conc 0.8 mg/dL Normal 0.6-1.0 [facility] Internal Medicine Work Phone: Comment on above: PLEASE RUN STAT*AUTO FAXED* GFR/1.73 sq M predicted among blacks MDRD vol rate/area (S/P/Bld) 102 mL/min/{1.73_m2} Normal [facility] Internal Medicine Work Phone: Comment on above: ESTIMATED GLOMERULAR FILTRATION RATE The National Kidney Foundation (NKF) guidelines forChronic kidney disease (CKD) recommends all laboratoriesestimate the level of glomerular filtration rate (GFR)in patients from age 18 - 70 years of age.The eGFR for patient's is the eGFRmultiplied by 1.212. [facility] Laboratory uses the abbreviated Modification of Diet inRenal Disease (MDRD) study equation to calculate the eGFR.The Estimated GFR equation is not applicable for patients<18 years of age or patients >70 years of age.The following conditions may alter the eGFR calculationresult: extremes in body size, severe malnutrition orobesity, skeletal muscle disease, paraplegia, quadriplegia,vegetarian diet, , certain drug therapy and rapidlychanging kidney function. Association of GFR and Staging of Kidney Disease*GFR (mL/min) With Kidney Disease W/O Kidney Disease>/= 90 Stage One Spqwso85 - 89 Stage Two Suspect Decreased GFR30 - 59 Stage Three Stage Three15 - 29 Stage Four Stage Four< 15 or Dialysis Stage Five Stage Five *Each stage assumes the associated GFR level has been ineffect for at least three months.Additional studies & clinical assessments are indicated toconclude diagnosis of Chronic Kidney Disease (CKD). PLEASE RUN STAT*AUTO FAXED* GFR/1.73 sq M.predicted MDRD (S/P/Bld) [Vol rate/Area] 84 mL/min/{1.73_m2} Normal Comprehensiv e Internal Medicine Work Phone: Comment on above: PLEASE RUN STAT*AUTO FAXED* GFR/1.73 sq M.predicted MDRD vol rate/area 84 mL/min/{1.73_m2} Normal Comprehensiv e Internal Medicine Work Phone: Comment on above: PLEASE RUN STAT*AUTO FAXED* Globulin mass conc (S) 3.7 g/dL Normal 2.7-4.2 [facility] Work Phone: Comment on above: PLEASE RUN STAT*AUTO FAXED* Glucose mass conc 85 mg/dL Normal 70-110 Compreh ensive Internal Medicine Work Phone: Comment on above: PLEASE RUN STAT*AUTO FAXED* Potassium molar conc 4.3 mmol/L Normal 3.5-5.1 Comp rehensive Internal Medicine Work Phone: Comment on above: PLEASE RUN STAT*AUTO FAXED* Protein mass conc 7.6 g/dL Normal 6.4-8.2 Compreh ensive Internal Medicine Work Phone: Comment on above: PLEASE RUN STAT*AUTO FAXED* Sodium molar conc 136 mmol/L Normal 136-145 Compreh ensive Internal Medicine Work Phone: Comment on above: PLEASE RUN STAT*AUTO FAXED* Urea nitrogen mass conc 10 mg/dL Normal 7-18 [facility] Work Phone: Comment on above: PLEASE RUN STAT*AUTO FAXED* Urea nitrogen/Creatinine mass ratio 12.5 {RATIO} Normal 10-20 [facility] Work Phone: Comment on above: PLEASE RUN STAT*AUTO FAXED* D-DIMER QUANTOrdered By: Kyaw tem Junior Buyer on 05-28-2008 D-DIMER QUANT <200 Normal Comprehensi ve Internal Medicine Work Phone: Comment on above: NORMAL D-Dimer level indicates no DVT or PE. PLEASE RUN STAT*AUTO FAXED* TSHOrdered By: System Manage r on 05-28-2008 Thyrotropin Qn 2.33 {uIU/mL} Normal 0.34-4.82 Compreh ensive Internal Medicine Work Phone: Comment on above: PLEASE RUN STAT*AUTO FAXED* Upper Respiratory CultureOrd ered By: Aircraft Detail Draftsperson on 11-05-2007 Bacteria identified Respiratory culture Nom (Unsp spec) RRF Normal [facility] Work Phone: Comment on above: Routine respiratory hawk Clinical Information : SRC:TH PERFORMED BY: ANASTASIYA Docstoc70 [facility] [id number] Bacteria identified Respiratory culture Nom (Unsp spec) Final report Normal [facility] Work Phone: Comment on above: Clinical Information : SRC:TH PERFORMED BY: [facility] [facility] [facility] LimitedFormerly [facility] [id number] C-REACTIVE PROTOrdered By: Antwan ystem Junior Buyer on 06-04-2007 CRP mass conc 14.88 mg/L Abnormal 0.0-6.0 Comprehensi ve Internal Medicine Work Phone: Comment on above: Test performed using the Dimension C-Reactive ProteinExtended Range assay method. This assay meets the AHA/CDC 2003 recommendations fordetermining patients at high risk for cardiovasculardisease. Reference: High risk CRP >3.0 mg/L RESULTS CALLED TO Matt ROBLERO 06/04/07 1131 LUCILA NUNO.REPORT READ BACK BY SAME . CBCDOrdered By: System Manag er on 06-04-2007 Basophils/100 WBC (Bld) 0.4 % Normal 0-1 [facility] Work Phone: Eosinophils/100 WBC (Bld) 1.4 % Normal 0-5 [facility] Work Phone: Erythrocyte distribution width Ratio (RBC) 13.3 % Normal 11.6-14.6 [facility] Work Phone: Hematocrit Volume Fraction (Bld) 36.4 % Abnormal 37-47 [facility] Work Phone: Hemoglobin mass conc (Bld) 12.6 g/dL Normal 12.0-16.0 [facility] Work Phone: Lymphocytes/100 WBC (Bld) 18.7 % Abnormal 19-41 [facility] Work Phone: MCH Entitic mass (RBC) 29.7 pg Normal 27.0-32.0 [facility] Internal Medicine Work Phone: MCHC mass conc (RBC) 34.5 g/dL Normal 32-36 [facility] Work Phone: MCV Entitic volume (RBC) 86.1 fL Normal 81-99 [facility] Work Phone: Monocytes/100 WBC (Bld) 5.7 % Normal 0-10 [facility] Work Phone: Neutrophils/100 WBC (Bld) 73.8 % Abnormal 47-70 [facility] Work Phone: Platelet mean volume Entitic volume (Bld) 9.5 fL Normal 6.5-12.0 [facility] Work Phone: Platelets #/vol (Bld) 238 10*3/uL Normal 150-450 [facility] Work Phone: RBC #/vol (Bld) 4.23 {M/mm3} Normal 4.2-5.4 [facility] Work Phone: WBC #/vol (Bld) 7.8 10*3/uL Normal 4.4-11.0 [facility]pre[facility] Work Phone: PELVIS WITHOUT CONTRASTOrder ed By: Aircraft Detail Draftsperson on 06-04-2007 PELVIS WITHOUT CONTRAST See Note Normal [facility] Work Phone: Comment on above: Exam Number: [id number] CT SCAN OF ABDOMEN AND PELVIS HISTORYRight lower quadrant pain. Stone protocol. Scans were obtained at 3.75-mm intervals from the lung bases throughthe symphysis pubis without oral or intravenous contrastadministration. The current study is [...] in the appearanceof these structures since the previous study of June 02, 2007.There are a small number of colonic diverticula containing contrast. The findings are compatible with minimal diverticulosis withoutevidence of diverticulitis. The contrast represents the residual ofthe CT performed June 02, 2007. The appendix is again identified.Without contrast, the appendix might not be confidently identified onthis noncontrast study. However, it is clearly the same structurewhich was well seen on the previous examination and identified by thepresence of air and contrast within it. The appendix is againmeasured at a maximum of 8 mm in transverse dimension which isunchanged from the previous study. There is no surroundingperiappendiceal edema identified. There is no free fluid seen withinthe pelvis. IMPRESSION1. There is minimal diverticulosis. 2. The appearance of the appendix is unchanged compared to the studyof June 02, 2007. The appendix measures 8 mm in size. However,since it is unchanged and there is no surrounding edema, theappearance is not compatible with appendicitis at this time. Reported By: TRACY BURRIS M.D. Exam Number: [id number] CT SCAN OF ABDOMEN AND PELVIS HISTORYRight lower quadrant pain. Stone protocol. Scans were obtained at 3.75-mm intervals from the lung bases throughthe symphysis pubis without oral or intravenous contrastadministration. The current study is [...] in the appearanceof these structures since the previous study of June 02, 2007.There are a small number of colonic diverticula containing contrast. The findings are compatible with minimal diverticulosis withoutevidence of diverticulitis. The contrast represents the residual ofthe CT performed June 02, 2007. The appendix is again identified.Without contrast, the appendix might not be confidently identified onthis noncontrast study. However, it is clearly the same structurewhich was well seen on the previous examination and identified by thepresence of air and contrast within it. The appendix is againmeasured at a maximum of 8 mm in transverse dimension which isunchanged from the previous study. There is no surroundingperiappendiceal edema identified. There is no free fluid seen withinthe pelvis. IMPRESSION1. There is minimal diverticulosis. 2. The appearance of the appendix is unchanged compared to the studyof June 02, 2007. The appendix measures 8 mm in size. However,since it is unchanged and there is no surrounding edema, theappearance is not compatible with appendicitis at this time. Reported By: TRACY BURRIS M.D. Urinalysis, Office ([id number])Or dered By: Maggie Soto on 06-04-2007 Bilirubin Ql (U) Negative Normal [facility] Work Phone: Comment on above: if urine no blood wi ll wait for lab and talk to df and kirti and see if think need to repeat scan-- For now will change antibiotic and cover divertic as well as bladder uti and see if helps-if there is blood in urine do noncont ct sto Bilirubin Ql (U) Negative Normal Comprehe [facility]; [facility] Work Phone: Comment on above: if urine no blood wi ll wait for lab and talk to df and kirti and see if think need to repeat scan-- For now will change antibiotic and cover divertic as well as bladder uti and see if helps-if there is blood in urine do noncont ct sto Glucose Test strip (U) [Mass/Vol] Negative Normal [facility]; [facility] Work Phone: Comment on above: if urine no blood wi ll wait for lab and talk to df and kirti and see if think need to repeat scan-- For now will change antibiotic and cover divertic as well as bladder uti and see if helps-if there is blood in urine do noncont ct sto Glucose Test strip mass conc (U) Negative Normal [facility] Work Phone: Comment on above: if urine no blood wi ll wait for lab and talk to df and kirti and see if think need to repeat scan-- For now will change antibiotic and cover divertic as well as bladder uti and see if helps-if there is blood in urine do noncont ct sto Hemoglobin Ql (U) Non Hemolyzed Trace Normal [facility] Work Phone: Comment on above: if urine no blood wi ll wait for lab and talk to df and kirti and see if think need to repeat scan-- For now will change antibiotic and cover divertic as well as bladder uti and see if helps-if there is blood in urine do noncont ct sto Ketones Ql (U) Negative Normal [facility] Work Phone: Comment on above: if urine no blood wi ll wait for lab and talk to df and kirti and see if think need to repeat scan-- For now will change antibiotic and cover divertic as well as bladder uti and see if helps-if there is blood in urine do noncont ct sto Ketones Ql (U) Negative Normal Com[facility]; [facility] Work Phone: Comment on above: if urine no blood wi ll wait for lab and talk to df and kirti and see if think need to repeat scan-- For now will change antibiotic and cover divertic as well as bladder uti and see if helps-if there is blood in urine do noncont ct sto Leukocyte esterase Test strip Ql (U) Small Normal [facility] Work Phone: Comment on above: if urine no blood wi ll wait for lab and talk to df and kirti and see if think need to repeat scan-- For now will change antibiotic and cover divertic as well as bladder uti and see if helps-if there is blood in urine do noncont ct sto Nitrite Ql (U) Positive Normal Comprehens [facility] Work Phone: Comment on above: if urine no blood wi ll wait for lab and talk to df and kirti and see if think need to repeat scan-- For now will change antibiotic and cover divertic as well as bladder uti and see if helps-if there is blood in urine do noncont ct sto Nitrite Ql (U) Positive Normal Comprehens [facility] Internal Medicine; [facility] Work Phone: Comment on above: if urine no blood wi ll wait for lab and talk to df and kirti and see if think need to repeat scan-- For now will change antibiotic and cover divertic as well as bladder uti and see if helps-if there is blood in urine do noncont ct sto pH (U) 5.0 [pH] Normal [facility] Work Phone: Comment on above: if urine no blood wi ll wait for lab and talk to df and kirti and see if think need to repeat scan-- For now will change antibiotic and cover divertic as well as bladder uti and see if helps-if there is blood in urine do noncont ct sto Protein Ql (U) Trace Normal Comprehens [facility] Work Phone: Comment on above: if urine no blood wi ll wait for lab and talk to df and kirti and see if think need to repeat scan-- For now will change antibiotic and cover divertic as well as bladder uti and see if helps-if there is blood in urine do noncont ct sto Specific gravity Relative Density (U) 1.025 1 Normal [facility] Internal Medicine Work Phone: Comment on above: if urine no blood wi ll wait for lab and talk to df and kirti and see if think need to repeat scan-- For now will change antibiotic and cover divertic as well as bladder uti and see if helps-if there is blood in urine do noncont ct sto Urobilinogen mass/time (24H U) Normal Normal [facility] Work Phone: Comment on above: if urine no blood wi ll wait for lab and talk to df and kirti and see if think need to repeat scan-- For now will change antibiotic and cover divertic as well as bladder uti and see if helps-if there is blood in urine do noncont ct sto C-REACTIVE PROTOrdered By: Antwan tangte Junior Buyer on 06-02-2007 CRP mass conc 7.53 mg/L Abnormal 0.0-6.0 [facility] Internal Medicine Work Phone: Comment on above: Test performed using the Dimension C-Reactive ProteinExtended Range assay method. This assay meets the AHA/CDC 2003 recommendations fordetermining patients at high risk for cardiovasculardisease. Reference: High risk CRP >3.0 mg/L CBCD,SMEAR DIFFOrdered By: Antwan tangte Junior Buyer on 06-02-2007 Eosinophils/100 WBC (Bld) 3 % Normal 0-5 [facility] Work Phone: Erythrocyte distribution width Ratio (RBC) 13.9 % Normal 11.6-14.6 [facility] Work Phone: Hematocrit Volume Fraction (Bld) 35.9 % Abnormal 37-47 [facility] Work Phone: Hemoglobin mass conc (Bld) 12.4 g/dL Normal 12.0-16.0 [facility] Work Phone: Lymphocytes/100 WBC (Bld) 24 % Normal 19-41 [facility] Work Phone: MCH Entitic mass (RBC) 29.5 pg Normal 27.0-32.0 [facility] Work Phone: MCHC mass conc (RBC) 34.7 g/dL Normal 32-36 Comp rehensive [facility] Work Phone: MCV Entitic volume (RBC) 85.2 fL Normal 81-99 [facility] Work Phone: Monocytes/100 WBC (Bld) 2 % Normal 0-10 [facility] Work Phone: Platelets #/vol (Bld) SeeNote Normal Com prehensive [facility] Work Phone: Comment on above: Result: ADEQUATE Platelets #/vol (Bld) 242 10*3/uL Normal 150-450 [facility] Work Phone: RBC #/vol (Bld) 4.21 {M/mm3} Normal 4.2-5.4 [facility] Work Phone: WBC #/vol (Bld) 9.9 10*3/uL Normal 4.4-11.0 [facility] Work Phone: CBCD,SMEAR DIFF SeeNote Normal Comprehen sive [facility] Work Phone: Comment on above: Result: NORM C+C Exam Number: [id number] COMPUTED TOMOGRAPHY OF THE ABDOMEN AND PELVIS. CLINICAL STATEMENTRight lower quadrant pain and diarrhea, evaluate for appendicitis. TECHNIQUE3.75-mm thick axial images of the abdomen and pelvis were obtainedfollowing the administration of oral contrast and 100 cc of [id number] intravenous contrast. COMPARISONThe study was compared to a prior examination dated April 17, 2004. FINDINGSImages through the lung bases are unremarkable. There is a smallhiatal hernia. The liver, spleen, and pancreas are within normallimits. No ductal dilatation is shown. The kidneys enhance normallywith no evidence of hydronephrosis. There are small scatteredmesenteric lymph nodes, felt to be reactive in nature. There is noevidence of bowel obstruction. The appendix is mildly dilated at 8 mm in diameter. The appendixappeared normal on the previous study. No significant right lowerquadrant inflammation or edema is shown. No free air is identified.No free fluid is shown. IMPRESSIONThe appendix is mildly dilated at 8 mm, which is a new finding sincethe previous study. In view of the patient's history, early acuteappendicitis should be considered. It is noted that there is nosignificant adjacent inflammation or edema. Reported By: DOMINICK LOPEZ M.D. Exam Number: [id number] COMPUTED TOMOGRAPHY OF THE ABDOMEN AND PELVIS. CLINICAL STATEMENTRight lower quadrant pain and diarrhea, evaluate for appendicitis. TECHNIQUE3.75-mm thick axial images of the abdomen and pelvis were obtainedfollowing the administration of oral contrast and 100 cc of [id number] intravenous contrast. COMPARISONThe study was compared to a prior examination dated April 17, 2004. FINDINGSImages through the lung bases are unremarkable. There is a smallhiatal hernia. The liver, spleen, and pancreas are within normallimits. No ductal dilatation is shown. The kidneys enhance normallywith no evidence of hydronephrosis. There are small scatteredmesenteric lymph nodes, felt to be reactive in nature. There is noevidence of bowel obstruction. The appendix is mildly dilated at 8 mm in diameter. The appendixappeared normal on the previous study. No significant right lowerquadrant inflammation or edema is shown. No free air is identified.No free fluid is shown. IMPRESSIONThe appendix is mildly dilated at 8 mm, which is a new finding sincethe previous study. In view of the patient's history, early acuteappendicitis should be considered. It is noted that there is nosignificant adjacent inflammation or edema. Reported By: DOMINICK LOPEZ M.D. CBCD,SMEAR DIFF 71 % Abnormal 47-70 [facility] Internal Medicine Work Phone: CBCD,SMEAR DIFF 100 1 Normal [facility] Internal Medicine Work Phone: CULTURE, URINEOrdered By: emaze stem Junior Buyer on 06-02-2007 Bacteria identified Cx Nom (U) See Note Normal [facility] Work Phone: Comment on above: COLONY COUNT 80,000- 100,000 ORGANISM 1: MIXED GRAM POSITIVE ORGANISMS ESROrdered By: System Manage r on 06-02-2007 ESR Velocity (Bld) 19 mm/h Normal 0-20 Compre hensive [facility] Work Phone: Urinalysis, Office ([id number])Or dered By: TAMRA Vazquez on 06-02-2007 Bilirubin Ql (U) Negative Normal Comprehe [facility] Work Phone: Bilirubin Ql (U) Negative Normal Comprehe nsive [facility]; [facility] Work Phone: Glucose Test strip (U) [Mass/Vol] Negative Normal [facility]; [facility] Work Phone: Glucose Test strip mass conc (U) Negative Normal [facility] Work Phone: Hemoglobin Ql (U) Hemolyzed Trace Normal [facility] Work Phone: Ketones Ql (U) Negative Normal [facility]prehens [facility] Work Phone: Ketones Ql (U) Negative Normal Comprehens [facility]; [facility] Work Phone: Leukocyte esterase Test strip Ql (U) Small Normal [facility] Work Phone: Nitrite Ql (U) Negative Normal [facility] Work Phone: Nitrite Ql (U) Negative Normal Comprehens [facility]; [facility] Work Phone: pH (U) 6.0 [pH] Normal [facility] Work Phone: Protein Ql (U) Negative Normal [facility]prehens [facility] Work Phone: Protein Ql (U) Negative Normal Comprehens [facility]; [facility] Work Phone: Specific gravity Relative Density (U) 1.025 1 Normal Comprehensi [facility] Work Phone: Urobilinogen mass/time (24H U) 2 mg/dL Normal [facility] Work Phone: Fecal Occult Blood , Office ([id number])Ordered By: Jacki Delatorre on 04-16-2007 Hemoglobin.gastrointe stinal Ql (St) Negative Normal [facility] Work Phone: Hemoglobin.gastrointe stinal Ql (Stl) Negative Normal [facility]; [facility] Work Phone: GALLBLADDEROrdered By: Aby colon Junior Buyer on 04-07-2007 GALLBLADDER See Note Normal [facility] Work Phone: Comment on above: Exam Number: [id number] GALLBLADDER ULTRASOUND REASON FOR EXAMChest pain. Gallbladder ultrasound to assess for gallbladder etiologyfor chest pain. COMPARISON STUDYJan2004. Liver is normal in size and echogenicity. Gallbladder visualized. There are no gallstones, wall thickening, intra or extrahepatic ductaldilatation. The common bile duct measures 6 mm. The pancreas is normal in size and echogenicity. Survey of the rightkidney demonstrates no hydronephrosis. The right kidney measures 12cm longitudinally. There is no right upper quadrant ascites. Nosignificant interval change since April 21, 2004. IMPRESSIONNormal gallbladder ultrasound. Negative for gallstones or biliarydistention or right upper quadrant ascites. Reported By: AHSAN VILLARREAL M.D. C-REACTIVE PROTOrdered By: Antwan crane Junior Buyer on 03-24-2007 CRP mass conc 5.86 mg/L Normal 0.0-6.0 [facility] Work Phone: Comment on above: Test performed using the Dimension C-Reactive ProteinExtended Range assay method. This assay meets the AHA/CDC 2003 recommendations fordetermining patients at high risk for cardiovasculardisease. Reference: High risk CRP >3.0 mg/L CBCD,SMEAR DIFFOrdered By: Antwan crane Junior Buyer on 03-24-2007 Eosinophils/100 WBC (Bld) 1 % Normal 0-5 [facility] Internal Medicine Work Phone: Erythrocyte distribution width Ratio (RBC) 12.6 % Normal 11.6-14.6 [facility] Work Phone: Hematocrit Volume Fraction (Bld) 36.7 % Abnormal 37-47 [facility] Work Phone: Hemoglobin mass conc (Bld) 12.7 g/dL Normal 12.0-16.0 [facility] Internal [facility] Work Phone: Lymphocytes/100 WBC (Bld) 30 % Normal 19-41 [facility] Internal Medicine Work Phone: MCH Entitic mass (RBC) 30.2 pg Normal 27.0-32.0 [facility] Work Phone: MCHC mass conc (RBC) 34.6 g/dL Normal 32-36 Comp rehensive [facility] Medicine Work Phone: MCV Entitic volume (RBC) 87.4 fL Normal 81-99 [facility] Work Phone: Monocytes/100 WBC (Bld) 2 % Normal 0-10 [facility] Work Phone: Platelets #/vol (Bld) 247 10*3/uL Normal 150-450 [facility] Work Phone: Platelets #/vol (Bld) SeeNote Normal Com prehensive [facility] Work Phone: Comment on above: Result: ADEQUATE RBC #/vol (Bld) 4.20 {M/mm3} Normal 4.2-5.4 Compre[facility] ens[facility] Work Phone: WBC #/vol (Bld) 7.5 10*3/uL Normal 4.4-11.0 Comprehe [facility] Internal Medicine Work Phone: CBCD,SMEAR DIFF 100 1 Normal Comprehen [facility] Internal Medicine Work Phone: CBCD,SMEAR DIFF SeeNote Normal Comprehen [facility] Internal Medicine Work Phone: Comment on above: Result: NORM C&C CBCD,SMEAR DIFF 67 % Normal 47-70 Comprehen [facility] Internal Medicine Work Phone: COMP METABOLICOrdered By: Sy stem Junior Buyer on 03-24-2007 Albumin mass conc 3.7 g/dL Normal 3.4-5.0 Compreh ensive [facility] Work Phone: Albumin/Globulin mass ratio 1.1 {RATIO} Normal 0.9-2.4 [facility] Internal Medicine Work Phone: ALP enzyme act/vol 98 U/L Normal 50-136 Compre [facility] Internal Medicine Work Phone: ALT enzyme act/vol 32 [iU]/L Normal 30-65 [facility] Work Phone: Anion gap molar conc 5 mmol/L Normal 5-15 Comp rehensive Internal Medicine Work Phone: AST enzyme act/vol 16 U/L Normal 15-37 Compre hensive [facility] Medicine Work Phone: Bilirubin mass conc 0.19 mg/dL Normal 0.00-1.00 Compr ehensive [facility] Medicine Work Phone: Calcium mass conc 8.7 mg/dL Normal 8.5-10.1 Compre[facility] ens[facility] Work Phone: Chloride molar conc 102 mmol/L Normal 98-107 Compr ensive [facility] Work Phone: CO2 molar conc 30.0 mmol/L Normal 21.0-32.0 [facility]prehen [facility] Work Phone: Comment on above: Please Note Refer ence Interval Change Creatinine mass conc 0.9 mg/dL Normal 0.6-1.0 [facility] Work [facility]: Globulin mass conc (S) 3.3 g/dL Normal 2.7-4.2 [facility] Internal [facility] Work Phone: Comment on above: Please Note Refer ence Interval Change Glucose mass conc 83 mg/dL Normal 70-110 [facility] Work Phone: Potassium molar conc 4.4 mmol/L Normal 3.5-5.1 [facility] Internal Medicine Work Phone: Protein mass conc 7.0 g/dL Normal 6.4-8.2 Compreh ensive [facility] Work Phone: Sodium molar conc 137 mmol/L Normal 136-145 Compre[facility] ens[facility] Work Phone: Urea nitrogen mass conc 13 mg/dL Normal 7-18 [facility] Work Phone: Urea nitrogen/Creatinine mass ratio 14.4 {RATIO} Normal 10-20 [facility] Work Phone: TROPONIN-IOrdered By: Aircraft Detail Draftsperson on 03-24-2007 Troponin I.cardiac mass conc ng/mL Normal [facility] Work Phone: Comment on above: TROPONIN-I EXPECTED VALUES < 0.50 NEGATIVE 0.50 - 1.49 INDETERMINANT > OR = 1.50 SUGGEST [place] TSHOrdered By: System Manage r on 03-24-2007 Thyrotropin Qn 2.90 {uIU/mL} Normal 0.34-4.82 Compreh ensive [facility] Work Phone: CULTURE, THROATOrdered By: S ystem Junior Buyer on 04-29-2006 CULTURE, THROAT See Note Normal Comprehen sive [facility] Medicine Work Phone: Comment on above: Normal throat hawk isolated. No beta-hemolyticstreptococcus isolated. Vital Signs Date Time Vital Sign Value Performing Clinician Facility 10-28-2024 14:28-0400 Body height 167.[address] Estrella Vinson MD Work Phone: [facility] 10-28-2024 14:28-0400 Body mass index (BMI) [Ratio] 43.6 kg/m2 Dr. Estrella Vinson MD Work Phone: [facility] 10-28-2024 14:28-0400 Body weight 122.[address] Estrella Vinson MD Work Phone: [facility] 10-13-2024 08:55-0400 Body height 167.[address] Estrella Vinson MD Work Phone: [facility] 10-13-2024 08:55-0400 Body mass index (BMI) [Ratio] 41.9 kg/m2 Dr. Estrella Vinson MD Work Phone: [facility] 10-13-2024 08:55-0400 Body weight 117.[address] Estrella Vinson MD Work Phone: [facility] 09-10-2024 14:23-0400 Body height 167.[address] Estrella Vinson MD Work Phone: [facility] 09-10-2024 14:23-0400 Body mass index (BMI) [Ratio] 43 kg/m2 Dr. Estrella Vinson MD Work Phone: [facility] 09-10-2024 14:23-0400 Body temperature 97.8 [degF] Dr. Estrella Vinson MD Work Phone: [facility] 09-10-2024 14:23-0400 Body weight 121.[address] Estrella Vinson MD Work Phone: [facility] 09-10-2024 14:23-0400 Diastolic blood pressure 66 mm[Hg] Dr. Estrella Vinson MD Work Phone: [facility] 09-10-2024 14:23-0400 Heart rate 86 /min Dr. Estrella Vinson MD Work Phone: [facility] 09-10-2024 14:23-0400 Respiratory rate 18 /min Dr. Estrella Vinson MD Work Phone: [facility] 09-10-2024 14:23-0400 SaO2% (BldA) [Mass fraction] 95 % Dr. Estrella Vinson MD Work Phone: [facility] 09-10-2024 14:23-0400 Systolic blood pressure 118 mm[Hg] Dr. Estrella Vinson MD Work Phone: [facility] 07-26-2023 08:00-0400 Body height 166.[address] Estrella Vinson Work Phone: [facility] 07-26-2023 08:00-0400 Body mass index (BMI) [Ratio] 43.2 kg/m2 Dr. Estrella Vinson Work Phone: [facility] 07-26-2023 08:00-0400 Body temperature 97.6 [degF] Dr. Estrella Vinson Work Phone: [facility] 07-26-2023 08:00-0400 Body weight 119.[address] Estrella Vinson Work Phone: [facility] 07-26-2023 08:00-0400 Diastolic blood pressure 62 mm[Hg] Dr. Estrella Vinson Work Phone: [facility] 07-26-2023 08:00-0400 Heart rate 72 /min Dr. Estrella Vinson Work Phone: [facility] 07-26-2023 08:00-0400 Respiratory rate 16 /min Dr. Estrella Vinson Work Phone: [facility] 07-26-2023 08:00-0400 SaO2% (BldA) [Mass fraction] 98 % Dr. Estrella Vinson Work Phone: [facility] 07-26-2023 08:00-0400 Systolic blood pressure 120 mm[Hg] Dr. Estrella Vinson Work Phone: [facility] 05-29-2023 15:34-0500 Body mass index (BMI) [Ratio] 44.1 kg/m2 Dr. Etsrella Vinson Work Phone: [facility] 05-29-2023 15:34-0500 Body temperature 97.6 [degF] Dr. Estrella Vinson Work Phone: [facility] 05-29-2023 15:34-0500 Body weight 122.[address] Estrella Vinson Work Phone: [facility] 05-29-2023 15:34-0500 Diastolic blood pressure 90 mm[Hg] Dr. Estrella Vinson Work Phone: [facility] 05-29-2023 15:34-0500 Heart rate 68 /min Dr. Estrella Vinson Work Phone: [facility] 05-29-2023 15:34-0500 Respiratory rate 14 /min Dr. Estrella Vinson Work Phone: [facility] 05-29-2023 15:34-0500 SaO2% (BldA) [Mass fraction] 97 % Dr. Estrella Vinson Work Phone: [facility] 05-29-2023 15:34-0500 Systolic blood pressure 142 mm[Hg] Dr. Estrella Vinson Work Phone: [facility] 03-04-2023 08:51-0500 Body height 166.[address] Estrella Vinson Work Phone: [facility] 03-04-2023 08:51-0500 Body mass index (BMI) [Ratio] 43.9 kg/m2 Dr. Estrella Vinson Work Phone: [facility] 03-04-2023 08:51-0500 Body temperature 98.5 [degF] Dr. Estrella Vinson Work Phone: [facility] 03-04-2023 08:51-0500 Body weight 121.[address] Estrella Vinson Work Phone: [facility] 03-04-2023 08:51-0500 Diastolic blood pressure 80 mm[Hg] Dr. Estrella Vinson Work Phone: [facility] 03-04-2023 08:51-0500 Heart rate 81 /min Dr. Estrella Vinson Work Phone: [facility] 03-04-2023 08:51-0500 Respiratory rate 16 /min Dr. Estrella Vinson Work Phone: [facility] 03-04-2023 08:51-0500 SaO2% (BldA) [Mass fraction] 96 % Dr. Estrella Vinson Work Phone: [facility] 03-04-2023 08:51-0500 Systolic blood pressure 124 mm[Hg] Dr. Estrella Vinson Work Phone: [facility] 12-27-2021 15:35-0400 Body height 166.[address] Estrella Vinson Work Phone: [facility] Work Phone: 12-27-2021 15:35-0400 Body mass index (BMI) [Ratio] 42.1 kg/m2 Dr. Estrella Vinson Work Phone: [facility] Work Phone: 12-27-2021 15:35-0400 Body temperature 98.6 [degF] Dr. Estrella Vinson Work Phone: [facility] Work Phone: 12-27-2021 15:35-0400 Body weight 116.[address] Estrelal Vinson Work Phone: [facility] Work Phone: 12-27-2021 15:35-0400 Diastolic blood pressure 62 mm[Hg] Dr. Estrella Vinson Work Phone: [facility] Work Phone: 12-27-2021 15:35-0400 Heart rate 81 /min Dr. Estrella Vinson Work Phone: [facility] Work Phone: 12-27-2021 15:35-0400 Respiratory rate 16 /min Dr. Estrella Vinson Work Phone: [facility] Work Phone: 12-27-2021 15:35-0400 SaO2% (BldA) [Mass fraction] 98 % Dr. Estrella Vinson Work Phone: [facility] Work Phone: 12-27-2021 15:35-0400 Systolic blood pressure 112 mm[Hg] Dr. Estrella Vinson Work Phone: [facility] Work Phone: 02-19-2020 07:35-0500 BMI (Body Mass Index) 30.95 kg/m2 Thea Brody [facility] Internal Medicine Work Phone: Comment on above: bp went down to 104/70 02-19-2020 07:35-0500 Body Temperature 97 [degF] Thea Brody [facility] Internal Medicine Work Phone: Comment on above: Method: Thermal Scan bp went down to 104/ 70 02-19-2020 07:35-0500 Body weight 84.37 kg Thea Brody [facility] Internal [facility] Work Phone: Comment on above: bp went down to 104/70 02-19-2020 07:35-0500 BP Diastolic 80 mm[Hg] Thea Brody [facility] Internal Medicine Work Phone: Comment on above: Patient Position: Sitting; Cuff Location : Left Arm; Cuff Size: Standard bp went down to 104/ 70 02-19-2020 07:35-0500 BP Systolic 140 mm[Hg] Thea Brody [facility] Internal Medicine Work Phone: Comment on above: Patient Position: Sitting; Cuff Location : Left Arm; Cuff Size: Standard bp went down to 104/ 70 02-19-2020 07:35-0500 BSA (Body Surface Area) 1.92 m2 Thea Brody [facility] Internal Medicine Work Phone: Comment on above: bp went down to 104/70 02-19-2020 07:35-0500 Height 165.1 cm Thea Brody [facility] Internal Medicine Work Phone: Comment on above: bp went down to 104/70 02-19-2020 07:35-0500 Pulse (Heart Rate) 69 /min Thea Brody [facility] Internal Medicine Work Phone: Comment on above: Pattern: Regular bp went down to 104/ 70 02-19-2020 07:35-0500 Pulse Oximetry 98 % Bibiana Mulligan [facility] Internal Medicine Work Phone: Comment on above: Room air bp went down to 104/ 70 02-19-2020 07:35-0500 Respiratory Rate 16 /min Thea Brody [facility] Internal Medicine Work Phone: Comment on above: Pattern: Unlabored bp went down to 104/ 70 02-19-2020 07:35-0500 SaO2% (BldA) [Mass fraction] 98 % Thea Brody [facility]; [facility] Work Phone: Comment on above: Room air bp went down to 104/ 70 08-27-2019 09:34-0400 BMI (Body Mass Index) 34.28 kg/m2 Laxmi Hinton RN [facility] Work Phone: Comment on above: Vital signs not obtained d/t call or vir tual visit 08-27-2019 09:34-0400 Body weight 93.44 kg Laxmi Hinton RN [facility] Work Phone: Comment on above: Vital signs not obtained d/t call or vir tual visit 08-27-2019 09:34-0400 BSA (Body Surface Area) 2 m2 Laxmi Hinton RN [facility] Work Phone: Comment on above: Vital signs not obtained d/t call or vir tual visit 08-27-2019 09:34-0400 Height 165.1 cm Laxmi Hinton RN [facility] Work Phone: Comment on above: Vital signs not obtained d/t call or vir tual visit 01-29-2019 07:45-0400 BMI (Body Mass Index) 44.97 kg/m2 Laxmi Hinton RN [facility] Work Phone: 01-29-2019 07:45-0400 Body weight 122.59 kg Laxmi Hinton RN [facility] Work Phone: 01-29-2019 07:45-0400 BP Diastolic 84 mm[Hg] Laxmi Hinton RN [facility] Work Phone: Comment on above: Patient Position: Sitting; Cuff Location : Left Arm; Cuff Size: Standard 01-29-2019 07:45-0400 BP Systolic 132 mm[Hg] Laxmi Hinton RN [facility] Work Phone: Comment on above: Patient Position: Sitting; Cuff Location : Left Arm; Cuff Size: Standard 01-29-2019 07:45-0400 BSA (Body Surface Area) 2.25 m2 Laxmi Hinton RN [facility] Work Phone: 01-29-2019 07:45-0400 Height 165.1 cm Laxmi Hinton RN [facility] Work Phone: 01-29-2019 07:45-0400 Pulse (Heart Rate) 65 /min Laxmi Hinton RN [facility] Work Phone: Comment on above: Pattern: Regular 01-29-2019 07:45-0400 Pulse Oximetry 94 % Bibiana Mulligan [facility] Work Phone: Comment on above: Room air 01-29-2019 07:45-0400 Respiratory Rate 18 /min Laxmi Hinton RN [facility] Work Phone: Comment on above: Pattern: Unlabored 01-29-2019 07:45-0400 SaO2% (BldA) [Mass fraction] 94 % Laxmi Hinton RN [facility]; [facility] Work Phone: Comment on above: Room air 09-22-2018 14:13-0400 BMI (Body Mass Index) 39.15 kg/m2 Margarita Slarb [employer]PRES[employer] [facility] Internal Medicine Work Phone: 09-22-2018 14:13-0400 Body Temperature 97.5 [degF] Margarita Slarb [employer] REPRESENT[employer]IVE [facility] Internal Medicine Work Phone: 09-22-2018 14:13-0400 Body weight 106.71 kg Margarita Slarb [employer]PRESENT[employer]IVE [facility] Internal Medicine Work Phone: 09-22-2018 14:13-0400 BP Diastolic 78 mm[Hg] Margarita Slarb [employer]PRESENT[employer]IVE [facility] Work Phone: Comment on above: Patient Position: Sitting; Cuff Location : Left Arm; Cuff Size: Standard 09-22-2018 14:13-0400 BP Systolic 132 mm[Hg] Margarita Slarb [employer]PRES[employer] [facility] Internal Medicine Work Phone: Comment on above: Patient Position: Sitting; Cuff Location : Left Arm; Cuff Size: Standard 09-22-2018 14:13-0400 BSA (Body Surface Area) 2.12 m2 Margarita Slarb [employer]PRES[employer] [facility] Internal Medicine Work Phone: 09-22-2018 14:13-0400 Height 165.1 cm Margarita Slarb RUKHSANA [facility] Work Phone: 09-22-2018 14:13-0400 Pulse (Heart Rate) 106 /min Margarita Lees LPN [facility] Work Phone: Comment on above: Pattern: Regular 09-22-2018 14:13-0400 Pulse Oximetry 96 % Bibiana Mulligan [facility] Work Phone: Comment on above: Room air 09-22-2018 14:13-0400 Respiratory Rate 18 /min Margarita Lees RUKHSANA [facility] Work Phone: Comment on above: Pattern: Unlabored 09-22-2018 14:13-0400 SaO2% (BldA) [Mass fraction] 96 % Margaritalaexa Lees [employer]PRESENT[employer]IVE [facility]; [facility] Work Phone: Comment on above: Room air 09-22-2018 14:13-0400 Weight 106.71 kg Bibiana Mulligan [facility] Work Phone: 07-29-2017 15:14-0400 BMI (Body Mass Index) 39.15 kg/m2 Laxmi Hinton RN [facility] Work Phone: 07-29-2017 15:14-0400 Body weight 106.71 kg Laxmi Hinton RN [facility] Work Phone: 07-29-2017 15:14-0400 BP Diastolic 78 mm[Hg] Laxmi Hinton RN [facility] Work Phone: Comment on above: Patient Position: Sitting; Cuff Location : Left Arm; Cuff Size: Large 07-29-2017 15:14-0400 BP Systolic 124 mm[Hg] Laxmi Hinton RN [facility] Work Phone: Comment on above: Patient Position: Sitting; Cuff Location : Left Arm; Cuff Size: Large 07-29-2017 15:14-0400 BSA (Body Surface Area) 2.12 m2 Laxmi Hinton RN [facility] Work Phone: 07-29-2017 15:14-0400 Height 165.1 cm Laxmi Hinton RN [facility] Work Phone: 07-29-2017 15:14-0400 Pulse (Heart Rate) 80 /min Laxmi Hinton RN [facility] Work Phone: Comment on above: Pattern: Regular 07-29-2017 15:14-0400 Pulse Oximetry 97 % Bibiana Mulligna [facility] Work Phone: Comment on above: Room air 07-29-2017 15:14-0400 Respiratory Rate 20 /min Laxmi Hinton RN [facility] Work Phone: Comment on above: Pattern: Unlabored 07-29-2017 15:14-0400 SaO2% (BldA) [Mass fraction] 97 % Laxmi Hinton RN [facility]; [facility] Work Phone: Comment on above: Room air 07-29-2017 15:14-0400 Weight 106.71 kg Bibiana Mulligan [facility] Work Phone: 01-04-2017 09:54-0400 BMI (Body Mass Index) 39.15 kg/m2 Laxmi Hinton RN [facility] Work Phone: 01-04-2017 09:54-0400 Body weight 106.71 kg Laxmi Hinton RN [facility] Work Phone: 01-04-2017 09:54-0400 BP Diastolic 78 mm[Hg] Laxmi Hinton RN [facility] Work Phone: Comment on above: Patient Position: Sitting; Cuff Location : Left Arm; Cuff Size: Large 01-04-2017 09:54-0400 BP Systolic 120 mm[Hg] Laxmi Hinton RN [facility] Work Phone: Comment on above: Patient Position: Sitting; Cuff Location : Left Arm; Cuff Size: Large 01-04-2017 09:54-0400 BSA (Body Surface Area) 2.12 m2 Laxmi Hinton RN [facility] Work Phone: 01-04-2017 09:54-0400 Height 165.1 cm Laxmi Hinton RN [facility] Work Phone: 01-04-2017 09:54-0400 Pulse (Heart Rate) 64 /min Laxmi Hinton RN [facility] Work Phone: Comment on above: Pattern: Regular 01-04-2017 09:54-0400 Pulse Oximetry 98 % Bibiana Mulligan [facility] Work Phone: Comment on above: Room air 01-04-2017 09:54-0400 Respiratory Rate 18 /min Laxmi Hinton RN [facility] Work Phone: Comment on above: Pattern: Unlabored 01-04-2017 09:54-0400 SaO2% (BldA) [Mass fraction] 98 % Laxmi Hinton RN [facility]; [facility] Work Phone: Comment on above: Room air 01-04-2017 09:54-0400 Weight 106.71 kg Bibiana Mulligan [facility] Work Phone: 11-29-2016 09:45-0400 BMI (Body Mass Index) 39.33 kg/m2 Laxmi Hinton RN [facility] Work Phone: 11-29-2016 09:45-0400 Body Temperature 97.1 [degF] Laxmi Hinton RN [facility] Work Phone: Comment on above: Method: Temporal 11-29-2016 09:45-0400 Body weight 107.22 kg Laxmi Hinton RN [facility] Work Phone: 11-29-2016 09:45-0400 BP Diastolic 84 mm[Hg] Laxmi Hinton RN [facility] Work Phone: Comment on above: Patient Position: Sitting; Cuff Location : Left Arm; Cuff Size: Large 11-29-2016 09:45-0400 BP Systolic 134 mm[Hg] Laxmi Hinton RN [facility] Work Phone: Comment on above: Patient Position: Sitting; Cuff Location : Left Arm; Cuff Size: Large 11-29-2016 09:45-0400 BSA (Body Surface Area) 2.12 m2 Laxmi Hinton RN [facility] Work Phone: 11-29-2016 09:45-0400 Height 165.1 cm Laxmi Hinton RN [facility] Work Phone: 11-29-2016 09:45-0400 Pulse (Heart Rate) 69 /min Laxmi Hinton RN [facility] Work Phone: Comment on above: Pattern: Regular 11-29-2016 09:45-0400 Pulse Oximetry 99 % Bibiana Ese [facility] Work Phone: Comment on above: Room air 11-29-2016 09:45-0400 Respiratory Rate 18 /min Laxmi Hinton RN [facility] Work Phone: Comment on above: Pattern: Unlabored 11-29-2016 09:45-0400 SaO2% (BldA) [Mass fraction] 99 % Laxmi Hinton RN [facility]; [facility] Work Phone: Comment on above: Room air 11-29-2016 09:45-0400 Weight 107.22 kg Bibiana Ese [facility] Work Phone: 08-15-2016 10:42-0400 BMI (Body Mass Index) 40.46 kg/m2 Laxmi Hinton RN [facility] Work Phone: 08-15-2016 10:42-0400 Body weight 110.28 kg Laxmi Hinton RN [facility] Work Phone: 08-15-2016 10:42-0400 BP Diastolic 76 mm[Hg] Laxmi Hinton RN [facility] Work Phone: Comment on above: Patient Position: Sitting; Cuff Location : Left Arm; Cuff Size: Large 08-15-2016 10:42-0400 BP Systolic 122 mm[Hg] Laxmi Hinton RN [facility] Work Phone: Comment on above: Patient Position: Sitting; Cuff Location : Left Arm; Cuff Size: Large 08-15-2016 10:42-0400 BSA (Body Surface Area) 2.15 m2 Laxmi Hinton RN [facility] Work Phone: 08-15-2016 10:42-0400 Height 165.1 cm Laxmi Hinton RN [facility] Work Phone: 08-15-2016 10:42-0400 Pulse (Heart Rate) 62 /min Laxmi Hinton RN [facility] Work Phone: Comment on above: Pattern: Regular 08-15-2016 10:42-0400 Pulse Oximetry 97 % Bibiana Mulligan [facility] Work Phone: Comment on above: Room air 08-15-2016 10:42-0400 Respiratory Rate 18 /min Laxim Hinton RN [facility] Work Phone: Comment on above: Pattern: Unlabored 08-15-2016 10:42-0400 SaO2% (BldA) [Mass fraction] 97 % Laxmi Hinton RN [facility]; [facility] Work Phone: Comment on above: Room air 08-15-2016 10:42-0400 Weight 110.28 kg Bibiana Mulligan [facility] Work Phone: 08-10-2016 14:41-0400 BMI (Body Mass Index) 40.6 kg/m2 Margarita Slarb [employer]PRES[employer]IVE [facility] Work Phone: 08-10-2016 14:41-0400 Body Temperature 97.6 [degF] Margarita Slarb [employer] REPRESENT[employer]IVE [facility] Work Phone: 08-10-2016 14:41-0400 Body weight 110.68 kg Margarita Slarb [employer] REPRESENT[employer]IVE [facility] Work Phone: 08-10-2016 14:41-0400 BP Diastolic 82 mm[Hg] Margarita Slarb [employer] REPRESENT[employer]IVE [facility] Work Phone: Comment on above: Patient Position: Sitting; Cuff Location : Left Arm; Cuff Size: Standard 08-10-2016 14:41-0400 BP Systolic 124 mm[Hg] Margarita Slarb [employer] REPRESENT[employer]IVE [facility] Work Phone: Comment on above: Patient Position: Sitting; Cuff Location : Left Arm; Cuff Size: Standard 08-10-2016 14:41-0400 BSA (Body Surface Area) 2.15 m2 Margarita Slarb [employer] REPRESENTATIVE [facility] Work Phone: 08-10-2016 14:41-0400 Height 165.1 cm Margarita Slarb [employer] REPRESENT[employer]IVE [facility] Work Phone: 08-10-2016 14:41-0400 Pulse (Heart Rate) 77 /min Margarita Slarb [employer]IVE [facility] Work Phone: Comment on above: Pattern: Regular 08-10-2016 14:41-0400 Pulse Oximetry 98 % Bibiana Mulligan [facility] Work Phone: Comment on above: Room air 08-10-2016 14:41-0400 Respiratory Rate 17 /min Margarita Slarb [employer] REPRESENT[employer]IVE [facility] Work Phone: Comment on above: Pattern: Unlabored 08-10-2016 14:41-0400 SaO2% (BldA) [Mass fraction] 98 % Margarita Slarb [employer]PRESENT[employer]IVE [facility]; [facility] Work Phone: Comment on above: Room air 08-10-2016 14:41-0400 Weight 110.68 kg Bibiana Mulligan [facility] Internal Medicine Work Phone: 08-01-2016 14:45-0400 BMI (Body Mass Index) 40.52 kg/m2 Margarita Slarb [employer] REPRESENT[employer]IVE [facility] Internal Medicine Work Phone: 08-01-2016 14:45-0400 Body Temperature 98 [degF] Margarita Slarb [employer]PRESENT[employer]IVE [facility] Work Phone: 08-01-2016 14:45-0400 Body weight 110.45 kg Margarita Slarb [employer]PRES[employer]IVE [facility] Work Phone: 08-01-2016 14:45-0400 BP Diastolic 60 mm[Hg] Margarita Slarb [employer] REPRES[employer]IVE [facility] Work Phone: Comment on above: Patient Position: Sitting; Cuff Location : Left Arm; Cuff Size: Standard 08-01-2016 14:45-0400 BP Systolic 132 mm[Hg] Margarita Slarb [employer]PRESENT[employer]IVE [facility] Medicine Work Phone: Comment on above: Patient Position: Sitting; Cuff Location : Left Arm; Cuff Size: Standard 08-01-2016 14:45-0400 BSA (Body Surface Area) 2.15 m2 Margarita Slarb [employer] REPRESENTATIVE [facility] Work Phone: 08-01-2016 14:45-0400 Height 165.1 cm Margarita Slarb [employer] REPRESENTATIVE [facility] Work Phone: 08-01-2016 14:45-0400 Pulse (Heart Rate) 77 /min Margarita Lees LPN [facility] Work Phone: Comment on above: Pattern: Regular 08-01-2016 14:45-0400 Pulse Oximetry 98 % Bibiana Mulligan [facility] Work Phone: Comment on above: Room air 08-01-2016 14:45-0400 Respiratory Rate 17 /min Margarita Lees LPN [facility] Work Phone: Comment on above: Pattern: Unlabored 08-01-2016 14:45-0400 SaO2% (BldA) [Mass fraction] 98 % Margarita Lees LPN [facility]; [facility] Work Phone: Comment on above: Room air 08-01-2016 14:45-0400 Weight 110.45 kg Bibiana Mulligan [facility] Work Phone: 03-05-2016 09:16-0500 BMI (Body Mass Index) 40.12 kg/m2 Laxmi Hinton RN [facility] Work Phone: 03-05-2016 09:16-0500 Body weight 109.37 kg Laxmi Hinton RN [facility] Work Phone: 03-05-2016 09:16-0500 BP Diastolic 68 mm[Hg] Laxmi Hinton RN [facility] Work Phone: Comment on above: Patient Position: Sitting; Cuff Location : Left Arm; Cuff Size: Large 03-05-2016 09:16-0500 BP Systolic 118 mm[Hg] Laxmi Hinton RN [facility] Work Phone: Comment on above: Patient Position: Sitting; Cuff Location : Left Arm; Cuff Size: Large 03-05-2016 09:16-0500 BSA (Body Surface Area) 2.14 m2 Laxmi Hinton RN [facility] Work Phone: 03-05-2016 09:16-0500 Height 165.1 cm Laxmi Hinton RN [facility] Work Phone: 03-05-2016 09:16-0500 Pulse (Heart Rate) 72 /min Laxmi Hinton RN [facility] Work Phone: Comment on above: Pattern: Regular 03-05-2016 09:16-0500 Pulse Oximetry 98 % Bibiana Mulligan [facility] Work Phone: Comment on above: Room air 03-05-2016 09:16-0500 SaO2% (BldA) [Mass fraction] 98 % Laxmi Hinton RN [facility]; [facility] Work Phone: Comment on above: Room air 03-05-2016 09:16-0500 Weight 109.37 kg Bibiana Mulligan [facility] Work Phone: 09-02-2015 15:14-0400 BMI (Body Mass Index) 39.13 kg/m2 Laxmi Hinton RN [facility] Work Phone: 09-02-2015 15:14-0400 Body weight 106.65 kg Laxmi Hinton RN [facility] Work Phone: 09-02-2015 15:14-0400 BP Diastolic 78 mm[Hg] Laxmi Hinton RN [facility] Work Phone: Comment on above: Patient Position: Sitting; Cuff Location : Left Arm; Cuff Size: Large 09-02-2015 15:14-0400 BP Systolic 122 mm[Hg] Laxmi Hinton RN [facility] Work Phone: Comment on above: Patient Position: Sitting; Cuff Location : Left Arm; Cuff Size: Large 09-02-2015 15:14-0400 BSA (Body Surface Area) 2.12 m2 Laxmi Hinton RN [facility] Work Phone: 09-02-2015 15:14-0400 Height 165.1 cm Laxmi Hinton RN [facility] Work Phone: 09-02-2015 15:14-0400 Pulse (Heart Rate) 75 /min Laxmi Hinton RN [facility] Work Phone: Comment on above: Pattern: Regular 09-02-2015 15:14-0400 Pulse Oximetry 98 % Bibiana Mulligan [facility] Work Phone: Comment on above: Room air 09-02-2015 15:14-0400 SaO2% (BldA) [Mass fraction] 98 % Laxmi Hinton RN [facility]; [facility] Work Phone: Comment on above: Room air 09-02-2015 15:14-0400 Weight 106.65 kg Bibiana Mulligan [facility] Internal Medicine Work Phone: 02-18-2015 14:15-0500 BMI (Body Mass Index) 39.77 kg/m2 Patria Hernandez [facility] Internal Medicine Work Phone: 02-18-2015 14:15-0500 Body Temperature 98.4 [degF] Patria Hernandez [facility] Internal Medicine Work Phone: Comment on above: Method: Oral 02-18-2015 14:15-0500 Body weight 108.41 kg Patria Hernandez [facility] Internal Medicine Work Phone: 02-18-2015 14:15-0500 BP Diastolic 74 mm[Hg] Patria Hernandez [facility] Internal Medicine Work Phone: Comment on above: Patient Position: Sitting; Cuff Location : Left Arm; Cuff Size: Standard 02-18-2015 14:15-0500 BP Systolic 122 mm[Hg] Patria Hernandez [facility] Internal Medicine Work Phone: Comment on above: Patient Position: Sitting; Cuff Location : Left Arm; Cuff Size: Standard 02-18-2015 14:15-0500 BSA (Body Surface Area) 2.13 m2 Patria Hernandez [facility] Internal Medicine Work Phone: 02-18-2015 14:15-0500 Height 165.1 cm Patria Hernandez [facility] Internal Medicine Work Phone: 02-18-2015 14:15-0500 Pulse (Heart Rate) 66 /min Patria Hernandez [facility] Internal Medicine Work Phone: Comment on above: Pattern: Regular 02-18-2015 14:15-0500 Pulse Oximetry 98 % Bibiana Mulligan [facility] Internal Medicine Work Phone: Comment on above: Room air 02-18-2015 14:15-0500 Respiratory Rate 18 /min Patria Hernandez [facility] Internal [facility] Work Phone: Comment on above: Pattern: Unlabored 02-18-2015 14:15-0500 SaO2% (BldA) [Mass fraction] 98 % Patria Hernandez [facility]; [facility] Work Phone: Comment on above: Room air 02-18-2015 14:15-0500 Weight 108.41 kg Bibiana Mulligan [facility] Internal [facility] Work Phone: 12-31-2014 07:52-0400 BMI (Body Mass Index) 38.61 kg/m2 TAMRA Vazquez [employer]PRES[employer] [facility] Internal [facility] Work Phone: 12-31-2014 07:52-0400 Body Temperature 97.6 [degF] TAMRA Vazquez [employer] REPRESENT[employer]IVE [facility] Internal [facility] Work Phone: Comment on above: Method: Temporal 12-31-2014 07:52-0400 Body weight 105.24 kg TAMRA Vazquez [employer] REPRESENTATIVE [facility] Work Phone: 12-31-2014 07:52-0400 BP Diastolic 78 mm[Hg] TAMRA Vazquez [facility] Work Phone: Comment on above: Patient Position: Sitting; Cuff Location : Left Arm; Cuff Size: Large 12-31-2014 07:52-0400 BP Systolic 120 mm[Hg] TAMRA Vazquez [facility] Internal Medicine Work Phone: Comment on above: Patient Position: Sitting; Cuff Location : Left Arm; Cuff Size: Large 12-31-2014 07:52-0400 BSA (Body Surface Area) 2.11 m2 TAMRA Vazquez [employer] [facility] Internal Medicine Work Phone: 12-31-2014 07:52-0400 Height 165.1 cm TAMRA Vazquez [employer] [facility] Internal Medicine Work Phone: 12-31-2014 07:52-0400 Pulse (Heart Rate) 64 /min TAMRA Vazquez [facility] Internal Medicine Work Phone: Comment on above: Pattern: Regular 12-31-2014 07:52-0400 Pulse Oximetry 98 % Bibiana Mulligan [facility] Internal Medicine Work Phone: Comment on above: Room air 12-31-2014 07:52-0400 Respiratory Rate 18 /min TAMRA Vazquez [facility] Work Phone: Comment on above: Pattern: Unlabored 12-31-2014 07:52-0400 SaO2% (BldA) [Mass fraction] 98 % TAMRA Vazquez [facility]; [facility] Work Phone: Comment on above: Room air 12-31-2014 07:52-0400 Weight 105.24 kg Bibiana Mulligan [facility] Work Phone: 08-27-2014 14:51-0400 BMI (Body Mass Index) 39.63 kg/m2 Laxmi Hinton RN [facility] Work Phone: 08-27-2014 14:51-0400 Body weight 108.01 kg Laxmi Hinton RN [facility] Work Phone: 08-27-2014 14:51-0400 BP Diastolic 68 mm[Hg] Laxmi Hinton RN [facility] Work Phone: Comment on above: Patient Position: Sitting; Cuff Location : Left Arm; Cuff Size: Large 08-27-2014 14:51-0400 BP Systolic 118 mm[Hg] Laxmi Hinton RN [facility] Work Phone: Comment on above: Patient Position: Sitting; Cuff Location : Left Arm; Cuff Size: Large 08-27-2014 14:51-0400 BSA (Body Surface Area) 2.13 m2 Laxmi Hinton RN [facility] Work Phone: 08-27-2014 14:51-0400 Height 165.1 cm Laxmi Hinton RN [facility] Work Phone: 08-27-2014 14:51-0400 Pulse (Heart Rate) 68 /min Laxmi Hinton RN [facility] Work Phone: Comment on above: Pattern: Regular 08-27-2014 14:51-0400 Pulse Oximetry 99 % Bibiana Mulligan [facility] Work Phone: Comment on above: Room air 08-27-2014 14:51-0400 Respiratory Rate 18 /min Laxmi Hinton RN [facility] Work Phone: Comment on above: Pattern: Unlabored 08-27-2014 14:51-0400 SaO2% (BldA) [Mass fraction] 99 % Laxmi Hinton RN [facility]; [facility] Work Phone: Comment on above: Room air 08-27-2014 14:51-0400 Weight 108.01 kg Bibiana Mulligan [facility] Work Phone: 06-04-2014 07:26-0500 BMI (Body Mass Index) 40.01 kg/m2 Laxmi Hinton RN [facility] Work Phone: 06-04-2014 07:26-0500 Body weight 109.06 kg Laxmi Hinton RN [facility] Work Phone: 06-04-2014 07:26-0500 BP Diastolic 70 mm[Hg] Laxmi Hinton RN [facility] Work Phone: Comment on above: Patient Position: Sitting; Cuff Location : Left Arm; Cuff Size: Large 06-04-2014 07:26-0500 BP Systolic 120 mm[Hg] Laxmi Hinton RN [facility] Work Phone: Comment on above: Patient Position: Sitting; Cuff Location : Left Arm; Cuff Size: Large 06-04-2014 07:26-0500 BSA (Body Surface Area) 2.14 m2 Laxmi Hinton RN [facility] Work Phone: 06-04-2014 07:26-0500 Height 165.1 cm Laxmi Hinton RN [facility] Work Phone: 06-04-2014 07:26-0500 Pulse (Heart Rate) 66 /min Laxmi Hinton RN [facility] Work Phone: Comment on above: Pattern: Regular 06-04-2014 07:26-0500 Pulse Oximetry 98 % Bibiana Mulligan [facility] Work Phone: Comment on above: Room air 06-04-2014 07:26-0500 Respiratory Rate 20 /min Laxmi Hinton RN [facility] Work Phone: Comment on above: Pattern: Unlabored 06-04-2014 07:26-0500 SaO2% (BldA) [Mass fraction] 98 % Laxmi Hinton RN [facility]; [facility] Work Phone: Comment on above: Room air 06-04-2014 07:26-0500 Weight 109.06 kg Bibiana Mulligan [facility] Work Phone: 03-09-2014 09:16-0500 BMI (Body Mass Index) 39.01 kg/m2 Laxmi Hinton RN [facility] Work Phone: 03-09-2014 09:16-0500 Body weight 106.34 kg Laxmi Hinton RN [facility] Work Phone: 03-09-2014 09:16-0500 BP Diastolic 82 mm[Hg] Laxmi Hinton RN [facility] Work Phone: Comment on above: Patient Position: Sitting; Cuff Location : Left Arm; Cuff Size: Large 03-09-2014 09:16-0500 BP Systolic 124 mm[Hg] Laxmi Hinton RN [facility] Work Phone: Comment on above: Patient Position: Sitting; Cuff Location : Left Arm; Cuff Size: Large 03-09-2014 09:16-0500 BSA (Body Surface Area) 2.12 m2 Laxmi Hinton RN [facility] Work Phone: 03-09-2014 09:16-0500 Height 165.1 cm Laxmi Hinton RN [facility] Work Phone: 03-09-2014 09:16-0500 Pulse (Heart Rate) 74 /min Laxmi Hinton RN [facility] Work Phone: Comment on above: Pattern: Regular 03-09-2014 09:16-0500 Pulse Oximetry 99 % Bibiana Mulligan [facility] Work Phone: Comment on above: Room air 03-09-2014 09:16-0500 Respiratory Rate 18 /min Laxmi Hinton RN [facility] Work Phone: Comment on above: Pattern: Unlabored 03-09-2014 09:16-0500 SaO2% (BldA) [Mass fraction] 99 % Laxmi Hinton RN [facility]; [facility] Work Phone: Comment on above: Room air 03-09-2014 09:16-0500 Weight 106.34 kg Bibiana Mulligan [facility] Work Phone: 09-25-2013 13:52-0400 BMI (Body Mass Index) 41.1 kg/m2 Marcela Briseno RN [facility] Internal Medicine Work Phone: 09-25-2013 13:52-0400 Body Temperature 97.2 [degF] Marcela Briseno RN [facility] Work Phone: Comment on above: Method: Temporal 09-25-2013 13:52-0400 Body weight 112.04 kg Marcela Briseno RN [facility] Work Phone: 09-25-2013 13:52-0400 BP Diastolic 68 mm[Hg] Marcela Briseno RN [facility] Work Phone: Comment on above: Patient Position: Sitting; Cuff Location : Left Arm; Cuff Size: Standard 09-25-2013 13:52-0400 BP Systolic 124 mm[Hg] Marcela Briseno RN [facility] Work Phone: Comment on above: Patient Position: Sitting; Cuff Location : Left Arm; Cuff Size: Standard 09-25-2013 13:52-0400 BSA (Body Surface Area) 2.16 m2 Marcela Briseno RN [facility] Work Phone: 09-25-2013 13:52-0400 Height 165.1 cm Marcela Briseno RN [facility] Work Phone: 09-25-2013 13:52-0400 Pulse (Heart Rate) 73 /min Marcela Briseno RN [facility] Work Phone: Comment on above: Pattern: Regular 09-25-2013 13:52-0400 Pulse Oximetry 92 % Bibiana Mulligan [facility] Work Phone: Comment on above: Room air 09-25-2013 13:52-0400 Respiratory Rate 16 /min Marcela Briseno RN [facility] Work Phone: Comment on above: Pattern: Unlabored 09-25-2013 13:52-0400 SaO2% (BldA) [Mass fraction] 92 % Marcela Briseno RN [facility]; [facility] Work Phone: Comment on above: Room air 09-25-2013 13:52-0400 Weight 112.04 kg Bibiana Mulligan [facility] Work Phone: 05-27-2013 15:04-0500 BMI (Body Mass Index) 41.77 kg/m2 Laxmi Hinton RN [facility] Work Phone: 05-27-2013 15:04-0500 Body weight 113.85 kg Laxmi Hinton RN [facility] Work Phone: 05-27-2013 15:04-0500 BP Diastolic 84 mm[Hg] Laxmi Hinton RN [facility] Work Phone: Comment on above: Patient Position: Sitting; Cuff Location : Left Arm; Cuff Size: Large 05-27-2013 15:04-0500 BP Systolic 128 mm[Hg] Laxmi Hinton RN [facility] Work Phone: Comment on above: Patient Position: Sitting; Cuff Location : Left Arm; Cuff Size: Large 05-27-2013 15:04-0500 BSA (Body Surface Area) 2.18 m2 Laxmi Hinton RN [facility] Work Phone: 05-27-2013 15:04-0500 Height 165.1 cm Laxmi Hinton RN [facility] Work Phone: 05-27-2013 15:04-0500 Pulse (Heart Rate) 64 /min Laxmi Hinton RN [facility] Work Phone: Comment on above: Pattern: Regular 05-27-2013 15:04-0500 Pulse Oximetry 98 % Bibiana Mulligan [facility] Work Phone: Comment on above: Room air 05-27-2013 15:04-0500 Respiratory Rate 20 /min Laxmi Hinton RN [facility] Work Phone: Comment on above: Pattern: Unlabored 05-27-2013 15:04-0500 SaO2% (BldA) [Mass fraction] 98 % Laxmi Hinton RN [facility]; [facility] Work Phone: Comment on above: Room air 05-27-2013 15:04-0500 Weight 113.85 kg Bibiana Mulligan [facility] Work Phone: 04-06-2013 11:45-0500 BMI (Body Mass Index) 41.77 kg/m2 Marcela Briseno RN [facility] Medicine Work Phone: Comment on above: weight taken with shoes and coat 04-06-2013 11:45-0500 Body Temperature 97.6 [degF] Marcela Briseno RN [facility] Work Phone: Comment on above: Method: Temporal weight taken with sh oes and coat 04-06-2013 11:45-0500 Body weight 113.85 kg Marcela Briseno RN [facility] Work Phone: Comment on above: weight taken with shoes and coat 04-06-2013 11:45-0500 BP Diastolic 74 mm[Hg] Marcela Briseno RN [facility] Work Phone: Comment on above: Patient Position: Sitting; Cuff Location : Left Arm; Cuff Size: Standard weight taken with sh oes and coat 04-06-2013 11:45-0500 BP Systolic 128 mm[Hg] Marcela Briseno RN [facility] Work Phone: Comment on above: Patient Position: Sitting; Cuff Location : Left Arm; Cuff Size: Standard weight taken with sh oes and coat 04-06-2013 11:45-0500 BSA (Body Surface Area) 2.18 m2 Marcela Briseno RN [facility] Work Phone: Comment on above: weight taken with shoes and coat 04-06-2013 11:45-0500 Height 165.1 cm Marcela Briseno RN [facility] Work Phone: Comment on above: weight taken with shoes and coat 04-06-2013 11:45-0500 Pulse (Heart Rate) 101 /min Marcela Briseno RN [facility] Work Phone: Comment on above: Pattern: Regular weight taken with sh oes and coat 04-06-2013 11:45-0500 Pulse Oximetry 93 % Bibiana Hurdon [facility] Medicine Work Phone: Comment on above: Room air weight taken with sh oes and coat 04-06-2013 11:45-0500 Respiratory Rate 16 /min Marcela Briseno RN [facility] Work Phone: Comment on above: Pattern: Unlabored weight taken with oes and coat 04-06-2013 11:45-0500 SaO2% (BldA) [Mass fraction] 93 % Marcela Briseno RN [facility]; [facility] Work Phone: Comment on above: Room air weight taken with oes and coat 04-06-2013 11:45-0500 Weight 113.85 kg Bibiana Mulligan [facility] Work Phone: Comment on above: weight taken with shoes and coat 04-09-2012 10:05-0500 BMI (Body Mass Index) 40.44 kg/m2 Laxmi Hinton RN [facility] Work Phone: 04-09-2012 10:05-0500 Body Temperature 97.5 [degF] Laxmi Hinton RN [facility] Work Phone: Comment on above: Method: Oral 04-09-2012 10:05-0500 Body weight 110.22 kg Laxmi Hinton RN [facility] Work Phone: 04-09-2012 10:05-0500 BP Diastolic 70 mm[Hg] Laxmi Hinton RN [facility] Work Phone: Comment on above: Patient Position: Sitting; Cuff Location : Left Arm; Cuff Size: Large 04-09-2012 10:05-0500 BP Systolic 128 mm[Hg] Laxmi Hinton RN [facility] Work Phone: Comment on above: Patient Position: Sitting; Cuff Location : Left Arm; Cuff Size: Large 04-09-2012 10:05-0500 BSA (Body Surface Area) 2.15 m2 Laxmi Hinton RN [facility] Work Phone: 04-09-2012 10:05-0500 Height 165.1 cm Laxmi Hinton RN [facility] Work Phone: 04-09-2012 10:05-0500 Pulse (Heart Rate) 80 /min Laxmi Hinton RN [facility] Work Phone: Comment on above: Pattern: Regular 04-09-2012 10:05-0500 Respiratory Rate 20 /min Laxmi Messenger RN [facility] Work Phone: Comment on above: Pattern: Unlabored 04-09-2012 10:05-0500 Weight 110.22 kg Bibiana Mulligan [facility] Work Phone: 01-31-2012 07:16-0400 BMI (Body Mass Index) 40.01 kg/m2 Laxmi Hinton RN [facility] Work Phone: 01-31-2012 07:16-0400 Body Temperature 97.9 [degF] Laxmi Hinton RN [facility] Work Phone: Comment on above: Method: Oral 01-31-2012 07:16-0400 Body weight 109.06 kg Laxmi Hinton RN [facility] Work Phone: 01-31-2012 07:16-0400 BP Diastolic 82 mm[Hg] Laxmi Hinton RN [facility] Work Phone: Comment on above: Patient Position: Sitting; Cuff Location : Left Arm; Cuff Size: Large 01-31-2012 07:16-0400 BP Systolic 124 mm[Hg] Laxmi Hinton RN [facility] Work Phone: Comment on above: Patient Position: Sitting; Cuff Location : Left Arm; Cuff Size: Large 01-31-2012 07:16-0400 BSA (Body Surface Area) 2.14 m2 Laxmi Hinton RN [facility] Work Phone: 01-31-2012 07:16-0400 Height 165.1 cm Laxmi Hinton RN [facility] Work Phone: 01-31-2012 07:16-0400 Pulse (Heart Rate) 64 /min Laxmi Hinton RN [facility] Work Phone: Comment on above: Pattern: Regular 01-31-2012 07:16-0400 Respiratory Rate 18 /min Laxmi Hinton RN [facility] Work Phone: Comment on above: Pattern: Unlabored 01-31-2012 07:16-0400 Weight 109.06 kg Bibiana Mulligan [facility] Work Phone: 12-07-2011 07:52-0400 BMI (Body Mass Index) 39.31 kg/m2 Jacki Delatorre LPN [facility] Work Phone: 12-07-2011 07:52-0400 Body Temperature 98.4 [degF] Jacki eDlatorre LPN [facility] Work Phone: Comment on above: Method: Oral 12-07-2011 07:52-0400 Body weight 107.16 kg Jacki Delatorre LPN [facility] Work Phone: 12-07-2011 07:52-0400 BP Diastolic 78 mm[Hg] Jacki Delatorre LPN [facility] Work Phone: Comment on above: Patient Position: Sitting; Cuff Location : Left Arm; Cuff Size: Standard 12-07-2011 07:52-0400 BP Systolic 122 mm[Hg] Jacki Delatorre LPN [facility] Work Phone: Comment on above: Patient Position: Sitting; Cuff Location : Left Arm; Cuff Size: Standard 12-07-2011 07:52-0400 BSA (Body Surface Area) 2.12 m2 Jacki Delatorre LPN [facility] Work Phone: 12-07-2011 07:52-0400 Height 165.1 cm Jacki Delatorre LPN [facility] Work Phone: 12-07-2011 07:52-0400 Pulse (Heart Rate) 78 /min Jacki Delatorre LPN [facility] Work Phone: Comment on above: Pattern: Regular 12-07-2011 07:52-0400 Respiratory Rate 18 /min Jacki Delatorre LPN [facility] Work Phone: Comment on above: Pattern: Unlabored 12-07-2011 07:52-0400 Weight 107.16 kg Bibiana Mulligan [facility] Work Phone: 11-26-2011 09:14-0400 BMI (Body Mass Index) 39.31 kg/m2 Jacki Delatorre LPN [facility] Work Phone: 11-26-2011 09:14-0400 Body Temperature 98.6 [degF] Jacki Delatorre LPN [facility] Work Phone: Comment on above: Method: Oral 11-26-2011 09:14-0400 Body weight 107.16 kg Jacki Delatorre LPN [facility] Work Phone: 11-26-2011 09:14-0400 BP Diastolic 78 mm[Hg] Jacki Delatorre LPN [facility] Work Phone: Comment on above: Patient Position: Sitting; Cuff Location : Left Arm; Cuff Size: Standard 11-26-2011 09:14-0400 BP Systolic 122 mm[Hg] Jacki Delatorre LPN [facility] Work Phone: Comment on above: Patient Position: Sitting; Cuff Location : Left Arm; Cuff Size: Standard 11-26-2011 09:140400 BSA (Body Surface Area) 2.12 m2 Jacki Delatorre LPN [facility] Work Phone: 11-26-2011 09:14-0400 Height 165.1 cm Jacki Delatorre LPN [facility] Work Phone: 11-26-2011 09:14-0400 Pulse (Heart Rate) 86 /min Jacki Delatorre LPN [facility] Work Phone: Comment on above: Pattern: Regular 11-26-2011 09:14-0400 Respiratory Rate 18 /min Jacki Delatorre LPN [facility] Work Phone: Comment on above: Pattern: Unlabored 11-26-2011 09:14-0400 Weight 107.16 kg Bibiana Mulligan [facility] Work Phone: 11-02-2011 14:47-0400 BMI (Body Mass Index) 39.31 kg/m2 Jacki Delatorre LPN [facility] Work Phone: 11-02-2011 14:47-0400 Body Temperature 98.8 [degF] Jacki Delatorre LPN [facility] Work Phone: Comment on above: Method: Oral 11-02-2011 14:47-0400 Body weight 107.16 kg Jacki Delatorre LPN [facility] Work Phone: 11-02-2011 14:47-0400 BP Diastolic 80 mm[Hg] Jacki Delatorre LPN [facility] Work Phone: Comment on above: Patient Position: Sitting; Cuff Location : Left Arm; Cuff Size: Standard 11-02-2011 14:47-0400 BP Systolic 128 mm[Hg] Jacki Delatorre LPN [facility] Work Phone: Comment on above: Patient Position: Sitting; Cuff Location : Left Arm; Cuff Size: Standard 11-02-2011 14:47-0400 BSA (Body Surface Area) 2.12 m2 Jacki Delatorre LPN [facility] Work Phone: 11-02-2011 14:47-0400 Height 165.1 cm Jacki Delatorre LPN [facility] Work Phone: 11-02-2011 14:47-0400 Pulse (Heart Rate) 94 /min Jacki Delatorre LPN [facility] Work Phone: Comment on above: Pattern: Regular 11-02-2011 14:47-0400 Respiratory Rate 18 /min Jacki Delatorre LPN [facility] Work Phone: Comment on above: Pattern: Unlabored 11-02-2011 14:47-0400 Weight 107.16 kg Bibiana Mulligan [facility] Work Phone: 03-06-2011 11:54-0500 BMI (Body Mass Index) 38.9 kg/m2 Jacki Delatorre LPN [facility] Work Phone: 03-06-2011 11:54-0500 Body Temperature 102.2 [degF] Jacki Delatorre LPN [facility] Work Phone: Comment on above: Method: Oral 03-06-2011 11:54-0500 Body weight 107.67 kg Jacki Delatorre LPN [facility] Work Phone: 03-06-2011 11:54-0500 BP Diastolic 80 mm[Hg] Jacki Delatorre LPN [facility] Work Phone: Comment on above: Patient Position: Sitting; Cuff Location : Left Arm; Cuff Size: Standard 03-06-2011 11:54-0500 BP Systolic 132 mm[Hg] Jacki Delatorre LPN [facility] Work Phone: Comment on above: Patient Position: Sitting; Cuff Location : Left Arm; Cuff Size: Standard 03-06-2011 11:54-0500 BSA (Body Surface Area) 2.14 m2 Jacki Delatorre LPN [facility] Work Phone: 03-06-2011 11:54-0500 Height 166.37 cm Jacki Delatorre LPN [facility] Work Phone: 03-06-2011 11:54-0500 Pulse (Heart Rate) 110 /min Jacki Delatorre LPN [facility] Work Phone: Comment on above: Pattern: Regular 03-06-2011 11:54-0500 Pulse Oximetry 95 % Bibiana Mulligan [facility] Work Phone: Comment on above: Room air 03-06-2011 11:54-0500 Respiratory Rate 18 /min Jacki Delatorre LPN [facility] Work Phone: Comment on above: Pattern: Unlabored 03-06-2011 11:54-0500 SaO2% (BldA) [Mass fraction] 95 % Jacki Delatorre LPN [facility]; [facility] Work Phone: Comment on above: Room air 03-06-2011 11:54-0500 Weight 107.67 kg Bibiana Mulligan [facility] Work Phone: 11-06-2010 16:50-0400 BMI (Body Mass Index) 38.9 kg/m2 Jacki Delatorre LPN [facility] Work Phone: 11-06-2010 16:50-0400 Body Temperature 98.5 [degF] Jacki Delatorre LPN [facility] Work Phone: Comment on above: Method: Oral 11-06-2010 16:50-0400 Body weight 107.67 kg Jacki Delatorre LPN [facility] Work Phone: 11-06-2010 16:50-0400 BP Diastolic 82 mm[Hg] Jacki Delatorre LPN [facility] Work Phone: Comment on above: Patient Position: Sitting; Cuff Location : Left Arm; Cuff Size: Standard 11-06-2010 16:50-0400 BP Systolic 128 mm[Hg] Jacki Delatorre LPN [facility] Work Phone: Comment on above: Patient Position: Sitting; Cuff Location : Left Arm; Cuff Size: Standard 11-06-2010 16:50-0400 BSA (Body Surface Area) 2.14 m2 Jacki Delatorre LPN [facility] Work Phone: 11-06-2010 16:50-0400 Height 166.37 cm Jacki Delatorre LPN [facility] Work Phone: 11-06-2010 16:50-0400 Pulse (Heart Rate) 68 /min Jacki Delatorre LPN [facility] Work Phone: Comment on above: Pattern: Regular 11-06-2010 16:50-0400 Respiratory Rate 18 /min Jacki Delatorre [employer]PRES[employer]IVE [facility] Work Phone: Comment on above: Pattern: Unlabored 11-06-2010 16:50-0400 Weight 107.67 kg Bibiana Mulligan [facility] Work Phone: 08-28-2010 07:59-0400 BMI (Body Mass Index) 38.9 kg/m2 Laxmi Hinton RN [facility] Work Phone: 08-28-2010 07:59-0400 Body weight 107.67 kg Laxmi Hinton RN [facility] Work Phone: 08-28-2010 07:59-0400 BP Diastolic 82 mm[Hg] Laxmi Hinton RN [facility] Work Phone: Comment on above: Patient Position: Sitting; Cuff Location : Left Arm; Cuff Size: Large 08-28-2010 07:59-0400 BP Systolic 124 mm[Hg] Laxmi Hinton RN [facility] Work Phone: Comment on above: Patient Position: Sitting; Cuff Location : Left Arm; Cuff Size: Large 08-28-2010 07:59-0400 BSA (Body Surface Area) 2.14 m2 Laxmi Hinton RN [facility] Work Phone: 08-28-2010 07:59-0400 Height 166.37 cm Laxmi Hinton RN [facility] Work Phone: 08-28-2010 07:59-0400 Pulse (Heart Rate) 64 /min Laxmi Hinton RN [facility] Work Phone: Comment on above: Pattern: Regular 08-28-2010 07:59-0400 Respiratory Rate 20 /min Laxmi Hinton RN [facility] Work Phone: Comment on above: Pattern: Unlabored 08-28-2010 07:59-0400 Weight 107.67 kg Bibiana Mulligan [facility] Work Phone: 08-17-2010 08:00-0400 BMI (Body Mass Index) 38.24 kg/m2 Laxmi Hinton RN [facility] Work Phone: 08-17-2010 08:00-0400 Body weight 105.86 kg Laxmi Hinton RN [facility] Work Phone: 08-17-2010 08:00-0400 BP Diastolic 82 mm[Hg] Laxmi Hinton RN [facility] Work Phone: Comment on above: Patient Position: Sitting; Cuff Location : Left Arm; Cuff Size: Large 08-17-2010 08:00-0400 BP Systolic 124 mm[Hg] Laxmi Hinton RN [facility] Work Phone: Comment on above: Patient Position: Sitting; Cuff Location : Left Arm; Cuff Size: Large 08-17-2010 08:00-0400 BSA (Body Surface Area) 2.12 m2 Laxmi Hinton RN [facility] Work Phone: 08-17-2010 08:00-0400 Height 166.37 cm Laxmi Hinton RN [facility] Work Phone: 08-17-2010 08:00-0400 Pulse (Heart Rate) 68 /min Laxmi Hinton RN [facility] Work Phone: Comment on above: Pattern: Regular 08-17-2010 08:00-0400 Respiratory Rate 20 /min Laxmi Hinton RN [facility] Work Phone: Comment on above: Pattern: Unlabored 08-17-2010 08:00-0400 Weight 105.86 kg Bibiana Mulligan [facility] Work Phone: 07-14-2010 15:03-0400 BMI (Body Mass Index) 39.06 kg/m2 Laxmi Hinton RN [facility] Work Phone: 07-14-2010 15:03-0400 Body weight 108.13 kg Laxmi Hinton RN [facility] Work Phone: 07-14-2010 15:03-0400 BP Diastolic 84 mm[Hg] Laxmi Hinton RN [facility] Internal Medicine Work Phone: Comment on above: Patient Position: Sitting; Cuff Location : Left Arm; Cuff Size: Large 07-14-2010 15:03-0400 BP Systolic 132 mm[Hg] Laxmi Hinton RN [facility] Work Phone: Comment on above: Patient Position: Sitting; Cuff Location : Left Arm; Cuff Size: Large 07-14-2010 15:03-0400 BSA (Body Surface Area) 2.14 m2 Laxmi Hinton RN [facility] Work Phone: 07-14-2010 15:03-0400 Height 166.37 cm Laxmi Hinton RN [facility] Work Phone: 07-14-2010 15:03-0400 Pulse (Heart Rate) 64 /min Laxmi Hinton RN [facility] Work Phone: Comment on above: Pattern: Regular 07-14-2010 15:03-0400 Respiratory Rate 20 /min Laxmi Hinton RN [facility] Work Phone: Comment on above: Pattern: Unlabored 07-14-2010 15:03-0400 Weight 108.13 kg Bibiana Mulligan [facility] Work Phone: 01-23-2010 09:50-0400 BMI (Body Mass Index) 39.06 kg/m2 Laxmi Hinton RN [facility] Work Phone: 01-23-2010 09:50-0400 Body weight 108.13 kg Laxmi Hinton RN [facility] Work Phone: 01-23-2010 09:50-0400 BP Diastolic 62 mm[Hg] Laxmi Hinton RN [facility] Work Phone: Comment on above: Patient Position: Sitting; Cuff Location : Left Arm; Cuff Size: Large 01-23-2010 09:50-0400 BP Systolic 122 mm[Hg] Laxmi Hinton RN [facility] Work Phone: Comment on above: Patient Position: Sitting; Cuff Location : Left Arm; Cuff Size: Large 01-23-2010 09:50-0400 BSA (Body Surface Area) 2.14 m2 Laxmi Hinton RN [facility] Work Phone: 01-23-2010 09:50-0400 Height 166.37 cm Laxmi Hinton RN [facility] Work Phone: 01-23-2010 09:50-0400 Pulse (Heart Rate) 80 /min Laxmi Hinton RN [facility] Work Phone: Comment on above: Pattern: Regular 01-23-2010 09:50-0400 Respiratory Rate 20 /min Laxmi Hinton RN [facility] Work Phone: Comment on above: Pattern: Unlabored 01-23-2010 09:50-0400 Weight 108.13 kg Bibiana Mulligan [facility] Work Phone: 01-18-2010 08:02-0400 BMI (Body Mass Index) 38.28 kg/m2 Laxmi Hinton RN [facility] Work Phone: 01-18-2010 08:02-0400 Body weight 105.94 kg Laxmi Hinton RN [facility] Work Phone: 01-18-2010 08:02-0400 BP Diastolic 76 mm[Hg] Laxmi Hinton RN [facility] Work Phone: Comment on above: Patient Position: Sitting; Cuff Location : Left Arm; Cuff Size: Large 01-18-2010 08:02-0400 BP Systolic 122 mm[Hg] Laxmi Hinton RN [facility] Work Phone: Comment on above: Patient Position: Sitting; Cuff Location : Left Arm; Cuff Size: Large 01-18-2010 08:02-0400 BSA (Body Surface Area) 2.12 m2 Laxmi Hinton RN [facility] Work Phone: 01-18-2010 08:02-0400 Height 166.37 cm Laxmi Hinton RN [facility] Work Phone: 01-18-2010 08:02-0400 Pulse (Heart Rate) 76 /min Laxmi Hinton RN [facility] Work Phone: Comment on above: Pattern: Regular 01-18-2010 08:02-0400 Respiratory Rate 20 /min Laxmi Hinton RN [facility] Work Phone: Comment on above: Pattern: Unlabored 01-18-2010 08:02-0400 Weight 105.94 kg Bibiana Mulligan [facility] Work Phone: 09-23-2009 07:43-0400 BP Diastolic 70 mm[Hg] TAMRA Vazquez LPN [facility] Work Phone: Comment on above: Patient Position: Sitting; Cuff Location : Left Arm; Cuff Size: Large 09-23-2009 07:43-0400 BP Systolic 114 mm[Hg] TAMRA Vazquez LPN [facility] Internal Medicine Work Phone: Comment on above: Patient Position: Sitting; Cuff Location : Left Arm; Cuff Size: Large 09-23-2009 07:43-0400 Pulse (Heart Rate) 74 /min TAMRA Vazquez LPN [facility] Internal Medicine Work Phone: Comment on above: Pattern: Regular 09-23-2009 07:43-0400 Respiratory Rate 18 /min TAMRA Vazquez LPN [facility] Internal Medicine Work Phone: Comment on above: Pattern: Unlabored 08-26-2009 12:05-0400 Body weight 110.22 kg Martina [facility] Internal Medicine Work Phone: 08-26-2009 12:05-0400 BP Diastolic 68 mm[Hg] [facility] Internal Medicine Work Phone: Comment on above: Patient Position: Sitting; Cuff Location : Left Arm; Cuff Size: Standard 08-26-2009 12:05-0400 BP Systolic 100 mm[Hg] Martina [facility] Internal Medicine Work Phone: Comment on above: Patient Position: Sitting; Cuff Location : Left Arm; Cuff Size: Standard 08-26-2009 12:05-0400 Pulse (Heart Rate) 78 /min [facility] Work [facility]: Comment on above: Pattern: Regular 08-26-2009 12:05-0400 Respiratory Rate 18 /min Martina [facility] Internal Medicine Work Phone: Comment on above: Pattern: Unlabored 08-26-2009 12:05-0400 Weight 110.22 kg Bibiana Hurdon [facility] Work Phone: 06-27-2009 08:44-0400 Body weight 110.85 kg Laxmi Hinton RN [facility] Work Phone: 06-27-2009 08:44-0400 BP Diastolic 72 mm[Hg] Laxmi Hinton RN [facility] Work Phone: Comment on above: Patient Position: Sitting; Cuff Location : Left Arm; Cuff Size: Large 06-27-2009 08:44-0400 BP Systolic 134 mm[Hg] Laxmi Hinton RN [facility] Work Phone: Comment on above: Patient Position: Sitting; Cuff Location : Left Arm; Cuff Size: Large 06-27-2009 08:44-0400 Pulse (Heart Rate) 68 /min Laxmi Hinton RN [facility] Work Phone: Comment on above: Pattern: Regular 06-27-2009 08:44-0400 Respiratory Rate 20 /min Laxmi Hinton RN [facility] Work Phone: Comment on above: Pattern: Unlabored 06-27-2009 08:44-0400 Weight 110.85 kg Bibiana Hurdon [facility] Work Phone: 03-09-2009 06:51-0500 Body weight 113.4 kg Laxmi Hinton RN [facility] Work Phone: 03-09-2009 06:51-0500 BP Diastolic 80 mm[Hg] Laxmi Hinton RN [facility] Work Phone: Comment on above: Patient Position: Sitting; Cuff Location : Left Arm; Cuff Size: Large 03-09-2009 06:51-0500 BP Systolic 128 mm[Hg] Laxmi Hinton RN [facility] Work Phone: Comment on above: Patient Position: Sitting; Cuff Location : Left Arm; Cuff Size: Large 03-09-2009 06:51-0500 Head Circumference 0 cm Bibiana Ese [facility] Internal Medicine Work Phone: 03-09-2009 06:51-0500 Head Occipital-frontal circumference 0 cm Laxmi Hinton RN [facility]; [facility] Work Phone: 03-09-2009 06:51-0500 Height 0 cm Laxmi Hinton RN [facility] Work Phone: 03-09-2009 06:51-0500 Pulse (Heart Rate) 80 /min Laxmi Hinton RN [facility] Work Phone: Comment on above: Pattern: Regular 03-09-2009 06:51-0500 Respiratory Rate 16 /min Laxmi Hinton RN [facility] Work Phone: Comment on above: Pattern: Unlabored 03-09-2009 06:51-0500 Weight 113.4 kg Bibiana Mulligan [facility] Internal Medicine Work Phone: 06-17-2008 11:18-0500 Body Temperature 97.3 [degF] TAMRA Vazquez LPN [facility] Internal Medicine Work Phone: Comment on above: Method: Oral 06-17-2008 11:18-0500 Body weight 0 kg TAMRA Vazquez LPN [facility] Internal Medicine Work Phone: 06-17-2008 11:18-0500 BP Diastolic 68 mm[Hg] TAMRA Vazquez LPN [facility] Internal Medicine Work Phone: Comment on above: Patient Position: Sitting; Cuff Location : Left Arm; Cuff Size: Large 06-17-2008 11:18-0500 BP Systolic 116 mm[Hg] TAMRA Vazquez LPN [facility] Work Phone: Comment on above: Patient Position: Sitting; Cuff Location : Left Arm; Cuff Size: Large 06-17-2008 11:18-0500 Head Circumference 0 cm Bibiana Mulligan [facility] Work Phone: 06-17-2008 11:18-0500 Head Occipital-frontal circumference 0 cm TAMRA Vazquez RUKHSANA [facility]; [facility] Work Phone: 06-17-2008 11:18-0500 Height 0 cm TAMRA Vazquez [employer] [facility] Work Phone: 06-17-2008 11:18-0500 Pulse (Heart Rate) 68 /min TAMRA Vazquez LPN [facility] Work Phone: Comment on above: Pattern: Regular 06-17-2008 11:18-0500 Respiratory Rate 16 /min TAMRA Vazquez LPN [facility] Work Phone: Comment on above: Pattern: Unlabored 06-17-2008 11:18-0500 Weight 0 kg Bibiana Mulligan [facility] Work Phone: 06-07-2008 09:29-0500 Body weight 107.5 kg Laxmi Hinton RN [facility] Work Phone: 06-07-2008 09:29-0500 BP Diastolic 78 mm[Hg] Laxmi Hinton RN [facility] Work Phone: Comment on above: Patient Position: Sitting; Cuff Location : Left Arm; Cuff Size: Large 06-07-2008 09:29-0500 BP Systolic 132 mm[Hg] Laxmi Hinton RN [facility] Work Phone: Comment on above: Patient Position: Sitting; Cuff Location : Left Arm; Cuff Size: Large 06-07-2008 09:29-0500 Head Circumference 0 cm Bibiana Mulligan [facility] Work Phone: 06-07-2008 09:29-0500 Head Occipital-frontal circumference 0 cm Laxmi Hinton RN [facility]; [facility] Work Phone: 06-07-2008 09:29-0500 Height 0 cm Laxmi Hinton RN [facility] Work Phone: 06-07-2008 09:29-0500 Pulse (Heart Rate) 64 /min Laxmi Hinton RN [facility] Work Phone: Comment on above: Pattern: Regular 06-07-2008 09:29-0500 Respiratory Rate 20 /min Laxmi Hinton RN [facility] Work Phone: Comment on above: Pattern: Unlabored 06-07-2008 09:29-0500 Weight 107.5 kg Bibiana Mulligan [facility] Work Phone: 05-28-2008 11:52-0500 Body weight 107.5 kg Camelia Tyson MD Work Phone: [facility] Work Phone: Comment on above: reported 05-28-2008 11:52-0500 BP Diastolic 72 mm[Hg] Camelia Tyson MD Work Phone: [facility] Work Phone: Comment on above: Patient Position: Sitting; Cuff Location : Left Arm; Cuff Size: Large reported 05-28-2008 11:52-0500 BP Systolic 118 mm[Hg] Camelia Tyson MD Work Phone: [facility] Work Phone: Comment on above: Patient Position: Sitting; Cuff Location : Left Arm; Cuff Size: Large reported 05-28-2008 11:52-0500 Head Circumference 0 cm Bibiana Mulligan [facility] Work Phone: Comment on above: reported 05-28-2008 11:52-0500 Head Occipital-frontal circumference 0 cm Camelia Tyson MD Work Phone: [facility]; [facility] Work Phone: Comment on above: reported 05-28-2008 11:52-0500 Height 0 cm Camelia Tyson MD Work Phone: [facility] Work Phone: Comment on above: reported 05-28-2008 11:52-0500 Pulse (Heart Rate) 80 /min Camelia Tyson MD Work Phone: [facility] Work Phone: Comment on above: Pattern: Regular reported 05-28-2008 11:52-0500 Respiratory Rate 20 /min Camelia Tyson MD Work Phone: [facility] Internal Medicine Work Phone: Comment on above: Pattern: Unlabored reported 05-28-2008 11:52-0500 Weight 107.5 kg Bibiana Mulligan [facility] Internal Medicine Work Phone: Comment on above: reported 11-05-2007 07:55-0400 Body Temperature 97.2 [degF] [facility] Internal Medicine Work Phone: Comment on above: Method: Oral 11-05-2007 07:55-0400 Body weight 107.5 kg [facility] Internal Medicine Work Phone: 11-05-2007 07:55-0400 BP Diastolic 66 mm[Hg] [facility] Internal Medicine Work Phone: Comment on above: Patient Position: Sitting; Cuff Location : Left Arm; Cuff Size: Large 11-05-2007 07:55-0400 BP Systolic 110 mm[Hg] [facility] Internal Medicine Work Phone: Comment on above: Patient Position: Sitting; Cuff Location : Left Arm; Cuff Size: Large 11-05-2007 07:55-0400 Head Circumference 0 cm Bibiana Mulligan [facility] Internal Medicine Work Phone: 11-05-2007 07:55-0400 Head Occipital-frontal circumference 0 cm [facility]; [facility] Internal Medicine Work Phone: 11-05-2007 07:55-0400 Height 0 cm [facility] Internal Medicine Work Phone: 11-05-2007 07:55-0400 Pulse (Heart Rate) 64 /min [facility] Internal Medicine Work Phone: Comment on above: Pattern: Regular 11-05-2007 07:55-0400 Respiratory Rate 18 /min [facility] Internal Medicine Work Phone: Comment on above: Pattern: Unlabored 11-05-2007 07:55-0400 Weight 107.5 kg Bibiana Mulligan [facility] Internal Medicine Work Phone: 06-04-2007 09:13-0500 Body Temperature 98.4 [degF] Laxmi Hinton RN [facility] Work Phone: Comment on above: Method: Oral 06-04-2007 09:13-0500 Body weight 107.5 kg Laxmi Hinton RN [facility] Work Phone: 06-04-2007 09:13-0500 BP Diastolic 78 mm[Hg] Laxmi Hinton RN [facility] Work Phone: Comment on above: Patient Position: Sitting; Cuff Location : Left Arm; Cuff Size: Large 06-04-2007 09:13-0500 BP Systolic 124 mm[Hg] Laxmi Hinton RN [facility] Work Phone: Comment on above: Patient Position: Sitting; Cuff Location : Left Arm; Cuff Size: Large 06-04-2007 09:13-0500 Head Circumference 0 cm Bibiana Mulligan [facility] Work Phone: 06-04-2007 09:13-0500 Head Occipital-frontal circumference 0 cm Laxmi Hinton RN [facility]; [facility] Work Phone: 06-04-2007 09:13-0500 Height 0 cm Laxmi Hinton RN [facility] Work Phone: 06-04-2007 09:13-0500 Pulse (Heart Rate) 72 /min Laxmi Hinton RN [facility] Work Phone: Comment on above: Pattern: Regular 06-04-2007 09:13-0500 Respiratory Rate 20 /min Laxmi Hinton RN [facility] Work Phone: Comment on above: Pattern: Unlabored 06-04-2007 09:13-0500 Weight 107.5 kg Bibiana Mulligan [facility] Work Phone: 06-02-2007 17:17-0500 Body Temperature 98.3 [degF] Laxmi Hinton RN [facility] Work Phone: Comment on above: Method: Oral 06-02-2007 17:17-0500 Body weight 107.5 kg Laxmi Hinton RN [facility] Work Phone: 06-02-2007 17:17-0500 BP Diastolic 78 mm[Hg] Laxim Hinton RN [facility] Work Phone: Comment on above: Patient Position: Sitting; Cuff Location : Left Arm; Cuff Size: Standard 06-02-2007 17:17-0500 BP Systolic 128 mm[Hg] Laxmi Hinton RN [facility] Work Phone: Comment on above: Patient Position: Sitting; Cuff Location : Left Arm; Cuff Size: Standard 06-02-2007 17:17-0500 Head Circumference 0 cm Bibiana Ese [facility] Work Phone: 06-02-2007 17:17-0500 Head Occipital-frontal circumference 0 cm Laxmi Hinton RN [facility]; [facility] Work Phone: 06-02-2007 17:17-0500 Height 0 cm Laxmi Hinton RN [facility] Work Phone: 06-02-2007 17:17-0500 Pulse (Heart Rate) 64 /min Laxmi Hinton RN [facility] Work Phone: Comment on above: Pattern: Regular 06-02-2007 17:17-0500 Respiratory Rate 20 /min Laxmi Hinton RN [facility] Work Phone: Comment on above: Pattern: Unlabored 06-02-2007 17:17-0500 Weight 107.5 kg Bibiana Mulligan [facility] Work Phone: 05-29-2007 08:08-0500 Body Temperature 97.9 [degF] Jacki Delatorre LPN [facility] Work Phone: Comment on above: Method: Oral 05-29-2007 08:08-0500 Body weight 107.5 kg Jacki Delatorre LPN [facility] Work Phone: 05-29-2007 08:08-0500 BP Diastolic 72 mm[Hg] Jacki Juan Ramon MILIAN [facility] Work Phone: Comment on above: Patient Position: Sitting; Cuff Location : Left Arm; Cuff Size: Standard 05-29-2007 08:08-0500 BP Systolic 130 mm[Hg] Jacki Delatorre LPN [facility] Work Phone: Comment on above: Patient Position: Sitting; Cuff Location : Left Arm; Cuff Size: Standard 05-29-2007 08:08-0500 Head Circumference 0 cm Bibiana Mulligan [facility] Work Phone: 05-29-2007 08:08-0500 Head Occipital-frontal circumference 0 cm Jacki Delatorre RUKHSANA [facility]; [facility] Work Phone: 05-29-2007 08:08-0500 Height 0 cm Jacki Delatorre RUKHSANA [facility] Work Phone: 05-29-2007 08:08-0500 Pulse (Heart Rate) 76 /min Jacki Delatorre LPN [facility] Work Phone: Comment on above: Pattern: Regular 05-29-2007 08:08-0500 Pulse Oximetry 98 % Bibiana Mulligan [facility] Work Phone: Comment on above: Room air 05-29-2007 08:08-0500 Respiratory Rate 16 /min Jacki Delatorre RUKHSANA [facility] Work Phone: Comment on above: Pattern: Unlabored 05-29-2007 08:08-0500 SaO2% (BldA) [Mass fraction] 98 % Jacki Delatorre RUKHSANA [facility]; [facility] Work Phone: Comment on above: Room air 05-29-2007 08:08-0500 Weight 107.5 kg Bibiana Mulligan [facility] Work Phone: 03-24-2007 16:13-0500 Body Temperature 98.5 [degF] Jacki Delatorre RUKHSANA [facility] Work Phone: Comment on above: Method: Oral 03-24-2007 16:13-0500 Body weight 107.5 kg Jacki Delatorre RUKHSANA [facility] Work Phone: 03-24-2007 16:13-0500 BP Diastolic 68 mm[Hg] Jacki Delatorre RUKHSANA [facility] Work Phone: Comment on above: Patient Position: Sitting; Cuff Location : Left Arm; Cuff Size: Standard 03-24-2007 16:13-0500 BP Systolic 126 mm[Hg] Jacki Delatorre RUKHSANA [facility] Work Phone: Comment on above: Patient Position: Sitting; Cuff Location : Left Arm; Cuff Size: Standard 03-24-2007 16:13-0500 Head Circumference 0 cm Bibiana Mulligan [facility] Internal Medicine Work Phone: 03-24-2007 16:13-0500 Head Occipital-frontal circumference 0 cm Jacki Delatorre [facility] Internal Medicine; [facility] Work Phone: 03-24-2007 16:13-0500 Height 0 cm Jacki Delatorre [facility] Internal Medicine Work Phone: 03-24-2007 16:13-0500 Pulse (Heart Rate) 74 /min Jacki Delatorre [facility] Internal Medicine Work Phone: Comment on above: Pattern: Regular 03-24-2007 16:13-0500 Respiratory Rate 17 /min Jacki Delatorre [facility] Internal Medicine Work Phone: Comment on above: Pattern: Unlabored 03-24-2007 16:13-0500 Weight 107.5 kg Bibiana Mulligan [facility] Internal Medicine Work Phone: 03-19-2007 13:18-0500 Body Temperature 97.9 [degF] [facility] Internal Medicine Work Phone: Comment on above: Method: Oral 03-19-2007 13:18-0500 Body weight 107.5 kg [facility] Work Phone: 03-19-2007 13:18-0500 BP Diastolic 66 mm[Hg] [facility] Internal Medicine Work Phone: Comment on above: Patient Position: Sitting; Cuff Location : Right Arm; Cuff Size: Large 03-19-2007 13:18-0500 BP Systolic 124 mm[Hg] [facility] Internal Medicine Work Phone: Comment on above: Patient Position: Sitting; Cuff Location : Right Arm; Cuff Size: Large 03-19-2007 13:18-0500 Head Circumference 0 cm [facility] Work Phone: 03-19-2007 13:18-0500 Head Occipital-frontal circumference 0 cm Radha West [facility]; [facility] Work Phone: 03-19-2007 13:18-0500 Height 0 cm [facility] Internal Medicine Work Phone: 03-19-2007 13:18-0500 Pulse (Heart Rate) 68 /min [facility] Internal Medicine Work Phone: Comment on above: Pattern: Regular 03-19-2007 13:18-0500 Respiratory Rate 18 /min [facility] Internal Medicine Work Phone: Comment on above: Pattern: Unlabored 03-19-2007 13:18-0500 Weight 107.5 kg Bibiana Mulligan [facility] Work Phone: 09-27-2006 07:45-0400 Body Temperature 98.2 [degF] Jacki Juan Ramon MILIAN [facility] Work Phone: Comment on above: Method: Oral 09-27-2006 07:45-0400 Body weight 107.5 kg Jacki Juan Ramon MILIAN [facility] Work Phone: 09-27-2006 07:45-0400 BP Diastolic 78 mm[Hg] Jacki Juan Ramon MILIAN [facility] Work Phone: Comment on above: Patient Position: Sitting; Cuff Location : Left Arm; Cuff Size: Standard 09-27-2006 07:45-0400 BP Systolic 114 mm[Hg] Jacki Juan Raomn MILIAN [facility] Work Phone: Comment on above: Patient Position: Sitting; Cuff Location : Left Arm; Cuff Size: Standard 09-27-2006 07:45-0400 Head Circumference 0 cm Bibiana Mulligan [facility] Work Phone: 09-27-2006 07:45-0400 Head Occipital-frontal circumference 0 cm Jacki Juan Ramon MILIAN [facility]; [facility] Work Phone: 09-27-2006 07:45-0400 Height 0 cm Jacki Juan Ramon MILIAN [facility] Work Phone: 09-27-2006 07:45-0400 Pulse (Heart Rate) 72 /min Jacki Delatorre LPN [facility] Work Phone: Comment on above: Pattern: Regular 09-27-2006 07:45-0400 Respiratory Rate 16 /min Jacki Delatorre LPN [facility] Work Phone: Comment on above: Pattern: Unlabored 09-27-2006 07:45-0400 Weight 107.5 kg Bibiana Mulligan [facility] Work Phone: 09-02-2006 10:06-0400 Body weight 107.5 kg Jacki Delatorre LPN [facility] Work Phone: 09-02-2006 10:06-0400 BP Diastolic 78 mm[Hg] Jacki Delatorre LPN [facility] Work Phone: Comment on above: Patient Position: Sitting; Cuff Location : Left Arm; Cuff Size: Standard 09-02-2006 10:06-0400 BP Systolic 110 mm[Hg] Jacki Dealtorre LPN [facility] Work Phone: Comment on above: Patient Position: Sitting; Cuff Location : Left Arm; Cuff Size: Standard 09-02-2006 10:06-0400 Head Circumference 0 cm Bibiana Mulligan [facility] Work Phone: 09-02-2006 10:06-0400 Head Occipital-frontal circumference 0 cm Jacki Delatorre LPN [facility]; [facility] Work Phone: 09-02-2006 10:06-0400 Height 0 cm Jacki Delatorre LPN [facility] Work Phone: 09-02-2006 10:06-0400 Pulse (Heart Rate) 68 /min Jacki Delatorre LPN [facility] Work Phone: Comment on above: Pattern: Regular 09-02-2006 10:06-0400 Respiratory Rate 17 /min Jacki Delatorre LPN [facility] Work Phone: Comment on above: Pattern: Unlabored 09-02-2006 10:06-0400 Weight 107.5 kg Bibiana Mulligan [facility] Work Phone: 08-08-2006 16:07-0400 Body Temperature 98.5 [degF] Jacki Delatorre LPN [facility] Work Phone: Comment on above: Method: Oral 08-08-2006 16:07-0400 Body weight 107.5 kg Jacki Delatorre LPN [facility] Work Phone: 08-08-2006 16:07-0400 BP Diastolic 74 mm[Hg] Jacki Delatorre LPN [facility] Work Phone: Comment on above: Patient Position: Sitting; Cuff Location : Left Arm; Cuff Size: Standard 08-08-2006 16:07-0400 BP Systolic 120 mm[Hg] Jacki Delatorre LPN [facility] Work Phone: Comment on above: Patient Position: Sitting; Cuff Location : Left Arm; Cuff Size: Standard 08-08-2006 16:07-0400 Head Circumference 0 cm Bibiana Mulligan [facility] Work Phone: 08-08-2006 16:07-0400 Head Occipital-frontal circumference 0 cm Jacki Delatorre LPN [facility]; [facility] Work Phone: 08-08-2006 16:07-0400 Height 0 cm Jacki Delatorre LPN [facility] Work Phone: 08-08-2006 16:07-0400 Pulse (Heart Rate) 76 /min Jacki Delatorre LPN [facility] Work Phone: Comment on above: Pattern: Regular 08-08-2006 16:07-0400 Respiratory Rate 17 /min Jacki Delatorre LPN [facility] Work Phone: Comment on above: Pattern: Unlabored 08-08-2006 16:07-0400 Weight 107.5 kg Bibiana Mulligan [facility] Work Phone: 06-27-2006 08:05-0400 Body Temperature 98.4 [degF] Bibiana Mulligan [facility] Work Phone: Comment on above: Method: Undefined 06-27-2006 08:05-0400 Body weight 0 kg Bibiana Mulligan [facility] Work Phone: 06-27-2006 08:05-0400 BP Diastolic 72 mm[Hg] Bibiana Mulligan [facility] Work Phone: Comment on above: Patient Position: Undefined; Cuff Locati on: Undefined; Cuff Size: Undefined 06-27-2006 08:05-0400 BP Systolic 124 mm[Hg] Bibiana Mulligan [facility] Work Phone: Comment on above: Patient Position: Undefined; Cuff Locati on: Undefined; Cuff Size: Undefined 06-27-2006 08:05-0400 Head Circumference 0 cm Bibiana Mulligan [facility] Work Phone: 06-27-2006 08:05-0400 Head Occipital-frontal circumference 0 cm Bibiana Mulligan DO Work Phone: [facility]; [facility] Work Phone: 06-27-2006 08:05-0400 Height 0 cm Bibiana Mulligan [facility] Work Phone: 06-27-2006 08:05-0400 Pulse (Heart Rate) 78 /min Bibiana Mulligan [facility] Work Phone: Comment on above: Pattern: Regular 06-27-2006 08:05-0400 Respiratory Rate 16 /min Bibiana Mulligan [facility] Work Phone: Comment on above: Pattern: Undefined 06-27-2006 08:05-0400 Weight 0 kg Bibiana Mulligan [facility] Work Phone: 06-14-2006 08:42-0500 Body Temperature 102 [degF] Bibiana Mulligan [facility] Work Phone: Comment on above: Method: Undefined 06-14-2006 08:42-0500 Body weight 0 kg Bibiana Mulligan [facility] Work Phone: 06-14-2006 08:42-0500 BP Diastolic 60 mm[Hg] Bibiana Mulligan [facility] Work Phone: Comment on above: Patient Position: Undefined; Cuff Locati on: Undefined; Cuff Size: Undefined 06-14-2006 08:42-0500 BP Systolic 132 mm[Hg] Bibiana Mulligan [facility] Work Phone: Comment on above: Patient Position: Undefined; Cuff Locati on: Undefined; Cuff Size: Undefined 06-14-2006 08:42-0500 Head Circumference 0 cm Bibiana Mulligan [facility] Work Phone: 06-14-2006 08:42-0500 Head Occipital-frontal circumference 0 cm Bibiana Mulligan DO Work Phone: [facility]; [facility] Work Phone: 06-14-2006 08:42-0500 Height 0 cm Bibiana Mulligan [facility] Work Phone: 06-14-2006 08:42-0500 Pulse (Heart Rate) 78 /min Bibiana Mulligan [facility] Work Phone: Comment on above: Pattern: Regular 06-14-2006 08:42-0500 Respiratory Rate 16 /min Bibiana Mulligan [facility] Work Phone: Comment on above: Pattern: Undefined 06-14-2006 08:42-0500 Weight 0 kg Bibiana Mulligan [facility] Work Phone: 03-04-2006 16:41-0500 Body Temperature 97.3 [degF] Bibiana Mulligan [facility] Work Phone: Comment on above: Method: Oral 03-04-2006 16:41-0500 Body weight 107.5 kg Bibiana Mulligan [facility] Work Phone: 03-04-2006 16:41-0500 BP Diastolic 72 mm[Hg] Bibiana Mulligan [facility] Work Phone: Comment on above: Patient Position: Sitting; Cuff Location : Undefined; Cuff Size: Undefined 03-04-2006 16:41-0500 BP Systolic 106 mm[Hg] Bibiana Mulligan [facility] Work Phone: Comment on above: Patient Position: Sitting; Cuff Location : Undefined; Cuff Size: Undefined 03-04-2006 16:41-0500 Head Circumference 0 cm Bibinaa Mulligan [facility] Work Phone: 03-04-2006 16:41-0500 Head Occipital-frontal circumference 0 cm Bibiana Mulligan DO Work Phone: [facility]; [facility] Work Phone: 03-04-2006 16:41-0500 Height 0 cm Bibiana Mulligan [facility] Work Phone: 03-04-2006 16:41-0500 Pulse (Heart Rate) 64 /min Bibiana Mulligan [facility] Work Phone: Comment on above: Pattern: Regular 03-04-2006 16:41-0500 Respiratory Rate 16 /min Bibiana Mulligan [facility] Work Phone: Comment on above: Pattern: Undefined 03-04-2006 16:41-0500 Weight 107.5 kg Bibiana Mulligan [facility] Work Phone: Encounters Encounter Date Encounter Type Care Provider Facility Start: 02-22-2025 [facility] Start: 01-28-2025 Encounter for genera l adult medical examination without abnormal findings [facility] Start: 10-28-2024 End: 10-28-[address] Alan Soliz DO -[facility] Work Phone: Start: 10-28-2024 End: 10-28-[address] Estrella Vinson MD Work Phone: -[facility] Start: 10-22-2024 End: 10-22-[address] Estrella Vinson MD Work Phone: -[facility] Start: 10-22-2024 End: 10-22-[address] Estrella Vinson MD -[facility] Start: 10-22-2024 End: 10-22-2024 Patient encounter procedure Brandee Quintero [employer] -[facility] Work Phone: Start: 10-22-2024 End: 10-22-[address] Estrella Vinson MD Work Phone: -[facility] Start: 10-22-2024 End: 10-22-2024 ambulatory [facility] Facility:[facility] Start: 10-13-2024 End: 10-13-[address] Henry Berumen MD -[facility] Start: 10-13-2024 End: 10-13-[address] Estrella Vinson MD Work Phone: -[facility] Start: 09-10-2024 End: 09-10-[address] Estrella Vinson MD -[facility] Work Phone: Start: 09-10-2024 End: 09-10-[address] Estrella Vinson MD [facility] Start: 09-10-2024 End: 09-10-[address] Estrella Vinson MD Work Phone: [facility] Work Phone: Start: 08-31-2024 End: 08-31-[address] Estrella Vinson MD -[facility] Start: 08-31-2024 End: 08-31-2024 ambulatory [facility] Facility:[facility] Start: 10-16-[address] Estrella Vinson MD Work Phone: [facility] Start: 07-26-2023 End: 07-26-[address] Estrella Vinson Work Phone: [facility] Work Phone: Start: 07-26-2023 End: 07-26-[address] Estrella Vinson Work Phone: [facility] Work Phone: Start: 05-29-2023 End: 05-29-[address] Estrella Vinson Work Phone: [facility] Work Phone: Start: 04-10-2023 End: 04-10-[address] Estrella Vinson Work Phone: [facility] Work Phone: Start: 04-10-2023 End: 04-10-[address] Estrella Vinson Work Phone: [facility]-Outpatient [facility] Work Phone: Start: 03-04-[address] Estrella Vinson Work Phone: [facility] Start: 03-04-2023 End: 03-04-2023 Encounter for general adult medical examination without abnormal findings Dr. Estrella Vinson Work Phone: [facility] Start: 03-04-2023 End: 03-04-[address] Estrella Vinson Work Phone: [facility] Work Phone: Start: 01-02-2023 End: 01-02-2023 ambulatory [facility] Work Phone: Start: 01-02-2023 End: 01-02-2023 Patient encounter procedure [facility]-Laboratory Work Phone: Start: 04-06-2022 End: 04-06-[address] Estrella Vinson Work Phone: [facility] Work Phone: Start: 04-06-2022 End: 04-06-[address] Estrella Vinson Work Phone: [facility]-Outpatient [facility] Start: 03-09-2022 End: 03-09-[address] Estrella Vinson Work Phone: [facility] Start: 12-27-[address] Estrella Vinson Work Phone: [facility] Work Phone: Start: 12-27-2021 End: 12-27-2021 Encounter for general adult medical examination without abnormal findings Dr. Estrella Vinson Work Phone: [facility] Start: 12-27-2021 End: 12-27-[address] Estrella Vinson Work Phone: [facility] Start: 12-22-2021 End: 12-22-[address] Estrella Vinson Work Phone: [facility] Work Phone: Start: 12-22-2021 End: 12-22-[address] Estrella Vinson Work Phone: [facility] Start: 09-22-2020 Review Bibiana marina DO Work Phone: [facility] Start: 02-19-2020 End: 02-19-2020 Periodic preventive med est patient 40-64yrs Bibiana Mulligan [facility] Start: 02-19-2020 Review Bibiana Mulligan [facility] Start: 08-27-2019 End: 08-27-2019 Office outpatient visit 15 minutes Bibiana Mulligan [facility] Start: 08-24-2019 End: 08-24-2019 Patient encounter procedure Bibiana Mulligan [facility] Start: 01-29-2019 Review Bibiana Mulligan [facility] Start: 01-29-2019 End: 01-29-2019 Office outpatient visit 15 minutes Bibiana Mulligan [facility] Start: 09-22-2018 End: 09-22-2018 Office outpatient visit 15 minutes Bibiana Mulligan [facility] Start: 09-22-2018 Review Bibiana Mulligan [facility] Start: 05-14-2018 End: 05-14-2018 Annotation/Addendum Bibiana Mancilla [facility] Start: 03-20-2018 End: 03-20-2018 Prescription Refill Bibiana Mancilla [facility] Start: 07-29-2017 End: 07-30-2017 Office outpatient visit 25 minutes Bibiana Mancilla [facility] Start: 06-28-2017 End: 06-28-2017 Phone Encounter Bibiana Mancilla [facility] Start: 06-24-2017 End: 06-24-2017 Lab Order Bibiana Mancilla [facility] Start: 03-01-2017 End: 03-01-2017 Phone Encounter Bibiana Mancilla [facility] Start: 01-04-2017 End: 01-04-2017 Office outpatient visit 10 minutes Bibiana Mancilla [facility] Start: 11-29-2016 End: 11-29-2016 Office outpatient visit 15 minutes Bibiana Mancilla [facility] Start: 08-15-2016 End: 08-15-2016 Office outpatient visit 10 minutes Bibiana Mancilla [facility] Start: 08-10-2016 End: 08-10-2016 Office outpatient visit 15 minutes Bibiana Mancilla [facility] Start: 08-01-2016 End: 08-01-2016 Office outpatient visit 25 minutes Bibiana Mancilla [facility] Start: 06-14-2016 End: 06-14-2016 Refill Request Bibiana Mancilla [facility] Start: 04-19-2016 End: 04-19-2016 Phone Encounter Bibiana Mancilla [facility] Start: 04-18-2016 End: 04-18-2016 Patient encounter procedure Bibiana Mancilla [facility] Start: 04-04-2016 End: 04-04-2016 Phone Encounter Bibiana Mancilla [facility] Start: 03-05-2016 End: 03-05-2016 Periodic preventive med est patient 40-64yrs Bibiana Mancilla [facility] Start: 09-02-2015 End: 09-02-2015 Office outpatient visit 15 minutes Bibiana Mancilla [facility] Start: 07-11-2015 End: 07-11-2015 Phone Encounter Bibiana Mancilla [facility] Start: 04-01-2015 End: 04-01-2015 Phone Encounter Bibiana Mancilla [facility] Start: 02-18-2015 End: 02-18-2015 Office outpatient visit 15 minutes Bibiana [facility]illa [facility] Start: 12-31-2014 End: 12-31-2014 Office outpatient visit 40 minutes Bibiana Ese [facility] Start: 10-14-2014 End: 10-14-2014 Phone Encounter Bibianagertrude Hurdkeiry [facility] Start: 08-30-2014 End: 08-30-2014 Phone Encounter Bibiana Esekeiry [facility] Start: 08-27-2014 End: 08-27-2014 Office outpatient visit 15 minutes Bibiana [facility] Start: 06-04-2014 End: 06-04-2014 Office outpatient visit 25 minutes Bibiana Ese [facility] Start: 03-09-2014 End: 03-09-2014 Periodic preventive med est patient 40-64yrs Bibiana Mancilla [facility] Start: 09-25-2013 End: 09-25-2013 Patient encounter procedure Bibiana Mancilla [facility] Start: 09-14-2013 End: 09-14-2013 Phone Encounter Bibiana Ese [facility] Start: 05-27-2013 End: 05-27-2013 Patient encounter procedure Bibiana Mancilla [facility] Start: 04-06-2013 End: 04-06-2013 Patient encounter procedure Bibiana Mancilla [facility] Start: 03-24-2013 End: 03-24-2013 Lab Order Bibiana Mancilla [facility] Start: 04-09-2012 End: 04-09-2012 Phone Encounter Bibiana Mancilla [facility] Start: 04-09-2012 End: 04-09-2012 Patient encounter procedure Bibiana Mancilla [facility] Start: 03-31-2012 End: 03-31-2012 Annotation/Addendum Bibiana Mancilla [facility] Start: 01-31-2012 End: 01-31-2012 Patient encounter procedure Bibiana Mancilla [facility] Start: 12-07-2011 End: 12-07-2011 Office outpatient visit 25 minutes Bibiana Mancilla [facility] Start: 11-26-2011 End: 11-26-2011 Annotation/Addendum Bibiana Mulligan [facility] Start: 11-26-2011 End: 11-26-2011 Patient encounter procedure Bibiana Mulligan [facility] Start: 11-02-2011 End: 11-02-2011 Office outpatient visit 25 minutes Bibiana Ese [facility] Start: 03-06-2011 End: 03-06-2011 Patient encounter procedure Bibiana Mulligan [facility] Start: 11-06-2010 End: 11-06-2010 Office outpatient visit 10 minutes Bibiana Ese [facility] Start: 08-28-2010 End: 08-28-2010 Patient encounter procedure Bibiana Mulligan [facility] Start: 08-17-2010 End: 08-17-2010 Patient encounter procedure Bibiana Hurdon [facility] Start: 07-14-2010 End: 07-14-2010 Patient encounter procedure Bibianagertrude Hurdon [facility] Start: 02-10-2010 End: 02-10-2010 Phone Encounter Bibiana Mulligan [facility] Start: 01-23-2010 End: 01-23-2010 Patient encounter procedure Bibiana Ese [facility] Start: 01-18-2010 End: 01-18-2010 Phone Encounter Bibiana Ese [facility] Start: 01-18-2010 End: 01-18-2010 Patient encounter procedure Bibiana Ese [facility] Start: 09-23-2009 End: 09-23-2009 Patient encounter procedure Bibiana Ese [facility] Start: 08-26-2009 End: 08-26-2009 Patient encounter procedure Bibiana Ese [facility] Start: 06-27-2009 End: 06-27-2009 Patient encounter procedure Bibiana Ese [facility] Start: 04-06-2009 End: 04-06-2009 Patient encounter procedure Bibiana Mulligan [facility] Start: 04-04-2009 End: 04-04-2009 Patient encounter procedure Bibiana Ese [facility] Start: 03-02-2009 End: 03-09-2009 Patient encounter procedure Bibiana Ese [facility] Start: 06-17-2008 End: 06-17-2008 Patient encounter procedure Bibiana Ese [facility] Start: 06-07-2008 End: 06-07-2008 Patient encounter procedure Bibiana Ese [facility] Start: 05-28-2008 End: 05-28-2008 Patient encounter procedure Bibiana Ese [facility] Start: 11-05-2007 End: 11-05-2007 Office outpatient visit 15 minutes Bibiana Mulligan [facility] Start: 06-04-2007 End: 06-04-2007 Office outpatient visit 25 minutes Bibiana Mulligan [facility] Start: 06-02-2007 End: 06-02-2007 Patient encounter procedure Bibiana Mulligan [facility] Start: 05-29-2007 End: 05-29-2007 Patient encounter procedure Bibiana Mulligan [facility] Start: 04-16-2007 End: 04-16-2007 Patient encounter procedure Bibiana Mulligan [facility] Start: 04-16-2007 End: 04-16-2007 Patient encounter procedure Bibiana Mulligan [facility] Start: 03-24-2007 End: 03-24-2007 Office outpatient visit 25 minutes Bibiana Mulligan [facility] Start: 03-19-2007 End: 03-19-2007 Office outpatient visit 10 minutes Bibiana Mulligan [facility] Start: 09-27-2006 End: 09-27-2006 Office outpatient visit 15 minutes Bibiana Mulligan [facility] Start: 09-02-2006 End: 09-02-2006 Patient encounter procedure Bibiana Mulligan [facility] Start: 08-08-2006 End: 08-08-2006 Office outpatient visit 25 minutes Bibiana Mulligan [facility] Start: 06-27-2006 End: 06-27-2006 Patient encounter procedure Bibiana Mulligan [facility] Start: 06-14-2006 End: 06-14-2006 Patient encounter procedure Bibiana Mulligan [facility] Start: 03-04-2006 End: 03-04-2006 Patient encounter procedure Bibiana Mulligan [facility] Start: 02-27-2006 End: 02-27-2006 Historical Summary Bibiana Mulligan [facility] Specialist [facility] End: 12-31-2014 Patient encounter procedure Bess Luna [facility]; [facility] Work Phone: Patient encounter status Bibiana Mulligan DO Work Phone: [facility]; [facility] Work Phone: Procedures Date Procedure Procedure Detail Performing Clinician Start: 10-13-2024 X-ray of knee, four or [address] Estrella Vinson MD Work Phone: Start: 04-10-2023 Screening mammography Belinda Vinson Work Phone: Start: 04-06-2022 Screening mammography Belinda Vinson Work Phone: Start: 09-20-2020 End: 09-21-2020 Internal Medicine Office Visit Comments: See Note; NOTES: [facility] [address] [place] [id number] OFFICE VISIT Date of Service: 09/20/20 MR#: [id number] Acct: [id number] Name: WHIT PETERSEN Rep #: [id number] : 1965 Provider: Dr. 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 Depression and Anxiety Allergies No Known Allergies Allergy (Verified 09/13/20 11:47) Medications bupropion HCl 150 mg 24 hr tablet, extended release 150 mg PO QAM 09/13/20 [History Confirmed 09/20/20] escitalopram oxalate 20 mg tablet 20 mg PO DAILY 09/13/20 [History Confirmed 09/20/20] fluticasone propionate 50 mcg/actuation nasal spray,suspension 1 spray INTRANASAL DAILY 09/13/20 [History Confirmed 09/20/20] levothyroxine 50 mcg tablet 50 mcg PO .POD tab 09/13/20 [History Confirmed 09/20/20] levothyroxine 75 mcg tablet 75 mcg PO .POD tab 09/13/20 [History Confirmed 09/20/20] [facility] (Updated 09/20/20 @ 10:[address] Estrella Vinson MD) Anxiety and depression Asthma Cataracts, bilateral GERD (gastroesophageal reflux disease) H/O emotional problems History of pneumonia Hot flashes due to menopause Hypothyroidism Obesity Preventative health care Seasonal allergies Surgical History (Updated 09/13/20 @ 11:56 by Beti Guevara) History of tonsillectomy Family History (Updated 09/13/20 @ 11:59 by Beti Guevara) Aunt Colon cancer Parkinsons Mother Cancer Osteoporosis Seizures Brother Cancer Father Heart disease Uncle Heart disease Grandfather Diabetes Sister Thyroid disorder Seizures Other Anxiety Depression Social History Smoking Status: Never smoker alcohol intake: never substance use type: does not use what type of physical activity do you participate in: none HPI HPI Chief Complaint: Est Care. Depression and Anxiety Details: WHIT PETERSEN, is a 55 F who presents to the office today to establish care. No acute concerns. Had previously followed up at [facility] Chronic history of depression and anxiety which is currently well controlled. Currently on Lexapro and Wellbutrin which was added on following suicidal ideation/attempt. Has had no subsequent episodes. Apart from emotional 'numbness', she feels well. History of hot flashes/perimenopausal. Has not been seen by a bi tri operator in years. She states that she has kept up to date with her pap smear screenings. Currently at the a BMI of 35. Lost 80lbs following the optiva diet but has gained 30lbs back. She plans on going back on the diet. ROS Const Constitutional: No body ache, chills, excessive sweating, fatigue, fever(s), headache(s), snoring, weakness, weight change, sleep problems, change in appetite or other Eyes Eyes: No blurry vision, change in vision, eye pain, Light sensitivity or other ENT ENT: No abnormal hearing, ear or mastoid pain, tinnitus, nasal congestion, headache(s), neck pain, sore throat or other Resp Respiratory: No cough, shortness of breath, snoring, wheezing or other Cardio Cardiology: No chest pain at rest, chest pain with exertion, excessive sweating, shortness of breath, lightheadedness, orthopnea, palpitations or other Gastro GI: No abdominal pain, change in bowel habits, constipation, cramping, diarrhea, nausea/dyspepsia, vomiting or other Genitourinary-Female: No burning urination, painful urination, urinary incontinence, urinary frequency, urinary urgency, abnormal vaginal bleeding, pelvic pain or other Musc Musculoskeletal: No abnormal gait, joint pain, back pain, limited range of motion, neck pain, numbness, tingling or other Skin Skin: No dry skin, redness, lesions, itchy eyes, rash, wounds or other Breast Breast: No other Neuro Neurology: No abnormal gait, abnormal hearing, abnormal speech, dizziness, weakness, headache(s), memory loss, numbness, tingling or other Psych Psychiatric: No anxiety, No change in appetite, No depression, No memory loss, No Thoughts of harming yourself/Others and No other Endo Endocrine: No cold intolerance, excessive sweating, fatigue, flushing, heat intolerance, increased thirst/drinking, increased hunger or other Aller/Imm Allergy/Immunologic: No itchy eyes, seasonal allergy symptoms, hives, wheezing or other Mitesh/Lymp Hematologic/Lymphatic: No easy bleeding, easy bruising, enlarged lymph nodes or other Exam Const General: cooperative, comfortable and no acute distress Orientation: alert, awake and oriented x3 HENMT Head: normal to inspection, normocephalic and atraumatic Ears: hearing grossly normal bilaterally Neck Neck: normal visual inspection, full ROM and no lymphadenopathy Neck mass: No Thyroid: thyroid normal Resp Effort Inspection: normal respiratory effort and able to speak in complete sentences Auscultation: Bilateral: Clear to Auscultation Cardio Rate: regular rate Rhythm: regular rhythm Heart Sounds: S1 normal and S2 normal GI Palpation: soft (Non tender, no palpable organomegaly) Neuro General: patient alert, patient awake, patient oriented x3, moves all extremities and CN's II-XI intact bilaterally Extrem General: no clubbing, cyanosis or edema Psych Appearance: grossly normal Mental Status: mental status grossly normal Mood: congruent mood Affect: normal affect Coding Level of Care Code Off vis,new,level 4 Diagnoses Anxiety and depression F41.9; F32.9 Hot flashes due to menopause N95.1 Obesity E66.9 Hypothyroidism E03.9 Assessment and Plan Assessment and Plan (1) Anxiety and depression: Status: Chronic Plan - Dr. Estrella Vinson MD: Chronic, stable. Apart from some emotional numbing( Brother in end stage cancer), she feels well. No suicidal ideations or attempts. Continue current management. Follow up in 6 months (2) Hot flashes due to menopause: Status: Chronic Orders: Referrals: [facility] Plan - Dr. Estrella Vinson MD: Tolerable per patient. she was however advised to establish with [facility]. Referral placed. (3) Obesity: Status: Chronic Plan - Dr. Estrella Vinson MD: Lengthy discussion on lifestyle/dietary modifications had with patient. Reduced calorie intake and increasing activity is the only sustainable way to persistent weight loss. (4) Hypothyroidism: Status: Chronic Orders: Orders: [facility] Metabolic Profil Today Lipid Profile Today Thyroid Stim Hormone (TSH) Today CBC W/Diff, Automated Today Plan - Dr. Estrella Vinson MD: No concerns at this time for over or under correction. Labs ordered, follow up with result. 09/21/20 1439 <Electronically signed by Estrella Vinson MD> Date Estrella Vinson MD Cosigner Signature: Date (if applicable) CC: Bibiana Mulligan DO Work Phone: Start: 07-22-2020 End: 07-22-2020 Urgent Care Visit Report Comments: See Note; NOTES: [facility] [address] [place] [id number] OFFICE VISIT Date of Service: 07/22/20 MR#: [id number] Acct: [id number] Name: WHIT PETERSEN Rep #: [id number] : 1965 Provider: JANET Ramon Age/Sex: 55/F Location: [facility] [place] Status: Signed Intake Vital Signs 07/22/20 BP 122/72 H 07/22/20 Blood Pressure Location Lt brachial 07/22/20 Position Left Lateral 07/22/20 Respiration 16 07/22/20 Pulse 78 07/22/20 Pulse Source Monitor 07/22/20 Temp 97.4 F L 07/22/20 Temp Source Temporal 07/22/20 Pulse Oximetry (%) 99 07/22/20 Oxygen Delivery Method room air Intake Visit Reasons: WANTS COVID TEST/TRAVELING Allergies No Known Allergies Allergy (Unverified 07/22/20 18:00) Medications levothyroxine 50 mcg tablet 50 mcg PO DAILY 07/22/20 [History Confirmed 07/22/20] levothyroxine 75 mcg tablet 75 mcg PO DAILY 07/22/20 [History Confirmed 07/22/20] [facility] Medical History (Updated 07/22/20 @ 18:18 by Hans GONZALES, PA) Asthma (Acute) Thyroid disease (Acute) pneumonia (Acute) tonsilectomy (Acute) Family History (Updated 07/22/20 @ 18:03 by Marta Goff RN) Other Cancer Heart disease Social History (Updated 07/22/20 @ 18:19 by Hans GONZALES, PA) Smoking Status: Never smoker HPI HPI Details: WHIT PETERSEN, is a 55 F who presents to the office today for request of Covid screening. Patient states that she is traveling to [place] and was required to have a negative Covid test in order to travel. She denies any current symptoms or known exposures. She has had no fever, chills, sweats. No nausea, vomiting, diarrhea. No cough, shortness of breath before breathing. No loss of taste or smell. No other associated symptoms or alleviating/aggravating factors. ROS Const Constitutional: Positive for other (6 system ROS completed with pertinent findings in the HPI otherwise normal.) Exam Const General: cooperative, healthy appearing [facility] Head: normocephalic, atraumatic Ears: hearing grossly normal bilaterally Nose: external nose normal Face and sinus: normal facial exam, face symmetric Mouth: oral mucosae normal Throat: posterior oropharynx normal Eyes General: appearance normal, both eyes and all related structures Resp Effort Inspection: normal respiratory effort Auscultation: Bilateral: Clear to Auscultation Cardio Palpation: normal PMI Rate: regular rate Rhythm: regular rhythm Skin General: no rashes or lesions noted Neuro General: alert, CN's II-XI intact bilaterally Psych Appearance: grossly normal Mental Status: mental status grossly normal Results POC NAYAN CoV-2 PCR POC NAYAN CoV-2 PCR Not Detected Last Edit by Marta Goff RN on 07/22/20 18:16 Negative for Influenza A and B also Assessment Plan Problems 1. Encounter for screening for COVID-19 Z11.52 Status Acute Plan Patient tested negative for Covid using rapid PCR testing in the office today. Patient given results and advised that they are Covid negative. Patient verbalized understanding and agreement with all the above. Orders Orders: POC Rapid NAYAN Cov-2 PCR Today Z78.9 Coding Level of Care Code Off vis,new,level 3 Diagnoses Encounter for screening for COVID-19 Z11.52 07/22/20 1819 <Electronically signed by Hans GONZALES> Date Hans GONZALES Cosigner Signature: Date (if applicable) CC: Bibiana Mulligan DO Work Phone: Start: 09-22-2018 End: 09-22-2018 Chest PA and Lateral Comments: See Note; NOTES: [facility] Imaging Services [address] [place] [address] Chest PA and Lateral MR#: [id number] Acct: [id number] Name: WHIT PETERSEN Rep #: [id number] : 1965 F 53 From: Miguelito Aguilera MD PCP: Bibiana Mulligan DO Status: [facility] CLI Study: Chest PA and Lateral Date of Exam: 09/22/18 Exam# [id number] Ordering Dr: Laxmi Castrejon [employer]KER-C STUDY: X-RAY CHEST REASON FOR EXAM: Female, 53 years old. One day history of cough. TECHNIQUE: PA and lateral views of the chest. COMPARISON: Comparison is made with prior study dated June 03, 2013. FINDINGS: The lungs are clear and expanded. There is no demonstrated pleural abnormality. Normal size heart. Normal mediastinum and yamil. Normal visualized pulmonary arteries. Normal visualized aortic arch and descending thoracic aorta. Normal visualized thoracic spine. Normal visualized ribs, clavicles, and shoulders. There is no demonstrated abnormality of the visualized soft tissue structures of the upper abdomen. RAD/Chest PA and Lateral IMPRESSION: Normal x-ray examination of the chest. Electronically Signed: Miguelito Aguilera, at 15:49 EDT , Service support , CC: DANUTA Castrejon; Bibiana Mulligan DO Production Director: Signed Laxmi Castrejon Start: 02-14-2018 End: 02-17-2018 Sinus/Facial Bone Comments: See Note; NOTES: [facility] Imaging Services [address] [facility] [place] [address] Sinus/Facial Bone MR#: [id number] Acct: [id number] Name: WHIT PETERSEN Rep #: [id number] : 1965 F 53 From: Naveed Shah MD PCP: Bibiana Mulligan DO Status: REG CLI Study: Sinus/Facial Bone Date of Exam: 02/14/18 Exam# [id number] Ordering Dr: Dyllan Petersen MD HISTORY: Left [...] CC: Bibiana Mulligan DO; Dyllan Petersen MD Production Director: Signed Bibiana Mulligan Start: 06-03-2013 End: 06-04-2013 Chest PA and Lateral Comments: See Note; NOTES: [facility] Imaging Services [address] [place] [address] Radiology Report MR#: [id number] Acct: [id number] Name: WHIT PETERSEN Rep #: [id number] : 1965 F 48 From: Eliezer Hung MD PCP: Bibiana Mulligan DO Status: REG CLI Study: Chest PA and Lateral Date of Exam: 06/03/13 Exam# [id number] Ordering Dr: Bibiana Mulligan DO STUDY: X-RAY CHEST REASON FOR EXAM: Female, 48 years old. Shortness of breath TECHNIQUE: PA and lateral views of the chest. COMPARISON: March 06, 2011 FINDINGS: The lungs are clear and expanded. There is no demonstrated pleural abnormality. Normal size heart. Normal mediastinum and yamil. Normal visualized pulmonary arteries. Normal visualized aortic arch and descending thoracic aorta. Normal visualized thoracic spine. Normal visualized ribs, clavicles, and shoulders. There is no demonstrated abnormality of the visualized soft tissue structures of the upper abdomen. IMPRESSION: Normal x-ray examination of the chest. Electronically Signed: Eliezer Hung M.D. at 9:12 EST , Service support [phone], CC: Bibiana Mulligan DO Production Director: Signed Bibiana Mulligan Work Phone: History of tonsillectomy History of tonsillectomy Dr. Estrella Vinson Work Phone: Nasal Margarita Lutzrb Comment on above: February 2018 cyst r emoval. Nasal Laxmi Messenger Comment on above: February 2018 cyst r emoval. Nasal Laxmi Messenger Comment on above: February 2018 cyst r emoval. Nasal Miriam French Comment on above: February 2018 cyst r emoval. Plan of Treatment Date Care Activity Detail Author Start: 02-22-2025 MG Breast - bilateral Screening [facility] Start: 10-13-2024 X-ray of knee, four or more views Knee 4 or More Views [facility] Start: 10-13-2024 XR Knee GE 4 Views [facility] Start: 12-27-2021 Patient referral [facility] Work Phone: Start: 02-19-2020 Procedure Education Eprescribed prescriptions (G8553) [facility] Work Phone: Start: 02-19-2020 Provider Instructions for Treatment [facility] Work Phone: Start: 02-19-2020 Lipid panel LIPID PANEL (98810) [facility] Work Phone: Start: 02-19-2020 TSH Qn TSH (52503) [facility] Work Phone: Start: 02-19-2020 Free T4 [Mass/Vol] T4, FREE (THYROXINE) (16327) [facility] Work Phone: Start: 02-19-2020 Free T3 [Mass/Vol] T3, FREE (TRIDOTHYRONINE) (75332) [facility] Work Phone: Start: 02-19-2020 Hpv, dna, amp probe HPV Auto Reflex PAP (13961) [facility] Work Phone: Start: 08-27-2019 Microsomal antibodies each Anti TPO Antibody (16285) [facility] Work Phone: Start: 08-27-2019 Assay of thyroid stimulating hormone tsh TSH (71271) [facility]; [facility] Work Phone: Start: 08-27-2019 TSH Qn TSH (33032) [facility] Work Phone: Start: 08-27-2019 Assay of free thyroxine T4, FREE (THYROXINE) (47570) [facility]; [facility] Work Phone: Start: 08-27-2019 Free T4 [Mass/Vol] T4, FREE (THYROXINE) (57706) [facility] Work Phone: Start: 08-27-2019 Assay of triiodothyronine t3 free T3, FREE (TRIDOTHYRONINE) (01958) [facility]; [facility] Work Phone: Start: 08-27-2019 Free T3 [Mass/Vol] T3, FREE (TRIDOTHYRONINE) (94823) [facility] Work Phone: Start: 01-29-2019 Provider Instructions for Treatment GERD Education [facility] Work Phone: Start: 01-29-2019 Comprehensive metabolic panel METABOLIC PANEL, COMPREHENSIVE (64702) [facility] Work Phone: Start: 01-29-2019 Blood count complete auto&auto difrntl wbc CBC W/AUTO DIFF WBC (30564) [facility] Work Phone: Start: 01-29-2019 Lipid panel LIPID PANEL (98163) [facility] Work Phone: Start: 01-29-2019 TSH Qn TSH (44602) [facility] Work Phone: Start: 01-29-2019 Free T4 [Mass/Vol] T4, FREE (THYROXINE) (82335) [facility] Work Phone: Start: 01-29-2019 Free T3 [Mass/Vol] T3, FREE (TRIDOTHYRONINE) (55782) [facility] Work Phone: Start: 09-22-2018 Bacteria identified Respiratory culture Nom (Sput) Sputum Culture (99105) [facility] Work Phone: Start: 09-22-2018 Cul bact xcpt urine blood/stool aerobic isol Sputum Culture (21607) [facility]; [facility] Work Phone: Start: 09-22-2018 Procedure Education Eprescribed prescriptions (G8553) [facility] Work Phone: Start: 09-22-2018 Provider Instructions for Treatment Follow up if no improvement or if symptoms worsen [facility] Work Phone: Start: 07-29-2017 Provider Instructions for Treatment [facility] Work Phone: Start: 06-28-2017 Assay of triiodothyronine t3 free T3, FREE (TRIDOTHYRONINE) (16968) [facility]; [facility] Work Phone: Start: 06-28-2017 T3 free mass conc T3, FREE (TRIDOTHYRONINE) (95591) [facility] Work Phone: Start: 06-28-2017 Assay of free thyroxine T4, FREE (THYROXINE) (23021) [facility]; [facility] Work Phone: Start: 06-28-2017 T4 free mass conc T4, FREE (THYROXINE) (17335) [facility] Work Phone: Start: 06-28-2017 Hemoglobin A1c/Hemoglobin.total mass fraction (Bld) HGB A1C (39855) [facility] Work Phone: Start: 06-28-2017 Hemoglobin glycosylated a1c HGB A1C (36952) [facility]; [facility] Work Phone: Start: 06-28-2017 Blood count manual cell count each CBC WITH MANUAL DIFF (54137) [facility] Work Phone: Start: 06-28-2017 Comprehensive metabolic panel Metabolic Panel, Comprehensive (09883) [facility] Work Phone: Start: 06-24-2017 Lipid panel LIPID PANEL (85065) [facility] Work Phone: Start: 06-24-2017 Assay of thyroid stimulating hormone tsh TSH (THYROID STIMULATING HORMONE) (69127) [facility]; [facility] Work Phone: Start: 06-24-2017 Thyrotropin Qn TSH (THYROID STIMULATING HORMONE) (47492) [facility] Work Phone: Start: 01-04-2017 Provider Instructions for Treatment Continue Current Prescription(s) [facility] Work Phone: Start: 11-29-2016 Provider Instructions for Treatment Follow up in 1 month [facility] Work Phone: Start: 08-10-2016 Assay of thyroid stimulating hormone tsh TSH (26707) [facility]; [facility] Work Phone: Comment on above: Jan 2017 Start: 08-10-2016 Thyrotropin Qn TSH (10267) [facility] Work Phone: Comment on above: Jan 2017 Start: 08-10-2016 Procedure Education Eprescribed prescriptions (G8553) [facility] Work Phone: Start: 08-10-2016 Provider Instructions for Treatment [facility] Work Phone: Start: 08-01-2016 Procedure Education Eprescribed prescriptions (G8553) [facility] Work Phone: Start: 08-01-2016 Provider Instructions for Treatment Follow up - Make appt after diagnostic tests [facility] Work Phone: Start: 04-19-2016 Assay of thyroid stimulating hormone tsh TSH (79234) [facility]; [facility] Work Phone: Start: 04-19-2016 Thyrotropin Qn TSH (64984) [facility] Work Phone: Start: 04-19-2016 Assay of free thyroxine T4, FREE (THYROXINE) (81245) [facility]; [facility] Work Phone: Start: 04-19-2016 T4 free mass conc T4, FREE (THYROXINE) (60673) [facility] Work Phone: Start: 04-19-2016 Assay of triiodothyronine t3 free T3, FREE (TRIDOTHYRONINE) (30515) [facility]; [facility] Work Phone: Start: 04-19-2016 T3 free mass conc T3, FREE (TRIDOTHYRONINE) (84910) [facility] Work Phone: Start: 04-04-2016 Assay of thyroid stimulating hormone tsh TSH (33907) [facility]; [facility] Work Phone: Start: 04-04-2016 Thyrotropin Qn TSH (03212) [facility] Work Phone: Start: 04-04-2016 Assay of free thyroxine T4, FREE (THYROXINE) (31433) [facility]; [facility] Work Phone: Start: 04-04-2016 T4 free mass conc T4, FREE (THYROXINE) (05712) [facility] Work Phone: Start: 04-04-2016 Assay of triiodothyronine t3 free T3, FREE (TRIDOTHYRONINE) (51291) [facility]; [facility] Work Phone: Start: 04-04-2016 T3 free mass conc T3, FREE (TRIDOTHYRONINE) (38227) [facility] Work Phone: Start: 03-05-2016 Provider Instructions for Treatment [facility] Work Phone: Start: 03-05-2016 Microsomal antibodies each Anti-TPO Antibody (73701) [facility] Work Phone: Start: 03-05-2016 Assay of thyroid stimulating hormone tsh TSH (30390) [facility]; [facility] Work Phone: Start: 03-05-2016 Thyrotropin Qn TSH (32259) [facility] Work Phone: Start: 03-05-2016 Assay of free thyroxine T4, FREE (THYROXINE) (82841) [facility]; [facility] Work Phone: Start: 03-05-2016 T4 free mass conc T4, FREE (THYROXINE) (85941) [facility] Work Phone: Start: 03-05-2016 Assay of triiodothyronine t3 free T3, FREE (TRIDOTHYRONINE) (08352) [facility]; [facility] Work Phone: Start: 03-05-2016 T3 free mass conc T3, FREE (TRIDOTHYRONINE) (07836) [facility] Work Phone: Start: 03-05-2016 Blood occult fecal hgb deter ia qual feces 1-3 FECAL OCCULT- Tubes sent home (82061) [facility] Work Phone: Start: 03-05-2016 Cytp cerv/vag auto thin layer prep mnl screen Thin prep Pap (54077) (no STD testing) [facility] Work Phone: Start: 09-02-2015 Provider Instructions for Treatment [facility] Work Phone: Start: 07-11-2015 Comprehensive metabolic panel Metabolic Panel, Comprehensive (15496) [facility] Work Phone: Start: 07-11-2015 Blood count manual cell count each CBC WITH MANUAL DIFF (36290) [facility] Work Phone: Start: 07-11-2015 Assay of thyroid stimulating hormone tsh TSH (27775) [facility]; [facility] Work Phone: Start: 07-11-2015 Thyrotropin Qn TSH (27194) [facility] Work Phone: Start: 07-11-2015 Assay of free thyroxine T4, FREE (THYROXINE) (10320) [facility]; [facility] Work Phone: Start: 07-11-2015 T4 free mass conc T4, FREE (THYROXINE) (37142) [facility] Work Phone: Start: 07-11-2015 Assay of triiodothyronine t3 free T3, FREE (TRIDOTHYRONINE) (85607) [facility]; [facility] Work Phone: Start: 07-11-2015 T3 free mass conc T3, FREE (TRIDOTHYRONINE) (53803) [facility] Work Phone: Start: 07-11-2015 25 hydroxy includes fractions if performed CALCIFEDIOL (23300) [facility] Work Phone: Start: 07-11-2015 Lipid panel LIPID PANEL (77279) [facility] Work Phone: Start: 07-11-2015 Hemoglobin A1c/Hemoglobin.total mass fraction (Bld) HGB A1C (23500) [facility] Work Phone: Start: 07-11-2015 Hemoglobin glycosylated a1c HGB A1C (78309) [facility]; [facility] Work Phone: Start: 07-11-2015 Immunoassay analyte quantitative nos Anti-Myeloperoxidase (MPO) Antibodies (65507) [facility] Work Phone: Start: 04-01-2015 Assay of triiodothyronine t3 free T3, FREE (TRIDOTHYRONINE) (58880) [facility]; [facility] Work Phone: Start: 04-01-2015 T3 free mass conc T3, FREE (TRIDOTHYRONINE) (92900) [facility] Work Phone: Start: 04-01-2015 Assay of free thyroxine T4, FREE (THYROXINE) (98223) [facility]; [facility] Work Phone: Start: 04-01-2015 T4 free mass conc T4, FREE (THYROXINE) (38089) [facility] Work Phone: Start: 04-01-2015 Assay of thyroid stimulating hormone tsh TSH (01098) [facility]; [facility] Work Phone: Start: 04-01-2015 Thyrotropin Qn TSH (74371) [facility] Work Phone: Start: 02-18-2015 Assay of thyroid stimulating hormone tsh TSH (39855) [facility]; [facility] Work Phone: Start: 02-18-2015 Thyrotropin Qn TSH (25128) [facility] Work Phone: Start: 12-31-2014 Procedure Education Eprescribed prescriptions (G8553) [facility] Work Phone: Start: 10-14-2014 Blood count manual cell count each CBC WITH MANUAL DIFF (25148) [facility] Work Phone: Start: 10-14-2014 Comprehensive metabolic panel Metabolic Panel, Comprehensive (94150) [facility] Work Phone: Start: 10-14-2014 Lipid panel Lipid Panel (02994) [facility] Work Phone: Start: 10-14-2014 Assay of thyroid stimulating hormone tsh TSH (88574) [facility]; [facility] Work Phone: Start: 10-14-2014 Thyrotropin Qn TSH (28489) [facility] Work Phone: Start: 10-14-2014 Assay of free thyroxine T4, FREE (THYROXINE) (55125) [facility]; [facility] Work Phone: Start: 10-14-2014 T4 free mass conc T4, FREE (THYROXINE) (51400) [facility] Work Phone: Start: 10-14-2014 Assay of triiodothyronine t3 free T3, FREE (TRIDOTHYRONINE) (39685) [facility]; [facility] Work Phone: Start: 10-14-2014 T3 free mass conc T3, FREE (TRIDOTHYRONINE) (85920) [facility] Work Phone: Start: 10-14-2014 Hemoglobin A1c/Hemoglobin.total mass fraction (Bld) HEMOGLOBIN GLYCLATED (HGB A1C) (91613) [facility] Work Phone: Start: 10-14-2014 Hemoglobin glycosylated a1c HEMOGLOBIN GLYCLATED (HGB A1C) (95356) [facility]; [facility] Work Phone: Start: 08-27-2014 Procedure Education Eprescribed prescriptions (G8553) [facility] Work Phone: Start: 03-09-2014 Provider Instructions for Treatment [facility] Work Phone: Start: 03-09-2014 Gonadotropin chorionic qualitative TEST - SERUM QUANTITATIVE (HCG) (76824) [facility] Work Phone: Start: 03-09-2014 Gonadotropin follicle stimulating hormone FSH AND LH (85113) [facility] Work Phone: Start: 03-09-2014 Assay of thyroid stimulating hormone tsh TSH (THYROID STIMULATING HORMONE) (94216) [facility]; [facility] Work Phone: Start: 03-09-2014 Thyrotropin Qn TSH (THYROID STIMULATING HORMONE) (74106) [facility] Work Phone: Start: 03-09-2014 Cytp cerv/vag auto thin layer prep mnl screen Thin prep Pap (27945) [facility] Work Phone: Start: 09-25-2013 Procedure Education Eprescribed prescriptions (G8553) [facility] Work Phone: Start: 09-25-2013 Provider Instructions for Treatment [facility] Work Phone: Start: 09-14-2013 Lipid panel Lipid Panel (83317) [facility] Work Phone: Start: 09-14-2013 Assay of thyroid stimulating hormone tsh TSH (63239) [facility]; [facility] Work Phone: Start: 09-14-2013 Thyrotropin Qn TSH (18115) [facility] Work Phone: Start: 09-14-2013 Assay of free thyroxine T4, FREE (THYROXINE) (92150) [facility]; [facility] Work Phone: Start: 09-14-2013 T4 free mass conc T4, FREE (THYROXINE) ([id number]) [facility] Work Phone: Start: 09-14-2013 Assay of triiodothyronine t3 free T3, FREE (TRIDOTHYRONINE) ([id number]) [facility]; [facility] Work Phone: Start: 09-14-2013 T3 free mass conc T3, FREE (TRIDOTHYRONINE) ([id number]) [facility] Work Phone: Start: 05-27-2013 Fibrin dgradj products d-dimer quantitative D-Dimer (07229) [facility] Work Phone: Comment on above: send results to [phone] Start: 05-27-2013 Provider Instructions for Treatment [facility] Work Phone: Start: 04-06-2013 Provider Instructions for Treatment [facility] Work Phone: Start: 03-24-2013 Blood count manual cell count each CBC with manual diff (13369) [facility] Work Phone: Start: 03-24-2013 Comprehensive metabolic panel Metabolic Panel, Comprehensive (31433) [facility] Work Phone: Start: 03-24-2013 Assay of thyroid stimulating hormone tsh TSH (72704) [facility]; [facility] Work Phone: Start: 03-24-2013 Thyrotropin Qn TSH (66116) [facility] Work Phone: Start: 03-24-2013 Assay of free thyroxine T4, FREE (THYROXINE) ([id number]) [facility]; [facility] Work Phone: Start: 03-24-2013 T4 free mass conc T4, FREE (THYROXINE) ([id number]) [facility] Work Phone: Start: 03-24-2013 Assay of triiodothyronine t3 free T3, FREE (TRIDOTHYRONINE) ([id number]) [facility]; [facility] Work Phone: Start: 03-24-2013 T3 free mass conc T3, FREE (TRIDOTHYRONINE) ([id number]) [facility] Work Phone: Start: 03-24-2013 Lipid panel Lipid Panel ([id number]) [facility] Work Phone: Start: 04-09-2012 Provider Instructions for Treatment [facility] Work Phone: Start: 04-09-2012 Lipid panel Lipid Panel (90658) [facility] Work Phone: Start: 04-09-2012 Cytp cerv/vag auto thin layer prep mnl screen Thin prep Pap (84504) [facility] Work Phone: Start: 03-17-2012 Assay of free thyroxine T4, FREE (THYROXINE) ([id number]) [facility]; [facility] Work Phone: Start: 03-17-2012 T4 free mass conc T4, FREE (THYROXINE) ([id number]) [facility] Work Phone: Start: 03-17-2012 Assay of triiodothyronine t3 free T3, FREE (TRIDOTHYRONINE) ([id number]) [facility]; [facility] Work Phone: Start: 03-17-2012 T3 free mass conc T3, FREE (TRIDOTHYRONINE) ([id number]) [facility] Work Phone: Start: 01-31-2012 Provider Instructions for Treatment Reviewed Lab [facility] Work Phone: Start: 01-25-2012 Assay of free thyroxine T4, FREE (THYROXINE) ([id number]) [facility]; [facility] Work Phone: Start: 01-25-2012 Assay of triiodothyronine t3 free T3, FREE (TRIDOTHYRONINE) ([id number]) [facility]; [facility] Work Phone: Start: 01-25-2012 T3 free mass conc T3, FREE (TRIDOTHYRONINE) ([id number]) [facility] Work Phone: Start: 01-25-2012 T4 free mass conc T4, FREE (THYROXINE) ([id number]) [facility] Work Phone: Start: 01-25-2012 Microsomal antibodies each Anti-TPO Antibody ([id number]) [facility] Work Phone: Start: 12-07-2011 Provider Instructions for Treatment [facility] Work Phone: Start: 11-26-2011 Provider Instructions for Treatment Follow up in 2 weeks [facility] Work Phone: Start: 11-26-2011 Microsomal antibodies each Anti-TPO Antibody (73157) [facility] Work Phone: Start: 11-26-2011 Assay of triiodothyronine t3 free T3, FREE (TRIDOTHYRONINE) ([id number]) [facility]; [facility] Work Phone: Start: 11-26-2011 T3 free mass conc T3, FREE (TRIDOTHYRONINE) ([id number]) [facility] Work Phone: Start: 11-26-2011 Assay of free thyroxine T4, FREE (THYROXINE) ([id number]) [facility]; [facility] Work Phone: Start: 11-26-2011 T4 free mass conc T4, FREE (THYROXINE) ([id number]) [facility] Work Phone: Start: 11-26-2011 Assay of thyroid stimulating hormone tsh TSH ([id number]) [facility]; [facility] Work Phone: Start: 11-26-2011 Thyrotropin Qn TSH (88169) [facility] Work Phone: Start: 11-02-2011 Assay of thyroid stimulating hormone tsh TSH (42109) [facility]; [facility] Work Phone: Start: 11-02-2011 Thyrotropin Qn TSH ([id number]) [facility] Work Phone: Start: 11-02-2011 Blood count manual cell count each CBC with manual diff (15760) [facility] Work Phone: Start: 11-02-2011 Comprehensive metabolic panel Metabolic Panel, [facility] (52845) [facility] Work Phone: Start: 11-02-2011 Patient Education Heart Palpitations *: palpitations [facility] Work Phone: Start: 11-02-2011 Provider Instructions for Treatment Follow up - Make appt after diagnostic tests [facility] Work Phone: Start: 03-06-2011 Comprehensive metabolic panel Metabolic Panel, Comprehensive (34084) [facility] Work Phone: Comment on above: stat labs Start: 03-06-2011 Iaad ia influenza a/b each Influenza A+B Ag, EIA (20901) [facility] Work Phone: Start: 03-06-2011 Culture bacterial blood aerobic w/id isolates MCKENZIE CULTURE-BLOOD (56354) [facility] Work Phone: Start: 03-06-2011 Blood count complete auto&auto difrntl wbc CBC, Platelets & Auto Diff (73742) [facility] Work Phone: Start: 11-06-2010 Provider Instructions for Treatment Follow up if no improvement or if symptoms worsen [facility] Work Phone: Start: 08-28-2010 Provider Instructions for Treatment [facility] Work Phone: Start: 08-17-2010 Provider Instructions for Treatment [facility] Work Phone: Start: 08-17-2010 Fibrin dgradj products d-dimer quantitative D-Dimer (50445) [facility] Work Phone: Start: 07-14-2010 Urnls dip stick/tablet rgnt non-auto w/o micrscp Urinalysis, Office (72726) [facility] Work Phone: Start: 01-23-2010 Provider Instructions for Treatment [facility] Work Phone: Start: 01-18-2010 Provider Instructions for Treatment *palpitation discusssion [facility] Work Phone: Start: 06-27-2009 Provider Instructions for Treatment [facility] Work Phone: Start: 06-27-2009 Lipid panel LIPID PANEL (55650) [facility] Work Phone: Start: 06-17-2008 Provider Instructions for Treatment Reviewed Diagnostic Tests [facility] Work Phone: Start: 06-07-2008 Provider Instructions for Treatment [facility] Work Phone: Start: 05-28-2008 Provider Instructions for Treatment *palpitation discusssion [facility] Work Phone: Start: 05-28-2008 Fibrin dgradj products d-dimer quantitative D-Dimer (22647) [facility] Work Phone: Start: 05-28-2008 Comprehensive metabolic panel METABOLIC PANEL, COMPREHENSIVE (93748) [facility] Work Phone: Start: 05-28-2008 Assay of thyroid stimulating hormone tsh TSH (03973) [facility]; [facility] Work Phone: Start: 05-28-2008 Blood count manual cell count each CBC WITH MANUAL DIFF (16970) [facility] Work Phone: Start: 05-28-2008 Thyrotropin Qn TSH (63411) [facility] Work Phone: Start: 11-05-2007 Provider Instructions for Treatment [facility] Work Phone: Start: 11-05-2007 Cul bact xcpt urine blood/stool aerobic isol MCKENZIE CULTURE-OTHER (91593) [facility] Work Phone: Start: 11-05-2007 Iaadiadoo streptococcus group a Rapid Strep Test, Office (67419) [facility]; [facility] Work Phone: Comment on above: neg Start: 11-05-2007 S. pyogenes Ag IA Ql (Unsp spec) Rapid Strep Test, Office (63538) [facility] Work Phone: Comment on above: neg Start: 06-04-2007 Provider Instructions for Treatment Reviewed Diagnostic Tests [facility] Work Phone: Start: 06-04-2007 C-reactive protein C-Reactive Protein (38249) [facility]; [facility] Work Phone: Start: 06-04-2007 CRP mass conc C-Reactive Protein (63198) [facility] Work Phone: Start: 06-04-2007 Blood count complete auto&auto difrntl wbc CBC, Platelets & Auto Diff (28391) [facility] Work Phone: Start: 06-02-2007 Culture bacterial quanttative colony count urine URINE MCKENZIE CULTURE (SALOME COL COUNT) (01087) [facility] Work Phone: Start: 06-02-2007 Sedimentation rate rbc non-automated SED RATE ERYTHROCYTE (12744) [facility] Work Phone: Start: 06-02-2007 C-reactive protein C-REACTIVE PROTEIN (30856) [facility]; [facility] Work Phone: Start: 06-02-2007 CRP mass conc C-REACTIVE PROTEIN (51988) [facility] Work Phone: Start: 06-02-2007 Blood count manual cell count each CBC WITH MANUAL DIFF (40923) [facility] Work Phone: Start: 05-29-2007 Provider Instructions for Treatment [facility] Work Phone: Start: 03-24-2007 Assay of troponin quantitative ASSAY, TROPONIN, QUANTITATIVE (aka Troponin I) (31991) [facility]; [facility] Work Phone: Start: 03-24-2007 Troponin I.cardiac mass conc ASSAY, TROPONIN, QUANTITATIVE (aka Troponin I) (40805) [facility] Work Phone: Start: 03-24-2007 Blood count manual cell count each CBC WITH MANUAL DIFF (42876) [facility] Work Phone: Start: 03-24-2007 Comprehensive metabolic panel METABOLIC PANEL, COMPREHENSIVE (14097) [facility] Work Phone: Start: 03-24-2007 Assay of thyroid stimulating hormone tsh TSH (THYROID STIMULATING HORMONE) (69989) [facility]; [facility] Work Phone: Start: 03-24-2007 Thyrotropin Qn TSH (THYROID STIMULATING HORMONE) (67525) [facility] Work Phone: Start: 03-24-2007 C-reactive protein C-Reactive Protein (61846) [facility]; [facility] Work Phone: Start: 03-24-2007 CRP mass conc C-Reactive Protein (68091) [facility] Work Phone: Start: 03-24-2007 Provider Instructions for Treatment Reviewed Diagnostic Tests [facility] Work Phone: Start: 06-14-2006 Provider Instructions for Treatment [facility] Work Phone: Start: 03-04-2006 Cytp cerv/vag auto thin layer prep mnl screen Thin prep Pap (17738) [facility] Work Phone: Start: 03-04-2006 Provider Instructions for Treatment [facility] Work Phone: CBC W Auto Different ial panel - Blood [facility] Comprehensive metabo lic 2000 panel - Serum or Plasma [facility] Lipid 1996 panel - S reji or Plasma [facility] MG Breast - bilatera l Screening [facility] MR Lower Extremity [facility] Patient referral [facility] Work Phone: Thyroid stimulating hormone measurement [facility] Work [facility]: [facility] Work [facility]: [facility] Work Phone: [facility] Work [facility] Work Phone: [facility] Work Phone: [facility] Work [facility] Work Phone: [facility] Work Phone: [facility] Work Phone: [facility] Work Phone: [facility] Work [facility] Work Phone: [facility] Work Phone: [facility] Phone: [facility] Work Phone[facility]: [facility] Work Phone[facility] Phone: [facility] Work Phone: [facility] Work Phone: [facility] Work Phone: [facility] Work Phone: [facility] Work Phone: [facility] Work Phone: [facility] Work Phone: [facility] Work Phone: [facility] Work Phone: [facility] Work Phone: [facility] Work Phone: Palpitations : H eart Palpitations *: palpitations [facility] Work Phone: [facility] Work Phone: [facility] Work Phone: [facility] Work Phone: Immunizations Immunization Date Immunization Notes Care Provider [facility] 04-06-2009 tetanus toxoid, reduced diphtheria toxoid, and acellular pertussis vaccine, adsorbed Bibiana Mulligan [facility] Work Phone: Comment on above: Lot #[id number]-left deltoidgiven by:[facility] Payers Date Payer Category Payer Unknown [id number] 2024 Self-pay [id number] 2024 Unknown 2011 Unknown [id number] Unknown [id number] [id number] [id number] Unknown [id number] [id number] [id number] Unknown [id number] [id number] [id number] Unknown [id number] [id number] [id number] Unknown [id number] [id number] [id number] Unknown [id number] [id number] [id number] Unknown [id number] [id number] [id number] Unknown [id number] [id number] [id number] Social History Date Type Detail Facility Alcohol Use Never smoker [facility] Work Phone: Comment on above: Occasional alcohol u se 1 coffee, 1 cola QD Tobacco use: Never smoker. [facility] Work Phone: Tobacco use: Tobacco use: [facility]; [facility] Work Phone: Start: 12-27-2021 End: 07-26-2023 Tobacco smoking status NHIS Unknown if ever smoked [facility] Start: 08-10-2020 None [facility] Start: 08-10-2020 Homeless [facility] Start: 1965 Sex Assigned At Female W [facility] Start: 10-16-2023 Tobacco smoking stat us NHIS Never smoked tobacco (finding) [facility] Clinical Notes 09-10-2024 Note Date & Type Note Facility 09-10-2024 Evaluation note Diagnosis Onset Date Resolution Preventative health care acute September 10, 2024 2:20pm Sleep concern acute September 10 025 2:20pm Anxiety and depression chronic Ma y 2024 2:20pm Hypothyroidism chronic September 10, 2024 2:20pm [facility] Work Phone: 1(274) 787-500705-29-2025 Evaluation note* Diagnosis Onset Date Resolution Status Admit Date Preventative health care acute September 10, 2024 2:20pm Sleep concern acute September 10, 2 025 2:20pm Anxiety and depression chronic Ma y 2024 2:20pm Hypothyroidism chronic September 10, 2024 2:20pm Difficulty walking due to kn ee joint acute October 13, 2024 8 :52am Internal derangement of knee , acute acute October 13, 2024 8 :52am [facility] Work Phone: 1(220) 465-833205-29-2025 Evaluation note* Diagnosis Onset Date Resolution Status Admit Date Preventative health care acute September 10, 2024 2:20pm Sleep concern acute September 10, 2 025 2:20pm Anxiety and depression chronic Ma y 2024 2:20pm Hypothyroidism chronic September 10, 2024 2:20pm Difficulty walking due to kn ee joint acute October 13, 2024 8 :52am Internal derangement of knee , acute acute October 13, 2024 8 :52am Acute medial meniscal tear acute October 22, 2024 8:24am Difficulty walking due to kn ee joint acute October 22, 2024 8:24am Internal derangement of knee , acute acute October 22, 2024 8:24am [facility] Work Phone: 1(876) 973-498805-29-2025 Evaluation note* Diagnosis Onset Date Resolution Status Admit Date Preventative health care acute September 10, 2024 2:20pm Sleep concern acute September 10, 2 025 2:20pm Anxiety and depression chronic Ma y 2024 2:20pm Hypothyroidism chronic September 10, 2024 2:20pm Difficulty walking due to kn ee joint acute October 13, 2024 8 :52am Internal derangement of knee , acute acute October 13, 2024 8 :52am Acute medial meniscal tear acute October 22, 2024 8:24am Difficulty walking due to kn ee joint acute October 22, 2024 8:24am Internal derangement of knee , acute acute October 22, 2024 8:24am Chondromalacia, left knee acute October 28, 2024 2:23pm Medial meniscus tear acute October 28, 2024 2:23pm [facility] Work Phone: Evaluation note* Diagnosis Onset Date Resolution Status Dermatitis acute Health care maintenance acut e Anxiety and depression chron ic Hypothyroidism chronic [facility] Work Phone: Evaluation note* Diagnosis Onset Date Resolution Status Dermatitis acute Health care maintenance acut e Anxiety and depression chron ic Hypothyroidism chronic Low back pain noneactive Muscle spasm noneactive [facility] Work Phone: Evaluation noteNo assessment information available [facility] Work Phone: Evaluation note* Diagnosis Onset Date Resolution Status Asthma acute Health care maintenance acut e Anxiety and depression chron ic Hypothyroidism chronic [facility] Work Phone: Evaluation note* Diagnosis Onset Date Resolution Status Elevated blood pressure read ing in office with diagnosis of hypertension acute Anxiety and depression chron ic Elevated blood pressure read ing in office with diagnosis of hypertension acute Hypothyroidism chronic [facility] Work Phone: Hospital Discharge instructionsAmbulatory Orders* Dermatology Location: None Selected [facility] Work Phone: Instructions* Name Dates Details How to access health informa tion online Indication:Nonsmoker Start:19-Feb-2020 Instruction Type:Patient Education How to access health informa tion online - Detail Indication:Nonsmoker Start:19-Feb-2020 Instruction Type:Patient Education Patient Instructions Indication:Nonsmoker Start:19-Feb-2020 Instruction Type:Provider Instructions for Treatment How to access health informa tion online Indication:BMI 34.0-34.9,adult Start:27-Aug-2019 Instruction Type:Patient Education How to access health informa tion online - Detail Indication:BMI 34.0-34.9,adult Start:27-Aug-2019 Instruction Type:Patient Education Patient Instructions Indication:BMI 34.0-34.9,adult Start:27-Aug-2019 Instruction Type:Provider Instructions for Treatment How to access health informa tion online Indication:Nonsmoker Start:27-Aug-2019 Instruction Type:Patient Education How to access health informa tion online - Detail Indication:Nonsmoker Start:27-Aug-2019 Instruction Type:Patient Education Patient Instructions Indication:Nonsmoker Start:27-Aug-2019 Instruction Type:Provider Instructions for Treatment Patient Instructions Indication:Nonsmoker Start:29-Jan-2019 Instruction Type:Provider Instructions for Treatment How to access health informa tion online Indication:Nonsmoker Start:29-Jan-2019 Instruction Type:Patient Education Patient Instructions Indication:Nonsmoker Start:29-Jan-2019 Instruction Type:Provider Instructions for Treatment How to access health informa tion online Indication:BMI 39.0-39.9,adult Start:22-Sep-2018 Instruction Type:Patient Education How to access health informa tion online - Detail Indication:BMI 39.0-39.9,adult Start:22-Sep-2018 Instruction Type:Patient Education Patient Instructions Indication:Cough Start:22-Sep-2018 Instruction Type:Provider Instructions for Treatment How to access health informa tion online Indication:Nonsmoker Start:29-Jul-2017 Instruction Type:Patient Education How to access health informa tion online - Detail Indication:Nonsmoker Start:29-Jul-2017 Instruction Type:Patient Education Patient Instructions Indication:Nonsmoker Start:29-Jul-2017 Instruction Type:Provider Instructions for Treatment How to access health informa tion online Indication:BMI 39.0-39.9,adult Start:29-Nov-2016 Instruction Type:Patient Education How to access health informa tion online - Detail Indication:BMI 39.0-39.9,adult Start:29-Nov-2016 Instruction Type:Patient Education Patient Instructions Indication:BMI 39.0-39.9,adult Start:29-Nov-2016 Instruction Type:Provider Instructions for Treatment How to access health informa tion online Indication:Body mass index 40.0-44.9, adult Start:15-Aug-2016 Instruction Type:Patient Education How to access health informa tion online - Detail Indication:Body mass index 40.0-44.9, adult Start:15-Aug-2016 Instruction Type:Patient Education Patient Instructions Indication:Body mass index 40.0-44.9, adult Start:15-Aug-2016 Instruction Type:Provider Instructions for Treatment How to access health informa tion online Indication:Other premature beats Start:10-Aug-2016 Instruction Type:Patient Education How to access health informa tion online - Detail Indication:Other premature beats Start:10-Aug-2016 Instruction Type:Patient Education Patient Instructions Indication:Other premature beats Start:10-Aug-2016 Instruction Type:Provider Instructions for Treatment How to access health informa tion online Indication:Chest pressure Start:01-Aug-2016 Instruction Type:Patient Education How to access health informa tion online - Detail Indication:Chest pressure Start:01-Aug-2016 Instruction Type:Patient Education Patient Instructions Indication:Chest pressure Start:01-Aug-2016 Instruction Type:Provider Instructions for Treatment Patient Instructions Indication:Nonsmoker Start:05-Mar-2016 Instruction Type:Provider Instructions for Treatment Patient Instructions Indication:Hypothyroidism Start:02-Sep-2015 Instruction Type:Provider Instructions for Treatment How to access health informa tion online Indication:Anxiety Start:31-Dec-2014 Instruction Type:Patient Education How to access health informa tion online - Detail Indication:Anxiety Start:31-Dec-2014 Instruction Type:Patient Education Patient Instructions Indication:Anxiety Start:31-Dec-2014 Instruction Type:Provider Instructions for Treatment How to access health informa tion online 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 Instruction Type:Patient Education How to access health informa tion online - Detail 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 Instruction Type:Patient Education Patient Instructions Indication:Cinthya's thyroiditis Start:25-Sep-2013 Instruction Type:Provider Instructions for Treatment Patient Instructions Indication:SOB (shortness of breath) on exertion Start:27-May-2013 Instruction Type:Provider Instructions for Treatment Sore throat: diagnosis and treatment Indication:Pharyngitis, acute Start:05-Nov-2007 Instruction Type:Patient Education [facility]; [facility] Work Phone: Instructions* Name Dates Details How to access health informa tion online Indication:Nonsmoker Start:19-Feb-2020 Instruction Type:Patient Education How to access health informa tion online - Detail Indication:Nonsmoker Start:19-Feb-2020 Instruction Type:Patient Education Patient Instructions Indication:Nonsmoker Start:19-Feb-2020 Instruction Type:Provider Instructions for Treatment How to access health informa tion online Indication:BMI 34.0-34.9,adult Start:27-Aug-2019 Instruction Type:Patient Education How to access health informa tion online - Detail Indication:BMI 34.0-34.9,adult Start:27-Aug-2019 Instruction Type:Patient Education Patient Instructions Indication:BMI 34.0-34.9,adult Start:27-Aug-2019 Instruction Type:Provider Instructions for Treatment How to access health informa tion online Indication:Nonsmoker Start:27-Aug-2019 Instruction Type:Patient Education How to access health informa tion online - Detail Indication:Nonsmoker Start:27-Aug-2019 Instruction Type:Patient Education Patient Instructions Indication:Nonsmoker Start:27-Aug-2019 Instruction Type:Provider Instructions for Treatment Patient Instructions Indication:Nonsmoker Start:29-Jan-2019 Instruction Type:Provider Instructions for Treatment How to access health informa tion online Indication:Nonsmoker Start:29-Jan-2019 Instruction Type:Patient Education Patient Instructions Indication:Nonsmoker Start:29-Jan-2019 Instruction Type:Provider Instructions for Treatment How to access health informa tion online Indication:BMI 39.0-39.9,adult Start:22-Sep-2018 Instruction Type:Patient Education How to access health informa tion online - Detail Indication:BMI 39.0-39.9,adult Start:22-Sep-2018 Instruction Type:Patient Education Patient Instructions Indication:Cough Start:22-Sep-2018 Instruction Type:Provider Instructions for Treatment How to access health informa tion online Indication:Nonsmoker Start:29-Jul-2017 Instruction Type:Patient Education How to access health informa tion online - Detail Indication:Nonsmoker Start:29-Jul-2017 Instruction Type:Patient Education Patient Instructions Indication:Nonsmoker Start:29-Jul-2017 Instruction Type:Provider Instructions for Treatment How to access health informa tion online Indication:BMI 39.0-39.9,adult Start:29-Nov-2016 Instruction Type:Patient Education How to access health informa tion online - Detail Indication:BMI 39.0-39.9,adult Start:29-Nov-2016 Instruction Type:Patient Education Patient Instructions Indication:BMI 39.0-39.9,adult Start:29-Nov-2016 Instruction Type:Provider Instructions for Treatment How to access health informa tion online Indication:Body mass index 40.0-44.9, adult Start:15-Aug-2016 Instruction Type:Patient Education How to access health informa tion online - Detail Indication:Body mass index 40.0-44.9, adult Start:15-Aug-2016 Instruction Type:Patient Education Patient Instructions Indication:Body mass index 40.0-44.9, adult Start:15-Aug-2016 Instruction Type:Provider Instructions for Treatment How to access health informa tion online Indication:Other premature beats Start:10-Aug-2016 Instruction Type:Patient Education How to access health informa tion online - Detail Indication:Other premature beats Start:10-Aug-2016 Instruction Type:Patient Education Patient Instructions Indication:Other premature beats Start:10-Aug-2016 Instruction Type:Provider Instructions for Treatment How to access health informa tion online Indication:Chest pressure Start:01-Aug-2016 Instruction Type:Patient Education How to access health informa tion online - Detail Indication:Chest pressure Start:01-Aug-2016 Instruction Type:Patient Education Patient Instructions Indication:Chest pressure Start:01-Aug-2016 Instruction Type:Provider Instructions for Treatment Patient Instructions Indication:Nonsmoker Start:05-Mar-2016 Instruction Type:Provider Instructions for Treatment Patient Instructions Indication:Hypothyroidism Start:02-Sep-2015 Instruction Type:Provider Instructions for Treatment How to access health informa tion online Indication:Anxiety Start:31-Dec-2014 Instruction Type:Patient Education How to access health informa tion online - Detail Indication:Anxiety Start:31-Dec-2014 Instruction Type:Patient Education Patient Instructions Indication:Anxiety Start:31-Dec-2014 Instruction Type:Provider Instructions for Treatment How to access health informa tion online 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 Instruction Type:Patient Education How to access health informa tion online - Detail 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 Instruction Type:Patient Education Patient Instructions Indication:Cinthya's thyroiditis Start:25-Sep-2013 Instruction Type:Provider Instructions for Treatment Patient Instructions Indication:SOB (shortness of breath) on exertion Start:27-May-2013 Instruction Type:Provider Instructions for Treatment Sore throat: diagnosis and treatment Indication:Pharyngitis, acute Start:05-Nov-2007 Instruction Type:Patient Education [facility] Work Phone: reason for referral (narrative)No reason for referral information available[facility] Work [facility]: Family History No Family History Records FoundUnknown Family Member Name Dates Details Family Members In General Comments:Bowel Cancer, emoti onal problems, seizures, stroke Status:Active Unknown Family Member Name Dates Details Family Members In General Comments:Bowel Cancer, emoti onal problems, seizures, stroke Status:Active Unknown Family Member Name Dates Details Family Members In General Comments:Bowel Cancer, emoti onal problems, seizures, stroke Status:Active Unknown Family Member Name Dates Details Family Members In General Comments:Bowel Cancer, emoti onal problems, seizures, stroke Status:Active Unknown Family Member Name Dates Details Family Members In General Comments:Bowel Cancer, emoti onal problems, seizures, stroke Status:Active Unknown Family Member Name Dates Details Family Members In General Comments:Bowel Cancer, emoti onal problems, seizures, stroke Status:Active Unknown Family Member Name Dates Details Family Members In General Comments:Bowel Cancer, emoti onal problems, seizures, stroke Status:Active Unknown Family Member Name Dates Details Family Members In General Comments:Bowel Cancer, emoti onal problems, seizures, stroke Status:Active Unknown Family Member Name Dates Details Family Members In General Comments:Bowel Cancer, emoti onal problems, seizures, stroke Status:Active Unknown Family Member Name Dates Details Family Members In General Comments:Bowel Cancer, emoti onal problems, seizures, stroke Status:Active Unknown Family Member Name Dates Details Family Members In General Comments:Bowel Cancer, emoti onal problems, seizures, stroke Status:Active Unknown Family Member Name Dates Details Family Members In General Comments:Bowel Cancer, emoti onal problems, seizures, stroke Status:Active Unknown Family Member Name Dates Details Family Members In General Comments:Bowel Cancer, emoti onal problems, seizures, stroke Status:Active Unknown Family Member Name Dates Details Family Members In General Comments:Bowel Cancer, emoti onal problems, seizures, stroke Status:Active Unknown Family Member Name Dates Details Family Members In General Comments:Bowel Cancer, emoti onal problems, seizures, stroke Status:Active Unknown Family Member Name Dates Details Family Members In General Comments:Bowel Cancer, emoti onal problems, seizures, stroke Status:Active Unknown Family Member Name Dates Details Family Members In General Comments:Bowel Cancer, emoti onal problems, seizures, stroke Status:Active Unknown Family Member Name Dates Details Family Members In General Comments:Bowel Cancer, emoti onal problems, seizures, stroke Status:Active Relationship Condition Age at Onset Recorded Date/T micheal Not Specified Anxiety Unknown Depression Unknown aunt Malignant neoplasm of colon Unknown Parkinson's disease Unknown mother Malignant neoplasm Unknown Osteoporosis Unknown Seizure Unknown brother Malignant neoplasm Unknown father Cardiac disease Unknown uncle Cardiac disease Unknown grandfather Diabetes mellitus Unknown sister Disorder of thyroid Unknown Relationship Condition Age at Onset Recorded Date/T micheal Not Specified Anxiety Unknown Depression Unknown aunt Malignant neoplasm of colon Unknown Parkinson's disease Unknown mother Malignant neoplasm Unknown Osteoporosis Unknown Seizure Unknown Alzheimer's dementia Unknown brother Malignant neoplasm Unknown father Cardiac disease Unknown uncle Cardiac disease Unknown grandfather Diabetes mellitus Unknown sister Disorder of thyroid Unknown Instructions Name Dates Details Nonsmoker : How to access he alth information online Indication:Nonsmoker Nonsmoker : How to access he alth information online - Detail Indication:Nonsmoker Nonsmoker : Patient Instruct ions Indication:Nonsmoker BMI 39.0-39.9,adult : How to access health information online Indication:BMI 39.0-39.9,adult BMI 39.0-39.9,adult : How to access health information online - Detail Indication:BMI 39.0-39.9,adult BMI 39.0-39.9,adult : Patien t Instructions Indication:BMI 39.0-39.9,adult Body mass index 40.0-44.9, a dult : How to access health information online Indication:Body mass index 40.0-44.9, adult Body mass index 40.0-44.9, a dult : How to access health information online - Detail Indication:Body mass index 40.0-44.9, adult Body mass index 40.0-44.9, a dult : Patient Instructions Indication:Body mass index 40.0-44.9, adult Other premature beats : How to access health information online Indication:Other premature beats Other premature beats : How to access health information online - Detail Indication:Other premature beats Other premature beats : Layla ent Instructions Indication:Other premature beats Chest pressure : How to acce ss health information online Indication:Chest pressure Chest pressure : How to acce ss health information online - Detail Indication:Chest pressure Chest pressure : Patient Ins tructions Indication:Chest pressure Hypothyroidism : Patient Ins tructions Indication:Hypothyroidism Anxiety : How to access heal th information online Indication:Anxiety Anxiety : How to access heal th information online - Detail Indication:Anxiety Anxiety : Patient Instructio ns Indication:Anxiety Facial paralysis : How to ac cess health information online Indication:Facial paralysis Facial paralysis : How to ac cess health information online - Detail Indication:Facial paralysis Cinthya's thyroiditis : Janet connor Instructions Indication:Cinthya's thyroiditis SOB (shortness of breath) on exertion : Patient Instructions Indication:SOB (shortness of breath) on exertion Pharyngitis, acute : Sore th roat: diagnosis and treatment Indication:Pharyngitis, acute Name Dates Details Nonsmoker : How to access he alth information online Indication:Nonsmoker Nonsmoker : How to access he alth information online - Detail Indication:Nonsmoker Nonsmoker : Patient Instruct ions Indication:Nonsmoker BMI 39.0-39.9,adult : How to access health information online Indication:BMI 39.0-39.9,adult BMI 39.0-39.9,adult : How to access health information online - Detail Indication:BMI 39.0-39.9,adult BMI 39.0-39.9,adult : Patien t Instructions Indication:BMI 39.0-39.9,adult Body mass index 40.0-44.9, a dult : How to access health information online Indication:Body mass index 40.0-44.9, adult Body mass index 40.0-44.9, a dult : How to access health information online - Detail Indication:Body mass index 40.0-44.9, adult Body mass index 40.0-44.9, a dult : Patient Instructions Indication:Body mass index 40.0-44.9, adult Other premature beats : How to access health information online Indication:Other premature beats Other premature beats : How to access health information online - Detail Indication:Other premature beats Other premature beats : Layla ent Instructions Indication:Other premature beats Chest pressure : How to acce ss health information online Indication:Chest pressure Chest pressure : How to acce ss health information online - Detail Indication:Chest pressure Chest pressure : Patient Ins tructions Indication:Chest pressure Hypothyroidism : Patient Ins tructions Indication:Hypothyroidism Anxiety : How to access heal th information online Indication:Anxiety Anxiety : How to access heal th information online - Detail Indication:Anxiety Anxiety : Patient Instructio ns Indication:Anxiety Facial paralysis : How to ac cess health information online Indication:Facial paralysis Facial paralysis : How to ac cess health information online - Detail Indication:Facial paralysis Cinthya's thyroiditis : Janet connor Instructions Indication:Cinthya's thyroiditis SOB (shortness of breath) on exertion : Patient Instructions Indication:SOB (shortness of breath) on exertion Pharyngitis, acute : Sore th roat: diagnosis and treatment Indication:Pharyngitis, acute Name Dates Details How to access health informa tion online Indication:Nonsmoker Start:29-Jul-2017 Instruction Type:Patient Education How to access health informa tion online - Detail Indication:Nonsmoker Start:29-Jul-2017 Instruction Type:Patient Education Patient Instructions Indication:Nonsmoker Start:29-Jul-2017 Instruction Type:Provider Instructions for Treatment How to access health informa tion online Indication:BMI 39.0-39.9,adult Start:29-Nov-2016 Instruction Type:Patient Education How to access health informa tion online - Detail Indication:BMI 39.0-39.9,adult Start:29-Nov-2016 Instruction Type:Patient Education Patient Instructions Indication:BMI 39.0-39.9,adult Start:29-Nov-2016 Instruction Type:Provider Instructions for Treatment How to access health informa tion online Indication:Body mass index 40.0-44.9, adult Start:15-Aug-2016 Instruction Type:Patient Education How to access health informa tion online - Detail Indication:Body mass index 40.0-44.9, adult Start:15-Aug-2016 Instruction Type:Patient Education Patient Instructions Indication:Body mass index 40.0-44.9, adult Start:15-Aug-2016 Instruction Type:Provider Instructions for Treatment How to access health informa tion online Indication:Other premature beats Start:10-Aug-2016 Instruction Type:Patient Education How to access health informa tion online - Detail Indication:Other premature beats Start:10-Aug-2016 Instruction Type:Patient Education Patient Instructions Indication:Other premature beats Start:10-Aug-2016 Instruction Type:Provider Instructions for Treatment How to access health informa tion online Indication:Chest pressure Start:01-Aug-2016 Instruction Type:Patient Education How to access health informa tion online - Detail Indication:Chest pressure Start:01-Aug-2016 Instruction Type:Patient Education Patient Instructions Indication:Chest pressure Start:01-Aug-2016 Instruction Type:Provider Instructions for Treatment Patient Instructions Indication:Nonsmoker Start:05-Mar-2016 Instruction Type:Provider Instructions for Treatment Patient Instructions Indication:Hypothyroidism Start:02-Sep-2015 Instruction Type:Provider Instructions for Treatment How to access health informa tion online Indication:Anxiety Start:31-Dec-2014 Instruction Type:Patient Education How to access health informa tion online - Detail Indication:Anxiety Start:31-Dec-2014 Instruction Type:Patient Education Patient Instructions Indication:Anxiety Start:31-Dec-2014 Instruction Type:Provider Instructions for Treatment How to access health informa tion online 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 Instruction Type:Patient Education How to access health informa tion online - Detail 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 Instruction Type:Patient Education Patient Instructions Indication:Cinthya's thyroiditis Start:25-Sep-2013 Instruction Type:Provider Instructions for Treatment Patient Instructions Indication:SOB (shortness of breath) on exertion Start:27-May-2013 Instruction Type:Provider Instructions for Treatment Sore throat: diagnosis and treatment Indication:Pharyngitis, acute Start:05-Nov-2007 Instruction Type:Patient Education Name Dates Details How to access health informa tion online Indication:BMI 39.0-39.9,adult Start:22-Sep-2018 Instruction Type:Patient Education How to access health informa tion online - Detail Indication:BMI 39.0-39.9,adult Start:22-Sep-2018 Instruction Type:Patient Education Patient Instructions Indication:Cough Start:22-Sep-2018 Instruction Type:Provider Instructions for Treatment How to access health informa tion online Indication:Nonsmoker Start:29-Jul-2017 Instruction Type:Patient Education How to access health informa tion online - Detail Indication:Nonsmoker Start:29-Jul-2017 Instruction Type:Patient Education Patient Instructions Indication:Nonsmoker Start:29-Jul-2017 Instruction Type:Provider Instructions for Treatment How to access health informa tion online Indication:BMI 39.0-39.9,adult Start:29-Nov-2016 Instruction Type:Patient Education How to access health informa tion online - Detail Indication:BMI 39.0-39.9,adult Start:29-Nov-2016 Instruction Type:Patient Education Patient Instructions Indication:BMI 39.0-39.9,adult Start:29-Nov-2016 Instruction Type:Provider Instructions for Treatment How to access health informa tion online Indication:Body mass index 40.0-44.9, adult Start:15-Aug-2016 Instruction Type:Patient Education How to access health informa tion online - Detail Indication:Body mass index 40.0-44.9, adult Start:15-Aug-2016 Instruction Type:Patient Education Patient Instructions Indication:Body mass index 40.0-44.9, adult Start:15-Aug-2016 Instruction Type:Provider Instructions for Treatment How to access health informa tion online Indication:Other premature beats Start:10-Aug-2016 Instruction Type:Patient Education How to access health informa tion online - Detail Indication:Other premature beats Start:10-Aug-2016 Instruction Type:Patient Education Patient Instructions Indication:Other premature beats Start:10-Aug-2016 Instruction Type:Provider Instructions for Treatment How to access health informa tion online Indication:Chest pressure Start:01-Aug-2016 Instruction Type:Patient Education How to access health informa tion online - Detail Indication:Chest pressure Start:01-Aug-2016 Instruction Type:Patient Education Patient Instructions Indication:Chest pressure Start:01-Aug-2016 Instruction Type:Provider Instructions for Treatment Patient Instructions Indication:Nonsmoker Start:05-Mar-2016 Instruction Type:Provider Instructions for Treatment Patient Instructions Indication:Hypothyroidism Start:02-Sep-2015 Instruction Type:Provider Instructions for Treatment How to access health informa tion online Indication:Anxiety Start:31-Dec-2014 Instruction Type:Patient Education How to access health informa tion online - Detail Indication:Anxiety Start:31-Dec-2014 Instruction Type:Patient Education Patient Instructions Indication:Anxiety Start:31-Dec-2014 Instruction Type:Provider Instructions for Treatment How to access health informa tion online 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 Instruction Type:Patient Education How to access health informa tion online - Detail 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 Instruction Type:Patient Education Patient Instructions Indication:Cinthya's thyroiditis Start:25-Sep-2013 Instruction Type:Provider Instructions for Treatment Patient Instructions Indication:SOB (shortness of breath) on exertion Start:27-May-2013 Instruction Type:Provider Instructions for Treatment Sore throat: diagnosis and treatment Indication:Pharyngitis, acute Start:05-Nov-2007 Instruction Type:Patient Education Name Dates Details How to access health informa tion online Indication:BMI 39.0-39.9,adult Start:22-Sep-2018 Instruction Type:Patient Education How to access health informa tion online - Detail Indication:BMI 39.0-39.9,adult Start:22-Sep-2018 Instruction Type:Patient Education Patient Instructions Indication:Cough Start:22-Sep-2018 Instruction Type:Provider Instructions for Treatment How to access health informa tion online Indication:Nonsmoker Start:29-Jul-2017 Instruction Type:Patient Education How to access health informa tion online - Detail Indication:Nonsmoker Start:29-Jul-2017 Instruction Type:Patient Education Patient Instructions Indication:Nonsmoker Start:29-Jul-2017 Instruction Type:Provider Instructions for Treatment How to access health informa tion online Indication:BMI 39.0-39.9,adult Start:29-Nov-2016 Instruction Type:Patient Education How to access health informa tion online - Detail Indication:BMI 39.0-39.9,adult Start:29-Nov-2016 Instruction Type:Patient Education Patient Instructions Indication:BMI 39.0-39.9,adult Start:29-Nov-2016 Instruction Type:Provider Instructions for Treatment How to access health informa tion online Indication:Body mass index 40.0-44.9, adult Start:15-Aug-2016 Instruction Type:Patient Education How to access health informa tion online - Detail Indication:Body mass index 40.0-44.9, adult Start:15-Aug-2016 Instruction Type:Patient Education Patient Instructions Indication:Body mass index 40.0-44.9, adult Start:15-Aug-2016 Instruction Type:Provider Instructions for Treatment How to access health informa tion online Indication:Other premature beats Start:10-Aug-2016 Instruction Type:Patient Education How to access health informa tion online - Detail Indication:Other premature beats Start:10-Aug-2016 Instruction Type:Patient Education Patient Instructions Indication:Other premature beats Start:10-Aug-2016 Instruction Type:Provider Instructions for Treatment How to access health informa tion online Indication:Chest pressure Start:01-Aug-2016 Instruction Type:Patient Education How to access health informa tion online - Detail Indication:Chest pressure Start:01-Aug-2016 Instruction Type:Patient Education Patient Instructions Indication:Chest pressure Start:01-Aug-2016 Instruction Type:Provider Instructions for Treatment Patient Instructions Indication:Nonsmoker Start:05-Mar-2016 Instruction Type:Provider Instructions for Treatment Patient Instructions Indication:Hypothyroidism Start:02-Sep-2015 Instruction Type:Provider Instructions for Treatment How to access health informa tion online Indication:Anxiety Start:31-Dec-2014 Instruction Type:Patient Education How to access health informa tion online - Detail Indication:Anxiety Start:31-Dec-2014 Instruction Type:Patient Education Patient Instructions Indication:Anxiety Start:31-Dec-2014 Instruction Type:Provider Instructions for Treatment How to access health informa tion online 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 Instruction Type:Patient Education How to access health informa tion online - Detail 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 Instruction Type:Patient Education Patient Instructions Indication:Cinthya's thyroiditis Start:25-Sep-2013 Instruction Type:Provider Instructions for Treatment Patient Instructions Indication:SOB (shortness of breath) on exertion Start:27-May-2013 Instruction Type:Provider Instructions for Treatment Sore throat: diagnosis and treatment Indication:Pharyngitis, acute Start:05-Nov-2007 Instruction Type:Patient Education Name Dates Details How to access health informa tion online Indication:BMI 39.0-39.9,adult Start:22-Sep-2018 Instruction Type:Patient Education How to access health informa tion online - Detail Indication:BMI 39.0-39.9,adult Start:22-Sep-2018 Instruction Type:Patient Education Patient Instructions Indication:Cough Start:22-Sep-2018 Instruction Type:Provider Instructions for Treatment How to access health informa tion online Indication:Nonsmoker Start:29-Jul-2017 Instruction Type:Patient Education How to access health informa tion online - Detail Indication:Nonsmoker Start:29-Jul-2017 Instruction Type:Patient Education Patient Instructions Indication:Nonsmoker Start:29-Jul-2017 Instruction Type:Provider Instructions for Treatment How to access health informa tion online Indication:BMI 39.0-39.9,adult Start:29-Nov-2016 Instruction Type:Patient Education How to access health informa tion online - Detail Indication:BMI 39.0-39.9,adult Start:29-Nov-2016 Instruction Type:Patient Education Patient Instructions Indication:BMI 39.0-39.9,adult Start:29-Nov-2016 Instruction Type:Provider Instructions for Treatment How to access health informa tion online Indication:Body mass index 40.0-44.9, adult Start:15-Aug-2016 Instruction Type:Patient Education How to access health informa tion online - Detail Indication:Body mass index 40.0-44.9, adult Start:15-Aug-2016 Instruction Type:Patient Education Patient Instructions Indication:Body mass index 40.0-44.9, adult Start:15-Aug-2016 Instruction Type:Provider Instructions for Treatment How to access health informa tion online Indication:Other premature beats Start:10-Aug-2016 Instruction Type:Patient Education How to access health informa tion online - Detail Indication:Other premature beats Start:10-Aug-2016 Instruction Type:Patient Education Patient Instructions Indication:Other premature beats Start:10-Aug-2016 Instruction Type:Provider Instructions for Treatment How to access health informa tion online Indication:Chest pressure Start:01-Aug-2016 Instruction Type:Patient Education How to access health informa tion online - Detail Indication:Chest pressure Start:01-Aug-2016 Instruction Type:Patient Education Patient Instructions Indication:Chest pressure Start:01-Aug-2016 Instruction Type:Provider Instructions for Treatment Patient Instructions Indication:Nonsmoker Start:05-Mar-2016 Instruction Type:Provider Instructions for Treatment Patient Instructions Indication:Hypothyroidism Start:02-Sep-2015 Instruction Type:Provider Instructions for Treatment How to access health informa tion online Indication:Anxiety Start:31-Dec-2014 Instruction Type:Patient Education How to access health informa tion online - Detail Indication:Anxiety Start:31-Dec-2014 Instruction Type:Patient Education Patient Instructions Indication:Anxiety Start:31-Dec-2014 Instruction Type:Provider Instructions for Treatment How to access health informa tion online 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 Instruction Type:Patient Education How to access health informa tion online - Detail 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 Instruction Type:Patient Education Patient Instructions Indication:Cinthya's thyroiditis Start:25-Sep-2013 Instruction Type:Provider Instructions for Treatment Patient Instructions Indication:SOB (shortness of breath) on exertion Start:27-May-2013 Instruction Type:Provider Instructions for Treatment Sore throat: diagnosis and treatment Indication:Pharyngitis, acute Start:05-Nov-2007 Instruction Type:Patient Education Name Dates Details Patient Instructions Indication:Nonsmoker Start:29-Jan-2019 Instruction Type:Provider Instructions for Treatment How to access health informa tion online Indication:Nonsmoker Start:29-Jan-2019 Instruction Type:Patient Education How to access health informa tion online Indication:BMI 39.0-39.9,adult Start:22-Sep-2018 Instruction Type:Patient Education How to access health informa tion online - Detail Indication:BMI 39.0-39.9,adult Start:22-Sep-2018 Instruction Type:Patient Education Patient Instructions Indication:Cough Start:22-Sep-2018 Instruction Type:Provider Instructions for Treatment How to access health informa tion online Indication:Nonsmoker Start:29-Jul-2017 Instruction Type:Patient Education How to access health informa tion online - Detail Indication:Nonsmoker Start:29-Jul-2017 Instruction Type:Patient Education Patient Instructions Indication:Nonsmoker Start:29-Jul-2017 Instruction Type:Provider Instructions for Treatment How to access health informa tion online Indication:BMI 39.0-39.9,adult Start:29-Nov-2016 Instruction Type:Patient Education How to access health informa tion online - Detail Indication:BMI 39.0-39.9,adult Start:29-Nov-2016 Instruction Type:Patient Education Patient Instructions Indication:BMI 39.0-39.9,adult Start:29-Nov-2016 Instruction Type:Provider Instructions for Treatment How to access health informa tion online Indication:Body mass index 40.0-44.9, adult Start:15-Aug-2016 Instruction Type:Patient Education How to access health informa tion online - Detail Indication:Body mass index 40.0-44.9, adult Start:15-Aug-2016 Instruction Type:Patient Education Patient Instructions Indication:Body mass index 40.0-44.9, adult Start:15-Aug-2016 Instruction Type:Provider Instructions for Treatment How to access health informa tion online Indication:Other premature beats Start:10-Aug-2016 Instruction Type:Patient Education How to access health informa tion online - Detail Indication:Other premature beats Start:10-Aug-2016 Instruction Type:Patient Education Patient Instructions Indication:Other premature beats Start:10-Aug-2016 Instruction Type:Provider Instructions for Treatment How to access health informa tion online Indication:Chest pressure Start:01-Aug-2016 Instruction Type:Patient Education How to access health informa tion online - Detail Indication:Chest pressure Start:01-Aug-2016 Instruction Type:Patient Education Patient Instructions Indication:Chest pressure Start:01-Aug-2016 Instruction Type:Provider Instructions for Treatment Patient Instructions Indication:Nonsmoker Start:05-Mar-2016 Instruction Type:Provider Instructions for Treatment Patient Instructions Indication:Hypothyroidism Start:02-Sep-2015 Instruction Type:Provider Instructions for Treatment How to access health informa tion online Indication:Anxiety Start:31-Dec-2014 Instruction Type:Patient Education How to access health informa tion online - Detail Indication:Anxiety Start:31-Dec-2014 Instruction Type:Patient Education Patient Instructions Indication:Anxiety Start:31-Dec-2014 Instruction Type:Provider Instructions for Treatment How to access health informa tion online 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 Instruction Type:Patient Education How to access health informa tion online - Detail 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 Instruction Type:Patient Education Patient Instructions Indication:Cinthya's thyroiditis Start:25-Sep-2013 Instruction Type:Provider Instructions for Treatment Patient Instructions Indication:SOB (shortness of breath) on exertion Start:27-May-2013 Instruction Type:Provider Instructions for Treatment Sore throat: diagnosis and treatment Indication:Pharyngitis, acute Start:05-Nov-2007 Instruction Type:Patient Education Name Dates Details Patient Instructions Indication:Nonsmoker Start:29-Jan-2019 Instruction Type:Provider Instructions for Treatment How to access health informa tion online Indication:Nonsmoker Start:29-Jan-2019 Instruction Type:Patient Education How to access health informa tion online Indication:BMI 39.0-39.9,adult Start:22-Sep-2018 Instruction Type:Patient Education How to access health informa tion online - Detail Indication:BMI 39.0-39.9,adult Start:22-Sep-2018 Instruction Type:Patient Education Patient Instructions Indication:Cough Start:22-Sep-2018 Instruction Type:Provider Instructions for Treatment How to access health informa tion online Indication:Nonsmoker Start:29-Jul-2017 Instruction Type:Patient Education How to access health informa tion online - Detail Indication:Nonsmoker Start:29-Jul-2017 Instruction Type:Patient Education Patient Instructions Indication:Nonsmoker Start:29-Jul-2017 Instruction Type:Provider Instructions for Treatment How to access health informa tion online Indication:BMI 39.0-39.9,adult Start:29-Nov-2016 Instruction Type:Patient Education How to access health informa tion online - Detail Indication:BMI 39.0-39.9,adult Start:29-Nov-2016 Instruction Type:Patient Education Patient Instructions Indication:BMI 39.0-39.9,adult Start:29-Nov-2016 Instruction Type:Provider Instructions for Treatment How to access health informa tion online Indication:Body mass index 40.0-44.9, adult Start:15-Aug-2016 Instruction Type:Patient Education How to access health informa tion online - Detail Indication:Body mass index 40.0-44.9, adult Start:15-Aug-2016 Instruction Type:Patient Education Patient Instructions Indication:Body mass index 40.0-44.9, adult Start:15-Aug-2016 Instruction Type:Provider Instructions for Treatment How to access health informa tion online Indication:Other premature beats Start:10-Aug-2016 Instruction Type:Patient Education How to access health informa tion online - Detail Indication:Other premature beats Start:10-Aug-2016 Instruction Type:Patient Education Patient Instructions Indication:Other premature beats Start:10-Aug-2016 Instruction Type:Provider Instructions for Treatment How to access health informa tion online Indication:Chest pressure Start:01-Aug-2016 Instruction Type:Patient Education How to access health informa tion online - Detail Indication:Chest pressure Start:01-Aug-2016 Instruction Type:Patient Education Patient Instructions Indication:Chest pressure Start:01-Aug-2016 Instruction Type:Provider Instructions for Treatment Patient Instructions Indication:Nonsmoker Start:05-Mar-2016 Instruction Type:Provider Instructions for Treatment Patient Instructions Indication:Hypothyroidism Start:02-Sep-2015 Instruction Type:Provider Instructions for Treatment How to access health informa tion online Indication:Anxiety Start:31-Dec-2014 Instruction Type:Patient Education How to access health informa tion online - Detail Indication:Anxiety Start:31-Dec-2014 Instruction Type:Patient Education Patient Instructions Indication:Anxiety Start:31-Dec-2014 Instruction Type:Provider Instructions for Treatment How to access health informa tion online 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 Instruction Type:Patient Education How to access health informa tion online - Detail 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 Instruction Type:Patient Education Patient Instructions Indication:Cinthya's thyroiditis Start:25-Sep-2013 Instruction Type:Provider Instructions for Treatment Patient Instructions Indication:SOB (shortness of breath) on exertion Start:27-May-2013 Instruction Type:Provider Instructions for Treatment Sore throat: diagnosis and treatment Indication:Pharyngitis, acute Start:05-Nov-2007 Instruction Type:Patient Education Name Dates Details Patient Instructions Indication:Nonsmoker Start:29-Jan-2019 Instruction Type:Provider Instructions for Treatment How to access health informa tion online Indication:Nonsmoker Start:29-Jan-2019 Instruction Type:Patient Education How to access health informa tion online Indication:BMI 39.0-39.9,adult Start:22-Sep-2018 Instruction Type:Patient Education How to access health informa tion online - Detail Indication:BMI 39.0-39.9,adult Start:22-Sep-2018 Instruction Type:Patient Education Patient Instructions Indication:Cough Start:22-Sep-2018 Instruction Type:Provider Instructions for Treatment How to access health informa tion online Indication:Nonsmoker Start:29-Jul-2017 Instruction Type:Patient Education How to access health informa tion online - Detail Indication:Nonsmoker Start:29-Jul-2017 Instruction Type:Patient Education Patient Instructions Indication:Nonsmoker Start:29-Jul-2017 Instruction Type:Provider Instructions for Treatment How to access health informa tion online Indication:BMI 39.0-39.9,adult Start:29-Nov-2016 Instruction Type:Patient Education How to access health informa tion online - Detail Indication:BMI 39.0-39.9,adult Start:29-Nov-2016 Instruction Type:Patient Education Patient Instructions Indication:BMI 39.0-39.9,adult Start:29-Nov-2016 Instruction Type:Provider Instructions for Treatment How to access health informa tion online Indication:Body mass index 40.0-44.9, adult Start:15-Aug-2016 Instruction Type:Patient Education How to access health informa tion online - Detail Indication:Body mass index 40.0-44.9, adult Start:15-Aug-2016 Instruction Type:Patient Education Patient Instructions Indication:Body mass index 40.0-44.9, adult Start:15-Aug-2016 Instruction Type:Provider Instructions for Treatment How to access health informa tion online Indication:Other premature beats Start:10-Aug-2016 Instruction Type:Patient Education How to access health informa tion online - Detail Indication:Other premature beats Start:10-Aug-2016 Instruction Type:Patient Education Patient Instructions Indication:Other premature beats Start:10-Aug-2016 Instruction Type:Provider Instructions for Treatment How to access health informa tion online Indication:Chest pressure Start:01-Aug-2016 Instruction Type:Patient Education How to access health informa tion online - Detail Indication:Chest pressure Start:01-Aug-2016 Instruction Type:Patient Education Patient Instructions Indication:Chest pressure Start:01-Aug-2016 Instruction Type:Provider Instructions for Treatment Patient Instructions Indication:Nonsmoker Start:05-Mar-2016 Instruction Type:Provider Instructions for Treatment Patient Instructions Indication:Hypothyroidism Start:02-Sep-2015 Instruction Type:Provider Instructions for Treatment How to access health informa tion online Indication:Anxiety Start:31-Dec-2014 Instruction Type:Patient Education How to access health informa tion online - Detail Indication:Anxiety Start:31-Dec-2014 Instruction Type:Patient Education Patient Instructions Indication:Anxiety Start:31-Dec-2014 Instruction Type:Provider Instructions for Treatment How to access health informa tion online 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 Instruction Type:Patient Education How to access health informa tion online - Detail 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 Instruction Type:Patient Education Patient Instructions Indication:Cinthya's thyroiditis Start:25-Sep-2013 Instruction Type:Provider Instructions for Treatment Patient Instructions Indication:SOB (shortness of breath) on exertion Start:27-May-2013 Instruction Type:Provider Instructions for Treatment Sore throat: diagnosis and treatment Indication:Pharyngitis, acute Start:05-Nov-2007 Instruction Type:Patient Education Name Dates Details How to access health informa tion online Indication:BMI 34.0-34.9,adult Start:27-Aug-2019 Instruction Type:Patient Education How to access health informa tion online - Detail Indication:BMI 34.0-34.9,adult Start:27-Aug-2019 Instruction Type:Patient Education Patient Instructions Indication:BMI 34.0-34.9,adult Start:27-Aug-2019 Instruction Type:Provider Instructions for Treatment How to access health informa tion online Indication:Nonsmoker Start:27-Aug-2019 Instruction Type:Patient Education How to access health informa tion online - Detail Indication:Nonsmoker Start:27-Aug-2019 Instruction Type:Patient Education Patient Instructions Indication:Nonsmoker Start:27-Aug-2019 Instruction Type:Provider Instructions for Treatment Patient Instructions Indication:Nonsmoker Start:29-Jan-2019 Instruction Type:Provider Instructions for Treatment How to access health informa tion online Indication:Nonsmoker Start:29-Jan-2019 Instruction Type:Patient Education How to access health informa tion online Indication:BMI 39.0-39.9,adult Start:22-Sep-2018 Instruction Type:Patient Education How to access health informa tion online - Detail Indication:BMI 39.0-39.9,adult Start:22-Sep-2018 Instruction Type:Patient Education Patient Instructions Indication:Cough Start:22-Sep-2018 Instruction Type:Provider Instructions for Treatment How to access health informa tion online Indication:Nonsmoker Start:29-Jul-2017 Instruction Type:Patient Education How to access health informa tion online - Detail Indication:Nonsmoker Start:29-Jul-2017 Instruction Type:Patient Education Patient Instructions Indication:Nonsmoker Start:29-Jul-2017 Instruction Type:Provider Instructions for Treatment How to access health informa tion online Indication:BMI 39.0-39.9,adult Start:29-Nov-2016 Instruction Type:Patient Education How to access health informa tion online - Detail Indication:BMI 39.0-39.9,adult Start:29-Nov-2016 Instruction Type:Patient Education Patient Instructions Indication:BMI 39.0-39.9,adult Start:29-Nov-2016 Instruction Type:Provider Instructions for Treatment How to access health informa tion online Indication:Body mass index 40.0-44.9, adult Start:15-Aug-2016 Instruction Type:Patient Education How to access health informa tion online - Detail Indication:Body mass index 40.0-44.9, adult Start:15-Aug-2016 Instruction Type:Patient Education Patient Instructions Indication:Body mass index 40.0-44.9, adult Start:15-Aug-2016 Instruction Type:Provider Instructions for Treatment How to access health informa tion online Indication:Other premature beats Start:10-Aug-2016 Instruction Type:Patient Education How to access health informa tion online - Detail Indication:Other premature beats Start:10-Aug-2016 Instruction Type:Patient Education Patient Instructions Indication:Other premature beats Start:10-Aug-2016 Instruction Type:Provider Instructions for Treatment How to access health informa tion online Indication:Chest pressure Start:01-Aug-2016 Instruction Type:Patient Education How to access health informa tion online - Detail Indication:Chest pressure Start:01-Aug-2016 Instruction Type:Patient Education Patient Instructions Indication:Chest pressure Start:01-Aug-2016 Instruction Type:Provider Instructions for Treatment Patient Instructions Indication:Nonsmoker Start:05-Mar-2016 Instruction Type:Provider Instructions for Treatment Patient Instructions Indication:Hypothyroidism Start:02-Sep-2015 Instruction Type:Provider Instructions for Treatment How to access health informa tion online Indication:Anxiety Start:31-Dec-2014 Instruction Type:Patient Education How to access health informa tion online - Detail Indication:Anxiety Start:31-Dec-2014 Instruction Type:Patient Education Patient Instructions Indication:Anxiety Start:31-Dec-2014 Instruction Type:Provider Instructions for Treatment How to access health informa tion online 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 Instruction Type:Patient Education How to access health informa tion online - Detail 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 Instruction Type:Patient Education Patient Instructions Indication:Cinthya's thyroiditis Start:25-Sep-2013 Instruction Type:Provider Instructions for Treatment Patient Instructions Indication:SOB (shortness of breath) on exertion Start:27-May-2013 Instruction Type:Provider Instructions for Treatment Sore throat: diagnosis and treatment Indication:Pharyngitis, acute Start:05-Nov-2007 Instruction Type:Patient Education Name Dates Details How to access health informa tion online Indication:BMI 34.0-34.9,adult Start:27-Aug-2019 Instruction Type:Patient Education How to access health informa tion online - Detail Indication:BMI 34.0-34.9,adult Start:27-Aug-2019 Instruction Type:Patient Education Patient Instructions Indication:BMI 34.0-34.9,adult Start:27-Aug-2019 Instruction Type:Provider Instructions for Treatment How to access health informa tion online Indication:Nonsmoker Start:27-Aug-2019 Instruction Type:Patient Education How to access health informa tion online - Detail Indication:Nonsmoker Start:27-Aug-2019 Instruction Type:Patient Education Patient Instructions Indication:Nonsmoker Start:27-Aug-2019 Instruction Type:Provider Instructions for Treatment Patient Instructions Indication:Nonsmoker Start:29-Jan-2019 Instruction Type:Provider Instructions for Treatment How to access health informa tion online Indication:Nonsmoker Start:29-Jan-2019 Instruction Type:Patient Education How to access health informa tion online Indication:BMI 39.0-39.9,adult Start:22-Sep-2018 Instruction Type:Patient Education How to access health informa tion online - Detail Indication:BMI 39.0-39.9,adult Start:22-Sep-2018 Instruction Type:Patient Education Patient Instructions Indication:Cough Start:22-Sep-2018 Instruction Type:Provider Instructions for Treatment How to access health informa tion online Indication:Nonsmoker Start:29-Jul-2017 Instruction Type:Patient Education How to access health informa tion online - Detail Indication:Nonsmoker Start:29-Jul-2017 Instruction Type:Patient Education Patient Instructions Indication:Nonsmoker Start:29-Jul-2017 Instruction Type:Provider Instructions for Treatment How to access health informa tion online Indication:BMI 39.0-39.9,adult Start:29-Nov-2016 Instruction Type:Patient Education How to access health informa tion online - Detail Indication:BMI 39.0-39.9,adult Start:29-Nov-2016 Instruction Type:Patient Education Patient Instructions Indication:BMI 39.0-39.9,adult Start:29-Nov-2016 Instruction Type:Provider Instructions for Treatment How to access health informa tion online Indication:Body mass index 40.0-44.9, adult Start:15-Aug-2016 Instruction Type:Patient Education How to access health informa tion online - Detail Indication:Body mass index 40.0-44.9, adult Start:15-Aug-2016 Instruction Type:Patient Education Patient Instructions Indication:Body mass index 40.0-44.9, adult Start:15-Aug-2016 Instruction Type:Provider Instructions for Treatment How to access health informa tion online Indication:Other premature beats Start:10-Aug-2016 Instruction Type:Patient Education How to access health informa tion online - Detail Indication:Other premature beats Start:10-Aug-2016 Instruction Type:Patient Education Patient Instructions Indication:Other premature beats Start:10-Aug-2016 Instruction Type:Provider Instructions for Treatment How to access health informa tion online Indication:Chest pressure Start:01-Aug-2016 Instruction Type:Patient Education How to access health informa tion online - Detail Indication:Chest pressure Start:01-Aug-2016 Instruction Type:Patient Education Patient Instructions Indication:Chest pressure Start:01-Aug-2016 Instruction Type:Provider Instructions for Treatment Patient Instructions Indication:Nonsmoker Start:05-Mar-2016 Instruction Type:Provider Instructions for Treatment Patient Instructions Indication:Hypothyroidism Start:02-Sep-2015 Instruction Type:Provider Instructions for Treatment How to access health informa tion online Indication:Anxiety Start:31-Dec-2014 Instruction Type:Patient Education How to access health informa tion online - Detail Indication:Anxiety Start:31-Dec-2014 Instruction Type:Patient Education Patient Instructions Indication:Anxiety Start:31-Dec-2014 Instruction Type:Provider Instructions for Treatment How to access health informa tion online 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 Instruction Type:Patient Education How to access health informa tion online - Detail 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 Instruction Type:Patient Education Patient Instructions Indication:Cinthya's thyroiditis Start:25-Sep-2013 Instruction Type:Provider Instructions for Treatment Patient Instructions Indication:SOB (shortness of breath) on exertion Start:27-May-2013 Instruction Type:Provider Instructions for Treatment Sore throat: diagnosis and treatment Indication:Pharyngitis, acute Start:05-Nov-2007 Instruction Type:Patient Education Name Dates Details How to access health informa tion online Indication:Nonsmoker Start:19-Feb-2020 Instruction Type:Patient Education How to access health informa tion online - Detail Indication:Nonsmoker Start:19-Feb-2020 Instruction Type:Patient Education Patient Instructions Indication:Nonsmoker Start:19-Feb-2020 Instruction Type:Provider Instructions for Treatment How to access health informa tion online Indication:BMI 34.0-34.9,adult Start:27-Aug-2019 Instruction Type:Patient Education How to access health informa tion online - Detail Indication:BMI 34.0-34.9,adult Start:27-Aug-2019 Instruction Type:Patient Education Patient Instructions Indication:BMI 34.0-34.9,adult Start:27-Aug-2019 Instruction Type:Provider Instructions for Treatment How to access health informa tion online Indication:Nonsmoker Start:27-Aug-2019 Instruction Type:Patient Education How to access health informa tion online - Detail Indication:Nonsmoker Start:27-Aug-2019 Instruction Type:Patient Education Patient Instructions Indication:Nonsmoker Start:27-Aug-2019 Instruction Type:Provider Instructions for Treatment Patient Instructions Indication:Nonsmoker Start:29-Jan-2019 Instruction Type:Provider Instructions for Treatment How to access health informa tion online Indication:Nonsmoker Start:29-Jan-2019 Instruction Type:Patient Education How to access health informa tion online Indication:BMI 39.0-39.9,adult Start:22-Sep-2018 Instruction Type:Patient Education How to access health informa tion online - Detail Indication:BMI 39.0-39.9,adult Start:22-Sep-2018 Instruction Type:Patient Education Patient Instructions Indication:Cough Start:22-Sep-2018 Instruction Type:Provider Instructions for Treatment How to access health informa tion online Indication:Nonsmoker Start:29-Jul-2017 Instruction Type:Patient Education How to access health informa tion online - Detail Indication:Nonsmoker Start:29-Jul-2017 Instruction Type:Patient Education Patient Instructions Indication:Nonsmoker Start:29-Jul-2017 Instruction Type:Provider Instructions for Treatment How to access health informa tion online Indication:BMI 39.0-39.9,adult Start:29-Nov-2016 Instruction Type:Patient Education How to access health informa tion online - Detail Indication:BMI 39.0-39.9,adult Start:29-Nov-2016 Instruction Type:Patient Education Patient Instructions Indication:BMI 39.0-39.9,adult Start:29-Nov-2016 Instruction Type:Provider Instructions for Treatment How to access health informa tion online Indication:Body mass index 40.0-44.9, adult Start:15-Aug-2016 Instruction Type:Patient Education How to access health informa tion online - Detail Indication:Body mass index 40.0-44.9, adult Start:15-Aug-2016 Instruction Type:Patient Education Patient Instructions Indication:Body mass index 40.0-44.9, adult Start:15-Aug-2016 Instruction Type:Provider Instructions for Treatment How to access health informa tion online Indication:Other premature beats Start:10-Aug-2016 Instruction Type:Patient Education How to access health informa tion online - Detail Indication:Other premature beats Start:10-Aug-2016 Instruction Type:Patient Education Patient Instructions Indication:Other premature beats Start:10-Aug-2016 Instruction Type:Provider Instructions for Treatment How to access health informa tion online Indication:Chest pressure Start:01-Aug-2016 Instruction Type:Patient Education How to access health informa tion online - Detail Indication:Chest pressure Start:01-Aug-2016 Instruction Type:Patient Education Patient Instructions Indication:Chest pressure Start:01-Aug-2016 Instruction Type:Provider Instructions for Treatment Patient Instructions Indication:Nonsmoker Start:05-Mar-2016 Instruction Type:Provider Instructions for Treatment Patient Instructions Indication:Hypothyroidism Start:02-Sep-2015 Instruction Type:Provider Instructions for Treatment How to access health informa tion online Indication:Anxiety Start:31-Dec-2014 Instruction Type:Patient Education How to access health informa tion online - Detail Indication:Anxiety Start:31-Dec-2014 Instruction Type:Patient Education Patient Instructions Indication:Anxiety Start:31-Dec-2014 Instruction Type:Provider Instructions for Treatment How to access health informa tion online 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 Instruction Type:Patient Education How to access health informa tion online - Detail 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 Instruction Type:Patient Education Patient Instructions Indication:Cinthya's thyroiditis Start:25-Sep-2013 Instruction Type:Provider Instructions for Treatment Patient Instructions Indication:SOB (shortness of breath) on exertion Start:27-May-2013 Instruction Type:Provider Instructions for Treatment Sore throat: diagnosis and treatment Indication:Pharyngitis, acute Start:05-Nov-2007 Instruction Type:Patient Education Name Dates Details How to access health informa tion online Indication:Nonsmoker Start:19-Feb-2020 Instruction Type:Patient Education How to access health informa tion online - Detail Indication:Nonsmoker Start:19-Feb-2020 Instruction Type:Patient Education Patient Instructions Indication:Nonsmoker Start:19-Feb-2020 Instruction Type:Provider Instructions for Treatment How to access health informa tion online Indication:BMI 34.0-34.9,adult Start:27-Aug-2019 Instruction Type:Patient Education How to access health informa tion online - Detail Indication:BMI 34.0-34.9,adult Start:27-Aug-2019 Instruction Type:Patient Education Patient Instructions Indication:BMI 34.0-34.9,adult Start:27-Aug-2019 Instruction Type:Provider Instructions for Treatment How to access health informa tion online Indication:Nonsmoker Start:27-Aug-2019 Instruction Type:Patient Education How to access health informa tion online - Detail Indication:Nonsmoker Start:27-Aug-2019 Instruction Type:Patient Education Patient Instructions Indication:Nonsmoker Start:27-Aug-2019 Instruction Type:Provider Instructions for Treatment Patient Instructions Indication:Nonsmoker Start:29-Jan-2019 Instruction Type:Provider Instructions for Treatment How to access health informa tion online Indication:Nonsmoker Start:29-Jan-2019 Instruction Type:Patient Education How to access health informa tion online Indication:BMI 39.0-39.9,adult Start:22-Sep-2018 Instruction Type:Patient Education How to access health informa tion online - Detail Indication:BMI 39.0-39.9,adult Start:22-Sep-2018 Instruction Type:Patient Education Patient Instructions Indication:Cough Start:22-Sep-2018 Instruction Type:Provider Instructions for Treatment How to access health informa tion online Indication:Nonsmoker Start:29-Jul-2017 Instruction Type:Patient Education How to access health informa tion online - Detail Indication:Nonsmoker Start:29-Jul-2017 Instruction Type:Patient Education Patient Instructions Indication:Nonsmoker Start:29-Jul-2017 Instruction Type:Provider Instructions for Treatment How to access health informa tion online Indication:BMI 39.0-39.9,adult Start:29-Nov-2016 Instruction Type:Patient Education How to access health informa tion online - Detail Indication:BMI 39.0-39.9,adult Start:29-Nov-2016 Instruction Type:Patient Education Patient Instructions Indication:BMI 39.0-39.9,adult Start:29-Nov-2016 Instruction Type:Provider Instructions for Treatment How to access health informa tion online Indication:Body mass index 40.0-44.9, adult Start:15-Aug-2016 Instruction Type:Patient Education How to access health informa tion online - Detail Indication:Body mass index 40.0-44.9, adult Start:15-Aug-2016 Instruction Type:Patient Education Patient Instructions Indication:Body mass index 40.0-44.9, adult Start:15-Aug-2016 Instruction Type:Provider Instructions for Treatment How to access health informa tion online Indication:Other premature beats Start:10-Aug-2016 Instruction Type:Patient Education How to access health informa tion online - Detail Indication:Other premature beats Start:10-Aug-2016 Instruction Type:Patient Education Patient Instructions Indication:Other premature beats Start:10-Aug-2016 Instruction Type:Provider Instructions for Treatment How to access health informa tion online Indication:Chest pressure Start:01-Aug-2016 Instruction Type:Patient Education How to access health informa tion online - Detail Indication:Chest pressure Start:01-Aug-2016 Instruction Type:Patient Education Patient Instructions Indication:Chest pressure Start:01-Aug-2016 Instruction Type:Provider Instructions for Treatment Patient Instructions Indication:Nonsmoker Start:05-Mar-2016 Instruction Type:Provider Instructions for Treatment Patient Instructions Indication:Hypothyroidism Start:02-Sep-2015 Instruction Type:Provider Instructions for Treatment How to access health informa tion online Indication:Anxiety Start:31-Dec-2014 Instruction Type:Patient Education How to access health informa tion online - Detail Indication:Anxiety Start:31-Dec-2014 Instruction Type:Patient Education Patient Instructions Indication:Anxiety Start:31-Dec-2014 Instruction Type:Provider Instructions for Treatment How to access health informa tion online 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 Instruction Type:Patient Education How to access health informa tion online - Detail 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 Instruction Type:Patient Education Patient Instructions Indication:Cinthya's thyroiditis Start:25-Sep-2013 Instruction Type:Provider Instructions for Treatment Patient Instructions Indication:SOB (shortness of breath) on exertion Start:27-May-2013 Instruction Type:Provider Instructions for Treatment Sore throat: diagnosis and treatment Indication:Pharyngitis, acute Start:05-Nov-2007 Instruction Type:Patient Education Name Dates Details How to access health informa tion online Indication:Nonsmoker Start:19-Feb-2020 Instruction Type:Patient Education How to access health informa tion online - Detail Indication:Nonsmoker Start:19-Feb-2020 Instruction Type:Patient Education Patient Instructions Indication:Nonsmoker Start:19-Feb-2020 Instruction Type:Provider Instructions for Treatment How to access health informa tion online Indication:BMI 34.0-34.9,adult Start:27-Aug-2019 Instruction Type:Patient Education How to access health informa tion online - Detail Indication:BMI 34.0-34.9,adult Start:27-Aug-2019 Instruction Type:Patient Education Patient Instructions Indication:BMI 34.0-34.9,adult Start:27-Aug-2019 Instruction Type:Provider Instructions for Treatment How to access health informa tion online Indication:Nonsmoker Start:27-Aug-2019 Instruction Type:Patient Education How to access health informa tion online - Detail Indication:Nonsmoker Start:27-Aug-2019 Instruction Type:Patient Education Patient Instructions Indication:Nonsmoker Start:27-Aug-2019 Instruction Type:Provider Instructions for Treatment Patient Instructions Indication:Nonsmoker Start:29-Jan-2019 Instruction Type:Provider Instructions for Treatment How to access health informa tion online Indication:Nonsmoker Start:29-Jan-2019 Instruction Type:Patient Education How to access health informa tion online Indication:BMI 39.0-39.9,adult Start:22-Sep-2018 Instruction Type:Patient Education How to access health informa tion online - Detail Indication:BMI 39.0-39.9,adult Start:22-Sep-2018 Instruction Type:Patient Education Patient Instructions Indication:Cough Start:22-Sep-2018 Instruction Type:Provider Instructions for Treatment How to access health informa tion online Indication:Nonsmoker Start:29-Jul-2017 Instruction Type:Patient Education How to access health informa tion online - Detail Indication:Nonsmoker Start:29-Jul-2017 Instruction Type:Patient Education Patient Instructions Indication:Nonsmoker Start:29-Jul-2017 Instruction Type:Provider Instructions for Treatment How to access health informa tion online Indication:BMI 39.0-39.9,adult Start:29-Nov-2016 Instruction Type:Patient Education How to access health informa tion online - Detail Indication:BMI 39.0-39.9,adult Start:29-Nov-2016 Instruction Type:Patient Education Patient Instructions Indication:BMI 39.0-39.9,adult Start:29-Nov-2016 Instruction Type:Provider Instructions for Treatment How to access health informa tion online Indication:Body mass index 40.0-44.9, adult Start:15-Aug-2016 Instruction Type:Patient Education How to access health informa tion online - Detail Indication:Body mass index 40.0-44.9, adult Start:15-Aug-2016 Instruction Type:Patient Education Patient Instructions Indication:Body mass index 40.0-44.9, adult Start:15-Aug-2016 Instruction Type:Provider Instructions for Treatment How to access health informa tion online Indication:Other premature beats Start:10-Aug-2016 Instruction Type:Patient Education How to access health informa tion online - Detail Indication:Other premature beats Start:10-Aug-2016 Instruction Type:Patient Education Patient Instructions Indication:Other premature beats Start:10-Aug-2016 Instruction Type:Provider Instructions for Treatment How to access health informa tion online Indication:Chest pressure Start:01-Aug-2016 Instruction Type:Patient Education How to access health informa tion online - Detail Indication:Chest pressure Start:01-Aug-2016 Instruction Type:Patient Education Patient Instructions Indication:Chest pressure Start:01-Aug-2016 Instruction Type:Provider Instructions for Treatment Patient Instructions Indication:Nonsmoker Start:05-Mar-2016 Instruction Type:Provider Instructions for Treatment Patient Instructions Indication:Hypothyroidism Start:02-Sep-2015 Instruction Type:Provider Instructions for Treatment How to access health informa tion online Indication:Anxiety Start:31-Dec-2014 Instruction Type:Patient Education How to access health informa tion online - Detail Indication:Anxiety Start:31-Dec-2014 Instruction Type:Patient Education Patient Instructions Indication:Anxiety Start:31-Dec-2014 Instruction Type:Provider Instructions for Treatment How to access health informa tion online 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 Instruction Type:Patient Education How to access health informa tion online - Detail 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 Instruction Type:Patient Education Patient Instructions Indication:Cinthya's thyroiditis Start:25-Sep-2013 Instruction Type:Provider Instructions for Treatment Patient Instructions Indication:SOB (shortness of breath) on exertion Start:27-May-2013 Instruction Type:Provider Instructions for Treatment Sore throat: diagnosis and treatment Indication:Pharyngitis, acute Start:05-Nov-2007 Instruction Type:Patient Education Name Dates Details How to access health informa tion online Indication:Nonsmoker Start:19-Feb-2020 Instruction Type:Patient Education How to access health informa tion online - Detail Indication:Nonsmoker Start:19-Feb-2020 Instruction Type:Patient Education Patient Instructions Indication:Nonsmoker Start:19-Feb-2020 Instruction Type:Provider Instructions for Treatment How to access health informa tion online Indication:BMI 34.0-34.9,adult Start:27-Aug-2019 Instruction Type:Patient Education How to access health informa tion online - Detail Indication:BMI 34.0-34.9,adult Start:27-Aug-2019 Instruction Type:Patient Education Patient Instructions Indication:BMI 34.0-34.9,adult Start:27-Aug-2019 Instruction Type:Provider Instructions for Treatment How to access health informa tion online Indication:Nonsmoker Start:27-Aug-2019 Instruction Type:Patient Education How to access health informa tion online - Detail Indication:Nonsmoker Start:27-Aug-2019 Instruction Type:Patient Education Patient Instructions Indication:Nonsmoker Start:27-Aug-2019 Instruction Type:Provider Instructions for Treatment Patient Instructions Indication:Nonsmoker Start:29-Jan-2019 Instruction Type:Provider Instructions for Treatment How to access health informa tion online Indication:Nonsmoker Start:29-Jan-2019 Instruction Type:Patient Education How to access health informa tion online Indication:BMI 39.0-39.9,adult Start:22-Sep-2018 Instruction Type:Patient Education How to access health informa tion online - Detail Indication:BMI 39.0-39.9,adult Start:22-Sep-2018 Instruction Type:Patient Education Patient Instructions Indication:Cough Start:22-Sep-2018 Instruction Type:Provider Instructions for Treatment How to access health informa tion online Indication:Nonsmoker Start:29-Jul-2017 Instruction Type:Patient Education How to access health informa tion online - Detail Indication:Nonsmoker Start:29-Jul-2017 Instruction Type:Patient Education Patient Instructions Indication:Nonsmoker Start:29-Jul-2017 Instruction Type:Provider Instructions for Treatment How to access health informa tion online Indication:BMI 39.0-39.9,adult Start:29-Nov-2016 Instruction Type:Patient Education How to access health informa tion online - Detail Indication:BMI 39.0-39.9,adult Start:29-Nov-2016 Instruction Type:Patient Education Patient Instructions Indication:BMI 39.0-39.9,adult Start:29-Nov-2016 Instruction Type:Provider Instructions for Treatment How to access health informa tion online Indication:Body mass index 40.0-44.9, adult Start:15-Aug-2016 Instruction Type:Patient Education How to access health informa tion online - Detail Indication:Body mass index 40.0-44.9, adult Start:15-Aug-2016 Instruction Type:Patient Education Patient Instructions Indication:Body mass index 40.0-44.9, adult Start:15-Aug-2016 Instruction Type:Provider Instructions for Treatment How to access health informa tion online Indication:Other premature beats Start:10-Aug-2016 Instruction Type:Patient Education How to access health informa tion online - Detail Indication:Other premature beats Start:10-Aug-2016 Instruction Type:Patient Education Patient Instructions Indication:Other premature beats Start:10-Aug-2016 Instruction Type:Provider Instructions for Treatment How to access health informa tion online Indication:Chest pressure Start:01-Aug-2016 Instruction Type:Patient Education How to access health informa tion online - Detail Indication:Chest pressure Start:01-Aug-2016 Instruction Type:Patient Education Patient Instructions Indication:Chest pressure Start:01-Aug-2016 Instruction Type:Provider Instructions for Treatment Patient Instructions Indication:Nonsmoker Start:05-Mar-2016 Instruction Type:Provider Instructions for Treatment Patient Instructions Indication:Hypothyroidism Start:02-Sep-2015 Instruction Type:Provider Instructions for Treatment How to access health informa tion online Indication:Anxiety Start:31-Dec-2014 Instruction Type:Patient Education How to access health informa tion online - Detail Indication:Anxiety Start:31-Dec-2014 Instruction Type:Patient Education Patient Instructions Indication:Anxiety Start:31-Dec-2014 Instruction Type:Provider Instructions for Treatment How to access health informa tion online 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 Instruction Type:Patient Education How to access health informa tion online - Detail 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 Instruction Type:Patient Education Patient Instructions Indication:Cinthya's thyroiditis Start:25-Sep-2013 Instruction Type:Provider Instructions for Treatment Patient Instructions Indication:SOB (shortness of breath) on exertion Start:27-May-2013 Instruction Type:Provider Instructions for Treatment Sore throat: diagnosis and treatment Indication:Pharyngitis, acute Start:05-Nov-2007 Instruction Type:Patient Education Chief Complaint and Reason for Visit Chief Complaint 6 M FU Reason for Visit Dermatitis Health care maintenance Anxiety and depression Hypothyroidism Chief Complaint 6 M FU BUMP ON BACK SCREENING Reason for Visit Dermatitis Health care maintenance Anxiety and depression Hypothyroidism Low back pain Muscle spasm Chief Complaint YEARLY SCREENING Reason for Visit Asthma Health care maintenance Anxiety and depression Hypothyroidism Chief Complaint SCREENING ACUTE HIGH BP FOLLOW UP Reason for Visit Elevated blood press ure reading in office with diagnosis of hypertension Anxiety and depression Elevated blood pressure reading in office with diagnosis of hypertension Hypothyroidism Chief Complaint Admit Date MEDICATION FOLLOW UP September 10, 2024 2:20 pm Chief Complaint Admit Date MEDICATION FOLLOW UP September 10, 2024 2:20 pm LEFT KNEE October 13, 2024 8:52a m Room 6 October 13, 2024 9:11a m Reason for Visit Admit Date Preventative health care September 10, 2024 2:20pm Sleep concern September 10, 2024 2:20p m Anxiety and depression September 10, 2024 2: 20pm Hypothyroidism September 10, 2024 2:20p m Reason for Visit Admit Date Preventative health care September 10, 2024 2:20pm Sleep concern September 10, 2024 2:20p m Anxiety and depression September 10, 2024 2: 20pm Hypothyroidism September 10, 2024 2:20p m Difficulty walking due to knee joint Oct 8:52am Internal derangement of knee, acute October 13, 2024 8:52am Chief Complaint Admit Date MEDICATION FOLLOW UP September 10, 2024 2:20 pm LEFT KNEE October 13, 2024 8:52a m Room October 13, 2024 9:11a m LEFT KNEE October 22, 2024 8:24 am Reason for Visit Admit Date Preventative health care September 10, 2024 2:20pm Sleep concern September 10, 2024 2:20p m Anxiety and depression September 10, 2024 2: 20pm Hypothyroidism September 10, 2024 2:20p m Difficulty walking due to knee joint Oct 8:52am Internal derangement of knee, acute October 13, 2024 8:52am Acute medial meniscal tear October 22 8:24am Difficulty walking due to knee joint Oct 8:24am Internal derangement of knee, acute October 22, 2024 8:24am Chief Complaint Admit Date MEDICATION FOLLOW UP September 10, 2024 2:20 pm LEFT KNEE October 13, 2024 8:52a m Room October 13, 2024 9:11a m LEFT KNEE October 22, 2024 8:24 am LEFT KNEE October 28, 2024 2:23 pm Reason for Visit Admit Date Preventative health care September 10, 2024 2:20pm Sleep concern September 10, 2024 2:20p m Anxiety and depression September 10, 2024 2: 20pm Hypothyroidism September 10, 2024 2:20p m Difficulty walking due to knee joint Oct 8:52am Internal derangement of knee, acute October 13, 2024 8:52am Acute medial meniscal tear October 22 8:24am Difficulty walking due to knee joint Oct 8:24am Internal derangement of knee, acute October 22, 2024 8:24am Chondromalacia, left knee October 28 2:23pm Medial meniscus tear October 28, 2024 2:2 3pm Advance Directives No Advanced Directives Records Found Advance Directive Response Recorded Date/ Time Living Will No March 05, 021 9:34pm Power of [employer]1 Operator No March 05, 2021 9:34pm Advance Directive Response Recorded Date/ Time Living Will No March 05, 021 8:34pm Power of [employer]1 Operator No March 05, 2021 8:34pm Advance Directive Response Recorded Date/ Time Living Will No May 29 12:51pm Power of [employer]k1 Operator No May 29, 2023 12:51pm Summary Purpose Additional Source Comments Goals (unrecognized section and content) Goals may be documented in a n alternate sectionGoals may be documented in an alternate sectionGoals may be documented in an alternate sectionGoals may be documented in an alternate sectionGoals may be documented in an alternate sectionGoals may be documented in an alternate sectionGoals may be documented in an alternate sectionGoals may be documented in an alternate sectionGoals may be documented in an alternate sectionGoals may be documented in an alternate sectionGoals may be documented in an alternate section Care Teams (unrecognized sec tion and content) Team Status: Active Member Role Status Dates Dr. Bibiana Mulligan DO Family Provider Active Dr. Estrella Vinsno MD Primary Care Provider Active Team Status: Inactive Member Role Status Dates Dr. Estrella Vinson MD Primary Care Provider, Atten ding Provider Active Team Status: Inactive Member Role Status Dates Dr. Estrella Vinson MD Primary Care P samson, Attending Provider, Referring Provider Active Team Status: Inactive Member Role Status Dates Dr. Estrella Vinson MD Primary Care Provider, Refer ring Provider Active JANET Morgan Attending Provider Active Team Status: Inactive Member Role Status Dates Dr. Estrella Vinson MD Primary Care Provider Active JANET Morgan Attending Provider, Referring Prov ider Active Team Status: Active Member Role Status Dates Dr. Estrella Vinson MD Primary Care Provider Active Team Status: Inactive Member Role Status Dates Dr. Estrella Vinson MD Primary Care Provider Active Start: August 31, 2024 End: August 31, 2024 Dr. Estrella Vinson MD Attending Provider Active Start: August 31, 2024 End: August 31, 2024 Dr. Estrella Vinson MD Referring Provider Active Start: August 31, 2024 End: August 31, 2024 Team Status: Inactive Member Role Status Dates Dr. Estrella Vinson MD Primary Care Provider Active Start: September 10, 2024 End: September 10, 2024 Dr. Estrella Vinson MD Attending Provider Active Start: September 10, 2024 End: September 10, 2024 Dr. Estrella Vinson MD Referring Provider Active Start: September 10, 2024 End: September 10, 2024 Team Status: Active Member Role/Relationship Status Dates Dr. Estrella Vinson MD Primary Care Provider Active Team Status: Inactive Member Role/Relationship Status Dates Dr. Estrella Vinson MD Primary Care Provider Active Start: August 31, 2024 End: August 31, 2024 Dr. Estrella Vinson MD Attending Provider Active Start: August 31, 2024 End: August 31, 2024 Dr. Estrella Vinson MD Referring Provider Active Start: August 31, 2024 End: August 31, 2024 Team Status: Inactive Member Role/Relationship Status Dates Dr. Estrella Vinson MD Primary Care Provider Active Start: September 10, 2024 End: September 10, 2024 Dr. Estrella Vinson MD Attending Provider Active Start: September 10, 2024 End: September 10, 2024 Dr. Estrella Vinson MD Referring Provider Active Start: September 10, 2024 End: September 10, 2024 Team Status: Active Member Role/Relationship Status Dates Dr. Estrella Vinson MD Primary Care Provider Active Start: October 13, 2024 Dr. Estrella Vinson MD Referring Provider Active Start: October 13, 2024 DANUTA Doyle Attending Provider Active Start: October 13, 2024 Team Status: Inactive Member Role/Relationship Status Dates Dr. Estrella Vinson MD Primary Care Provider Active Start: October 13, 2024 End: October 13, 2024 Dr. Henry Berumen MD Attending Provider Active S tart: October 13, 2024 End: October 13, 2024 Team Status: Inactive Member Role/Relationship Status Dates Dr. Estrella Vinson MD Primary Care Provider Active Start: October 13, 2024 End: October 13, 2024 Dr. Estrella Vinson MD Referring Provider Active Start: October 13, 2024 End: October 13, 2024 DANUTA Doyle Attending Provider Active Start: October 13, 2024 End: October 13, 2024 Team Status: Inactive Member Role/Relationship Status Dates Dr. Estrella Vinson MD Primary Care Provider Active Start: October 22, 2024 End: October 22, 2024 Dr. Estrella Vinson MD Referring Provider Active Start: October 22, 2024 End: October 22, 2024 DANUTA Doyle Attending Provider Active Start: October 22, 2024 End: October 22, 2024 Team Status: Active Member Role/Relationship Status Dates Dr. Estrella Vinson MD Primary Care Provider Active Start: October 22, 2024 Dr. Estrella Vinson MD Attending Provider Active Start: October 22, 2024 Team Status: Inactive Member Role/Relationship Status Dates Dr. Estrella Vinson MD Primary Care Provider Active Start: October 28, 2024 End: October 28, 2024 Dr. Estrella Vinson MD Referring Provider Active Start: October 28, 2024 End: October 28, 2024 Dr. Alan Soliz DO Attending Provider Active Start: October 28, 2024 End: October 28, 2024 Team Status: Inactive Member Role/Relationship Status Dates Dr. Estrella Vinson MD Primary Care Provider Active Start: October 22, 2024 End: October 22, 2024 Dr. Estrella Vinson MD Attending Provider Active Start: October 22, 2024 End: October 22, 2024 INFORMATION SOURCE (unrecogn ized section and content) DATE CREATED AUTHOR 02/23/2025 [facility] FOR RECORDS PERTAINING TO PATIENTS WHO ARE OR HAVE BEEN ENROLLED IN A CHEMICAL DEPENDENCY/SUBSTANCEABUSE PROGRAM, SOME INFORMATION MAY BE OMITTED. This clinical summary was aggregated from multiple sources. Caution should be exercised in using it in the provision of clinical care. This summary normalizes information from multiple sources, and as a consequence, information in this document may materially change the coding, format and clinical context of patient data. In addition, data may be omitted in some cases. CLINICAL DECISIONS SHOULD BE BASED ON THE PRIMARY CLINICAL RECORDS. [facility] [facility]. provides no warranty or guarantee of the accuracy or completeness of information in this document.
[2025-04-09 10:48] LABS: Vitamin D,25 Hydroxy 31.7 ng/mL (30-100)
== END | disposition home or self-care (01) ==
LOC: LAB 09:08
PROVIDERS: PCP Internal Medicine; Referring Provider Internal Medicine; Visit Provider Internal Medicine
DX: E03.9 Hypothyroidism, unspecified (principal); F41.9 Anxiety disorder, unspecified; F32.9 Major depressive disorder, single episode, unspecified
CPT/HCPCS: 36415; 82306; 84443